=== PATIENT | female | born 1945 | race Caucasian/White ===

== ENCOUNTER → 2020-07-06 09:30 | Outpatient (REF) | payer MEDICARE, SELFPAY ==
--- NOTE | 2020-07-06 09:30 | CA_ITS ---
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 Cardiomyopathy, Hypertension Study Quality: Fair ECG Rhythm: Sinus Conclusions: - The left ventricular systolic function is normal. The visually estimated ejection fraction is between 60-65%. - No obvious valvular pathology seen on this study. Findings Left Ventricle Normal left ventricular cavity size. There is normal left ventricular wall thickness. The left ventricular systolic function is normal. The visually estimated ejection fraction is between 60-65%. There is no evidence of regional wall motion abnormalities. Diastolic function is normal for age. Right Ventricle Normal right ventricular cavity size and systolic function. Atria The left atrium is normal in size. The right atrium is normal in size. Aortic Valve There is a normal trileaflet aortic valve. There is no aortic valve stenosis. There is no aortic valve regurgitation. Mitral Valve The mitral valve appears normal. There is trace mitral valve regurgitation. There is no mitral valve stenosis. Pulmonic Valve The pulmonic valve was not well visualized. Tricuspid Valve Normal tricuspid valve structure. There is trace tricuspid valve regurgitation. The pulmonary artery systolic pressure is normal. Great Vessels The aortic annulus, sinuses of valsalva, and asc aorta are normal in size. Venous The inferior vena cava is normal in size and collapses greater than 50% with inspiration. Pericardium/Pleural There is no evidence of pericardial effusion. Prior Study Comparison No significant change compared to prior study dated: 07/03/2018. Recommendations, Care & Conclusions No obvious valvular pathology seen on this study. Measurements 2D Linear Measurements IVSd: 0.90 0.6-0.9/0.6-1.0 cm LVIDd: 4.21 3.9-5.3/4.2-5.9 cm LVIDs: 2.55 2.0-3.6 cm LVPWd: 0.74 0.7-1.1 cm LV Mass: 130.85 67-162/88-224 g LVOT Diam: 1.99 3.0+(-)1.3 cm Mitral Valve MV Pk E: 0.67 MV PK A: 0.33 MV Decel Time: 178.61 E/A: 2.00 E'Medial: 0.08 E/E' Med: 0.10 Decel Baca: 3.74 Aortic Valve AoV Pk Vitor: 0.92 AoV Pk Grad: 3.38 LVOT LVOT Pk Vitor: 0.82 LVOT Mn Vitor: 0.54 LVOT VTI: 0.19 LVOT Pk Grad: 2.68 LVOT Mn Grad: 1.33 LVOT Diam: 1.99 LVOT Area: 3.12 Diastolic Function MV Pk E: 0.67 MV Pk A: 0.33 E/A: 2.00 E'Medial: 0.08 E/E' Med: 0.10 Tricuspid Valve TR Pk Vitor: 2.47 TR Pk Grad: 24.49 RA Press: 3.00 Great Vessels Aorta Ao Asc: 3.00 2.1-3.4 cm Updated in Other Vendor System with Status of Final Rojelio Wynn MD electronically signed on 07/08/2020 2:17:01 PM with status of Final
== END ==
LOC: HO.CARD 09:30
PROVIDERS: PCP Internal Medicine; Visit Provider Internal Medicine Cardiovascular Disease
DX: I48.91 Unspecified atrial fibrillation (principal); R00.1 Bradycardia, unspecified; Z79.01 Long term (current) use of anticoagulants
CPT/HCPCS: 93306

== ENCOUNTER → 2020-07-06 15:17 | Outpatient (BNVA) | payer MEDICARE, SELFPAY | PROVIDERS: PCP Internal Medicine; Visit Provider Internal Medicine | DX: I48.20 Chronic atrial fibrillation, unspecified (principal); Z51.81 Encounter for therapeutic drug level monitoring; Z79.01 Long term (current) use of anticoagulants; I48.0 Paroxysmal atrial fibrillation; I10 Essential (primary) hypertension; Z86.79 Personal history of other diseases of the circulatory system | CPT/HCPCS: 85610; 93306; 99211 ==

== ENCOUNTER → 2020-07-15 08:43 | Outpatient (BNVA) | payer MEDICARE, SELFPAY | PROVIDERS: PCP Internal Medicine; Referring Provider Internal Medicine; Visit Provider Nurse Practitioner Family | DX: I48.0 Paroxysmal atrial fibrillation (principal); I42.9 Cardiomyopathy, unspecified; R00.1 Bradycardia, unspecified; E78.5 Hyperlipidemia, unspecified; I10 Essential (primary) hypertension; Z79.01 Long term (current) use of anticoagulants; Z79.899 Other long term (current) drug therapy | CPT/HCPCS: 99214 ==

== ENCOUNTER → 2020-08-04 14:23 | Outpatient (BNVA) | payer MEDICARE, SELFPAY | PROVIDERS: PCP Internal Medicine; Referring Provider Internal Medicine; Visit Provider Internal Medicine | DX: I48.20 Chronic atrial fibrillation, unspecified (principal); Z51.81 Encounter for therapeutic drug level monitoring; Z79.01 Long term (current) use of anticoagulants | CPT/HCPCS: 85610; 99211 ==

== ENCOUNTER → 2020-09-02 08:27 | Outpatient (BNVA) | payer MEDICARE, SELFPAY | PROVIDERS: PCP Internal Medicine; Visit Provider Internal Medicine | DX: I48.20 Chronic atrial fibrillation, unspecified (principal); Z51.81 Encounter for therapeutic drug level monitoring; Z79.01 Long term (current) use of anticoagulants | CPT/HCPCS: 85610; 99211 ==

== ENCOUNTER 2020-09-15 08:13 | Outpatient (REF) | payer MEDICARE, SELFPAY ==
[2020-09-15 09:33] LABS: Basophils Percent Auto 0.2 % (0-2); MANUAL DIFF FLAG SCAN; PLT CLUMP 1; SCAN SMEAR FLAG 1
[2020-09-15 09:35] LABS: Eosinophils Absolute Auto 0.1 X10*3/uL (0.0-0.4); Eosinophils Percent Auto 2.3 % (0-4); Imm Gran Abs Auto 0.03 X10*3/uL (0.00-0.03); Imm Gran Pct Auto 0.6 % (0.0-0.4); Lymphocytes Absolute Auto 1.5 X10*3/uL (1.2-4.9); Lymphocytes Percent Auto 27.7 % (20-40); Mean Corpuscular HGB Conc 33.3 g/dl (31.0-35.0); Mean Corpuscular Hemoglobin 30.9 pg (27.0-33.0); Mean Corpuscular Volume 92.8 fL (80-98); Monocytes Absolute Auto 0.5 X10*3/uL (0.1-1.2); Monocytes Percent Auto 8.9 % (2-11); Neutrophils Absolute Auto 3.2 X10*3/uL (2.0-8.3); Neutrophils Percent Auto 60.3 % (45-73); Red Blood Count 4.85 X10*6/uL (4.20-5.50); Red Cell Distribution Width 13.1 % (11.0-16.0); White Blood Count 5.3 X10*3/uL (4.8-10.8)
[2020-09-15 09:54] LABS: Alanine Aminotransferase 26 U/L (0-31); Albumin Level 4.1 g/dL (3.5-5.0); Alkaline Phosphatase 103 U/L (39-117); Anion Gap 13 (12-20); Aspartate Amino Transferase 24 U/L (5-31); Bilirubin Total 0.5 mg/dL (0.0-1.0); Blood Urea Nitrogen 19 mg/dL (9-16); Calcium 8.5 mg/dL (8.4-10.2); Carbon Dioxide 26 mmol/L (22-29); Chloride 106 mmol/L (96-108); Cholesterol 155 mg/dL; Estimated Glomerular Filt Rate 50; Glucose Random 89 mg/dL (60-115); HDL Cholesterol 54 mg/dL; LDL Cholesterol Calculated 70 mg/dl; Potassium 4.4 mmol/l (3.3-5.1); Sodium 141 mmol/L (135-145); Total Protein 6.8 g/dL (6.5-8.0); Triglycerides 155 mg/dL
[2020-09-15 10:04] LABS: Free T4 (Free Thyroxine) 1.14 ng/dL (0.71-1.85); Thyroid Stimulating Hormone 3.87 uIU/mL (0.32-4.0); Vitamin D 25-OH Total 64.5 ng/mL (>30)
[2020-09-15 10:15] LABS: SLIDE REVIEW VERIFIED
[2020-09-15 10:26] LABS: Folate > 20.0 ng/mL (> or = 4.0); Vitamin B12 569 pg/mL (200-900)
== END 2020-09-15 08:14 | disposition home or self-care (01) ==
LOC: HO.LAB 08:13
PROVIDERS: Visit Provider Internal Medicine
DX: I48.0 Paroxysmal atrial fibrillation (principal); E78.00 Pure hypercholesterolemia, unspecified; I10 Essential (primary) hypertension
CPT/HCPCS: 36415; 80053; 80061; 82306; 82607; 82746; 84439; 84443; 85025

== ENCOUNTER → 2020-09-30 08:12 | Outpatient (BNVA) | payer MEDICARE, SELFPAY | PROVIDERS: PCP Internal Medicine; Visit Provider Internal Medicine | DX: I48.20 Chronic atrial fibrillation, unspecified (principal); Z51.81 Encounter for therapeutic drug level monitoring; Z79.01 Long term (current) use of anticoagulants | CPT/HCPCS: 85610; 99211 ==

== ENCOUNTER → 2020-10-14 09:14 | Outpatient (BNVA) | payer MEDICARE, SELFPAY | PROVIDERS: PCP Internal Medicine; Visit Provider Internal Medicine | DX: I48.20 Chronic atrial fibrillation, unspecified (principal); Z79.01 Long term (current) use of anticoagulants; Z51.81 Encounter for therapeutic drug level monitoring | CPT/HCPCS: 85610; 99211 ==

== ENCOUNTER → 2020-10-29 08:35 | Outpatient (BNVA) | payer MEDICARE, SELFPAY | PROVIDERS: PCP Internal Medicine; Visit Provider Internal Medicine | DX: I48.20 Chronic atrial fibrillation, unspecified (principal); Z51.81 Encounter for therapeutic drug level monitoring; Z79.01 Long term (current) use of anticoagulants | CPT/HCPCS: 85610; 99211 ==

== ENCOUNTER 2020-11-04 | Outpatient (REF) | payer MEDICARE, SELFPAY | END 2020-11-04 00:01 | disposition home or self-care (01) | LOC: HO.VC | PROVIDERS: Visit Provider Internal Medicine | DX: Z23 Encounter for immunization (principal) | CPT/HCPCS: 0011A ==

== ENCOUNTER → 2020-11-19 08:40 | Outpatient (BNVA) | payer MEDICARE, SELFPAY | PROVIDERS: PCP Internal Medicine; Visit Provider Internal Medicine | DX: I48.20 Chronic atrial fibrillation, unspecified (principal); Z51.81 Encounter for therapeutic drug level monitoring; Z79.01 Long term (current) use of anticoagulants | CPT/HCPCS: 85610; 99211 ==

== ENCOUNTER 2020-12-02 | Outpatient (REF) | payer MEDICARE, SELFPAY | END 2020-12-02 00:01 | disposition home or self-care (01) | LOC: HO.VC | PROVIDERS: Visit Provider Internal Medicine | DX: Z23 Encounter for immunization (principal) | CPT/HCPCS: 0012A ==

== ENCOUNTER → 2020-12-17 08:38 | Outpatient (BNVA) | payer MEDICARE, SELFPAY | PROVIDERS: PCP Internal Medicine; Visit Provider Internal Medicine | DX: I48.20 Chronic atrial fibrillation, unspecified (principal); Z51.81 Encounter for therapeutic drug level monitoring; Z79.01 Long term (current) use of anticoagulants | CPT/HCPCS: 85610; 99211 ==

== ENCOUNTER 2021-01-12 13:36 | Outpatient (REF) | payer MEDICARE, SELFPAY ==
[2021-01-12 14:04] LABS: MANUAL DIFF FLAG NO
[2021-01-12 14:08] LABS: Basophils Percent Auto 0.5 % (0-2); Eosinophils Absolute Auto 0.4 X10*3/uL (0.0-0.4); Eosinophils Percent Auto 6.7 % (0-4); Hematocrit 42.7 % (37-47); Hemoglobin 14.3 g/dl (12.0-16.0); Imm Gran Abs Auto 0.03 X10*3/uL (0.00-0.03); Imm Gran Pct Auto 0.5 % (0.0-0.4); Lymphocytes Absolute Auto 1.6 X10*3/uL (1.2-4.9); Lymphocytes Percent Auto 27.3 % (20-40); Mean Corpuscular HGB Conc 33.5 g/dl (31.0-35.0); Mean Corpuscular Hemoglobin 31.3 pg (27.0-33.0); Mean Corpuscular Volume 93.4 fL (80-98); Mean Platelet Volume 9.6 fL (9.4-12.3); Monocytes Absolute Auto 0.6 X10*3/uL (0.1-1.2); Monocytes Percent Auto 10.1 % (2-11); Neutrophils Absolute Auto 3.2 X10*3/uL (2.0-8.3); Neutrophils Percent Auto 54.9 % (45-73); Platelet Count 198 X10*3/uL (160-400); Red Blood Count 4.57 X10*6/uL (4.20-5.50); Red Cell Distribution Width 13.3 % (11.0-16.0); White Blood Count 5.8 X10*3/uL (4.8-10.8)
== END 2021-01-12 13:37 | disposition home or self-care (01) ==
LOC: HO.LAB 13:36
PROVIDERS: PCP Internal Medicine; Visit Provider Internal Medicine
DX: D69.1 Qualitative platelet defects (principal); M19.90 Unspecified osteoarthritis, unspecified site
CPT/HCPCS: 36415; 85025

== ENCOUNTER → 2021-01-14 08:30 | Outpatient (BNVA) | payer MEDICARE, SELFPAY | PROVIDERS: PCP Internal Medicine; Visit Provider Internal Medicine | DX: I48.20 Chronic atrial fibrillation, unspecified (principal); Z79.01 Long term (current) use of anticoagulants; Z51.81 Encounter for therapeutic drug level monitoring | CPT/HCPCS: 85610; 99211 ==

== ENCOUNTER → 2021-02-02 13:52 | Outpatient (BNVA) | payer MEDICARE, SELFPAY | PROVIDERS: PCP Internal Medicine; Referring Provider Internal Medicine; Visit Provider Internal Medicine Cardiovascular Disease | DX: I48.0 Paroxysmal atrial fibrillation (principal); I42.9 Cardiomyopathy, unspecified; Z79.899 Other long term (current) drug therapy | CPT/HCPCS: 93005; 99212 ==

== ENCOUNTER → 2021-02-11 08:17 | Outpatient (BNVA) | payer MEDICARE, SELFPAY | PROVIDERS: PCP Internal Medicine; Visit Provider Internal Medicine | DX: I48.20 Chronic atrial fibrillation, unspecified (principal); Z51.81 Encounter for therapeutic drug level monitoring; Z79.01 Long term (current) use of anticoagulants | CPT/HCPCS: 85610; 99211 ==

== ENCOUNTER → 2021-03-04 08:21 | Outpatient (BNVA) | payer MEDICARE, SELFPAY | PROVIDERS: PCP Internal Medicine; Visit Provider Internal Medicine | DX: I48.20 Chronic atrial fibrillation, unspecified (principal); Z51.81 Encounter for therapeutic drug level monitoring; Z79.01 Long term (current) use of anticoagulants | CPT/HCPCS: 85610; 99211 ==

== ENCOUNTER → 2021-04-01 08:13 | Outpatient (BNVA) | payer MEDICARE, SELFPAY | PROVIDERS: PCP Internal Medicine; Visit Provider Internal Medicine | DX: I48.20 Chronic atrial fibrillation, unspecified (principal); Z51.81 Encounter for therapeutic drug level monitoring; Z79.01 Long term (current) use of anticoagulants | CPT/HCPCS: 85610; 99211 ==

== ENCOUNTER → 2021-05-06 08:22 | Outpatient (BNVA) | payer MEDICARE, SELFPAY | PROVIDERS: PCP Internal Medicine; Visit Provider Internal Medicine | DX: I48.20 Chronic atrial fibrillation, unspecified (principal); Z51.81 Encounter for therapeutic drug level monitoring; Z79.01 Long term (current) use of anticoagulants | CPT/HCPCS: 85610; 99211 ==

== ENCOUNTER 2021-05-20 13:23 | Outpatient (REF) | payer MEDICARE, SELFPAY ==
--- NOTE | ~2021-05-20 | MM_ITS ---
EXAMINATION: MM SCREENING DIGITAL BREAST TOMOSYNTHESIS, BILATERAL CLINICAL INFORMATION: Screening. Asymptomatic. The lifetime risk of breast cancer based on the Tyrer-Cuzick Model is 2%. COMPARISON: Mammography: 03/23/2020, 01/07/2019, 12/14/2017 TECHNIQUE: Digital breast tomosynthesis is performed in both the craniocaudal and mediolateral oblique views along with computer-aided detection (CAD). Synthesized 2D images are generated from the tomosynthesis. FINDINGS: The breasts are heterogeneously dense, which may obscure small masses (ACR BI-RADS breast composition Category c). There are no significant masses, abnormal calcifications, or other abnormalities. Parenchymal pattern is similar to prior studies. No developing density. No significant changes. MM/MM tomosynthesis screening BI IMPRESSION: No mammographic evidence of malignancy. ASSESSMENT: BI-RADS 1: Negative RECOMMENDATION: Routine annual mammography screening. This patient's information was entered into a reminder system with a target due date for their next mammogram.
== END 2021-05-20 13:24 | disposition home or self-care (01) ==
LOC: HO.MAMMO 13:23
PROVIDERS: PCP Internal Medicine; Visit Provider Internal Medicine
DX: Z12.31 Encounter for screening mammogram for malignant neoplasm of breast (principal)
CPT/HCPCS: 77063; 77067

== ENCOUNTER → 2021-06-03 08:27 | Outpatient (BNVA) | payer MEDICARE, SELFPAY | PROVIDERS: PCP Internal Medicine; Visit Provider Internal Medicine | DX: I48.20 Chronic atrial fibrillation, unspecified (principal); Z51.81 Encounter for therapeutic drug level monitoring; Z79.01 Long term (current) use of anticoagulants | CPT/HCPCS: 85610; 99211 ==

== ENCOUNTER → 2021-07-01 08:20 | Outpatient (BNVA) | payer MEDICARE, SELFPAY | PROVIDERS: PCP Internal Medicine; Visit Provider Internal Medicine | DX: I48.20 Chronic atrial fibrillation, unspecified (principal); Z51.81 Encounter for therapeutic drug level monitoring; Z79.01 Long term (current) use of anticoagulants | CPT/HCPCS: 85610; 99211 ==

== ENCOUNTER → 2021-07-29 08:31 | Outpatient (BNVA) | payer MEDICARE, SELFPAY | PROVIDERS: PCP Internal Medicine; Visit Provider Internal Medicine | DX: I48.20 Chronic atrial fibrillation, unspecified (principal); Z51.81 Encounter for therapeutic drug level monitoring; Z79.01 Long term (current) use of anticoagulants | CPT/HCPCS: 85610; 99211 ==

== ENCOUNTER 2021-08-10 07:15 | Outpatient (REF) | payer MEDICARE, SELFPAY ==
[2021-08-10 07:35] LABS: MANUAL DIFF FLAG NO
[2021-08-10 08:05] LABS: Basophils Percent Auto 0.2 % (0-2); Eosinophils Absolute Auto 0.1 X10*3/uL (0.0-0.4); Eosinophils Percent Auto 2.3 % (0-4); Hematocrit 43.6 % (37.0-47.0); Hemoglobin 14.6 g/dl (12.0-16.0); Imm Gran Abs Auto 0.01 X10*3/uL (0.00-0.03); Imm Gran Pct Auto 0.2 % (0.0-0.4); Lymphocytes Absolute Auto 1.5 X10*3/uL (1.2-4.9); Lymphocytes Percent Auto 28.8 % (20-40); Mean Corpuscular HGB Conc 33.5 g/dl (31.0-35.0); Mean Corpuscular Hemoglobin 31.3 pg (27.0-33.0); Mean Corpuscular Volume 93.4 fL (80.0-98.0); Mean Platelet Volume 10.4 fL (9.4-12.3); Monocytes Absolute Auto 0.5 X10*3/uL (0.1-1.2); Monocytes Percent Auto 9.2 % (2-11); Neutrophils Absolute Auto 3.1 x10*3/uL (2.0-8.3); Neutrophils Percent Auto 59.3 % (45-73); Platelet Count 194 X10*3/uL (160-400); Red Blood Count 4.67 X10*6/uL (4.20-5.50); Red Cell Distribution Width 13.4 % (11.0-16.0); White Blood Count 5.2 X10*3/uL (4.8-10.8)
[2021-08-10 08:43] LABS: Alanine Aminotransferase 23 U/L (0-31); Albumin Level 4.2 g/dL (3.5-5.0); Alkaline Phosphatase 92 U/L (39-117); Anion Gap 13 (12-20); Aspartate Amino Transferase 23 U/L (5-31); Bilirubin Total 0.4 mg/dL (0.0-1.0); Blood Urea Nitrogen 16 mg/dL (9-16); Calcium 9.1 mg/dL (8.4-10.2); Carbon Dioxide 26 mmol/L (22-29); Chloride 108 mmol/L (96-108); Cholesterol 147 mg/dL; Estimated Glomerular Filt Rate 49; Glucose Random 92 mg/dL (60-115); HDL Cholesterol 50 mg/dL; LDL Cholesterol Calculated 50 mg/dl; Potassium 4.8 mmol/L (3.3-5.1); Sodium 142 mmol/L (135-145); Triglycerides 238 mg/dL
[2021-08-10 09:07] LABS: Appearance Urine CLEAR; Color Urine YELLOW; Glucose Urine UA NEG (NEG); Leukocyte Esterase Urine NEG (NEG); Nitrite Urine NEG (NEG); PH 5.5 (5.0-8.0); Urine Blood NEG (NEG); Urine Ketones NEG (NEG); Urine Protein NEG (NEG-TRACE)
[2021-08-10 09:14] LABS: Thyroid Stimulating Hormone 3.58 uIU/mL (0.32-4.0)
[2021-08-10 09:24] LABS: RBC Urine 0-2 /HPF (0); Squamous Epithelial Cell Urine 1+ /LPF; WBC Urine 0 /HPF (0-4)
[2021-08-10 09:29] LABS: Folate 19.7 ng/mL (> or = 4.0); Vitamin B12 617 pg/mL (200-900)
[2021-08-10 09:46] LABS: Free T4 (Free Thyroxine) 1.08 ng/dL (0.71-1.85)
== END 2021-08-10 07:16 | disposition home or self-care (01) ==
LOC: HO.LAB 07:15
PROVIDERS: PCP Internal Medicine; Visit Provider Internal Medicine
DX: I48.0 Paroxysmal atrial fibrillation (principal); E78.00 Pure hypercholesterolemia, unspecified
CPT/HCPCS: 36415; 80053; 80061; 81001; 82607; 82746; 84439; 84443; 85025

== ENCOUNTER → 2021-08-11 10:07 | Outpatient (BNVA) | payer MEDICARE, SELFPAY | PROVIDERS: PCP Internal Medicine; Referring Provider Internal Medicine; Visit Provider Internal Medicine Cardiovascular Disease | DX: I48.0 Paroxysmal atrial fibrillation (principal); I42.9 Cardiomyopathy, unspecified | CPT/HCPCS: 93005; 99212 ==

== ENCOUNTER 2021-08-31 07:33 | Outpatient (REF) | payer MEDICARE, SELFPAY | END 2021-08-31 07:34 | disposition home or self-care (01) | LOC: HO.LAB 07:33 | PROVIDERS: PCP Internal Medicine; Visit Provider Internal Medicine | DX: Z20.822 Contact with and (suspected) exposure to COVID-19 (principal) | CPT/HCPCS: C9803; U0003; U0005 ==

== ENCOUNTER → 2021-09-02 08:35 | Outpatient (BNVA) | payer MEDICARE, SELFPAY | PROVIDERS: PCP Internal Medicine; Visit Provider Internal Medicine | DX: I48.20 Chronic atrial fibrillation, unspecified (principal); Z51.81 Encounter for therapeutic drug level monitoring; Z79.01 Long term (current) use of anticoagulants | CPT/HCPCS: 85610; 99211 ==

== ENCOUNTER → 2021-09-30 08:53 | Outpatient (BNVA) | payer MEDICARE, SELFPAY | PROVIDERS: PCP Internal Medicine; Visit Provider Internal Medicine | DX: I48.20 Chronic atrial fibrillation, unspecified (principal); Z51.81 Encounter for therapeutic drug level monitoring; Z79.01 Long term (current) use of anticoagulants | CPT/HCPCS: 85610; 99211 ==

== ENCOUNTER → 2021-10-28 08:22 | Outpatient (BNVA) | payer MEDICARE, SELFPAY | PROVIDERS: PCP Internal Medicine; Visit Provider Internal Medicine | DX: I48.20 Chronic atrial fibrillation, unspecified (principal); Z51.81 Encounter for therapeutic drug level monitoring; Z79.01 Long term (current) use of anticoagulants | CPT/HCPCS: 85610; 99211 ==

== ENCOUNTER 2021-11-02 08:31 | Outpatient (REF) | payer MEDICARE, SELFPAY ==
--- NOTE | ~2021-11-02 | XR_ITS ---
EXAMINATION: XR LEFT HIP XR RIGHT KNEE CLINICAL INFORMATION: Pain left hip and right knee. COMPARISON: None TECHNIQUE: 2 views left hip and 3 views right knee FINDINGS: LEFT HIP: There is no visible acute fracture, dislocation or subluxation. There are no bony erosive changes or spurring. No loose bodies. The soft tissues are normal. RIGHT KNEE: There is mild loss of medial and patellofemoral compartment joint space. No bony erosive changes. No visible acute fracture, dislocation or lytic process seen. The soft tissues are normal. XR/XR hip LT min 2V IMPRESSION: Unremarkable left hip exam. Mild degenerative changes medial and patellofemoral compartment right knee.
--- NOTE | ~2021-11-02 | XR_ITS ---
EXAMINATION: XR LEFT HIP XR RIGHT KNEE CLINICAL INFORMATION: Pain left hip and right knee. COMPARISON: None TECHNIQUE: 2 views left hip and 3 views right knee FINDINGS: LEFT HIP: There is no visible acute fracture, dislocation or subluxation. There are no bony erosive changes or spurring. No loose bodies. The soft tissues are normal. RIGHT KNEE: There is mild loss of medial and patellofemoral compartment joint space. No bony erosive changes. No visible acute fracture, dislocation or lytic process seen. The soft tissues are normal. XR/XR knee RT 2V IMPRESSION: Unremarkable left hip exam. Mild degenerative changes medial and patellofemoral compartment right knee.
== END 2021-11-02 08:32 | disposition home or self-care (01) ==
LOC: HO.XRAY 08:31
PROVIDERS: PCP Internal Medicine; Visit Provider Internal Medicine
DX: M25.561 Pain in right knee (principal); M25.552 Pain in left hip
CPT/HCPCS: 73502; 73560

== ENCOUNTER → 2021-11-25 08:24 | Outpatient (BNVA) | payer MEDICARE, SELFPAY | PROVIDERS: PCP Internal Medicine; Visit Provider Internal Medicine | DX: I48.20 Chronic atrial fibrillation, unspecified (principal); Z51.81 Encounter for therapeutic drug level monitoring; Z79.01 Long term (current) use of anticoagulants | CPT/HCPCS: 85610; 99211 ==

== ENCOUNTER → 2021-12-23 08:13 | Outpatient (BNVA) | payer MEDICARE, SELFPAY | PROVIDERS: PCP Internal Medicine; Visit Provider Internal Medicine | DX: I48.20 Chronic atrial fibrillation, unspecified (principal); Z51.81 Encounter for therapeutic drug level monitoring; Z79.01 Long term (current) use of anticoagulants | CPT/HCPCS: 85610; 99211 ==

== ENCOUNTER → 2022-01-20 08:21 | Outpatient (BNVA) | payer MEDICARE, SELFPAY | PROVIDERS: PCP Internal Medicine; Visit Provider Internal Medicine | DX: I48.20 Chronic atrial fibrillation, unspecified (principal); Z79.01 Long term (current) use of anticoagulants; Z51.81 Encounter for therapeutic drug level monitoring | CPT/HCPCS: 85610; 99211 ==

== ENCOUNTER → 2022-02-14 10:41 | Outpatient (BNVA) | payer MEDICARE, SELFPAY | PROVIDERS: PCP Internal Medicine; Referring Provider Internal Medicine; Visit Provider Internal Medicine Cardiovascular Disease | DX: I48.0 Paroxysmal atrial fibrillation (principal); I42.9 Cardiomyopathy, unspecified; R00.1 Bradycardia, unspecified | CPT/HCPCS: 93005; 99212 ==

== ENCOUNTER → 2022-02-17 08:16 | Outpatient (BNVA) | payer MEDICARE, SELFPAY | PROVIDERS: PCP Internal Medicine; Visit Provider Internal Medicine | DX: I48.20 Chronic atrial fibrillation, unspecified (principal); Z79.01 Long term (current) use of anticoagulants; Z51.81 Encounter for therapeutic drug level monitoring | CPT/HCPCS: 85610; 99211 ==

== ENCOUNTER → 2022-03-17 08:19 | Outpatient (BNVA) | payer MEDICARE, SELFPAY | PROVIDERS: PCP Internal Medicine; Visit Provider Internal Medicine | DX: I48.20 Chronic atrial fibrillation, unspecified (principal); Z79.01 Long term (current) use of anticoagulants; Z51.81 Encounter for therapeutic drug level monitoring | CPT/HCPCS: 85610; 99211 ==

== ENCOUNTER → 2022-04-14 08:31 | Outpatient (BNVA) | payer MEDICARE, SELFPAY | PROVIDERS: PCP Internal Medicine; Visit Provider Internal Medicine | DX: I48.20 Chronic atrial fibrillation, unspecified (principal); Z79.01 Long term (current) use of anticoagulants; Z51.81 Encounter for therapeutic drug level monitoring | CPT/HCPCS: 85610; 99211 ==

== ENCOUNTER → 2022-05-19 08:20 | Outpatient (BNVA) | payer MEDICARE, SELFPAY | PROVIDERS: PCP Internal Medicine; Visit Provider Internal Medicine | DX: I48.20 Chronic atrial fibrillation, unspecified (principal); Z79.01 Long term (current) use of anticoagulants; Z51.81 Encounter for therapeutic drug level monitoring | CPT/HCPCS: 85610; 99211 ==

== ENCOUNTER 2022-05-25 08:58 | Outpatient (REF) | payer MEDICARE, SELFPAY ==
--- NOTE | ~2022-05-25 | MM_ITS ---
EXAMINATION: BONE DENSITOMETRY CLINICAL INDICATION: Age-related osteoporosis without current pathological fracture. COMPARISON: Previous BD dated 12/02/2019 and baseline BD dated 08/18/2006. TECHNIQUE: Using a [employer] DXA System (software version: 13.1) manufactured by [employer], dual-energy x-ray absorptiometry was performed of the lumbar spine and left hip. The images are of good technical quality. Summary results are attached. FINDINGS: AP SPINE L1-L4 (excluding L2): The data of L1-L4 has been changed to exclude the L2 vertebral body, because scoliosis and degenerative change at this level may cause overestimation of lumbar spine density. Current: BMD 1.281 g/cm2, Z-score 2.7, T-score 0.9, normal, 7.6% increase from previous, 4.3% decrease from baseline (<5% change is not significant). Prior: BMD 1.190 g/cm2. Baseline: BMD 1.339 g/cm2. LEFT FEMUR, NECK: Current: BMD 0.715 g/cm2, Z-score -0.3, T-score -2.3, osteopenia. Prior: BMD 0.687 g/cm2. Baseline: BMD 0.849 g/cm2. LEFT FEMUR, TOTAL: Current: BMD 0.795 g/cm2, Z-score 0.2, T-score -1.7, osteopenia, 6.6% increase from previous, 11.2% decrease from baseline (<5% change is not significant). Prior: BMD 0.746 g/cm2. Baseline: BMD 0.895 g/cm2. IDENTIFIED RISK FACTORS: Early menopause, secondary osteoporosis, hysterectomy, bilateral oophorectomy, height loss, history of fracture (adult). HISTORY OF FRACTURE: Humerus. MEDICATIONS: Calcium supplements or multivitamin, vitamin D. MM/XR DEXA axial skeleton IMPRESSION: 1. DIAGNOSIS: Osteopenia based on the lowest T-score value of -2.3 in the femoral neck applying World Health Organization criteria. 2. 10-YEAR FRACTURE RISK PREDICTION, FRAX: Major osteoporotic fracture (clinical spine, forearm, hip or shoulder) 25.0%. Hip fracture 7.6%. 3. Treatment Recommendations: NOF guidelines recommend consideration for treatment in postmenopausal women and men age 50 and older presenting with the following: -A hip or vertebral (clinical or morphometric) fracture. -T-score less than or equal to -2.5 at the femoral neck or spine after appropriate evaluation to exclude secondary causes. -Low bone mass at the hip or spine and a 10-year fracture probability by FRAX of greater than or equal to 3% for hip fracture or greater than or equal to 20% for major osteoporotic fracture based on the [place] adapted WHO algorithm. 4. Other Recommendations: All treatment decisions require clinical judgment and consideration of individual patient factors, including patient preferences, comorbidities, previous drug use, risk factors not captured in the FRAX model (e.g. frailty, falls, vitamin D deficiency, increased bone turnover, interval significant decline in bone density) and possible under or overestimation of fracture risk by FRAX. Additional medical evaluation for secondary cause of low bone mineral density may be appropriate. FUTURE SCAN RECOMMENDATION: People with diagnosed cases of osteoporosis or at high risk for fracture should have regular bone mineral density tests. For patients eligible for Medicare, routine testing is allowed once every 2 years. The testing frequency can be increased to one year for patients who have rapidly progressing disease, those who are receiving or discontinuing medical therapy to restore bone mass, or have additional risk factors.
== END 2022-05-25 08:59 | disposition home or self-care (01) ==
LOC: HO.MAMMO 08:58
PROVIDERS: PCP Internal Medicine; Visit Provider Internal Medicine
DX: Z13.820 Encounter for screening for osteoporosis (principal); M81.0 Age-related osteoporosis without current pathological fracture; Z78.0 Asymptomatic menopausal state
CPT/HCPCS: 77080

== ENCOUNTER 2022-05-26 09:33 | Outpatient (REF) | payer MEDICARE, SELFPAY ==
--- NOTE | ~2022-05-26 | MM_ITS ---
EXAMINATION: MM SCREENING DIGITAL BREAST TOMOSYNTHESIS, BILATERAL CLINICAL INFORMATION: Screening. Asymptomatic. The lifetime risk of breast cancer based on the Tyrer-Cuzick Model is 1.4%. COMPARISON: Mammography: May 20, 2021 and studies dating back to October 11, 2011 TECHNIQUE: Digital breast tomosynthesis is performed in both the craniocaudal and mediolateral oblique views along with computer-aided detection (CAD). Synthesized 2D images are generated from the tomosynthesis. FINDINGS: The breasts are heterogeneously dense, which may obscure small masses (ACR BI-RADS breast composition Category c). There are no significant masses, abnormal calcifications, or other abnormalities. MM/MM tomosynthesis screening BI IMPRESSION: No significant changes from prior exam. ASSESSMENT: BI-RADS 1: Negative RECOMMENDATION: Routine annual mammography screening. This patient's information was entered into a reminder system with a target due date for their next mammogram.
== END 2022-05-26 09:34 | disposition home or self-care (01) ==
LOC: HO.MAMMO 09:33
PROVIDERS: Visit Provider Internal Medicine
DX: Z12.31 Encounter for screening mammogram for malignant neoplasm of breast (principal)
CPT/HCPCS: 77063; 77067

== ENCOUNTER → 2022-06-15 08:23 | Outpatient (BNVA) | payer MEDICARE, SELFPAY | PROVIDERS: PCP Internal Medicine; Visit Provider Internal Medicine | DX: I48.20 Chronic atrial fibrillation, unspecified (principal); Z79.01 Long term (current) use of anticoagulants; Z51.81 Encounter for therapeutic drug level monitoring | CPT/HCPCS: 85610; 99211 ==

== ENCOUNTER 2022-07-07 08:02 | Outpatient (REF) | payer MEDICARE, SELFPAY ==
[2022-07-07 08:30] LABS: MANUAL DIFF FLAG NO
[2022-07-07 09:59] LABS: B Type Natriuretic Peptide 71 pg/mL (<100)
[2022-07-07 10:24] LABS: Alanine Aminotransferase 32 U/L (0-31); Albumin Level 4.1 g/dL (3.5-5.0); Alkaline Phosphatase 104 U/L (39-117); Anion Gap 14 (12-20); Aspartate Amino Transferase 25 U/L (5-31); Bilirubin Total 0.4 mg/dL (0.0-1.0); Blood Urea Nitrogen 16 mg/dL (9-16); Calcium 8.9 mg/dL (8.4-10.2); Carbon Dioxide 27 mmol/L (22-29); Chloride 106 mmol/L (96-108); Cholesterol 149 mg/dL; Estimated Glomerular Filt Rate 46; Glucose Random 88 mg/dL (60-115); HDL Cholesterol 53 mg/dL; LDL Cholesterol Calculated 63 mg/dl; Sodium 142 mmol/L (135-145); Total Protein 6.8 g/dL (6.5-8.0); Triglycerides 168 mg/dL
[2022-07-07 10:49] LABS: Free T4 (Free Thyroxine) 1.12 ng/dL (0.71-1.85); Thyroid Stimulating Hormone 2.81 uIU/mL (0.32-4.0); Vitamin D 25-OH Total 58.3 ng/mL (>30)
[2022-07-07 11:09] LABS: Basophils Percent Auto 0.5 % (0-2); Eosinophils Absolute Auto 0.2 X10*3/uL (0.0-0.4); Eosinophils Percent Auto 3.4 % (0-4); Hematocrit 43.7 % (37.0-47.0); Hemoglobin 14.5 g/dl (12.0-16.0); Imm Gran Abs Auto 0.04 X10*3/uL (0.00-0.03); Imm Gran Pct Auto 0.7 % (0.0-0.4); Lymphocytes Absolute Auto 1.6 X10*3/uL (1.2-4.9); Lymphocytes Percent Auto 27.8 % (20-40); Mean Corpuscular HGB Conc 33.2 g/dl (31.0-35.0); Mean Corpuscular Hemoglobin 30.5 pg (27.0-33.0); Mean Platelet Volume 11.2 fL (9.4-12.3); Monocytes Absolute Auto 0.5 X10*3/uL (0.1-1.2); Monocytes Percent Auto 9.5 % (2-11); Neutrophils Absolute Auto 3.2 x10*3/uL (2.0-8.3); Neutrophils Percent Auto 58.1 % (45-73); Platelet Count 143 X10*3/uL (160-400); Red Blood Count 4.75 X10*6/uL (4.20-5.50); Red Cell Distribution Width 13.5 % (11.0-16.0); White Blood Count 5.6 X10*3/uL (4.8-10.8)
[2022-07-07 11:28] LABS: Folate 19.4 ng/mL (> or = 4.0); Vitamin B12 527 pg/mL (200-900)
== END 2022-07-07 08:03 | disposition home or self-care (01) ==
LOC: HO.LAB 08:02
PROVIDERS: PCP Internal Medicine; Visit Provider Internal Medicine
DX: E78.00 Pure hypercholesterolemia, unspecified (principal); I10 Essential (primary) hypertension; I42.9 Cardiomyopathy, unspecified
CPT/HCPCS: 36415; 80053; 80061; 82306; 82607; 82746; 83880; 84439; 84443; 85025

== ENCOUNTER → 2022-07-14 08:33 | Outpatient (BNVA) | payer MEDICARE, SELFPAY | PROVIDERS: PCP Internal Medicine; Visit Provider Internal Medicine | DX: I48.20 Chronic atrial fibrillation, unspecified (principal); Z79.01 Long term (current) use of anticoagulants; Z51.81 Encounter for therapeutic drug level monitoring | CPT/HCPCS: 85610; 99211 ==

== ENCOUNTER → 2022-08-04 08:10 | Outpatient (REF) | payer MEDICARE, SELFPAY ==
--- NOTE | 2022-08-04 08:12 | CA_ITS ---
Transthoracic Echocardiogram Patient (Last, First, Middle): Jenny Zhang M Gender: Female Date of : 1945 Age: 77 Procedure Date: 08/04/2022 Procedure Type: Transthoracic Echocardiogram Location: OP Height: 167.64 cm Weight: 68.04 kg BSA: 1.77 m2 Heart Rate: 61 bpm BP: 125 / 70 mmHg Missile Inspector: RAVIN Referring MD: Tomi Coffey MD Symptoms: I42.9 - Cardiomyopathy, unspecified Study Quality: Adequate ECG Rhythm: Sinus Conclusions: - The left ventricular systolic function is normal. The calculated ejection fraction is 64% by biplane method. - No obvious valvular pathology seen on this study. Findings Left Ventricle Normal left ventricular cavity size. There is normal left ventricular wall thickness. The left ventricular systolic function is normal. The calculated ejection fraction is 64% by biplane method. There is no evidence of regional wall motion abnormalities. Diastolic function is normal for age. Right Ventricle Normal right ventricular cavity size and systolic function. Atria Both atria are normal in size. Aortic Valve There is a normal trileaflet aortic valve. There is no aortic valve stenosis. There is no aortic valve regurgitation. Mitral Valve The mitral valve appears normal. There is trace mitral valve regurgitation. There is no mitral valve stenosis. Pulmonic Valve The pulmonic valve is likely normal. Tricuspid Valve The tricuspid valve was not well visualized. There is trace tricuspid valve regurgitation. There is no evidence of pulmonary hypertension. Great Vessels The asc aorta and aortic arch are normal in size. Venous The inferior vena cava is normal in size and collapses greater than 50% with inspiration. Pericardium/Pleural There is no evidence of pericardial effusion. Prior Study Comparison No significant change compared to prior study dated: 07/06/2020. Recommendations, Care & Conclusions No obvious valvular pathology seen on this study. Measurements 2D Linear Measurements IVSd: 0.99 0.6-0.9/0.6-1.0 cm LVIDd: 4.37 3.9-5.3/4.2-5.9 cm LVIDd Index: 2.47 2.4-3.2/2.2-3.1 cm/m2 LVIDs: 2.69 2.0-3.6 cm LVPWd: 0.64 0.7-1.1 cm LA Diam: 3.10 2.7-3.8/3.0-4.0 cm LAIDs Index: 1.75 1.5-2.3 cm/m2 LV Mass: 138.07 67-162/88-224 g LV Mass Index: 78.01 43-95/49-115 g/m2 LVOT Diam: 1.90 3.0+(-)1.3 cm 2D Systolic Function EF 4C: 60.60 >55% EF 2C: 70.10 >55% EF BiP: 63.80 >55% Mitral Valve MV Pk E: 0.71 MV PK A: 0.51 MV Decel Time: 201.00 E/A: 1.40 E'Lateral: 10.30 E'Medial: 8.76 E/E' Med: 8.10 E/E' Lat: 6.90 PHT: 59.00 MVA PHT: 3.73 Decel [place]: 3.52 Aortic Valve AoV Pk Vitor: 0.97 AoV Mn Vitor: 0.75 AoV VTI: 0.24 AoV Pk Grad: 4.00 Aov Mn Grad: 2.00 CRISTINA Cont.VTI: 2.66 LVOT LVOT Pk Vitor: 0.88 LVOT Mn Vitor: 0.63 LVOT VTI: 0.22 LVOT Pk Grad: 3.00 LVOT Mn Grad: 2.00 LVOT Diam: 1.90 LVOT Area: 2.84 Diastolic Function MV Pk E: 0.71 MV Pk A: 0.51 E/A: 1.40 E'Medial: 8.76 E/E' Med: 8.10 E' Laterial: 10.30 E/E' Lat: 6.90 Right Ventricle TAPSE (mm): 23.20 TVS' Vitor: 9.55 Tricuspid Valve RA Press: 3.00 Great Vessels Aorta Sinus of Valsalva: 3.30 2.0-3.5 cm Ao Asc: 3.00 2.1-3.4 cm Pulmonary Valve PV Pk Vitor: 0.77 Peak PV Grad: 2.00 Updated in Other Vendor System with Status of Final Rojelio Wynn MD electronically signed on 08/06/2022 10:05:45 AM with status of Final
== END ==
LOC: HO.CARD 08:10
PROVIDERS: PCP Internal Medicine; Visit Provider Internal Medicine Cardiovascular Disease
DX: I42.9 Cardiomyopathy, unspecified (principal)
CPT/HCPCS: 93306

== ENCOUNTER → 2022-08-10 08:19 | Outpatient (BNVA) | payer MEDICARE, SELFPAY | PROVIDERS: PCP Internal Medicine; Visit Provider Internal Medicine | DX: I48.20 Chronic atrial fibrillation, unspecified (principal); Z79.01 Long term (current) use of anticoagulants; Z51.81 Encounter for therapeutic drug level monitoring | CPT/HCPCS: 85610; 99211 ==

== ENCOUNTER → 2022-08-29 10:01 | Outpatient (BNVA) | payer MEDICARE, SELFPAY | PROVIDERS: PCP Internal Medicine; Referring Provider Internal Medicine; Visit Provider Internal Medicine Cardiovascular Disease | DX: I48.0 Paroxysmal atrial fibrillation (principal); I10 Essential (primary) hypertension | CPT/HCPCS: 81001; 87086; 87088; 87186; 93005; 99212 ==

== ENCOUNTER 2022-08-29 10:29 | Outpatient (REF) | payer MEDICARE, SELFPAY ==
[2022-08-29 11:34] LABS: Appearance Urine Cloudy; Color Urine Yellow; Glucose Urine UA Negative (Negative); Leukocyte Esterase Urine Moderate (2+) (Negative); Nitrite Urine Negative (Negative); PH 5.5 (5.0-9.0); UMIC TRIGGER UA YES; Urine Blood Large (3+) (Negative); Urine Ketones Negative (Negative); Urine Protein Trace mg/dL (Neg-Trace)
[2022-08-29 11:40] LABS: Bacteria Urine 4+ (None Seen); Hyaline Casts Urine 0-2 /LPF (0-2); RBC Urine >20 /HPF (0-2); Squamous Epithelial Cell Urine 0-2 /HPF (0-2); WBC Urine >50 /HPF (0-5)
== END 2022-08-29 10:30 | disposition home or self-care (01) ==
LOC: HO.LAB 10:29
PROVIDERS: Visit Provider Internal Medicine Cardiovascular Disease
DX: Z13.89 Encounter for screening for other disorder (principal)
CPT/HCPCS: 81001; 87086

== ENCOUNTER → 2022-09-08 08:05 | Outpatient (BNVA) | payer MEDICARE, SELFPAY | PROVIDERS: PCP Internal Medicine; Visit Provider Internal Medicine | DX: I48.20 Chronic atrial fibrillation, unspecified (principal); Z79.01 Long term (current) use of anticoagulants; Z51.81 Encounter for therapeutic drug level monitoring | CPT/HCPCS: 85610; 99211 ==

== ENCOUNTER → 2022-10-06 08:17 | Outpatient (BNVA) | payer MEDICARE, SELFPAY | PROVIDERS: PCP Internal Medicine; Visit Provider Internal Medicine | DX: I48.20 Chronic atrial fibrillation, unspecified (principal); Z79.01 Long term (current) use of anticoagulants; Z51.81 Encounter for therapeutic drug level monitoring | CPT/HCPCS: 85610; 99211 ==

== ENCOUNTER → 2022-11-03 08:33 | Outpatient (BNVA) | payer MEDICARE, SELFPAY | PROVIDERS: PCP Internal Medicine; Visit Provider Internal Medicine | DX: I48.20 Chronic atrial fibrillation, unspecified (principal); Z79.01 Long term (current) use of anticoagulants; Z51.81 Encounter for therapeutic drug level monitoring | CPT/HCPCS: 85610; 99211 ==

== ENCOUNTER → 2022-12-01 08:34 | Outpatient (BNVA) | payer MEDICARE, SELFPAY | PROVIDERS: PCP Internal Medicine; Visit Provider Internal Medicine | DX: I48.20 Chronic atrial fibrillation, unspecified (principal); Z79.01 Long term (current) use of anticoagulants; Z51.81 Encounter for therapeutic drug level monitoring | CPT/HCPCS: 85610; 99211 ==

== ENCOUNTER → 2022-12-29 08:30 | Outpatient (BNVA) | payer MEDICARE, SELFPAY | PROVIDERS: PCP Internal Medicine; Visit Provider Internal Medicine | DX: I48.20 Chronic atrial fibrillation, unspecified (principal); Z79.01 Long term (current) use of anticoagulants; Z51.81 Encounter for therapeutic drug level monitoring | CPT/HCPCS: 85610; 99211 ==

== ENCOUNTER → 2023-01-03 12:48 | Outpatient (REF) | payer MEDICARE, SELFPAY ==
--- NOTE | 2023-01-03 12:59 | ECG_ITS ---
Test Reason : pre op Blood Pressure : / mmHG Vent. Rate : 057 BPM Atrial Rate : 057 BPM P-R Int : 158 ms QRS Dur : 100 ms QT Int : 460 ms P-R-T Axes : 090 026 053 degrees QTc Int : 447 ms Sinus bradycardia Nonspecific T wave abnormality Abnormal ECG When compared with ECG of 09-AUG-2019 14:11, T wave inversion no longer evident in Anterior leads Referred By: Marylu Humphreys Electronically Signed By:Darren Mcgrath
[2023-01-03 13:07] LABS: MANUAL DIFF FLAG NO
[2023-01-03 13:22] LABS: Hematocrit 43.2 % (37.0-47.0); Hemoglobin 15.2 g/dl (12.0-16.0); Mean Corpuscular HGB Conc 35.2 g/dl (31.0-35.0); Mean Corpuscular Hemoglobin 31.7 pg (27.0-33.0); Mean Platelet Volume 10.6 fL (9.4-12.3); Platelet Count 154 X10*3/uL (160-400); Red Cell Distribution Width 13.1 % (11.0-16.0); White Blood Count 5.6 X10*3/uL (4.8-10.8)
[2023-01-03 13:23] LABS: Basophils Percent Auto 0.2 % (0-2); Eosinophils Absolute Auto 0.1 X10*3/uL (0.0-0.4); Eosinophils Percent Auto 1.2 % (0-4); Imm Gran Abs Auto 0.02 X10*3/uL (0.00-0.03); Imm Gran Pct Auto 0.4 % (0.0-0.4); Lymphocytes Absolute Auto 1.8 X10*3/uL (1.2-4.9); Lymphocytes Percent Auto 32.6 % (20-40); Monocytes Absolute Auto 0.5 X10*3/uL (0.1-1.2); Monocytes Percent Auto 8.2 % (2-11); Neutrophils Absolute Auto 3.2 x10*3/uL (2.0-8.3); Neutrophils Percent Auto 57.4 % (45-73)
[2023-01-03 14:17] LABS: Anion Gap 15 (12-20); Blood Urea Nitrogen 19 mg/dL (9-16); Calcium 9.4 mg/dL (8.4-10.2); Carbon Dioxide 26 mmol/L (22-29); Chloride 103 mmol/L (96-108); Estimated Glomerular Filt Rate 45; Glucose Random 91 mg/dL (60-115); Potassium 4.5 mmol/L (3.3-5.1); Sodium 139 mmol/L (135-145)
== END ==
LOC: HO.CARD 12:48
PROVIDERS: PCP Internal Medicine; Visit Provider Internal Medicine
DX: Z01.818 Encounter for other preprocedural examination (principal)
CPT/HCPCS: 36415; 80048; 85025; 93005

== ENCOUNTER 2023-01-09 09:00 | Day surgery (SDC) | payer MEDICARE, SELFPAY ==
[2023-01-03 16:17] VITALS: BMI 24.8
--- NOTE | 2023-01-06 10:19 | MHC.SHP ---
Pre-Procedural Eval Section A Date of Service: 01/06/23 The patient is an INPATIENT: No Changes since office visit: No Cold of Flu in the past 2 weeks, No New Medical Problems, No Changes in Medication and No Patient answered all questions The History & Physical has been completed within 30 days and I have reviewed it.: Yes Section B Chief Complaint: Age-related nuclear cataract, right eye Allergies: Allergies Allergy/AdvReac Type Severity Reaction Status Date / Time escitalopram [Lexapro] Allergy Unknown Nausea Verified 01/03/23 12:18 sertraline [Zoloft] Allergy Unknown NAUSEA Verified 01/03/23 12:18 ANTIDEPRESSANTS Allergy Unknown MAKE ME Uncoded 01/03/23 12:18 FEEL SICK Plan Diagnosis/Plan: Unchanged I have reviewed the history and physical and performed a pertinent physical examination on my patient. No changes have occurred unless specified. Time Spent With Patient Time: Total time managing care of this patient today ____ minutes.
[2023-01-09] MEDS: Tetracaine HCl/PF 0.5% Oph Sol 4 ML DROPS 1 DROP EYE-RIGHT (09:48)
[2023-01-09] MEDS: Ketorolac Tromethamine 0.5% Op 5 ML DROPS 1 DROP EYE-RIGHT ×3 (09:49→09:59)
[2023-01-09] MEDS: Phenylephrine HCL 2.5% Oph SoL 2 ML BOTTLE 1 DROP EYE-RIGHT ×3 (09:49→09:59)
[2023-01-09] MEDS: Cyclopentolate 1 % Ophth Sol 2 ML DRPBTL 1 DROP EYE-RIGHT ×3 (09:49→09:59)
[2023-01-09] MEDS: Tropicamide 1 % Ophth Sol 3 ML BTL 1 DROP EYE-RIGHT ×3 (09:49→09:59)
[2023-01-09 09:53] VITALS: BP 106/50; PULSE 56; RESP 18; TEMP 36.7; O2SAT 100
[2023-01-09] MEDS: Lactated Ringers 500 ML 50 ML IVCONT (09:54)
--- NOTE | 2023-01-09 09:59 | HO.ANESPROP2 ---
[facility] Active Problems Active Problems: All Active Problems (Updated 01/03/23 @ 12:28 by Marylu Humphreys MD) Cataract (Acute) Preop exam for internal medicine (Acute) Current use of anticoagulant therapy (Acute) Allergic rhinitis (Acute) Platelet disorder (Acute) Medicare annual wellness visit, initial (Acute) Hip pain, left (Acute) Knee pain, right (Acute) Age-related osteoporosis without current pathological fracture (Acute) Recurrent major depression (Acute) Pain of finger joint (Acute) Paroxysmal atrial fibrillation (Acute) Osteoarthritis (Acute) Sinus bradycardia (Acute) Cardiomyopathy (Acute) HLD (hyperlipidemia) (Acute) HTN (hypertension) (Acute) Past Medical History Medical History Anxiety and depression Atrial fibrillation Cardiomyopathy Duodenal ulcer HLD (hyperlipidemia) HTN (hypertension) Humeral fracture Insomnia On anticoagulant therapy On beta lala at home Osteoarthritis Osteoporosis Paroxysmal atrial fibrillation Sinus bradycardia Urge incontinence Family History Family History (Updated 01/03/23 @ 12:19 by Mary Broderick CMA) Father Medical history unknown Mother Arthritis Hypertension History of hysterectomy Son In good health Daughter Diabetes Family history of problems with anesthesia: No Surgical History Surgical History History of hysterectomy with bilateral oophorectomy Hx of cholecystectomy Hx of colonoscopy Hx of tonsillectomy History of Problems with Anesthesia: No Social History Social History (Updated 01/03/23 @ 12:35 by Marylu Humphreys MD) Household Members Other:: Friend Housing: House Are you a primary managed care director to a significant other at home: No Do you presently have visiting nurse or other home services: No Alcohol intake: current Alcohol intake frequency: a few times a month Alcohol type: wine Patient Tobacco Use Status: Never used Tobacco e-Cigarette/Vaping Use: Never Used Second Hand Smoke Exposure: No Use of substances other than those prescribed or required for medical reasons: No Have you been hit, kicked, punched, or otherwise hurt by someone within the past year? If so, by whom?: No Are you DNR?: No Advance Directives: No Advance Directives Information Provided: Yes Advance Directives on File: No Recently lost weight without trying: No Eating poorly because of decreased appetite: No Nutrition Risks: No Nutritional Risk service: No Current occupational status: employed Cognitive needs: No Hearing needs: No Vision needs: Yes Meds Allergies Allergy/AdvReac Type Severity Reaction Status Date / Time escitalopram [Lexapro] Allergy Unknown Nausea Verified 01/03/23 12:18 sertraline [Zoloft] Allergy Unknown NAUSEA Verified 01/03/23 12:18 ANTIDEPRESSANTS Allergy Unknown MAKE ME Uncoded 01/03/23 12:18 FEEL SICK Active Medications: Current Medications Lactated Ringer's (Lr) 500 mls @ 50 mls/hr IVCONT .Q10H SYMONE Last Admin: 01/09/23 09:54 Dose: 50 mls/hr Povidone Iodine (Povidone Iodine 5 % Ophth Soln 30 Ml Bottle) 1 appl EYE-RIGHT PREOP PRN PRN Reason: Pre-Op Surgical Implant Prophy Home Medications Medication Instructions Recorded Confirmed Last Taken Type acetaminophen 325 mg tablet 325 mg PO QID PRN Pain 07/15/20 01/03/23 Unknown History (Tylenol) calcium carbonate 600 mg-vitamin 1 tab PO DAILY 07/15/20 01/03/23 Unknown History D3 5 mcg (200 unit) tablet flaxseed oil 1,000 mg capsule 1,000 mg PO DAILY 08/24/20 01/03/23 Unknown History lactobacillus combination no.8 3 3,000 mmu cells PO DAILY 08/24/20 01/03/23 Unknown History billion cell capsule (Adult Probiotic) loratadine 10 mg tablet (Allergy 10 mg PO DAILY 08/24/20 01/03/23 Unknown History Relief (loratadine)) multivitamin 1 tab PO DAILY 08/24/20 01/03/23 Unknown History diphenhydramine HCl 25 mg capsule 25 mg PO BEDTIME 10/28/21 01/03/23 Unknown History (NightTime Sleep Aid (diphenhydramine)) Exam Exam Date and Time: January 09, 2023 0959 Height,Weight and Vital Signs: Height 5 ft 6 in Weight 69.853 kg Last Vital Signs Temp 98.0 F 01/09/23 09:53 Pulse 56 01/09/23 09:53 Resp 18 01/09/23 09:53 BP 106/50 L 01/09/23 09:53 Pulse Ox 100 01/09/23 09:53 O2 Del Method Room Air 01/09/23 09:53 Airway Mallampati Class: II TM Dist: >3cm Neck ROM: Limited Heart: rrr Lungs: cta Assessment and Plan Assessment Anesthesia Assessment: Anesthesia Plan Discussed and Chart Reviewed Final Anesthetic Review Family History of Problems with Anesthesia: No History of Problems with Anesthesia: No NPO: Yes ASA Class: III Final Preanesthetic Review: No Changes in Pt Med Stat, Meds/Allgs Chart Reviewed, Consent Obtained/Reviewed and Anes Risks/Benef Reviewed Patient Risk: Intermediate Procedure Risk: Low Anesthetic Plan Anesthetic Plan: MAC: Disposition: Standard PACU
--- NOTE | 2023-01-09 10:42 | HO.PNOPHT ---
Ophthalmology Procedure Procedure Date of Service: 01/09/23 Ophthalmology Viscoelastic: Healswati Mendezt Dual Pack Pro Ophthalmology Lenses: TECNIS [id number] (19.5) Procedure Notes: PREOPERATIVE DIAGNOSIS: Decreased visual acuity right eye secondary to cataract POSTOPERATIVE DIAGNOSIS: Same PROCEDURE: Right cataract extraction with intraocular lens insertion SURGEON: Omi Alexandra M.D. ANESTHESIA: Topical/MAC ESTIMATED BLOOD LOSS: None COMPLICATIONS: None After obtaining informed consent, the patient was brought to the operating room suite and placed in the supine position. After adequate sedation per anesthesia, topical drops of Tetracaine were given to the right eye. The eye was then prepped and draped in the usual sterile fashion. The operating room microscope was then positioned over the operative eye and a lid speculum placed. A paracentesis was created. Viscoelastic was then instilled into the anterior chamber. A three plane incision was then created temporally, utilizing a 2.85 mm keratome. Capsulotomy forceps were then utilized to create a circular tear capsulotomy. Hydrodissection and hydrodelineation were carried out until adequate mobilization of the nucleus occurred. Phacoemulsification was then utilized to remove the dense central nucleus followed by removal of the cortical material utilizing the automated aspiration irrigation unit. Viscoelastic was instilled into the posterior capsular bag followed by placement of a posterior chamber intraocular lens without difficulty. The residual Viscoelastic was then removed utilizing the automated IA machine. The wound was checked and found to be watertight. The patient tolerated the procedure well and the lid speculum was removed. Intracameral injection of Vigamox 0.1 mL followed by a subtenon injection of Kenalog-40 0.2 mL were administered. The patient will be seen in the a.m.
[2023-01-09 11:05] VITALS: BP 147/69; PULSE 58; RESP 12; TEMP 36.3; O2SAT 100
== END 2023-01-09 11:31 | disposition home or self-care (01) ==
PROVIDERS: PCP Internal Medicine; Visit Provider Ophthalmology
PROC: (CPT 66985; principal; 2023-01-09 11:10)
DX: H25.11 Age-related nuclear cataract, right eye (principal); I10 Essential (primary) hypertension; I48.91 Unspecified atrial fibrillation; Z79.01 Long term (current) use of anticoagulants; Z79.899 Other long term (current) drug therapy
CPT/HCPCS: 66984; J2250; J3010; J3301; V2632

== ENCOUNTER 2023-01-23 08:58 | Day surgery (SDC) | payer MEDICARE, SELFPAY ==
[2023-01-03 16:22] VITALS: BMI 24.8
--- NOTE | 2023-01-19 16:00 | MHC.SHP ---
Pre-Procedural Eval Section A Date of Service: 01/19/23 The patient is an INPATIENT: No Changes since office visit: No Cold of Flu in the past 2 weeks, No New Medical Problems, No Changes in Medication and No Patient answered all questions The History & Physical has been completed within 30 days and I have reviewed it.: Yes Section B Chief Complaint: Age-related nuclear cataract, left eye Allergies: Allergies Allergy/AdvReac Type Severity Reaction Status Date / Time escitalopram [Lexapro] Allergy Unknown Nausea Verified 01/09/23 10:02 sertraline [Zoloft] Allergy Unknown NAUSEA Verified 01/09/23 10:02 ANTIDEPRESSANTS Allergy Unknown MAKE ME Uncoded 01/09/23 10:02 FEEL SICK Plan Diagnosis/Plan: Unchanged I have reviewed the history and physical and performed a pertinent physical examination on my patient. No changes have occurred unless specified. Time Spent With Patient Time: Total time managing care of this patient today ____ minutes.
[2023-01-23 09:51] VITALS: BP 154/62; PULSE 56; RESP 16; TEMP 36.2; O2SAT 99
[2023-01-23] MEDS: Tetracaine HCl/PF 0.5% Oph Sol 4 ML DROPS 1 DROP EYE-LEFT (09:56)
[2023-01-23] MEDS: Cyclopentolate 1 % Ophth Sol 2 ML DRPBTL 1 DROP EYE-LEFT ×3 (09:57→10:13)
[2023-01-23] MEDS: Tropicamide 1 % Ophth Sol 3 ML BTL 1 DROP EYE-LEFT ×3 (09:59→10:15)
[2023-01-23] MEDS: Ketorolac Tromethamine 0.5% Op 5 ML DROPS 1 DROP EYE-LEFT ×3 (10:01→10:17)
[2023-01-23] MEDS: Phenylephrine HCL 2.5% Oph SoL 2 ML BOTTLE 1 DROP EYE-LEFT ×3 (10:03→10:19)
[2023-01-23] MEDS: Lactated Ringers 500 ML 50 ML IV (10:07)
--- NOTE | 2023-01-23 10:07 | HO.ANESPROP2 ---
[facility] Active Problems Active Problems: All Active Problems (Updated 01/03/23 @ 12:28 by Marylu Humphreys MD) Current use of anticoagulant therapy (Acute) Allergic rhinitis (Acute) Platelet disorder (Acute) Medicare annual wellness visit, initial (Acute) Hip pain, left (Acute) Knee pain, right (Acute) Age-related osteoporosis without current pathological fracture (Acute) Recurrent major depression (Acute) Pain of finger joint (Acute) Preop exam for internal medicine (Acute) Cataract (Acute) Paroxysmal atrial fibrillation (Acute) Osteoarthritis (Acute) Sinus bradycardia (Acute) Cardiomyopathy (Acute) HLD (hyperlipidemia) (Acute) HTN (hypertension) (Acute) Past Medical History Medical History Anxiety and depression Atrial fibrillation Cardiomyopathy Duodenal ulcer HLD (hyperlipidemia) HTN (hypertension) Humeral fracture Insomnia On anticoagulant therapy On beta lala at home Osteoarthritis Osteoporosis Paroxysmal atrial fibrillation Sinus bradycardia Urge incontinence Family History Family History Father Medical history unknown Mother Arthritis Hypertension History of hysterectomy Son In good health Daughter Diabetes Family history of problems with anesthesia: No Surgical History Surgical History History of cataract surgery History of hysterectomy with bilateral oophorectomy Hx of cholecystectomy Hx of colonoscopy Hx of tonsillectomy History of Problems with Anesthesia: No Social History Social History Household Members Other:: Friend Housing: House Are you a primary patient care coordinator to a significant other at home: No Do you presently have visiting nurse or other home services: No Alcohol intake: current Alcohol intake frequency: a few times a month Alcohol type: wine Patient Tobacco Use Status: Never used Tobacco e-Cigarette/Vaping Use: Never Used Second Hand Smoke Exposure: No Use of substances other than those prescribed or required for medical reasons: No Have you been hit, kicked, punched, or otherwise hurt by someone within the past year? If so, by whom?: No Are you DNR?: No Advance Directives: No Advance Directives Information Provided: Yes Advance Directives on File: No Recently lost weight without trying: No Eating poorly because of decreased appetite: No Nutrition Risks: No Nutritional Risk service: No Current occupational status: employed Cognitive needs: No Hearing needs: No Vision needs: Yes Meds Allergies Allergy/AdvReac Type Severity Reaction Status Date / Time escitalopram [Lexapro] Allergy Unknown Nausea Verified 01/23/23 09:49 sertraline [Zoloft] Allergy Unknown NAUSEA Verified 01/23/23 09:49 ANTIDEPRESSANTS Allergy Unknown MAKE ME Uncoded 01/23/23 09:49 FEEL SICK Active Medications: Current Medications Lactated Ringer's (Lr) 500 mls @ 50 mls/hr IV .Q10H SYMONE Stop: 01/23/23 19:44 Povidone Iodine (Povidone Iodine 5 % Ophth Soln 30 Ml Bottle) 1 appl EYE-LEFT PREOP PRN PRN Reason: Pre-Op Surgical Implant Prophy Home Medications Medication Instructions Recorded Confirmed Last Taken Type acetaminophen 325 mg tablet 325 mg PO QID PRN Pain 07/15/20 01/23/23 Unknown History (Tylenol) calcium carbonate 600 mg-vitamin 1 tab PO DAILY 07/15/20 01/23/23 Unknown History D3 5 mcg (200 unit) tablet flaxseed oil 1,000 mg capsule 1,000 mg PO DAILY 08/24/20 01/23/23 Unknown History lactobacillus combination no.8 3 3,000 mmu cells PO DAILY 08/24/20 01/23/23 Unknown History billion cell capsule (Adult Probiotic) loratadine 10 mg tablet (Allergy 10 mg PO DAILY 08/24/20 01/23/23 Unknown History Relief (loratadine)) multivitamin 1 tab PO DAILY 08/24/20 01/23/23 Unknown History diphenhydramine HCl 25 mg capsule 25 mg PO BEDTIME 10/28/21 01/23/23 Unknown History (NightTime Sleep Aid (diphenhydramine)) Exam Exam Date and Time: January 23, 2023 1007 Height,Weight and Vital Signs: Height 5 ft 6 in Weight 69.853 kg Last Vital Signs Temp 97.1 F 01/23/23 09:51 Pulse 56 01/23/23 09:51 Resp 16 01/23/23 09:51 BP 154/62 H 01/23/23 09:51 Pulse Ox 99 01/23/23 09:51 O2 Del Method Room Air 01/23/23 09:51 Airway Mallampati Class: II TM Dist: >3cm Neck ROM: Full Loose/Missing/Broken Teeth: No Heart: RRR Lungs: CTA Assessment and Plan Assessment Anesthesia Assessment: Anesthesia Plan Discussed and Chart Reviewed Final Anesthetic Review Family History of Problems with Anesthesia: No History of Problems with Anesthesia: No NPO: Yes ASA Class: III Final Preanesthetic Review: Meds/Allgs Chart Reviewed, Consent Obtained/Reviewed and Anes Risks/Benef Reviewed Patient Risk: Intermediate Procedure Risk: Low Anesthetic Plan Anesthetic Plan: MAC: Disposition: Standard PACU
--- NOTE | 2023-01-23 10:37 | HO.PNOPHT ---
Ophthalmology Procedure Procedure Date of Service: 01/23/23 Ophthalmology Viscoelastic: Healon Duet Dual Pack Pro Ophthalmology Lenses: TECCECILIA [id number] (20) Procedure Notes: PREOPERATIVE DIAGNOSIS: Decreased visual acuity left eye secondary to cataract POSTOPERATIVE DIAGNOSIS: Same PROCEDURE: Left cataract extraction with intraocular lens insertion SURGEON: Omi Alexandra M.D. ANESTHESIA: Topical/MAC ESTIMATED BLOOD LOSS: None COMPLICATIONS: None After obtaining informed consent, the patient was brought to the operation room suite and placed in the supine position. After adequate sedation per anesthesia, topical drops of Tetracaine were given to the left eye. The eye was then prepped and draped in the usual sterile fashion. The operating room microscope was then positioned over the operative eye and a lid speculum placed. A paracentesis was created. Viscoelastic was then instilled into the anterior chamber. A three plane incision was then created temporally, utilizing a 2.85 mm keratome. Capsulotomy forceps were then utilized to create a circular tear capsulotomy. Hydrodissection and hydrodelineation were carried out until adequate mobilization of the nucleus occurred. Phacoemulsification was then utilized to remove the dense central nucleus followed by removal of the cortical material utilizing the automated aspiration irrigation unit. Viscoat elastic was instilled into the posterior capsular bag followed by placement of a posterior chamber intraocular lens without difficulty. The residual Viscoat elastic was then removed utilizing the automated IA machine. The wound was check and found to be watertight. The patient tolerated the procedure well and the lid speculum was removed. Intracameral injection of Vigamox 0.1 mL followed by a subtenon injection of Kenalog-40 0.2 mL were administered. The patient will be seen in the a.m.
[2023-01-23 11:17] VITALS: BP 139/63; PULSE 58; RESP 16; TEMP 36.3; O2SAT 100
== END 2023-01-23 11:31 | disposition home or self-care (01) ==
PROVIDERS: PCP Internal Medicine; Visit Provider Ophthalmology
PROC: (CPT 66985; principal; 2023-01-23 11:40)
DX: H25.12 Age-related nuclear cataract, left eye (principal); H52.4 Presbyopia; H35.412 Lattice degeneration of retina, left eye; H40.013 Open angle with borderline findings, low risk, bilateral; H18.413 Arcus senilis, bilateral; I10 Essential (primary) hypertension; E78.00 Pure hypercholesterolemia, unspecified; I48.91 Unspecified atrial fibrillation; Z79.01 Long term (current) use of anticoagulants; Z79.899 Other long term (current) drug therapy; Z88.8 Allergy status to other drugs, medicaments and biological substances
CPT/HCPCS: 66984; J2250; J3301; V2632

== ENCOUNTER → 2023-01-26 08:33 | Outpatient (BNVA) | payer MEDICARE, SELFPAY | PROVIDERS: PCP Internal Medicine; Visit Provider Internal Medicine | DX: I48.20 Chronic atrial fibrillation, unspecified (principal); Z79.01 Long term (current) use of anticoagulants; Z51.81 Encounter for therapeutic drug level monitoring | CPT/HCPCS: 85610; 99211 ==

== ENCOUNTER → 2023-02-23 08:21 | Outpatient (BNVA) | payer MEDICARE, SELFPAY | PROVIDERS: PCP Internal Medicine; Visit Provider Internal Medicine | DX: I48.0 Paroxysmal atrial fibrillation (principal); I10 Essential (primary) hypertension; R00.1 Bradycardia, unspecified; I48.20 Chronic atrial fibrillation, unspecified; Z79.01 Long term (current) use of anticoagulants; Z51.81 Encounter for therapeutic drug level monitoring | CPT/HCPCS: 85610; 93005; 99211; 99212 ==

== ENCOUNTER → 2023-03-23 08:29 | Outpatient (BNVA) | payer MEDICARE, SELFPAY | PROVIDERS: PCP Internal Medicine; Visit Provider Internal Medicine | DX: I48.20 Chronic atrial fibrillation, unspecified (principal); Z51.81 Encounter for therapeutic drug level monitoring; Z79.01 Long term (current) use of anticoagulants | CPT/HCPCS: 85610; 99211 ==

== ENCOUNTER 2023-04-13 09:33 | Outpatient (AMB) | payer MEDICARE, SELFPAY ==
[2023-04-13 09:41] VITALS: BP 130/62; PULSE 67; O2SAT 97; BMI 24.9
--- NOTE | 2023-04-13 09:41 | MHC.PC.OV ---
Vital Signs 04/13/23 09:41 Height 5 ft 6 in Weight 154 lb BMI 24.9 BP 130/62 Blood Pressure Location Lt brachial Position Sitting Pulse 67 Pulse Source Pulse Oximeter Pulse Oximetry (%) 97 Oxygen Delivery Method Room Air Intake Visit Reasons: 3mth f/u Allergies escitalopram [Lexapro] Allergy (Unknown, Verified 04/13/23 09:41) Nausea sertraline [Zoloft] Allergy (Unknown, Verified 04/13/23 09:41) NAUSEA ANTIDEPRESSANTS Allergy (Unknown, Uncoded 04/13/23 09:41) MAKE ME FEEL SICK Tobacco use date assessed: 10/27/22 Fall risk assessment: No Falls in past year Last assessed Fall Risk: 04/13/23 Dental Screening Dental Screen Date: 04/13/23 Did you have a dental visit in the last 12 months?: Yes Did you have a dental problem in the last 6 months where you did not have access to dental care?: No Was dental information given to patient?: Patient has dentist HPI 3mth f/u HPI Details 77-year-old female last seen in December for preoperative evaluation for cataract surgery coming in for follow-up. Has a history of hypercholesterolemia recurrent major depression atrial fibrillation hypertension. Patient's colonoscopy is up-to-date mammogram is due next month patient's last complete blood work was done in July 2022. Patient has followed up with Cardiology stable continuing with present medication. FOR[facility]LY [facility], [facility] Medical History Anxiety and depression Atrial fibrillation Cardiomyopathy Duodenal ulcer HLD (hyperlipidemia) HTN (hypertension) Humeral fracture Insomnia On anticoagulant therapy On beta lala at home Osteoarthritis Osteoporosis Paroxysmal atrial fibrillation Sinus bradycardia Urge incontinence Surgical History History of cataract surgery History of hysterectomy with bilateral oophorectomy Hx of cholecystectomy Hx of colonoscopy Hx of tonsillectomy Family History Father Medical history unknown Mother Arthritis Hypertension History of hysterectomy Son In good health Daughter Diabetes Social History Household Members Other:: Friend Housing: House Are you a primary nonfarm animal caretaker to a significant other at home: No Do you presently have visiting nurse or other home services: No Alcohol intake: current Alcohol intake frequency: a few times a month Alcohol type: wine Patient Tobacco Use Status: Never used Tobacco e-Cigarette/Vaping Use: Never Used Second Hand Smoke Exposure: No service: No Current occupational status: employed Cognitive needs: No Hearing needs: No Vision needs: Yes Questionnaire PHQ-9 Over the last 2 weeks, how often have you been bothered by any of the following problems? 1. Little interest or pleasure in doing things: not at all 2. Feeling down, depressed, or hopeless: several days 3. Trouble falling or staying asleep, or sleeping too much: not at all 4. Feeling tired or having little energy: several days 5. Poor appetite or overeating: not at all 6. Feeling bad about yourself - or that you are a failure or have let yourself or your family down: not at all 7. Trouble concentrating on things, such as reading the newspaper or watching television: not at all 8. Moving or speaking so slowly that other people could have noticed. Or the opposite - being so fidgety or restless that you have been moving around a lot more than usual: not at all 9. Thoughts that you would be better off or of hurting yourself in some way: not at all Total score: 2 Depression Screening Interpretation: Positive Source: Developed by Drs. Jarrett Perdomo, Chayito Cedeno, Oskar Johnson and colleagues, with an educational genesis from [employer]. Thrive Questionnaire Date Thrive assessed: 10/27/22 AUDIT C Alcohol Use Questionnaire (AUDIT-C) 1. How often do you have a drink containing alcohol?: Monthly or less 2. How many drinks containing alcohol do you have on a typical day when you are drinking?: 1 or 2 3. How often do you have six or more drinks on one occasion?: Never Total Score: 1 DARBY-7 AMB Questionnaire DARBY-7 Date DARBY - 7 assessed: 10/27/22 Source: Developed by Drs. Jarrett Perdomo, Chayito Cedeno, Oskar Johnson and colleagues, with an educational genesis from [employer]. Physical exam (Primary Care) Vital Signs: Last Vital Signs Pulse 67 04/13/23 09:41 BP 130/62 04/13/23 09:41 Pulse Ox 97 04/13/23 09:41 Oxygen Delivery Method Room Air 04/13/23 09:41 BMI result Body Mass Index 24.9 Tobacco/Smoking Status: Tobacco use Status Tobacco use date assessed 10/27/22 04/13/23 09:42 Patient Tobacco Use Status Never used Tobacco 04/13/23 09:42 e-Cigarette/Vaping Use Never Used 04/13/23 09:42 PHQ-9: PHQ-9 Score PHQ-9: Total score 2 04/13/23 09:42 Depression Screening Interpretation: Positive Thrive Assessment: Date of Thrive Assessment Date Thrive assessed 10/27/22 04/13/23 09:42 Const General: alert; No acute distress Eyes Conjunctivae: conjunctivae normal Resp Auscultation: clear to auscultation bilaterally Cardio Rate: regular rate Rhythm: regular rhythm GI Inspection: Yes normal to inspection Extrem General: Yes normal to inspection and No edema Assessment and Plan Assessment & Plan (1) Paroxysmal atrial fibrillation: Comment: The left ventricular systolic function is normal. The calculated ejection fraction is 64% by biplane method. - No obvious valvular pathology seen on this study. August 2022 echocardiogram Code(s): I48.0 - Paroxysmal atrial fibrillation Plan: Continue with anticoagulation normal echo cardiac last year (2) HTN (hypertension): Code(s): I10 - Essential (primary) hypertension Qualifiers: Hypertension type: essential hypertension Qualified Code(s): I10 - Essential (primary) hypertension Plan: Continue with blood pressure medication. Decrease salt intake and exercise patient is taking metoprolol 12.5 mg once a day (3) HLD (hyperlipidemia): Code(s): E78.5 - Hyperlipidemia, unspecified Qualifiers: Hyperlipidemia type: pure hypercholesterolemia Qualified Code(s): E78.00 - Pure hypercholesterolemia, unspecified Plan: Avoid fried foods, chicken skin, eggs, butter margarine, pastries and meat. Be it pork or beef they have a lot of cholesterol on simvastatin 20 mg once a day last blood work was July 2022 (4) Recurrent major depression: Comment: decline counselling (07/2022) Code(s): F33.9 - Major depressive disorder, recurrent, unspecified Plan: Continue with medication as knee Orders: Orders Vitamin B12 and Folate 3 Months I48.0 - Paroxysmal atrial fibrillation Comprehensive Met. Panel 3 Months I48.0 - Paroxysmal atrial fibrillation Lipid Panel 3 Months E78.00 - Pure hypercholesterolemia, unspecified, I48.0 - Paroxysmal atrial fibrillation Magnesium 3 Months I48.0 - Paroxysmal atrial fibrillation Phosphorus 3 Months I48.0 - Paroxysmal atrial fibrillation Free T4 (Free Thyroxine) 3 Months I48.0 - Paroxysmal atrial fibrillation Thyroid Stimulating Hormone 3 Months I48.0 - Paroxysmal atrial fibrillation Vitamin D 25-OH Total 3 Months I48.0 - Paroxysmal atrial fibrillation Complete Blood Count Auto Diff 3 Months I48.0 - Paroxysmal atrial fibrillation ECG 12 lead EKG 3 Months I48.0 - Paroxysmal atrial fibrillation Coding Level of Care Code Est Pt Level 4 (81463) Diagnoses Paroxysmal atrial fibrillation I48.0 HTN (hypertension) I10 Hypertension type: essential hypertension HLD (hyperlipidemia) E78.00 Hyperlipidemia type: pure hypercholesterolemia Recurrent major depression F33.9
== END 2023-04-13 10:37 | disposition home or self-care (01) ==
PROVIDERS: Visit Provider Internal Medicine
DX: I48.0 Paroxysmal atrial fibrillation (principal); I10 Essential (primary) hypertension; E78.00 Pure hypercholesterolemia, unspecified; F33.9 Major depressive disorder, recurrent, unspecified
CPT/HCPCS: 99214

== ENCOUNTER 2023-04-20 08:37 | Outpatient (AMB) | payer MEDICARE, SELFPAY ==
--- NOTE | 2023-04-20 08:41 | MHC.OFFVISCO ---
Intake Intake Visit Reasons: Anticoagulation Allergies escitalopram [Lexapro] Allergy (Unknown, Verified 04/20/23 08:37) Nausea sertraline [Zoloft] Allergy (Unknown, Verified 04/20/23 08:37) NAUSEA ANTIDEPRESSANTS Allergy (Unknown, Uncoded 04/20/23 08:37) MAKE ME FEEL SICK Medication List - Last Reconciled 04/20/23 by Tali Lima RN acetaminophen (Tylenol) 325 mg PO QID PRN alendronate 70 mg PO QWEEK calcium carbonate-vitamin D3 600 mg-5 mcg (200 unit) 1 tab PO DAILY diphenhydramine HCl (NightTime Sleep Aid (diphenhydramine)) 25 mg PO BEDTIME flaxseed oil 1,000 mg PO DAILY flecainide 50 mg PO BID fluticasone furoate 27.5 mcg/actuation 2 sprays intranasal DAILY lactobacillus combination no.8 (Adult Probiotic) 3,000 mmu cells PO DAILY loratadine (Allergy Relief (loratadine)) 10 mg PO DAILY lorazepam 0.5 mg PO BID-TID PRN 30 days metoprolol succinate ER 12.5 mg (1/2 x 25 mg) PO DAILY multivitamin 1 tab PO DAILY simvastatin 20 mg PO BEDTIME warfarin 5 mg See Protocol PO DAILY Nursing Note INR: 2.4- in therapeutic range Medications and supplements reviewed- no changes No changes in health, diet, medications, or supplements, Denies any signs and symptoms of bleeding or bruising or clotting. 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
[2023-04-20 08:42] LABS: Prothrombin Time Whole Bld POC 28.8 sec (11.1-13.5); ~PT, ~INR - Anti Coag Clinic 2.4 (0.9-1.1)
== END 2023-04-20 08:45 | disposition home or self-care (01) ==
LOC: HO.ACS 08:37
PROVIDERS: PCP Internal Medicine; Visit Provider Internal Medicine
DX: Z79.01 Long term (current) use of anticoagulants (principal)

== ENCOUNTER → 2023-04-20 08:37 | Outpatient (BNVA) | payer MEDICARE, SELFPAY | PROVIDERS: PCP Internal Medicine; Visit Provider Internal Medicine | DX: I48.20 Chronic atrial fibrillation, unspecified (principal); Z79.01 Long term (current) use of anticoagulants; Z51.81 Encounter for therapeutic drug level monitoring | CPT/HCPCS: 85610; 99211 ==

== ENCOUNTER 2023-05-18 08:43 | Outpatient (AMB) | payer MEDICARE, SELFPAY ==
[2023-05-18 08:51] LABS: Prothrombin Time Whole Bld POC 40.5 sec (11.1-13.5); ~PT, ~INR - Anti Coag Clinic 3.4 (0.9-1.1)
--- NOTE | 2023-05-18 08:57 | MHC.OFFVISCO ---
Intake Intake Visit Reasons: Anticoagulation Allergies escitalopram [Lexapro] Allergy (Unknown, Verified 05/18/23 08:45) Nausea sertraline [Zoloft] Allergy (Unknown, Verified 05/18/23 08:45) NAUSEA ANTIDEPRESSANTS Allergy (Unknown, Uncoded 05/18/23 08:45) MAKE ME FEEL SICK Medication List - Last Reconciled 05/18/23 by Cristel oCreas RN acetaminophen (Tylenol) 325 mg PO QID PRN alendronate 70 mg PO QWEEK calcium carbonate-vitamin D3 600 mg-5 mcg (200 unit) 1 tab PO DAILY diphenhydramine HCl (NightTime Sleep Aid (diphenhydramine)) 25 mg PO BEDTIME flaxseed oil 1,000 mg PO DAILY flecainide 50 mg PO BID fluticasone furoate 27.5 mcg/actuation 2 sprays intranasal DAILY lactobacillus combination no.8 (Adult Probiotic) 3,000 mmu cells PO DAILY loratadine (Allergy Relief (loratadine)) 10 mg PO DAILY lorazepam 0.5 mg PO BID-TID PRN 30 days metoprolol succinate ER 12.5 mg (1/2 x 25 mg) PO DAILY multivitamin 1 tab PO DAILY simvastatin 20 mg PO BEDTIME warfarin 5 mg See Protocol PO DAILY Nursing Note INR 3.4? out of therapeutic range Medications and supplements reviewed Patient status: WELL,HAS NOT EATEN USUAL MEALS BECAUSE SHE IS HAVING NEWWINDOWS PUT IN Medications or supplements: NO CHANGES Diet: GOOD- HAS NOT HAD USUAL GREENS Denies any signs and symptoms of bleeding or clotting or unusual bruising Bleeding, bruising, clotting discussed Nutritional guidance given: COOKED SPINACH OR BROCCOLI TODAY Dose: KEEP SAME 5MG X 2 DAYS D/ 2.5MG X 5 DAYS F/U INR Date: 1 MONTH ?? Patient verbalizing understanding of instructions given. 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
== END 2023-05-18 08:59 | disposition home or self-care (01) ==
LOC: HO.ACS 08:43
PROVIDERS: PCP Internal Medicine; Visit Provider Internal Medicine
DX: Z79.01 Long term (current) use of anticoagulants (principal)

== ENCOUNTER → 2023-05-18 08:43 | Outpatient (BNVA) | payer MEDICARE, SELFPAY | PROVIDERS: PCP Internal Medicine; Visit Provider Internal Medicine | DX: I48.20 Chronic atrial fibrillation, unspecified (principal); Z79.01 Long term (current) use of anticoagulants; Z51.81 Encounter for therapeutic drug level monitoring | CPT/HCPCS: 85610; 99211 ==

== ENCOUNTER 2023-06-01 09:23 | Outpatient (REF) | payer MEDICARE, SELFPAY | END 2023-06-01 09:24 | disposition home or self-care (01) | LOC: HO.MAMMO 09:23 | PROVIDERS: PCP Internal Medicine; Visit Provider Internal Medicine | DX: Z12.31 Encounter for screening mammogram for malignant neoplasm of breast (principal) | CPT/HCPCS: 77063; 77067 ==

== ENCOUNTER → 2023-06-01 10:00 | Outpatient (BNV) | payer MEDICARE, SELFPAY | PROVIDERS: PCP Internal Medicine; Visit Provider Radiology Diagnostic Radiology | DX: Z12.31 Encounter for screening mammogram for malignant neoplasm of breast (principal) | CPT/HCPCS: 77063; 77067 ==

== ENCOUNTER 2023-06-20 13:03 | Outpatient (AMB) | payer MEDICARE, SELFPAY ==
--- NOTE | 2023-06-20 13:09 | MHC.OFFVISCO ---
Intake Intake Visit Reasons: Anticoagulation Allergies escitalopram [Lexapro] Allergy (Unknown, Verified 06/20/23 13:06) Nausea sertraline [Zoloft] Allergy (Unknown, Verified 06/20/23 13:06) NAUSEA ANTIDEPRESSANTS Allergy (Unknown, Uncoded 06/20/23 13:06) MAKE ME FEEL SICK Medication List - Last Reconciled 06/20/23 by Tali Lmia RN acetaminophen (Tylenol) 325 mg PO QID PRN alendronate 70 mg PO QWEEK calcium carbonate-vitamin D3 600 mg-5 mcg (200 unit) 1 tab PO DAILY diphenhydramine HCl (NightTime Sleep Aid (diphenhydramine)) 25 mg PO BEDTIME flaxseed oil 1,000 mg PO DAILY flecainide 50 mg PO BID fluticasone furoate 27.5 mcg/actuation 2 sprays intranasal DAILY lactobacillus combination no.8 (Adult Probiotic) 3,000 mmu cells PO DAILY loratadine (Allergy Relief (loratadine)) 10 mg PO DAILY lorazepam 0.5 mg PO BID-TID PRN 30 days metoprolol succinate ER 12.5 mg (1/2 x 25 mg) PO DAILY multivitamin 1 tab PO DAILY simvastatin 20 mg PO BEDTIME warfarin 5 mg See Protocol PO DAILY Nursing Note INR: 2.1- in therapeutic range Medications and supplements reviewed No changes in health, diet, medications, or supplements, Denies any signs and symptoms of bleeding or bruising or clotting. Bleeding, bruising, clotting discussed Nutritional guidance given Dose: 5mg x 2, 2.5mg x 5 F/U INR: 4 weeks Patient verbalizes understanding of instructions given Anti-Coag Initial Assessment Social Hx Patient Tobacco Use Status: Never used Tobacco alcohol intake: current Alcohol intake frequency: a few times a month Coding Level of Care Code Est Patient Level 1 Diagnoses Current use of anticoagulant therapy Z79.01 Results AMB INR Fingerstick AMB INR Fingerstick 2.1 Last Edit by Tali Lima RN on 06/20/23 13:10 Assessment & Plan Assessment & Plan (1) Current use of anticoagulant therapy: Code(s): Z79.01 - FDC (current) use of anticoagulants Category: Medical
[2023-06-21 08:06] LABS: Prothrombin Time Whole Bld POC 25.7 sec (11.1-13.5); ~PT, ~INR - Anti Coag Clinic 2.1 (0.9-1.1)
== END 2023-06-20 13:14 | disposition home or self-care (01) ==
LOC: HO.ACS 13:03
PROVIDERS: PCP Internal Medicine; Visit Provider Internal Medicine
DX: Z79.01 Long term (current) use of anticoagulants (principal)

== ENCOUNTER → 2023-06-20 13:03 | Outpatient (BNVA) | payer MEDICARE, SELFPAY | PROVIDERS: PCP Internal Medicine; Visit Provider Internal Medicine | DX: I48.20 Chronic atrial fibrillation, unspecified (principal); Z79.01 Long term (current) use of anticoagulants; Z51.81 Encounter for therapeutic drug level monitoring | CPT/HCPCS: 85610; 99211 ==

== ENCOUNTER 2023-06-26 18:43 | Emergency (ER) | payer MEDICARE, SELFPAY ==
[2023-06-26 19:03] VITALS: BP 149/52; PULSE 61; RESP 18; TEMP 36.6; O2SAT 97; BMI 24.2
--- NOTE | 2023-06-26 19:04 | ED_ITS ---
HPI - General Adult General Chief complaint: Back Pain/Injury Stated complaint: left lower back pain Time Seen by Provider: 06/26/23 20:57 Source: patient and old records reviewed Mode of arrival: ambulatory Limitations: no limitations History of Present Illness HPI narrative: 78 yo female with PMH of PAF on coumadin, HTN, HLD, shingles about a year ago on R flank, arthritis here with c/o initial sharp R low back pain no radiation, b/b incontinence saddle anesthesia GI or symptoms that has resolved. It was brief she has no other symptoms and she becamse nervous she was going to get shingles again so she came to get checked out. Her back skin is not as sensitive as it was. MD complaint: back pain Onset (ago): hour(s) (1) Location: back Severity: mild Quality: stabbing Pain Consistency: now resolved Relieving factors: rest Exacerbating factors: none Associated symptoms: denies other symptoms Treatments prior to arrival: none Related Data Home Medications Medication Instructions Recorded Confirmed acetaminophen 325 mg tablet 325 mg PO QID PRN Pain 07/15/20 05/18/23 (Tylenol) calcium carbonate 600 mg-vitamin 1 tab PO DAILY 07/15/20 05/18/23 D3 5 mcg (200 unit) tablet flaxseed oil 1,000 mg capsule 1,000 mg PO DAILY 08/24/20 05/18/23 lactobacillus combination no.8 3 3,000 mmu cells PO DAILY 08/24/20 05/18/23 billion cell capsule (Adult Probiotic) loratadine 10 mg tablet (Allergy 10 mg PO DAILY 08/24/20 05/18/23 Relief (loratadine)) multivitamin 1 tab PO DAILY 08/24/20 05/18/23 diphenhydramine HCl 25 mg capsule 25 mg PO BEDTIME 10/28/21 05/18/23 (NightTime Sleep Aid (diphenhydramine)) Previous Rx's Medication Instructions Recorded fluticasone furoate 27.5 2 spray intranasal DAILY #47.4 mL 08/24/20 mcg/actuation nasal spray,suspension alendronate 70 mg tablet 70 mg PO QWEEK #12 tabs 11/03/22 flecainide 50 mg tablet 50 mg PO BID #180 tabs 01/03/23 metoprolol succinate 25 mg 12.5 mg (1/2 x 25 mg) PO DAILY #45 01/03/23 tablet,extended release 24 hr tabs simvastatin 20 mg tablet 20 mg PO BEDTIME #90 tabs 01/03/23 warfarin 5 mg tablet 5 mg PO DAILY #90 tabs 01/03/23 lorazepam 0.5 mg tablet 0.5 mg PO BID-TID PRN anxiety 30 04/12/23 days #90 tabs valacyclovir 1 gram tablet 1,000 mg PO TID #21 tabs 06/26/23 Allergies Allergy/AdvReac Type Severity Reaction Status Date / Time escitalopram [Lexapro] Allergy Unknown Nausea Verified 06/26/23 19:07 sertraline [Zoloft] Allergy Unknown NAUSEA Verified 06/26/23 19:07 ANTIDEPRESSANTS Allergy Unknown MAKE ME Uncoded 06/20/23 13:06 FEEL SICK Review of Systems Review of Systems: Constitutional : No Weight loss, No Fever, No Chills, ENT/Mouth : No Hearing loss, No Ear Pain, No Nasal Congestion, No Sinus Pain, No Hoarseness, No sore throat, No Rhinorrhea, No Swallowing Difficulty Cardiovascular : No Chest Pain, No SOB Respiratory : No Cough, No Dyspnea Gastrointestinal : No Nausea, No Vomiting, No Diarrhea, No abdominal Pain, No Hematochezia, No Melena Genitourinary : No Dysuria, No Urinary Frequency, No Hematuria, No Urinary Incontinence, Musculoskeletal : positive back pain Skin : No Skin Lesions, No rash Neuro : No Weakness, No Numbness, No Paresthesias, no loss of bowel or bladder incontinence, no saddle anesthesia All other systems reviewed and are negative [facility] Past Medical History Attestation statement: The following information was validated with the patient. Source: old records reviewed Medical History (Updated 06/26/23 @ 21:14 by Harriett Ramos DO) Preop exam for internal medicine Pain of finger joint Knee pain, right Hip pain, left Medicare annual wellness visit, initial On beta lala at home On anticoagulant therapy Paroxysmal atrial fibrillation Insomnia Duodenal ulcer Urge incontinence Osteoporosis Anxiety and depression Osteoarthritis Humeral fracture Sinus bradycardia Cardiomyopathy Atrial fibrillation HLD (hyperlipidemia) HTN (hypertension) Surgical History History of cataract surgery Hx of colonoscopy History of hysterectomy with bilateral oophorectomy Hx of tonsillectomy Hx of cholecystectomy Family History Family History Father Medical history unknown Mother Arthritis Hypertension History of hysterectomy Son In good health Daughter Diabetes Social History Social History Household Members Other:: Friend Housing: House Are you a primary auto care center manager to a significant other at home: No Do you presently have visiting nurse or other home services: No Alcohol intake: current Alcohol intake frequency: a few times a month Alcohol type: wine Patient Tobacco Use Status: Never used Tobacco e-Cigarette/Vaping Use: Never Used Second Hand Smoke Exposure: No Advance Directives: No Advance Directives Information Provided: No service: No Current occupational status: employed Cognitive needs: No Hearing needs: No Vision needs: Yes Physical Exam ED Vital Signs: Vital Signs - 24 hr 06/26/23 19:03 06/26/23 20:31 Temperature 97.9 F 97.7 F Pulse Rate 61 52 Respiratory Rate 18 16 Blood Pressure 149/52 H 154/70 H Pulse Oximetry 97 98 Oxygen Delivery Method Room Air Room Air BMI result Body Mass Index 24.2 Appearance: Alert. Oriented X3. No acute distress. Eyes: Pupils equal, round and reactive to light. ENT: Pharynx normal. Neck: Normal inspection. Neck supple. CVS: Normal heart rate and rhythm. Pulses normal. Respiratory: No respiratory distress. Breath sounds normal. Abdomen: Soft and nontender. Back: lower lumbar lateral paraspinal mild ttp no skin sensitivity no rash or skin changes no hyperesthesia Skin: Skin warm and dry. Normal skin color. Normal skin turgor. Extremities: No lower extremity edema. No calf ttp Neuro: Oriented X 3. No motor deficit. No sensory deficit. Course Course Course Narrative: RME performed by Lisy Kyle PA-C. Patient is a 78 year old assigned female at presenting to the emergency department with possible shingles to the left side. The area cannot be appropriately examined in triage. Patient placed back in the waiting room pending room availability. Medical Decision Making Medical Decision Making MDM Narrative: 78 yo female with PMH of PAF on coumadin, HTN, HLD, shingles about a year ago on R flank, arthritis here with R lumbar back pain no b/b incontinence no saddle anesthesia no GI or symptoms benign abdomen no rash noted now. Given coumadin use I want to obtain labs, UA and CT scan for renal colic/hemataoma but she declines as she has no pain now I will send home with precautionary valtrex not to start unless skin changes. She was advised to return and seek care if symptoms come back. She is alert and oriented and able to make decisions. Differential Diagnosis Differential Diagnoses: The differential diagnosis associated with the presentation includes shingles, strain, UTI, renal colic, hematoma Admission/Observation Consideration of admission/observation: Escalation of care including admission/observation considered refuses further workup Lab Data MDM Lab Attestation statement: I reviewed the patient's lab results. External Record Review External record reviewed: Inpatient record Tests considered The following testing was considered but not selected: CT scan, labs, UA - patient declined she is alert and oriented, pain resolved understands why I want to test this but refuses Prescription Management I considered prescription management with: Antiviral Discharge Plan Discharge Clinical Impression: Acute lumbar back pain Qualifiers: Back pain laterality: left Sciatica presence: without sciatica Qualified Code(s): M54.50 - Low back pain, unspecified Patient Disposition: Home, Self-Care Instructions: Acute Low Back Pain (ED) Additional Instructions: it was recommended given your medical problems that you get a CT Scan and labs along with urine. you declined if you change your mind you can come back at any time. if it returns please seek medical care. Return for fevers, pain, weakness, numbness loss of control of bowel or bladder, abdominal pain or any other concerns. only take the valacyclovir if you notice rash redness or skin sensitivity on the skin please follow up with your doctor in the next week Prescriptions: New valacyclovir 1 gram tablet 1,000 mg PO TID Qty: 21 0RF No Action alendronate 70 mg tablet 70 mg PO QWEEK Qty: 12 3RF lorazepam 0.5 mg tablet 0.5 mg PO BID-TID PRN (Reason: anxiety) 30 Days Qty: 90 1RF Adult Probiotic 3 billion cell capsule 3,000 mmu cells PO DAILY Rx Instructions: administer with a meal flaxseed oil 1,000 mg capsule 1,000 mg PO DAILY Rx Instructions: administer with a meal multivitamin Tablet 1 tab PO DAILY loratadine [Allergy Relief (loratadine)] 10 mg tablet 10 mg PO DAILY fluticasone furoate 27.5 mcg/actuation spray,suspension 2 spray intranasal DAILY Qty: 47.4 0RF Rx Instructions: into each nostril flecainide 50 mg tablet 50 mg PO BID Qty: 180 2RF metoprolol succinate 25 mg tablet extended release 24 hr 12.5 mg PO DAILY Qty: 45 3RF simvastatin 20 mg tablet 20 mg PO BEDTIME Qty: 90 3RF warfarin 5 mg tablet 5 mg PO DAILY Qty: 90 3RF Protocol: Dose Management Condition: Monday (Week One) Dose/Route: 2.5 mg Instruction: 0.5 x 5 mg tablets Condition: Monday Dose/Route: 5 mg Instruction: 1 x 5 mg tablet Condition: Monday Dose/Route: 2.5 mg Instruction: 0.5 x 5 mg tablets Condition: Monday Dose/Route: 2.5 mg Instruction: 0.5 x 5 mg tablets Condition: Dose/Route: 5 mg Instruction: 1 x 5 mg tablet Condition: Monday Dose/Route: 2.5 mg Instruction: 0.5 x 5 mg tablets Condition: Monday Dose/Route: 2.5 mg Instruction: 0.5 x 5 mg tablets Condition: Monday (Week Two) Dose/Route: 2.5 mg Instruction: 0.5 x 5 mg tablets Condition: Monday Dose/Route: 5 mg Instruction: 1 x 5 mg tablet Condition: Monday Dose/Route: 2.5 mg Instruction: 0.5 x 5 mg tablets Condition: Monday Dose/Route: 2.5 mg Instruction: 0.5 x 5 mg tablets Condition: Dose/Route: 5 mg Instruction: 1 x 5 mg tablet Condition: Monday Dose/Route: 2.5 mg Instruction: 0.5 x 5 mg tablets Condition: Monday Dose/Route: 2.5 mg Instruction: 0.5 x 5 mg tablets Protocol Text: Adjustment Start Date: Monday06/20/23 INR Value: 2.1 INR Date: 06/20/23 Recheck Date: 07/18/23 Additional Instructions: cont reg dosing call with any changes in medications calcium carbonate-vitamin D3 600 mg(1,500mg) -200 unit tablet 1 tab PO DAILY acetaminophen [Tylenol] 325 mg tablet 325 mg PO QID PRN (Reason: Pain) diphenhydramine HCl [NightTime Sleep Aid (diphen)] 25 mg capsule 25 mg PO BEDTIME
[2023-06-26 20:31] VITALS: BP 154/70; PULSE 52; RESP 16; TEMP 36.5; O2SAT 98
== END 2023-06-26 21:36 | disposition home or self-care (01) ==
PROVIDERS: Emergency Provider Emergency Medicine; PCP Internal Medicine
DX: M54.50 Low back pain, unspecified (principal); I10 Essential (primary) hypertension; E78.5 Hyperlipidemia, unspecified; I48.0 Paroxysmal atrial fibrillation; Z79.01 Long term (current) use of anticoagulants; Z79.899 Other long term (current) drug therapy
CPT/HCPCS: 99283

== ENCOUNTER 2023-07-20 07:51 | Outpatient (REF) | payer MEDICARE, SELFPAY ==
[2023-07-20 08:01] LABS: MANUAL DIFF FLAG NO
[2023-07-20 08:15] LABS: Basophils Percent Auto 0.4 % (0-2); Eosinophils Absolute Auto 0.1 X10*3/uL (0.0-0.4); Eosinophils Percent Auto 1.7 % (0-4); Hematocrit 42.9 % (37.0-47.0); Hemoglobin 14.3 g/dl (12.0-16.0); Imm Gran Abs Auto 0.03 X10*3/uL (0.00-0.03); Imm Gran Pct Auto 0.6 % (0.0-0.4); Lymphocytes Absolute Auto 1.4 X10*3/uL (1.2-4.9); Lymphocytes Percent Auto 27.2 % (20-40); Mean Corpuscular HGB Conc 33.3 g/dl (31.0-35.0); Mean Corpuscular Hemoglobin 31.2 pg (27.0-33.0); Mean Corpuscular Volume 93.7 fL (80.0-98.0); Mean Platelet Volume 10.2 fL (9.4-12.3); Monocytes Absolute Auto 0.7 X10*3/uL (0.1-1.2); Neutrophils Absolute Auto 2.9 x10*3/uL (2.0-8.3); Neutrophils Percent Auto 57.1 % (45-73); Platelet Count 178 X10*3/uL (160-400); Red Blood Count 4.58 X10*6/uL (4.20-5.50); Red Cell Distribution Width 13.6 % (11.0-16.0); White Blood Count 5.2 X10*3/uL (4.8-10.8)
[2023-07-20 08:46] LABS: Alanine Aminotransferase 29 U/L (0-31); Alkaline Phosphatase 109 U/L (39-117); Anion Gap 12 (12-20); Aspartate Amino Transferase 33 U/L (5-31); Bilirubin Total 0.5 mg/dL (0.0-1.0); Blood Urea Nitrogen 17 mg/dL (9-16); Calcium 9.5 mg/dL (8.4-10.2); Carbon Dioxide 26 mmol/L (22-29); Chloride 106 mmol/L (96-108); Cholesterol 148 mg/dL (<200); Estimated Glomerular Filt Rate 56; Glucose Random 90 mg/dL (60-115); HDL Cholesterol 52 mg/dL (>40); LDL Cholesterol Calculated 71 mg/dL (<100); Magnesium 2.2 mg/dL (1.6-2.6); Phosphorus 2.4 mg/dL (2.7-4.5); Potassium 4.2 mmol/L (3.3-5.1); Sodium 140 mmol/L (135-145); Total Protein 7.1 g/dL (6.5-8.0); Triglycerides 125 mg/dL (<150)
[2023-07-20 09:08] LABS: Free T4 (Free Thyroxine) 1.01 ng/dL (0.71-1.85); Thyroid Stimulating Hormone 2.26 uIU/mL (0.32-4.0)
[2023-07-20 09:13] LABS: Folate 15.1 ng/mL (> or = 4.0); Vitamin B12 562 pg/mL (200-900)
== END 2023-07-20 07:52 | disposition home or self-care (01) ==
LOC: HO.LAB 07:51
PROVIDERS: PCP Internal Medicine; Visit Provider Internal Medicine
DX: I48.0 Paroxysmal atrial fibrillation (principal); E78.00 Pure hypercholesterolemia, unspecified; M81.0 Age-related osteoporosis without current pathological fracture
CPT/HCPCS: 36415; 80053; 80061; 82306; 82607; 82746; 83735; 84100; 84439; 84443; 85025; 85610; 99211

== ENCOUNTER 2023-07-20 08:03 | Outpatient (AMB) | payer MEDICARE, SELFPAY ==
--- NOTE | 2023-07-20 08:19 | MHC.OFFVISCO ---
Intake Intake Visit Reasons: Anticoagulation Allergies escitalopram [Lexapro] Allergy (Unknown, Verified 07/20/23 08:15) Nausea sertraline [Zoloft] Allergy (Unknown, Verified 07/20/23 08:15) NAUSEA ANTIDEPRESSANTS Allergy (Unknown, Uncoded 07/20/23 08:15) MAKE ME FEEL SICK Medication List - Last Reconciled 07/20/23 by Tali Lima RN acetaminophen (Tylenol) 325 mg PO QID PRN alendronate 70 mg PO QWEEK calcium carbonate-vitamin D3 600 mg-5 mcg (200 unit) 1 tab PO DAILY diphenhydramine HCl (NightTime Sleep Aid (diphenhydramine)) 25 mg PO BEDTIME flaxseed oil 1,000 mg PO DAILY flecainide 50 mg PO BID fluticasone furoate 27.5 mcg/actuation 2 sprays intranasal DAILY lactobacillus combination no.8 (Adult Probiotic) 3,000 mmu cells PO DAILY loratadine (Allergy Relief (loratadine)) 10 mg PO DAILY lorazepam 0.5 mg PO BID-TID PRN 30 days metoprolol succinate ER 12.5 mg (1/2 x 25 mg) PO DAILY multivitamin 1 tab PO DAILY simvastatin 20 mg PO BEDTIME valacyclovir 1,000 mg PO TID warfarin 5 mg See Protocol PO DAILY Nursing Note INR: 2.8- in therapeutic range Medications and supplements reviewed- no changes, has had covid and flu shots No changes in health, diet, medications, or supplements, Denies any signs and symptoms of bleeding or bruising or clotting. Bleeding, bruising, clotting discussed Nutritional guidance given Dose: 5mg x 2, 2.5mg x 5 F/U INR: 4 weeks Patient verbalizes understanding of instructions given [place] [facility] [place]23 for acute back pain. did not take analgesics post ed Anti-Coag Initial Assessment Social Hx Patient Tobacco Use Status: Never used Tobacco alcohol intake: current Alcohol intake frequency: a few times a month Coding Level of Care Code Est Patient Level 1 Diagnoses Current use of anticoagulant therapy Z79.01 Results AMB INR Fingerstick AMB INR Fingerstick 2.8 Last Edit by Tali Lima RN on 07/20/23 08:20 Assessment & Plan Assessment & Plan (1) Current use of anticoagulant therapy: Code(s): Z79.01 - USP (current) use of anticoagulants Category: Medical
[2023-07-20 08:20] LABS: Prothrombin Time Whole Bld POC 33.5 sec (11.1-13.5); ~PT, ~INR - Anti Coag Clinic 2.8 (0.9-1.1)
== END 2023-07-20 08:24 | disposition home or self-care (01) ==
LOC: HO.ACS 08:03
PROVIDERS: PCP Internal Medicine; Visit Provider Internal Medicine
DX: Z79.01 Long term (current) use of anticoagulants (principal)

== ENCOUNTER → 2023-07-24 12:08 | Outpatient (REF) | payer MEDICARE, SELFPAY ==
--- NOTE | 2023-07-24 12:16 | ECG_ITS ---
Test Reason : paf Blood Pressure : / mmHG Vent. Rate : 059 BPM Atrial Rate : 059 BPM P-R Int : 150 ms QRS Dur : 090 ms QT Int : 450 ms P-R-T Axes : 091 025 057 degrees QTc Int : 445 ms Sinus bradycardia Nonspecific T wave abnormality Abnormal ECG When compared with ECG of 03-JAN-2023 13:05, No significant change was found Referred By: Marylu Humphreys Electronically Signed By:ZEKE JANG MD
== END ==
LOC: HO.CARD 12:08
PROVIDERS: PCP Internal Medicine; Visit Provider Internal Medicine
DX: I48.0 Paroxysmal atrial fibrillation (principal)
CPT/HCPCS: 93005

== ENCOUNTER 2023-07-27 14:23 | Outpatient (AMB) | payer MEDICARE, SELFPAY ==
[2023-07-27 14:43] VITALS: BP 118/58; PULSE 60; O2SAT 98; BMI 25.0
--- NOTE | 2023-07-27 14:43 | MHC.PC.OV ---
Vital Signs 07/27/23 14:43 Height 5 ft 6 in Weight 155 lb BMI 25.0 BP 118/58 L Blood Pressure Location Lt brachial Position Sitting Pulse 60 Pulse Source Pulse Oximeter Pulse Oximetry (%) 98 Oxygen Delivery Method Room Air Intake Visit Reasons: atrial fib Allergies escitalopram [Lexapro] Allergy (Unknown, Verified 07/27/23 14:43) Nausea sertraline [Zoloft] Allergy (Unknown, Verified 07/27/23 14:43) NAUSEA ANTIDEPRESSANTS Allergy (Unknown, Uncoded 07/27/23 14:43) MAKE ME FEEL SICK Tobacco use date assessed: 10/27/22 Fall risk assessment: No Falls in past year Last assessed Fall Risk: 07/27/23 Dental Screening Dental Screen Date: 07/27/23 Did you have a dental visit in the last 12 months?: Yes Did you have a dental problem in the last 6 months where you did not have access to dental care?: No Was dental information given to patient?: Patient has dentist HPI atrial fib HPI Details 78-year-old female with atrial fibrillation, hypertension hypercholesterolemia and recurrent major depression last seen in April 2023. Patient's colonoscopy is up-to-date, mammograms up-to-date bone density up-to-date. Noted recent ER visit right lower back pain declined any workup but was given but valacyclovir. 2 weeks had stool incontinence- stopped probiotic and has been intermittent has not gone since . (1 week) diet is fine [facility] Medical History (Updated 07/27/23 @ 15:20 by Marylu Humphreys MD) Preop exam for internal medicine Pain of finger joint Knee pain, right Hip pain, left Medicare annual wellness visit, initial On beta lala at home On anticoagulant therapy Paroxysmal atrial fibrillation Insomnia Duodenal ulcer Urge incontinence Osteoporosis Anxiety and depression Osteoarthritis Humeral fracture Sinus bradycardia Cardiomyopathy Atrial fibrillation HLD (hyperlipidemia) HTN (hypertension) Surgical History History of cataract surgery Hx of colonoscopy History of hysterectomy with bilateral oophorectomy Hx of tonsillectomy Hx of cholecystectomy Family History Father Medical history unknown Mother Arthritis Hypertension History of hysterectomy Son In good health Daughter Diabetes Social History Household Members Other:: Friend Housing: House Are you a primary career development specialist to a significant other at home: No Do you presently have visiting nurse or other home services: No Alcohol intake: current Alcohol intake frequency: a few times a month Alcohol type: wine Patient Tobacco Use Status: Never used Tobacco e-Cigarette/Vaping Use: Never Used Second Hand Smoke Exposure: No service: No Current occupational status: employed Cognitive needs: No Hearing needs: No Vision needs: Yes Questionnaire PHQ-9 Over the last 2 weeks, how often have you been bothered by any of the following problems? 1. Little interest or pleasure in doing things: not at all 2. Feeling down, depressed, or hopeless: several days 3. Trouble falling or staying asleep, or sleeping too much: not at all 4. Feeling tired or having little energy: several days 5. Poor appetite or overeating: not at all 6. Feeling bad about yourself - or that you are a failure or have let yourself or your family down: not at all 7. Trouble concentrating on things, such as reading the newspaper or watching television: not at all 8. Moving or speaking so slowly that other people could have noticed. Or the opposite - being so fidgety or restless that you have been moving around a lot more than usual: not at all 9. Thoughts that you would be better off or of hurting yourself in some way: not at all Total score: 2 Depression Screening Interpretation: Positive Depression Screening Done: Yes Source: Developed by Drs. Jarrett Perdomo, Chayito Cedeno, Oskar Johnson and colleagues, with an educational genesis from [employer]. Thrive Questionnaire Date Thrive assessed: 10/27/22 AUDIT C Alcohol Use Questionnaire (AUDIT-C) 1. How often do you have a drink containing alcohol?: Monthly or less 2. How many drinks containing alcohol do you have on a typical day when you are drinking?: 1 or 2 3. How often do you have six or more drinks on one occasion?: Never Total Score: 1 DARBY-7 AMB Questionnaire DARBY-7 Date DARBY - 7 assessed: 10/27/22 Source: Developed by Drs. Jarrett Perdomo, Chayito Cedeno, Oskar Johnson and colleagues, with an educational genesis from [employer]. Physical exam (Primary Care) Vital Signs: Last Vital Signs Pulse 60 07/27/23 14:43 BP 118/58 L 07/27/23 14:43 Pulse Ox 98 07/27/23 14:43 Oxygen Delivery Method Room Air 07/27/23 14:43 BMI result Body Mass Index 25.0 Tobacco/Smoking Status: Tobacco use Status Tobacco use date assessed 10/27/22 07/27/23 14:45 Patient Tobacco Use Status Never used Tobacco 07/27/23 14:45 e-Cigarette/Vaping Use Never Used 07/27/23 14:45 PHQ-9: PHQ-9 Score PHQ-9: Total score 2 07/27/23 14:45 Depression Screening Interpretation: Positive Thrive Assessment: Date of Thrive Assessment Date Thrive assessed 10/27/22 07/27/23 14:45 Const General: alert; No acute distress Eyes Conjunctivae: conjunctivae normal Resp Auscultation: clear to auscultation bilaterally Cardio Rate: regular rate Rhythm: regular rhythm GI Inspection: Yes normal to inspection Extrem General: Yes normal to inspection and No edema Assessment and Plan Assessment & Plan (1) HTN (hypertension): Code(s): I10 - Essential (primary) hypertension Qualifiers: Hypertension type: essential hypertension Qualified Code(s): I10 - Essential (primary) hypertension Plan: Continue with blood pressure medication. Decrease salt intake and exercise continue with metoprolol 12.5 mg once a day (2) HLD (hyperlipidemia): Code(s): E78.5 - Hyperlipidemia, unspecified Qualifiers: Hyperlipidemia type: pure hypercholesterolemia Qualified Code(s): E78.00 - Pure hypercholesterolemia, unspecified Plan: Avoid fried foods, chicken skin, eggs, butter margarine, pastries and meat. Be it pork or beef they have a lot of cholesterol LDL goal of less than 100 and triglyceride of less than 150 patient on simvastatin 20 mg once a day (3) Paroxysmal atrial fibrillation: Comment: The left ventricular systolic function is normal. The calculated ejection fraction is 64% by biplane method. - No obvious valvular pathology seen on this study. August 2022 echocardiogram Code(s): I48.0 - Paroxysmal atrial fibrillation Plan: Continue with anticoagulation with Coumadin and flecainide (4) Recurrent major depression: Comment: decline counselling (07/2022) Code(s): F33.9 - Major depressive disorder, recurrent, unspecified Plan: Continue with lorazepam as needed (5) Age-related osteoporosis without current pathological fracture: Comment: May 2022 Code(s): M81.0 - Age-related osteoporosis without current pathological fracture Plan: Continue with alendronate up-to-date with bone density (6) Rectal incontinence: Code(s): R15.9 - Full incontinence of feces Plan: citrucel sent and will refer to Dr. Hughes (7) Plantar fasciitis of left foot: Code(s): M72.2 - Plantar fascial fibromatosis Plan: dicsussed about trreatment, and if persist referral Orders: Referrals Gastroenterology Referral R15.9 - Full incontinence of feces Medications: New methylcellulose (laxative) (Citrucel) 500 mg PO DAILY 30 tabs 3RF R15.9 - Full incontinence of feces Coding Level of Care Code Est Pt Level 4 (98429) Diagnoses Essential hypertension I10 Hypertension type: essential hypertension Pure hypercholesterolemia E78.00 Hyperlipidemia type: pure hypercholesterolemia Paroxysmal atrial fibrillation I48.0 Recurrent major depression F33.9 Age-related osteoporosis without current pathological fracture M81.0 Rectal incontinence R15.9 Plantar fasciitis of left foot M72.2
== END 2023-07-27 15:25 | disposition home or self-care (01) ==
PROVIDERS: PCP Internal Medicine; Visit Provider Internal Medicine
DX: I10 Essential (primary) hypertension (principal); I48.0 Paroxysmal atrial fibrillation; F33.9 Major depressive disorder, recurrent, unspecified; M81.0 Age-related osteoporosis without current pathological fracture; E78.00 Pure hypercholesterolemia, unspecified; R15.9 Full incontinence of feces; M72.2 Plantar fascial fibromatosis
CPT/HCPCS: 99214

== ENCOUNTER 2023-08-17 08:20 | Outpatient (AMB) | payer MEDICARE, SELFPAY ==
--- NOTE | 2023-08-17 08:44 | MHC.OFFVISCO ---
Intake Intake Visit Reasons: Anticoagulation Allergies escitalopram [Lexapro] Allergy (Unknown, Verified 08/17/23 08:38) Nausea sertraline [Zoloft] Allergy (Unknown, Verified 08/17/23 08:38) NAUSEA ANTIDEPRESSANTS Allergy (Unknown, Uncoded 08/17/23 08:38) MAKE ME FEEL SICK Medication List - Last Reconciled 08/17/23 by Tali Lima RN acetaminophen (Tylenol) 325 mg PO QID PRN alendronate 70 mg PO QWEEK calcium carbonate-vitamin D3 600 mg-5 mcg (200 unit) 1 tab PO DAILY diphenhydramine HCl (NightTime Sleep Aid (diphenhydramine)) 25 mg PO BEDTIME flaxseed oil 1,000 mg PO DAILY flecainide 50 mg PO BID fluticasone furoate 27.5 mcg/actuation 2 sprays intranasal DAILY lactobacillus combination no.8 (Adult Probiotic) 3,000 mmu cells PO DAILY loratadine (Allergy Relief (loratadine)) 10 mg PO DAILY lorazepam 0.5 mg PO BID-TID PRN 30 days methylcellulose (laxative) (Citrucel) 500 mg PO DAILY metoprolol succinate ER 12.5 mg (1/2 x 25 mg) PO DAILY multivitamin 1 tab PO DAILY simvastatin 20 mg PO BEDTIME valacyclovir 1,000 mg PO TID warfarin 5 mg See Protocol PO DAILY Nursing Note INR: 2.5- in therapeutic range of 2-3 Medications and supplements reviewed- pt started citracel daily No changes in health, diet, medications, or supplements, Denies any signs and symptoms of bleeding or bruising or clotting. Bleeding, bruising, clotting discussed Nutritional guidance given Dose: 5ng x 2m 2.5mg x 5 F/U INR: 4 weeks Patient verbalizes understanding of instructions given pt with prev episode of diarrhea, none now. upcoming GI consult pt states s/p fall x 1- denies hit head, abrasion to leg, aware risks of falling Anti-Coag Initial Assessment Social Hx Patient Tobacco Use Status: Never used Tobacco alcohol intake: current Alcohol intake frequency: a few times a month Coding Level of Care Code Est Patient Level 1 Diagnoses Current use of anticoagulant therapy Z79.01 Results AMB INR Fingerstick AMB INR Fingerstick 2.5 Last Edit by Tali Lima RN on 08/17/23 08:46 Assessment & Plan Assessment & Plan (1) Current use of anticoagulant therapy: Code(s): Z79.01 - [facility] (current) use of anticoagulants Category: Medical
[2023-08-17 13:34] LABS: Prothrombin Time Whole Bld POC 29.5 sec (11.1-13.5); ~PT, ~INR - Anti Coag Clinic 2.5 (0.9-1.1)
== END 2023-08-17 08:50 | disposition home or self-care (01) ==
LOC: HO.ACS 08:20
PROVIDERS: PCP Internal Medicine; Visit Provider Internal Medicine
DX: Z79.01 Long term (current) use of anticoagulants (principal)

== ENCOUNTER → 2023-08-17 08:20 | Outpatient (BNVA) | payer MEDICARE, SELFPAY | PROVIDERS: PCP Internal Medicine; Visit Provider Internal Medicine | DX: I48.20 Chronic atrial fibrillation, unspecified (principal); Z79.01 Long term (current) use of anticoagulants; Z51.81 Encounter for therapeutic drug level monitoring | CPT/HCPCS: 85610; 99211 ==

== ENCOUNTER → 2023-08-28 09:42 | Outpatient (BNVA) | payer MEDICARE, SELFPAY | PROVIDERS: Visit Provider Internal Medicine Cardiovascular Disease ==

== ENCOUNTER 2023-09-14 12:50 | Outpatient (AMB) | payer MEDICARE, SELFPAY ==
[2023-09-14 12:51] VITALS: BP 158/80; PULSE 70; O2SAT 97; BMI 24.9
--- NOTE | 2023-09-14 12:51 | A.OFFPC_ITS ---
Vital Signs 09/14/23 12:51 Height 5 ft 6 in Weight 154 lb BMI 24.9 BP 158/80 H Blood Pressure Location Lt brachial Position Sitting Pulse 70 Pulse Source Pulse Oximeter Pulse Oximetry (%) 97 Oxygen Delivery Method Room Air Intake Visit Reasons: Cold Symptoms Executive Assistant Required: No Accompanied by: Self / Same As Patient Allergies escitalopram [Lexapro] Allergy (Unknown, Verified 09/14/23 12:55) Nausea sertraline [Zoloft] Allergy (Unknown, Verified 09/14/23 12:55) NAUSEA ANTIDEPRESSANTS Allergy (Unknown, Uncoded 08/17/23 08:38) MAKE ME FEEL SICK Medication List - Last Reconciled 09/14/23 by Marylu Humphreys MD acetaminophen (Tylenol) 325 mg PO QID PRN alendronate 70 mg PO QWEEK calcium carbonate-vitamin D3 600 mg-5 mcg (200 unit) 1 tab PO DAILY diphenhydramine HCl (NightTime Sleep Aid (diphenhydramine)) 25 mg PO BEDTIME flaxseed oil 1,000 mg PO DAILY flecainide 50 mg PO BID fluticasone furoate 27.5 mcg/actuation 2 sprays intranasal DAILY lactobacillus combination no.8 (Adult Probiotic) 3,000 mmu cells PO DAILY loratadine (Allergy Relief (loratadine)) 10 mg PO DAILY lorazepam 0.5 mg PO BID-TID PRN 30 days methylcellulose (laxative) (Citrucel) 500 mg PO DAILY metoprolol succinate ER 12.5 mg (1/2 x 25 mg) PO DAILY multivitamin 1 tab PO DAILY simvastatin 20 mg PO BEDTIME valacyclovir 1,000 mg PO TID warfarin 5 mg See Protocol PO DAILY Tobacco use date assessed: 10/27/22 Fall risk assessment: No Falls in past year Last assessed Fall Risk: 09/14/23 Dental Screening Dental Screen Date: 09/14/23 Did you have a dental visit in the last 12 months?: Yes Did you have a dental problem in the last 6 months where you did not have access to dental care?: No Was dental information given to patient?: Patient has dentist HPI Cold Symptoms HPI Details 78-year-old female with hypertension hyp ercholesterolemia atrial fibrillation on anticoagulation recurrent major depression coming in for follow- up. Last seen in July 2023. Patient's colonoscopy is up-to-date August 2019 mammograms up-to-date bone density is up-to-date. Review of the notes has been follow-up with cardiology. Patient did get the vaccine for RSV July 2023. 3 days ago congested with hoareness, chills, no diarrhea, no urinary symptoms, Sekou /friend covid positive FORMERLY [facility], [facility]–1983 Medical History (Updated 09/14/23 @ 13:29 by Marylu Humphreys MD) Preop exam for internal medicine Pain of finger joint Knee pain, right Hip pain, left Medicare annual wellness visit, initial On beta lala at home On anticoagulant therapy Paroxysmal atrial fibrillation Insomnia Duodenal ulcer Urge incontinence Osteoporosis Anxiety and depression Osteoarthritis Humeral fracture Sinus bradycardia Cardiomyopathy Atrial fibrillation HLD (hyperlipidemia) HTN (hypertension) Surgical History History of cataract surgery Hx of colonoscopy History of hysterectomy with bilateral oophorectomy Hx of tonsillectomy Hx of cholecystectomy Family History Father Medical history unknown Mother Arthritis Hypertension History of hysterectomy Son In good health Daughter Diabetes Social History Household Members Other:: Friend Housing: House Are you a primary career services director to a significant other at home: No Do you presently have visiting nurse or other home services: No Alcohol intake: current Alcohol intake frequency: a few times a month Alcohol type: wine Patient Tobacco Use Status: Never used Tobacco e-Cigarette/Vaping Use: Never Used Second Hand Smoke Exposure: No service: No Current occupational status: employed Cognitive needs: No Hearing needs: No Vision needs: Yes Questionnaire Thrive Questionnaire Date Thrive assessed: 10/27/22 DARBY-7 AMB Questionnaire DARBY-7 Date DARBY - 7 assessed: 10/27/22 Source: Developed by Drs. Jarrett Perdomo, Chayito Cedeno, Oskar Johnson and colleagues, with an educational genesis from [employer]. Physical exam (Primary Care) Vital Signs: Last Vital Signs Pulse 70 09/14/23 12:51 BP 158/80 H 09/14/23 12:51 Pulse Ox 97 09/14/23 12:51 Oxygen Delivery Method Room Air 09/14/23 12:51 BMI result Body Mass Index 24.9 Tobacco/Smoking Status: Tobacco use Status Tobacco use date assessed 10/27/22 09/14/23 12:58 Patient Tobacco Use Status Never used Tobacco 09/14/23 12:58 e-Cigarette/Vaping Use Never Used 09/14/23 12:58 Thrive Assessment: Date of Thrive Assessment Date Thrive assessed 10/27/22 09/14/23 12:58 Const Other: Posterior pharyngeal wall noted mild swelling with redness TM intact lungs are clear General: alert; No acute distress Eyes Conjunctivae: conjunctivae normal Resp Auscultation: clear to auscultation bilaterally Cardio Rate: regular rate Rhythm: regular rhythm GI Inspection: Yes normal to inspection Extrem General: Yes normal to inspection and No edema Assessment and Plan Assessment & Plan (1) Nasal congestion: Code(s): R09.81 - Nasal congestion Plan: Discussed with the patient that most often is viral. Concern though with the exposure to COVID infection that she may end up having COVID infection. Take Tylenol. And retest in a couple of days. Antibiotics sent in. Medications: New amoxicillin 875 mg PO BID 20 tabs 0RF R09.81 - Nasal congestion Coding Level of Care Code Est Pt Level 3 (10786) Diagnoses Nasal congestion R09.81
== END 2023-09-14 13:36 | disposition home or self-care (01) ==
PROVIDERS: PCP Internal Medicine; Visit Provider Internal Medicine
DX: R09.81 Nasal congestion (principal)
CPT/HCPCS: 99213

== ENCOUNTER 2023-09-21 08:25 | Outpatient (AMB) | payer MEDICARE, SELFPAY ==
[2023-09-21 08:32] LABS: Prothrombin Time Whole Bld POC 29.3 sec (11.1-13.5); ~PT, ~INR - Anti Coag Clinic 2.4 (0.9-1.1)
--- NOTE | 2023-09-21 08:34 | MHC.OFFVISCO ---
Intake Intake Visit Reasons: Anticoagulation Allergies escitalopram [Lexapro] Allergy (Unknown, Verified 09/21/23 08:25) Nausea sertraline [Zoloft] Allergy (Unknown, Verified 09/21/23 08:25) NAUSEA ANTIDEPRESSANTS Allergy (Unknown, Uncoded 09/21/23 08:25) MAKE ME FEEL SICK Medication List - Last Reconciled 09/21/23 by Shelli Ewing, RN acetaminophen (Tylenol) 325 mg PO QID PRN alendronate 70 mg PO QWEEK amoxicillin 875 mg PO BID calcium carbonate-vitamin D3 600 mg-5 mcg (200 unit) 1 tab PO DAILY diphenhydramine HCl (NightTime Sleep Aid (diphenhydramine)) 25 mg PO BEDTIME flaxseed oil 1,000 mg PO DAILY flecainide 50 mg PO BID fluticasone furoate 27.5 mcg/actuation 2 sprays intranasal DAILY lactobacillus combination no.8 (Adult Probiotic) 3,000 mmu cells PO DAILY loratadine (Allergy Relief (loratadine)) 10 mg PO DAILY lorazepam 0.5 mg PO BID-TID PRN 30 days methylcellulose (laxative) (Citrucel) 500 mg PO DAILY metoprolol succinate ER 12.5 mg (1/2 x 25 mg) PO DAILY multivitamin 1 tab PO DAILY simvastatin 20 mg PO BEDTIME valacyclovir 1,000 mg PO TID warfarin 5 mg See Protocol PO DAILY Nursing Note Amb to [facility] feeling better than earlier in the week Medications and supplements reviewed, started on amoxicillin 09/14, called [facility] 09/18 see compose note-head cold, diarrhea No other changes in health, diet, medications, or supplements Denies any unusual signs and symptoms of bruising, bleeding Denies any new Chest pain, SOB, or clotting INR: 2.4 in therapeutic range Nutritional guidance given: continue with extra greens while completing antibiotic (09/23) then balance greens and reds in diet Dose: continue usual dosing;5mg x 2 days and 2.5mg x 5 days ( after decrease in dose on Monday this week) F/U INR:1 week secondary to delayed raise with antibiotic Patient verbalizes understanding of instructions given with accurate read back/ teach back of dosing Anti-Coag Initial Assessment Social Hx Patient Tobacco Use Status: Never used Tobacco alcohol intake: current Alcohol intake frequency: a few times a month Questionnaires HAS-BLED Does the patient had uncontrolled Hypertension?: No Does the patient have renal disease?: No Does the patient have liver disease?: No Does the patient have a history of stroke?: No Has the patient had major bleeding or predisposition to bleeding?: No Does the patient have labile INRs?: No Is the patient over 65 years of age?: Yes Is the patient on medications that gives them a predisposition to bleeding?: Yes Does the patient use alcohol?: Yes HAS-BLED Score: 3 CHADSVASC Age: 75 or over Gender: Female Does the patient have a history of CHF?: No Does the patient have a history of Hypertension?: Yes Does the patient have a history of Stroke/TIA/Thromboembolism?: No Does the patient have a history of Vascular Disease (prior IN, PAD or aortic plaque)?: No Does the patient have a history of Diabetes?: No CHADS VACS Score: 4 Maribell Prediction Score Rsk VTE Active Cancer: No Previous VTE, excluding superficial vein thrombosis: No Reduced mobility: No Already known Thrombophilic Condition: Yes With-in last month Trauma and/or Surgery: No Elderly 70 year or older: Yes Heart and/or Respiratory Failure: No Acute Myocardial infarction and/or Ischemic Stroke: No Acute Infection and/or Rheumatologic Disorder: No Obesity (BMI 30 or greater): No Ongoing Hormonal Treatment: No Score: 4 Maribell Score less than 4; Low Risk of VTE Maribell Score 4 or greater; High Risk of VTE Coding Level of Care Code Est Patient Level 1 Diagnoses Current use of anticoagulant therapy Z79.01 Time Spent (min) 15 Assessment & Plan Assessment & Plan (1) Current use of anticoagulant therapy: Code(s): 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
== END 2023-09-21 11:14 | disposition home or self-care (01) ==
LOC: HO.ACS 08:25
PROVIDERS: PCP Internal Medicine; Visit Provider Internal Medicine
DX: Z79.01 Long term (current) use of anticoagulants (principal)

== ENCOUNTER → 2023-09-21 08:25 | Outpatient (BNVA) | payer MEDICARE, SELFPAY | PROVIDERS: PCP Internal Medicine; Visit Provider Internal Medicine | DX: I48.20 Chronic atrial fibrillation, unspecified (principal); Z51.81 Encounter for therapeutic drug level monitoring; Z79.01 Long term (current) use of anticoagulants | CPT/HCPCS: 85610; 99211 ==

== ENCOUNTER 2023-09-28 08:28 | Outpatient (AMB) | payer MEDICARE, SELFPAY ==
[2023-09-28 08:56] LABS: Prothrombin Time Whole Bld POC 36.1 sec (11.1-13.5)
--- NOTE | 2023-09-28 09:01 | MHC.OFFVISCO ---
Intake Intake Visit Reasons: Anticoagulation Allergies escitalopram [Lexapro] Allergy (Unknown, Verified 09/28/23 08:50) Nausea sertraline [Zoloft] Allergy (Unknown, Verified 09/28/23 08:50) NAUSEA ANTIDEPRESSANTS Allergy (Unknown, Uncoded 09/21/23 08:25) MAKE ME FEEL SICK Medication List - Last Reconciled 09/28/23 by Danae Dejesus, RN acetaminophen (Tylenol) 325 mg PO QID PRN alendronate 70 mg PO QWEEK amoxicillin 875 mg PO BID calcium carbonate-vitamin D3 600 mg-5 mcg (200 unit) 1 tab PO DAILY diphenhydramine HCl (NightTime Sleep Aid (diphenhydramine)) 25 mg PO BEDTIME flaxseed oil 1,000 mg PO DAILY flecainide 50 mg PO BID fluticasone furoate 27.5 mcg/actuation 2 sprays intranasal DAILY lactobacillus combination no.8 (Adult Probiotic) 3,000 mmu cells PO DAILY loratadine (Allergy Relief (loratadine)) 10 mg PO DAILY lorazepam 0.5 mg PO BID-TID PRN 30 days methylcellulose (laxative) (Citrucel) 500 mg PO DAILY metoprolol succinate ER 12.5 mg (1/2 x 25 mg) PO DAILY multivitamin 1 tab PO DAILY simvastatin 20 mg PO BEDTIME valacyclovir 1,000 mg PO TID warfarin 5 mg See Protocol PO DAILY Nursing Note PT.IS DONE WITH ANTIBIOTICS NO CP,SOB,DIET/MED CHANGES,FALLS OR SX OF BLEEDING. CONTINUE PRESENT DOSE AND FOLLOW-UP IN 4 WEEKS. GOOD UNDERSTANDING OF DOSING INSTR. Anti-Coag Initial Assessment Social Hx Patient Tobacco Use Status: Never used Tobacco alcohol intake: current Alcohol intake frequency: a few times a month Coding Level of Care Code Est Patient Level 1 Diagnoses Current use of anticoagulant therapy Z79.01 Assessment & Plan Assessment & Plan (1) Current use of anticoagulant therapy: Code(s): Z79.01 - senior living (current) use of anticoagulants Category: Medical
== END 2023-09-28 09:03 | disposition home or self-care (01) ==
LOC: HO.ACS 08:28
PROVIDERS: PCP Internal Medicine; Visit Provider Internal Medicine
DX: Z79.01 Long term (current) use of anticoagulants (principal)

== ENCOUNTER 2023-09-28 08:28 | Outpatient (REF) | payer MEDICARE, SELFPAY | END 2023-09-28 08:29 | disposition home or self-care (01) | LOC: HO.LNP 08:28 | PROVIDERS: PCP Internal Medicine; Visit Provider Internal Medicine | DX: I48.20 Chronic atrial fibrillation, unspecified (principal); Z51.81 Encounter for therapeutic drug level monitoring; Z79.01 Long term (current) use of anticoagulants | CPT/HCPCS: 85610; 99211 ==

== ENCOUNTER 2023-09-29 | Outpatient (REF) | payer MEDICARE, SELFPAY ==
[2023-09-29 17:26] LABS: Influenza A PCR NEGATIVE (Negative); Influenza B PCR NEGATIVE (Negative); Resp Syncy Virus RNA Qual PCR NEGATIVE (Negative); SARS COV2 PCR INHOUSE NEGATIVE (Negative)
== END 2023-09-29 00:01 | disposition home or self-care (01) ==
LOC: HO.LNP
PROVIDERS: Visit Provider Physician Assistant
DX: J06.9 Acute upper respiratory infection, unspecified (principal); Z11.52 Encounter for screening for COVID-19; Z20.828 Contact with and (suspected) exposure to other viral communicable diseases
CPT/HCPCS: 0241U

== ENCOUNTER 2023-09-29 09:46 | Outpatient (AMB) | payer MEDICARE, SELFPAY ==
[2023-09-29 12:20] VITALS: BP 138/70; PULSE 66; TEMP 36.1; O2SAT 98; BMI 24.7
--- NOTE | 2023-09-29 12:20 | AM.OFFWIN_ITS ---
Intake Vital Signs 09/29/23 12:20 Height 5 ft 6 in Weight 153 lb BMI 24.7 BP 138/70 Blood Pressure Location Lt brachial Position Sitting Pulse 66 Pulse Source Pulse Oximeter Temp 97.0 F Temp Source Temporal Artery Scan Pulse Oximetry (%) 98 Oxygen Delivery Method Room Air Intake Visit Reasons: EP head congestion [id number] Intake Note: pt is here today for head congestion started 4 days ago Patient Tobacco Use Status: Never used Tobacco Allergies escitalopram [Lexapro] Allergy (Unknown, Verified 09/29/23 12:21) Nausea sertraline [Zoloft] Allergy (Unknown, Verified 09/29/23 12:21) NAUSEA ANTIDEPRESSANTS Allergy (Unknown, Uncoded 09/21/23 08:25) MAKE ME FEEL SICK Do you need a note to return to daycare/school/sports/work: No HPI HPI Comments History of Present Illness Details She presents to office with cold symptoms 2 weeks ago was seen by MD for infection and took 10 days of amoxicillin; she had nasal drip and phlegm in throat/ear fullnes She felt better for 3-4 days Started Monday night with ST, cough She has + fatigue Subjective chills without fever She has tried tylenol with some relief + head pressure/ear fullness PFS Medical History (Updated 09/29/23 @ 12:52 by Giuliana Castro PA-C) Preop exam for internal medicine Pain of finger joint Knee pain, right Hip pain, left Medicare annual wellness visit, initial On beta lala at home On anticoagulant therapy Paroxysmal atrial fibrillation Insomnia Duodenal ulcer Urge incontinence Osteoporosis Anxiety and depression Osteoarthritis Humeral fracture Sinus bradycardia Cardiomyopathy Atrial fibrillation HLD (hyperlipidemia) HTN (hypertension) Surgical History History of cataract surgery Hx of colonoscopy History of hysterectomy with bilateral oophorectomy Hx of tonsillectomy Hx of cholecystectomy Family History Father Medical history unknown Mother Arthritis Hypertension History of hysterectomy Son In good health Daughter Diabetes Social History Household Members Other:: Friend Housing: House Are you a primary acute care clinical nurse specialist to a significant other at home: No Do you presently have visiting nurse or other home services: No Alcohol intake: current Alcohol intake frequency: a few times a month Alcohol type: wine Patient Tobacco Use Status: Never used Tobacco e-Cigarette/Vaping Use: Never Used Second Hand Smoke Exposure: No service: No Current occupational status: employed Cognitive needs: No Hearing needs: No Vision needs: Yes Review of Systems Const Denies body aches, Denies chills, Reports fatigue, Denies fever(s) and Reports headache(s) Eyes Denies blurry vision ENT Denies dizziness, Reports otalgia (fullness), Reports headache(s), Reports nasal congestion, Reports nasal discharge, Denies sinus pain and Reports sinus pressure Card Denies chest pain and Denies dyspnea Resp Reports chest congestion, Reports cough and Denies dyspnea GI Denies abdominal pain Musc Denies myalgias Neuro Denies dizziness and Reports headache(s) Endo Reports fatigue Physical Exam Vital Signs: Last Vital Signs Temp 97.0 F 09/29/23 12:20 Pulse 66 09/29/23 12:20 BP 138/70 09/29/23 12:20 Pulse Ox 98 09/29/23 12:20 Oxygen Delivery Method Room Air 09/29/23 12:20 BMI result Body Mass Index 24.7 General: Non-toxic, NAD. Speaking full sentences. Skin: Warm dry throughout Eye: EOMI, PERRL HENT: Airway patent. Uvula midline. No pharyngeal erythema or edema. 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 Bilateral canals clear. TM non-erythematous, non-bulging. No TM perforation or hemotympanum noted. Respiratory: dry cough on exam. CTA bilaterally. No wheezes, rales or rhonchi Cardiac: RRR. No murmur MSK: Full ROM extremities. Neurology: A/O. No aphasia or facial droop. Gait without abnormality Psych: Good mood and affect Assessment & Plan Assessment & Plan (1) Upper respiratory infection: Code(s): J06.9 - Acute upper respiratory infection, unspecified Qualifiers: URI type: unspecified viral URI Qualified Code(s): J06.9 - Acute upper respiratory infection, unspecified Plan: Patient seen and evaluated. Lungs CTA No larg fluid behind TMs Already had 10 days amoxicillin RSV/COVID/Flu ordered Tessalon pearls and nasal steroid PCP follow up Patient gave verbal understanding and had no additional questions or concerns at time of discharge All questions answered Orders: Orders SARS-CoV2/FLU/RSV Today J06.9 - Acute upper respiratory infection, unspecified Medications: New ipratropium bromide administer into each nostril x 7 days 2 sprays intranasal BID-TID PRN 30 mL 0RF allergy symptoms J06.9 - Acute upper respiratory infection, unspecified benzonatate 100 mg PO BID-TID PRN 14 caps 0RF cough J06.9 - Acute upper respiratory infection, unspecified Coding Level of Care Code Est Pt Level 3 (08866) Diagnoses Viral upper respiratory tract infection J06.9 URI type: unspecified viral URI
== END 2023-09-29 13:17 | disposition home or self-care (01) ==
PROVIDERS: PCP Internal Medicine; Visit Provider Physician Assistant
DX: J06.9 Acute upper respiratory infection, unspecified (principal)
CPT/HCPCS: 99213

== ENCOUNTER 2023-10-26 09:47 | Outpatient (AMB) | payer MEDICARE, SELFPAY ==
--- NOTE | 2023-10-26 09:44 | MHC.OFFVISCO ---
Intake Intake Visit Reasons: Anticoagulation Allergies escitalopram [Lexapro] Allergy (Unknown, Verified 10/26/23 09:55) Nausea sertraline [Zoloft] Allergy (Unknown, Verified 10/26/23 09:55) NAUSEA ANTIDEPRESSANTS Allergy (Unknown, Uncoded 10/26/23 09:55) MAKE ME FEEL SICK Medication List - Last Reconciled 10/26/23 by Shelli Mack, RN acetaminophen (Tylenol) 325 mg PO QID PRN alendronate 70 mg PO QWEEK amoxicillin 875 mg PO BID benzonatate 100 mg PO BID-TID PRN calcium carbonate-vitamin D3 600 mg-5 mcg (200 unit) 1 tab PO DAILY diphenhydramine HCl (NightTime Sleep Aid (diphenhydramine)) 25 mg PO BEDTIME doxycycline hyclate 100 mg PO BID flaxseed oil 1,000 mg PO DAILY flecainide 50 mg PO BID fluticasone furoate 27.5 mcg/actuation 2 sprays intranasal DAILY ipratropium bromide 2 sprays intranasal BID-TID PRN lactobacillus combination no.8 (Adult Probiotic) 3,000 mmu cells PO DAILY loratadine (Allergy Relief (loratadine)) 10 mg PO DAILY lorazepam 0.5 mg PO BID-TID PRN 30 days methylcellulose (laxative) (Citrucel) 500 mg PO DAILY metoprolol succinate ER 12.5 mg (1/2 x 25 mg) PO DAILY multivitamin 1 tab PO DAILY simvastatin 20 mg PO BEDTIME valacyclovir 1,000 mg PO TID warfarin 5 mg See Protocol PO DAILY Nursing Note pt denies any changes in health. no unusual bleeding or bruising. no chest pain or sob. INR in range. no dose changes. continue to balance greens. f/u in 1 month verbalizes understanding Anti-Coag Initial Assessment Social Hx Patient Tobacco Use Status: Never used Tobacco alcohol intake: current Alcohol intake frequency: a few times a month Coding Level of Care Code Est Patient Level 1 Diagnoses Current use of anticoagulant therapy Z79.01 Assessment & Plan Assessment & Plan (1) Current use of anticoagulant therapy: Code(s): Z79.01 - manager intermediate (current) use of anticoagulants Category: Medical
[2023-10-26 10:03] LABS: Prothrombin Time Whole Bld POC 25.9 sec (11.1-13.5); ~PT, ~INR - Anti Coag Clinic 2.2 (0.9-1.1)
== END 2023-10-26 10:09 | disposition home or self-care (01) ==
LOC: HO.ACS 09:47
PROVIDERS: PCP Internal Medicine; Visit Provider Internal Medicine
DX: Z79.01 Long term (current) use of anticoagulants (principal)

== ENCOUNTER → 2023-10-26 09:47 | Outpatient (BNVA) | payer MEDICARE, SELFPAY | PROVIDERS: PCP Internal Medicine; Visit Provider Internal Medicine | DX: I48.20 Chronic atrial fibrillation, unspecified (principal); Z79.01 Long term (current) use of anticoagulants; Z51.81 Encounter for therapeutic drug level monitoring | CPT/HCPCS: 85610; 99211 ==

== ENCOUNTER 2023-10-26 10:33 | Outpatient (AMB) | payer MEDICARE, SELFPAY ==
[2023-10-26 10:39] VITALS: BP 124/68; PULSE 59; O2SAT 99; BMI 24.9
--- NOTE | 2023-10-26 10:39 | A.OFFVIS_ITS ---
Intake Vital Signs 10/26/23 10:39 Height 5 ft 6 in Weight 154 lb BMI 24.9 BP 124/68 Blood Pressure Location Lt brachial Position Sitting Pulse 59 Pulse Source Pulse Oximeter Pulse Oximetry (%) 99 Oxygen Delivery Method Room Air Intake Visit Reasons: AWV [id number] Intake Note: Patient is here for an Annual Wellness Visit. 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 Required: No Allergies escitalopram [Lexapro] Allergy (Unknown, Verified 10/26/23 10:39) Nausea sertraline [Zoloft] Allergy (Unknown, Verified 10/26/23 10:39) NAUSEA ANTIDEPRESSANTS Allergy (Unknown, Uncoded 10/26/23 10:39) MAKE ME FEEL SICK Medication List - Last Reconciled 10/26/23 by Marylu Humphreys MD acetaminophen (Tylenol) 325 mg PO QID PRN alendronate 70 mg PO QWEEK calcium carbonate-vitamin D3 600 mg-5 mcg (200 unit) 1 tab PO DAILY diphenhydramine HCl (NightTime Sleep Aid (diphenhydramine)) 25 mg PO BEDTIME flaxseed oil 1,000 mg PO DAILY flecainide 50 mg PO BID fluticasone furoate 27.5 mcg/actuation 2 sprays intranasal DAILY ipratropium bromide 2 sprays intranasal BID-TID PRN lactobacillus combination no.8 (Adult Probiotic) 3,000 mmu cells PO DAILY loratadine (Allergy Relief (loratadine)) 10 mg PO DAILY lorazepam 0.5 mg PO BID-TID PRN 30 days methylcellulose (laxative) (Citrucel) 500 mg PO DAILY metoprolol succinate ER 12.5 mg (1/2 x 25 mg) PO DAILY multivitamin 1 tab PO DAILY simvastatin 20 mg PO BEDTIME valacyclovir 1,000 mg PO TID warfarin 5 mg See Protocol PO DAILY HPI AWV G0438 HPI Details 78-year-old female with hypertension hyp ercholesterolemia atrial fibrillation with a history of cardiomyopathy depression coming in for annual well visit last seen in September for a nasal congestion. Patient's colonoscopy is up-to-date August 2019 mammogram is up-to-date May 2023 and bone density done in May 2022. states has numbness on 2 AND 3RD TOE bilateral but not enough advised to not cross legs [facility] Medical History (Updated 10/26/23 @ 11:07 by Marylu Humphreys MD) Preop exam for internal medicine Pain of finger joint Knee pain, right Hip pain, left Medicare annual wellness visit, initial On beta lala at home On anticoagulant therapy Paroxysmal atrial fibrillation Insomnia Duodenal ulcer Urge incontinence Osteoporosis Anxiety and depression Osteoarthritis Humeral fracture Sinus bradycardia Cardiomyopathy Atrial fibrillation HLD (hyperlipidemia) HTN (hypertension) Surgical History History of cataract surgery Hx of colonoscopy History of hysterectomy with bilateral oophorectomy Hx of tonsillectomy Hx of cholecystectomy Family History Father Medical history unknown Mother Arthritis Hypertension History of hysterectomy Son In good health Daughter Diabetes Social History (Updated 10/26/23 @ 11:18 by Marylu Humphreys MD) Household Members Other:: Friend Housing: House Are you a primary patient care associate to a significant other at home: No Do you presently have visiting nurse or other home services: No Alcohol intake: current Alcohol intake frequency: a few times a month Alcohol type: wine Comment: once Q 3 month glass Patient Tobacco Use Status: Never used Tobacco e-Cigarette/Vaping Use: Never Used Second Hand Smoke Exposure: No service: No Current occupational status: employed Cognitive needs: No Hearing needs: No Vision needs: Yes Questionnaire Medicare Wellness Checkup [age] What gender do you identify with?: female During the past 4 weeks, how much have you been bothered by emotional problems such as feeling anxious, depressed, irritable, sad or downhearted, and blue?: slightly During the past 4 weeks, has your physical & emotional health limited your social activities with family, friends, neighbors, or groups?: not at all During the past 4 weeks, how much bodily pain have you generally had?: mild pain During the past 4 weeks, was someone available to help you if you needed & wanted help?: no, not at all During the past 4 weeks, what was the hardest physical activity you could do for at least 2 minutes?: moderate Can you get to places out of walking distance without help? (For eg., can you travel alone on buses, taxis or drive your car?): Yes Can you go shopping for groceries or clothes without someone's help?: Yes Can you prepare your own meals?: Yes Can you do your housework without help?: Yes Because of any health problems, do you need the help of another person with your personal care needs such as eating, bathing, dressing or getting around the house?: No Can you handle your own money without help?: Yes During the past 4 weeks, how would you rate your health in general?: very good During the past 4 weeks how have things been going for you?: good & bad parts about equal Are you having difficulties driving your car?: no Do you always fasten your seat belt when you are in a car?: yes, usually During past 4 weeks, have you been bothered by the following: never: Falling or dizzy when standing up, Sexual problems?, Trouble eating well?, Teeth or denture problems? and Problems using the telephone? and sometimes: Tiredness or fatigue? Have you fallen 2 or more times in the past year?: No Are you afraid of falling?: No Are you a smoker?: no During the past 4 weeks, how many drinks of wine, beer, or other alcoholic beverages did you have?: no alcohol at all Do you exercise for about 20 minutes 3 or more times a week?: no, I usually do not exercise this much Have you been given information to help with the following?: no: Hazards in your house that might hurt you? and no: Keeping track of your medications? How often do you have trouble taking medicines the way you have been told to take them?: I always take medicine as prescribed How confident are you that you can control & manage most of your health problems?: somewhat confident What is your race?: White PHQ-9 Over the last 2 weeks, how often have you been bothered by any of the following problems? 1. Little interest or pleasure in doing things: not at all 2. Feeling down, depressed, or hopeless: several days 3. Trouble falling or staying asleep, or sleeping too much: not at all 4. Feeling tired or having little energy: several days 5. Poor appetite or overeating: not at all 6. Feeling bad about yourself - or that you are a failure or have let yourself or your family down: not at all 7. Trouble concentrating on things, such as reading the newspaper or watching television: not at all 8. Moving or speaking so slowly that other people could have noticed. Or the opposite - being so fidgety or restless that you have been moving around a lot more than usual: not at all 9. Thoughts that you would be better off or of hurting yourself in some way: not at all Total score: 2 Depression Screening Interpretation: Positive Depression Screening Done: Yes [id number] - PHQ-9 Billing: Yes Source: Developed by Drs. Jarrett Perdomo, Chayito Cedeno, Oskar Johnson and colleagues, with an educational genesis from [employer]. Review of Systems Const Denies poor appetite and Denies weakness Eyes Denies no additional complaints ENT Reports Normal hearing present, Denies dizziness, Denies nasal congestion, Denies tinnitus and Denies sore throat Card Denies chest pain, Denies syncope, Denies rapid heart rate and Denies dyspnea Resp Denies cough and Denies dyspnea GI Denies change in stool character, Reports constipation, Denies diarrhea, Denies nausea and Denies vomiting Denies urinary frequency, Denies difficulty voiding and Denies dysuria Neuro Reports Normal hearing present, Denies confusion, Denies dizziness, Denies syncope and Denies weakness Psych Denies confusion Physical Exam Vital Signs: Last Vital Signs Pulse 59 10/26/23 10:39 BP 124/68 10/26/23 10:39 Pulse Ox 99 10/26/23 10:39 Oxygen Delivery Method Room Air 10/26/23 10:39 BMI result Body Mass Index 24.9 Const General: No confusion Orientation/consciousness: No confusion HEENT Head: Yes normocephalic Ears: external ears normal and TM's normal bilaterally Face and sinus: Yes normal facial exam Mouth: moist mucous membranes Throat: Yes tonsils normal Eyes Conjunctivae: conjunctivae normal Pupils: Equal, round and reactive pupils present and Pupil accommodation reflex normal Direct Ophthalmoscopy: normal light reflex Neck Neck: No lymphadenopathy Thyroid: Thyroid normal Chest Chest palpation & inspection: normal inspection of the chest Resp Effort & Inspection: normal respiratory effort and no audible wheezes Auscultation: clear to auscultation bilaterally, no crackles, no wheezes and lung sounds not diminished Cardio Rate: regular rate Rhythm: regular rhythm Peripheral pulses: radial pulses present and dorsalis pedis present GI Other: guaiac negative Palpation (GI): no masses Auscultation: normal bowel sounds and normoactive bowel sounds Skin General skin exam: no rashes or lesions noted Rashes: no rashes Neuro General: No confusion Cranial nerves: Yes Equal, round and reactive pupils present and Yes Normal hearing present Cognition (Neuro): normal cognition Gait exam (Neuro): Normal gait present Motor exam (neuro): 5/5 motor strength present throughout Deep tendon reflexes (DTR's): Right brachioradialis reflex intensity grade: 2+, Left brachioradialis reflex intensity grade: 2+, Right patellar reflex intensity grade: 2+ and Left patellar reflex intensity grade: 2+ Extrem General: No edema Assessment & Plan Assessment & Plan (1) Medicare annual wellness visit, subsequent: Code(s): Z00.00 - Encounter for general adult medical examination without abnormal findings Plan: Keep well hydrated, keep active and eat healthy (2) HTN (hypertension): Code(s): I10 - Essential (primary) hypertension Qualifiers: Hypertension type: essential hypertension Qualified Code(s): I10 - Essential (primary) hypertension Plan: Continue with blood pressure medication. Decrease salt intake and exercise patient on metoprolol 12.5 mg once a day (3) HLD (hyperlipidemia): Code(s): E78.5 - Hyperlipidemia, unspecified Qualifiers: Hyperlipidemia type: pure hypercholesterolemia Qualified Code(s): E78.00 - Pure hypercholesterolemia, unspecified Plan: Avoid fried foods, chicken skin, eggs, butter margarine, pastries and meat. Be it pork or beef they have a lot of cholesterol LDL goal of less than 100 and triglyceride of less than 150 on simvastatin 20 mg at bedtime (4) Paroxysmal atrial fibrillation: Comment: The left ventricular systolic function is normal. The calculated ejection fraction is 64% by biplane method. - No obvious valvular pathology seen on this study. August 2022 echocardiogram Code(s): I48.0 - Paroxysmal atrial fibrillation Plan: Continue with anticoagulation and has flecainide patient follows up with Cardiology (5) Recurrent major depression: Comment: decline counselling (07/2022) Code(s): F33.9 - Major depressive disorder, recurrent, unspecified Plan: Continue with present medication Medications: Refilled flecainide 50 mg PO BID 180 tabs 2RF Z01.818 - Encounter for other preprocedural examination alendronate 70 mg PO QWEEK 12 tabs 3RF simvastatin 20 mg PO BEDTIME 90 tabs 3RF Z01.818 - Encounter for other preprocedural examination warfarin 5 mg See Protocol PO DAILY 90 tabs 3RF Z01.818 - Encounter for other preprocedural examination lorazepam 0.5 mg PO BID-TID 30 days PRN 90 tabs 1RF anxiety F41.9 - Anxiety disorder, unspecified metoprolol succinate ER 12.5 mg (1/2 x 25 mg) PO DAILY 45 tabs 3RF Z01.818 - Encounter for other preprocedural examination Quality Reporting (2019) Depression/Bipolar (159/160/161/177) PHQ-9: Total score: 2 Coding Level of Care Code Medicare Subsequent (G0439) Diagnoses Medicare annual wellness visit, subsequent Z00.00 Essential hypertension I10 Hypertension type: essential hypertension Pure hypercholesterolemia E78.00 Hyperlipidemia type: pure hypercholesterolemia Paroxysmal atrial fibrillation I48.0 Recurrent major depression F33.9
== END 2023-10-26 11:34 | disposition home or self-care (01) ==
PROVIDERS: PCP Internal Medicine; Visit Provider Internal Medicine
DX: Z00.00 Encounter for general adult medical examination without abnormal findings (principal); I48.0 Paroxysmal atrial fibrillation; F33.9 Major depressive disorder, recurrent, unspecified; I10 Essential (primary) hypertension; E78.00 Pure hypercholesterolemia, unspecified
CPT/HCPCS: G0439

== ENCOUNTER 2023-11-23 08:18 | Outpatient (AMB) | payer MEDICARE, SELFPAY ==
[2023-11-23 08:25] LABS: Prothrombin Time Whole Bld POC 22.5 sec (11.1-13.5); ~PT, ~INR - Anti Coag Clinic 1.9 (0.9-1.1)
--- NOTE | 2023-11-23 08:25 | MHC.OFFVISCO ---
Intake Intake Visit Reasons: Anticoagulation Allergies escitalopram [Lexapro] Allergy (Unknown, Verified 11/23/23 08:20) Nausea sertraline [Zoloft] Allergy (Unknown, Verified 11/23/23 08:20) NAUSEA ANTIDEPRESSANTS Allergy (Unknown, Uncoded 11/23/23 08:20) MAKE ME FEEL SICK Medication List - Last Reconciled 11/23/23 by Tali Lima RN acetaminophen (Tylenol) 325 mg PO QID PRN alendronate 70 mg PO QWEEK calcium carbonate-vitamin D3 600 mg-5 mcg (200 unit) 1 tab PO DAILY diphenhydramine HCl (NightTime Sleep Aid (diphenhydramine)) 25 mg PO BEDTIME flaxseed oil 1,000 mg PO DAILY flecainide 50 mg PO BID fluticasone furoate 27.5 mcg/actuation 2 sprays intranasal DAILY ipratropium bromide 2 sprays intranasal BID-TID PRN lactobacillus combination no.8 (Adult Probiotic) 3,000 mmu cells PO DAILY loratadine (Allergy Relief (loratadine)) 10 mg PO DAILY lorazepam 0.5 mg PO BID-TID PRN 30 days methylcellulose (laxative) (Citrucel) 500 mg PO DAILY metoprolol succinate ER 12.5 mg (1/2 x 25 mg) PO DAILY multivitamin 1 tab PO DAILY nitrofurantoin macrocrystal 100 mg PO BID 5 days simvastatin 20 mg PO BEDTIME valacyclovir 1,000 mg PO TID warfarin 5 mg See Protocol PO DAILY Nursing Note INR 1.9-?? out of therapeutic range of 2-3 Medications and supplements reviewed Patient status: no c.o, pt unsure why inr is low Medications or supplements: completed nitrofurantoin beginning of the month for uti- no interaction Diet: same Denies any signs and symptoms of bleeding or clotting or unusual bruising Bleeding, bruising, clotting discussed Nutritional guidance given: no greens for 2 days Dose: 5mg today and tomm then cont reg 5mg x 2, 2.5mg x 4 F/U INR Date : 12/14/23?? Patient verbalizing understanding of instructions given. 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
== END 2023-11-23 08:31 | disposition home or self-care (01) ==
LOC: HO.ACS 08:18
PROVIDERS: PCP Internal Medicine; Visit Provider Internal Medicine
DX: Z79.01 Long term (current) use of anticoagulants (principal)

== ENCOUNTER → 2023-11-23 08:18 | Outpatient (BNVA) | payer MEDICARE, SELFPAY | PROVIDERS: PCP Internal Medicine; Visit Provider Internal Medicine | DX: I48.20 Chronic atrial fibrillation, unspecified (principal); Z79.01 Long term (current) use of anticoagulants; Z51.81 Encounter for therapeutic drug level monitoring | CPT/HCPCS: 85610; 99211 ==

== ENCOUNTER 2023-12-14 08:22 | Outpatient (AMB) | payer MEDICARE, SELFPAY ==
[2023-12-14 08:33] LABS: Prothrombin Time Whole Bld POC 31.7 sec (11.1-13.5); ~PT, ~INR - Anti Coag Clinic 2.6 (0.9-1.1)
--- NOTE | 2024-03-13 09:03 | MHC.OFFVISCO ---
Intake Intake Visit Reasons: Anticoagulation Allergies escitalopram [Lexapro] Allergy (Unknown, Verified 03/07/24 08:31) Nausea sertraline [Zoloft] Allergy (Unknown, Verified 03/07/24 08:31) NAUSEA ANTIDEPRESSANTS Allergy (Unknown, Uncoded 03/07/24 08:31) MAKE ME FEEL SICK Medication List - Last Reconciled 12/14/23 by Shelli Mack RN acetaminophen (Tylenol) 325 mg PO QID PRN alendronate 70 mg PO QWEEK calcium carbonate-vitamin D3 600 mg-5 mcg (200 unit) 1 tab PO DAILY diphenhydramine HCl (NightTime Sleep Aid (diphenhydramine)) 25 mg PO BEDTIME flaxseed oil 1,000 mg PO DAILY flecainide 50 mg PO BID fluticasone furoate 27.5 mcg/actuation 2 sprays intranasal DAILY ipratropium bromide 2 sprays intranasal BID-TID PRN lactobacillus combination no.8 (Adult Probiotic) 3,000 mmu cells PO DAILY loratadine (Allergy Relief (loratadine)) 10 mg PO DAILY lorazepam 0.5 mg PO BID-TID PRN 30 days methylcellulose (laxative) (Citrucel) 500 mg PO DAILY metoprolol succinate ER 12.5 mg (1/2 x 25 mg) PO DAILY multivitamin 1 tab PO DAILY nitrofurantoin macrocrystal 100 mg PO BID 10 days simvastatin 20 mg PO BEDTIME valacyclovir 1,000 mg PO TID warfarin 5 mg See Protocol PO DAILY Anti-Coag Initial Assessment Social Hx Patient Tobacco Use Status: Never used Tobacco alcohol intake: current Alcohol intake frequency: a few times a month Coding Diagnoses Current use of anticoagulant therapy Z79.01 Results AMB INR Fingerstick AMB INR Fingerstick 2.6 Last Edit by Shelli Mack RN on 12/14/23 08:33 interface delay Assessment & Plan Assessment & Plan (1) Current use of anticoagulant therapy: Code(s): 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
--- NOTE | 2024-08-02 12:21 | MHC.OFFVISCO ---
Intake Intake Visit Reasons: Anticoagulation Allergies escitalopram [Lexapro] Allergy (Unknown, Verified 07/11/24 08:46) Nausea sertraline [Zoloft] Allergy (Unknown, Verified 07/11/24 08:46) NAUSEA ANTIDEPRESSANTS Allergy (Unknown, Uncoded 07/11/24 08:46) MAKE ME FEEL SICK Medication List - Last Reconciled 12/14/23 by Shelli Mack, RN acetaminophen (Tylenol) 325 mg PO QID PRN alendronate 70 mg PO QWEEK calcium carbonate-vitamin D3 600 mg-5 mcg (200 unit) 1 tab PO DAILY diphenhydramine HCl (NightTime Sleep Aid (diphenhydramine)) 25 mg PO BEDTIME flaxseed oil 1,000 mg PO DAILY flecainide 50 mg PO BID fluticasone furoate 27.5 mcg/actuation 2 sprays intranasal DAILY ipratropium bromide 2 sprays intranasal BID-TID PRN lactobacillus combination no.8 (Adult Probiotic) 3,000 mmu cells PO DAILY loratadine (Allergy Relief (loratadine)) 10 mg PO DAILY lorazepam 0.5 mg PO BID-TID PRN 30 days methylcellulose (laxative) (Citrucel) 500 mg PO DAILY metoprolol succinate ER 12.5 mg (1/2 x 25 mg) PO DAILY multivitamin 1 tab PO DAILY nitrofurantoin macrocrystal 100 mg PO BID 10 days simvastatin 20 mg PO BEDTIME valacyclovir 1,000 mg PO TID warfarin 5 mg See Protocol PO DAILY Nursing Note pt seen in clinic on 12/14/23 INR performed and instructions given by ACS RN Anti-Coag Initial Assessment Social Hx Patient Tobacco Use Status: Never used Tobacco alcohol intake: current Alcohol intake frequency: a few times a month Coding Level of Care Code Est Patient Level 1 Diagnoses Current use of anticoagulant therapy Z79.01 Results AMB INR Fingerstick AMB INR Fingerstick 2.6 Last Edit by Shelli Mack RN on 12/14/23 08:33 interface delay Assessment & Plan Assessment & Plan (1) Current use of anticoagulant therapy: Code(s): 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
== END 2023-12-14 08:38 | disposition home or self-care (01) ==
LOC: HO.ACS 08:22
PROVIDERS: PCP Internal Medicine; Visit Provider Internal Medicine
DX: Z79.01 Long term (current) use of anticoagulants (principal)

== ENCOUNTER → 2023-12-14 08:22 | Outpatient (BNVA) | payer MEDICARE, SELFPAY | PROVIDERS: PCP Internal Medicine; Visit Provider Internal Medicine | DX: I48.20 Chronic atrial fibrillation, unspecified (principal); Z79.01 Long term (current) use of anticoagulants; Z51.81 Encounter for therapeutic drug level monitoring | CPT/HCPCS: 85610; 99211 ==

== ENCOUNTER 2024-01-11 08:19 | Outpatient (AMB) | payer MEDICARE, SELFPAY ==
[2024-01-11 08:51] LABS: Prothrombin Time Whole Bld POC 26.7 sec (11.1-13.5); ~PT, ~INR - Anti Coag Clinic 2.2 (0.9-1.1)
--- NOTE | 2024-01-11 08:54 | MHC.OFFVISCO ---
Intake Intake Visit Reasons: Anticoagulation Allergies escitalopram [Lexapro] Allergy (Unknown, Verified 01/11/24 08:45) Nausea sertraline [Zoloft] Allergy (Unknown, Verified 01/11/24 08:45) NAUSEA ANTIDEPRESSANTS Allergy (Unknown, Uncoded 01/11/24 08:45) MAKE ME FEEL SICK Medication List - Last Reconciled 01/11/24 by Cristel Coreas RN acetaminophen (Tylenol) 325 mg PO QID PRN alendronate 70 mg PO QWEEK calcium carbonate-vitamin D3 600 mg-5 mcg (200 unit) 1 tab PO DAILY diphenhydramine HCl (NightTime Sleep Aid (diphenhydramine)) 25 mg PO BEDTIME flaxseed oil 1,000 mg PO DAILY flecainide 50 mg PO BID fluticasone furoate 27.5 mcg/actuation 2 sprays intranasal DAILY ipratropium bromide 2 sprays intranasal BID-TID PRN lactobacillus combination no.8 (Adult Probiotic) 3,000 mmu cells PO DAILY loratadine (Allergy Relief (loratadine)) 10 mg PO DAILY lorazepam 0.5 mg PO BID-TID PRN 30 days methylcellulose (laxative) (Citrucel) 500 mg PO DAILY metoprolol succinate ER 12.5 mg (1/2 x 25 mg) PO DAILY multivitamin 1 tab PO DAILY nitrofurantoin macrocrystal 100 mg PO BID 10 days simvastatin 20 mg PO BEDTIME valacyclovir 1,000 mg PO TID warfarin 5 mg See Protocol PO DAILY Nursing Note INR: 2.2 in therapeutic range Medications and supplements reviewed states she occ has a right nares nosebleed- uses flonase-for allergies advised her to blow gently, also use saline nasal spray or a moisturizer for the nose like Ayrr- and call md if continues - may need caterization No changes in diet, medications, or supplements, Denies any signs and symptoms of bleeding or bruising or clotting. Bleeding, bruising, clotting discussed Nutritional guidance given- eat a mix Dose: keep same for now 5mg x 2 days/2.5mg x 5 days F/U INR: 1 month Patient verbalizes understanding of instructions given Anti-Coag Initial Assessment Social Hx Patient Tobacco Use Status: Never used Tobacco alcohol intake: current Alcohol intake frequency: a few times a month Coding Level of Care Code Est Patient Level 1 Diagnoses Current use of anticoagulant therapy Z79.01 Assessment & Plan Assessment & Plan (1) Current use of anticoagulant therapy: Code(s): Z79.01 - watermaster (current) use of anticoagulants Category: Medical
== END 2024-01-11 08:59 | disposition home or self-care (01) ==
LOC: HO.ACS 08:19
PROVIDERS: PCP Internal Medicine; Visit Provider Internal Medicine
DX: Z79.01 Long term (current) use of anticoagulants (principal)

== ENCOUNTER → 2024-01-11 08:19 | Outpatient (BNVA) | payer MEDICARE, SELFPAY | PROVIDERS: PCP Internal Medicine; Visit Provider Internal Medicine | DX: I48.20 Chronic atrial fibrillation, unspecified (principal); Z79.01 Long term (current) use of anticoagulants; Z51.81 Encounter for therapeutic drug level monitoring | CPT/HCPCS: 85610; 99211 ==

== ENCOUNTER 2024-02-08 08:18 | Outpatient (AMB) | payer MEDICARE, SELFPAY ==
--- NOTE | 2024-02-08 08:44 | MHC.OFFVISCO ---
Intake Intake Visit Reasons: Anticoagulation Allergies escitalopram [Lexapro] Allergy (Unknown, Verified 02/08/24 08:34) Nausea sertraline [Zoloft] Allergy (Unknown, Verified 02/08/24 08:34) NAUSEA ANTIDEPRESSANTS Allergy (Unknown, Uncoded 02/08/24 08:34) MAKE ME FEEL SICK Medication List - Last Reconciled 02/08/24 by Shelli Mack RN acetaminophen (Tylenol) 325 mg PO QID PRN alendronate 70 mg PO QWEEK calcium carbonate-vitamin D3 600 mg-5 mcg (200 unit) 1 tab PO DAILY diphenhydramine HCl (NightTime Sleep Aid (diphenhydramine)) 25 mg PO BEDTIME flaxseed oil 1,000 mg PO DAILY flecainide 50 mg PO BID fluticasone furoate 27.5 mcg/actuation 2 sprays intranasal DAILY ipratropium bromide 2 sprays intranasal BID-TID PRN lactobacillus combination no.8 (Adult Probiotic) 3,000 mmu cells PO DAILY loratadine (Allergy Relief (loratadine)) 10 mg PO DAILY lorazepam 0.5 mg PO BID-TID PRN 30 days methylcellulose (laxative) (Citrucel) 500 mg PO DAILY metoprolol succinate ER 12.5 mg (1/2 x 25 mg) PO DAILY multivitamin 1 tab PO DAILY nitrofurantoin macrocrystal 100 mg PO BID 10 days simvastatin 20 mg PO BEDTIME valacyclovir 1,000 mg PO TID warfarin 5 mg See Protocol PO DAILY Nursing Note INR: 2.7 in therapeutic range of 2-3 Medications and supplements reviewed: no changes No changes in health, diet, medications, or supplements, Denies any signs and symptoms of bleeding or bruising or clotting. Bleeding, bruising, clotting discussed Nutritional guidance given Dose: 5mg X 2 days and 2.5mg X 5 days F/U INR: 1 month Patient verbalizes understanding of instructions given Anti-Coag Initial Assessment Social Hx Patient Tobacco Use Status: Never used Tobacco alcohol intake: current Alcohol intake frequency: a few times a month Coding Level of Care Code Est Patient Level 1 Diagnoses Current use of anticoagulant therapy Z79.01 Results AMB INR Fingerstick AMB INR Fingerstick 2.7 Last Edit by Shelli Mack RN on 02/08/24 08:41 interface delay Assessment & Plan Assessment & Plan (1) Current use of anticoagulant therapy: Code(s): Z79.01 - half-way (current) use of anticoagulants Category: Medical
[2024-02-08 09:11] LABS: Prothrombin Time Whole Bld POC 31.9 sec (11.1-13.5); ~PT, ~INR - Anti Coag Clinic 2.7 (0.9-1.1)
== END 2024-02-08 08:45 | disposition home or self-care (01) ==
LOC: HO.ACS 08:18
PROVIDERS: PCP Internal Medicine; Visit Provider Internal Medicine
DX: Z79.01 Long term (current) use of anticoagulants (principal)

== ENCOUNTER → 2024-02-08 08:18 | Outpatient (BNVA) | payer MEDICARE, SELFPAY | PROVIDERS: PCP Internal Medicine; Visit Provider Internal Medicine | DX: I48.20 Chronic atrial fibrillation, unspecified (principal); Z51.81 Encounter for therapeutic drug level monitoring; Z79.01 Long term (current) use of anticoagulants; I48.0 Paroxysmal atrial fibrillation; I42.9 Cardiomyopathy, unspecified; I10 Essential (primary) hypertension | CPT/HCPCS: 85610; 93005; 99211; 99212 ==

== ENCOUNTER 2024-02-08 08:46 | Outpatient (AMB) | payer MEDICARE, SELFPAY ==
--- NOTE | 2024-02-08 08:51 | A.OFFVIS_ITS ---
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 Allergies escitalopram [Lexapro] Allergy (Unknown, Verified 02/08/24 08:34) Nausea sertraline [Zoloft] Allergy (Unknown, Verified 02/08/24 08:34) NAUSEA ANTIDEPRESSANTS Allergy (Unknown, Uncoded 02/08/24 08:34) MAKE ME FEEL SICK Medication List - Last Reconciled 02/08/24 by Tomi Coffey MD acetaminophen (Tylenol) 325 mg PO QID PRN alendronate 70 mg PO QWEEK calcium carbonate-vitamin D3 600 mg-5 mcg (200 unit) 1 tab PO DAILY diphenhydramine HCl (NightTime Sleep Aid (diphenhydramine)) 25 mg PO BEDTIME flaxseed oil 1,000 mg PO DAILY flecainide 50 mg PO BID fluticasone furoate 27.5 mcg/actuation 2 sprays intranasal DAILY ipratropium bromide 2 sprays intranasal BID-TID PRN lactobacillus combination no.8 (Adult Probiotic) 3,000 mmu cells PO DAILY loratadine (Allergy Relief (loratadine)) 10 mg PO DAILY lorazepam 0.5 mg PO BID-TID PRN 30 days methylcellulose (laxative) (Citrucel) 500 mg PO DAILY metoprolol succinate ER 12.5 mg (1/2 x 25 mg) PO DAILY multivitamin 1 tab PO DAILY nitrofurantoin macrocrystal 100 mg PO BID 10 days simvastatin 20 mg PO BEDTIME valacyclovir 1,000 mg PO TID warfarin 5 mg See Protocol PO DAILY HPI Comments Details: Jenny comes for follow-up. She has no new concerning symptoms. Denies any exertional symptoms of chest pain or shortness of breath. No heart failure symptoms. No orthopnea, PND. Occasionally feels flutter but no full episode of atrial fibrillation. No prolonged palpitation irregular heartbeat. No lightheadedness, syncope. No bleeding issues or neurologic events. Takes all her medications without any issues. [facility] Medical History Preop exam for internal medicine Pain of finger joint Knee pain, right Hip pain, left Medicare annual wellness visit, initial On beta lala at home On anticoagulant therapy Paroxysmal atrial fibrillation Insomnia Duodenal ulcer Urge incontinence Osteoporosis Anxiety and depression Osteoarthritis Humeral fracture Sinus bradycardia Cardiomyopathy Atrial fibrillation HLD (hyperlipidemia) HTN (hypertension) Surgical History History of cataract surgery Hx of colonoscopy History of hysterectomy with bilateral oophorectomy Hx of tonsillectomy Hx of cholecystectomy Family History Father Medical history unknown Mother Arthritis Hypertension History of hysterectomy Son In good health Daughter Diabetes Social History Household Members Other:: Friend Housing: House Are you a primary foster care worker to a significant other at home: No Do you presently have visiting nurse or other home services: No Alcohol intake: current Alcohol intake frequency: a few times a month Alcohol type: wine Comment: once Q 3 month glass Patient Tobacco Use Status: Never used Tobacco e-Cigarette/Vaping Use: Never Used Second Hand Smoke Exposure: No service: No Current occupational status: employed Cognitive needs: No Hearing needs: No Vision needs: Yes Review of Systems Const Denies chills, Denies fatigue, Denies fever(s), Denies frequent falls, Denies weakness, Denies weight gain and Denies weight loss ENT Denies dizziness Card Denies chest pain, Denies leg edema, Denies lightheadedness, Denies palpitations, Denies dyspnea, Denies dyspnea on exertion, Denies orthopnea and Denies other (loss of consciousness) Resp Denies cough, Denies dyspnea and Denies dyspnea on exertion GI Denies hematochezia and Denies change in stool character Musc Denies abnormal gait, Denies muscle weakness, Denies numbness, Denies radiating pain into limb and Denies tingling Neuro Denies abnormal gait, Denies dizziness, Denies frequent falls, Denies numbness, Denies tingling and Denies weakness Endo Denies fatigue and Denies palpitations Physical Exam Vital Signs: Last Vital Signs Pulse 56 02/08/24 08:52 BP 120/70 02/08/24 08:52 BMI result Body Mass Index 24.9 Const General: cooperative, comfortable, no acute distress, alert and awake Nutritional Appearance: average body habitus Orientation/consciousness: patient oriented x3 Limitations: no limitations Neck Neck: Yes trachea midline, Yes supple and Yes no JVD Resp Effort & Inspection: normal respiratory effort Auscultation: clear to auscultation bilaterally Cardio Jugular venous distension: no JVD Palpation: normal PMI Rate: regular rate Rhythm: regular rhythm Heart sounds: S1 normal heart sound present and S2 normal heart sound present Skin General skin exam: no rashes or lesions noted and ecchymosis Neuro General: patient oriented x3 and no focal motor deficits Extrem General: Yes no clubbing, cyanosis or edema Psych Appearance: grossly normal Office Procedures EKG Details: EKG shows sinus bradycardia with normal EKG with normal intervals [id number], Complete Results AMB INR Fingerstick AMB INR Fingerstick 2.7 Last Edit by Shelli Mack RN on 02/08/24 08:41 interface delay Assessment & Plan Assessment & Plan (1) Paroxysmal atrial fibrillation: Comment: The left ventricular systolic function is normal. The calculated ejection fraction is 64% by biplane method. - No obvious valvular pathology seen on this study. August 2022 echocardiogram Code(s): I48.0 - Paroxysmal atrial fibrillation Category: Medical Plan: Paroxysmal atrial fibrillation has remained suppressed and has done well with rhythm control approach. LV systolic function normalized since maintaining rhythm. Continue rhythm control approach. Continue current flecainide therapy. Needs concomitant metoprolol therapy although at a lower dose. Continue full oral anticoagulation, currently on warfarin being followed by [facility]. Maintain target INR between 2 and 3. Will need EKG in 6 months for flecainide use. Follow-up in 1 year (2) Cardiomyopathy: Code(s): I42.9 - Cardiomyopathy, unspecified Category: Medical Plan: Prior cardiomyopathy in the setting of atrial fibrillation. Since maintaining rhythm the heart pump function is improved. Follow-up echocardiogram in 1 ye ar's time. Continue current aggressive blood pressure control. Avoidance of cardiotoxic agent was discussed. (3) HTN (hypertension): Code(s): I10 - Essential (primary) hypertension Category: Medical Qualifiers: Hypertension type: essential hypertension Qualified Code(s): I10 - Essential (primary) hypertension Plan: Hypertension which is currently well optimized advised to monitor blood pressure at home maintain a log. Goal blood pressure less than 130/84. Follow up in the clinic in 6 months for EKG in 1 year with me. Thank you for allowing me to partake in her care Coding Level of Care Code Est Pt Level 4 (66775) Diagnoses Paroxysmal atrial fibrillation I48.0 Cardiomyopathy I42.9 Essential hypertension I10 Hypertension type: essential hypertension CPT Codes EKG - CPT: [id number], Complete ([id number])
[2024-02-08 08:52] VITALS: BP 120/70; PULSE 56; BMI 24.9
== END 2024-02-08 10:06 | disposition home or self-care (01) ==
PROVIDERS: Visit Provider Internal Medicine Cardiovascular Disease
DX: I48.0 Paroxysmal atrial fibrillation (principal); I42.9 Cardiomyopathy, unspecified; I10 Essential (primary) hypertension
CPT/HCPCS: 93010; 99214

== ENCOUNTER 2024-02-14 08:32 | Outpatient (AMB) | payer MEDICARE, SELFPAY ==
[2024-02-14 08:44] VITALS: BP 114/72; PULSE 59; O2SAT 98; BMI 25.0
--- NOTE | 2024-02-14 08:44 | MHC.PC.OV ---
Vital Signs 02/14/24 08:44 Height 5 ft 6 in Weight 155 lb BMI 25.0 BP 114/72 Blood Pressure Location Lt brachial Position Sitting Pulse 59 Pulse Source Pulse Oximeter Pulse Oximetry (%) 98 Oxygen Delivery Method Room Air Intake Visit Reasons: DARBY Allergies escitalopram [Lexapro] Allergy (Unknown, Verified 02/14/24 08:44) Nausea sertraline [Zoloft] Allergy (Unknown, Verified 02/14/24 08:44) NAUSEA ANTIDEPRESSANTS Allergy (Unknown, Uncoded 02/14/24 08:44) MAKE ME FEEL SICK Tobacco use date assessed: 02/14/24 Fall risk assessment: No Falls in past year Last assessed Fall Risk: 02/14/24 Dental Screening Dental Screen Date: 02/14/24 Did you have a dental visit in the last 12 months?: Yes Did you have a dental problem in the last 6 months where you did not have access to dental care?: No Was dental information given to patient?: Patient has dentist HPI DARBY HPI Details 78-year-old female with hypertension hypercholesterolemia atrial fibrillation and recurrent major depression last seen in October 2023. Patient's colonoscopy is up-to-date August 2019 mammogram May 2023 bone density in May 2022. Patient did follow-up with cardiology in January 2024 stable left ventricular function normalized since maintaining rhythm [facility] Medical History Preop exam for internal medicine Pain of finger joint Knee pain, right Hip pain, left Medicare annual wellness visit, initial On beta lala at home On anticoagulant therapy Paroxysmal atrial fibrillation Insomnia Duodenal ulcer Urge incontinence Osteoporosis Anxiety and depression Osteoarthritis Humeral fracture Sinus bradycardia Cardiomyopathy Atrial fibrillation HLD (hyperlipidemia) HTN (hypertension) Surgical History History of cataract surgery Hx of colonoscopy History of hysterectomy with bilateral oophorectomy Hx of tonsillectomy Hx of cholecystectomy Family History Father Medical history unknown Mother Arthritis Hypertension History of hysterectomy Son In good health Daughter Diabetes Social History Household Members Other:: Friend Housing: House Are you a primary healthcare prof to a significant other at home: No Do you presently have visiting nurse or other home services: No Alcohol intake: current Alcohol intake frequency: a few times a month Alcohol type: wine Comment: once Q 3 month glass Patient Tobacco Use Status: Never used Tobacco e-Cigarette/Vaping Use: Never Used Second Hand Smoke Exposure: No service: No Current occupational status: employed Cognitive needs: No Hearing needs: No Vision needs: Yes Questionnaire PHQ-9 Over the last 2 weeks, how often have you been bothered by any of the following problems? 1. Little interest or pleasure in doing things: not at all 2. Feeling down, depressed, or hopeless: several days 3. Trouble falling or staying asleep, or sleeping too much: not at all 4. Feeling tired or having little energy: several days 5. Poor appetite or overeating: not at all 6. Feeling bad about yourself - or that you are a failure or have let yourself or your family down: not at all 7. Trouble concentrating on things, such as reading the newspaper or watching television: not at all 8. Moving or speaking so slowly that other people could have noticed. Or the opposite - being so fidgety or restless that you have been moving around a lot more than usual: not at all 9. Thoughts that you would be better off or of hurting yourself in some way: not at all Total score: 2 Depression Screening Interpretation: Positive Depression Screening Done: Yes 09304 - PHQ-9 Billing: Yes Source: Developed by Drs. Jarrett Perdomo, Chayito Cedeno, Oskar Johnson and colleagues, with an educational genesis from [employer]. Thrive Questionnaire Date Thrive assessed: 02/14/24 I am a: Patient What is your living situation today?: I have a steady place to live Within the past 12 months, did the food you bought not last and you didn't have the money to get more?: Never true Within the past 12 months, did you worry whether your food would run out before you got money to buy more?: Never true Do you have trouble paying for medicines?: No Do you have trouble getting transportation to medical appointments?: No Do you have trouble paying your heating and electricity bill?: No Do you have trouble taking care of your child, family member or friend?: No Do you have trouble with day-to-day activities such as bathing, preparing meals, shopping, managing finances, etc.?: No Are you currently unemployed and looking for a job?: No Are you interested in more education?: No Currently or been in a relationship where the following occur: no concerns reported THRIVE Score: 0 AUDIT C Alcohol Use Questionnaire (AUDIT-C) 1. How often do you have a drink containing alcohol?: Monthly or less 2. How many drinks containing alcohol do you have on a typical day when you are drinking?: 1 or 2 3. How often do you have six or more drinks on one occasion?: Never Total Score: 1 DARBY-7 AMB Questionnaire DARBY-7 Date DARBY - 7 assessed: 02/14/24 Feeling nervous, anxious, or on edge: 0 = Not at all Not being able to stop or control worryin = Not at all Worrying too much about different things: 0 = Not at all Trouble relaxin = Not at all Being so restless that it is hard to sit still: 0 = Not at all Becoming easily annoyed or irritable: 0 = Not at all Feeling afraid as if something awful might happen: 0 = Not at all Total DARBY-7 score (0-4 normal; 5-9 mild; 10-14 moderate; 15-21 severe): 0 Source: Developed by Drs. Jarrett Perdomo, Chayito Cedeno, Oskar Johnson and colleagues, with an educational genesis from [employer]. Physical exam (Primary Care) Vital Signs: Last Vital Signs Pulse 59 02/14/24 08:44 BP 114/72 02/14/24 08:44 Pulse Ox 98 02/14/24 08:44 Oxygen Delivery Method Room Air 02/14/24 08:44 BMI result Body Mass Index 25.0 Tobacco/Smoking Status: Tobacco use Status Tobacco use date assessed 02/14/24 02/14/24 08:50 Patient Tobacco Use Status Never used Tobacco 02/14/24 08:50 e-Cigarette/Vaping Use Never Used 02/14/24 08:50 PHQ-9: PHQ-9 Score PHQ-9: Total score 2 02/14/24 08:50 Depression Screening Interpretation: Positive Thrive Assessment: Date of Thrive Assessment Date Thrive assessed 02/14/24 02/14/24 08:50 Currently or been in a relationship where the following occur: no concerns reported Const General: alert; No acute distress Eyes Conjunctivae: conjunctivae normal Resp Auscultation: clear to auscultation bilaterally Cardio Rate: regular rate Rhythm: regular rhythm GI Inspection: Yes normal to inspection Extrem General: Yes normal to inspection and No edema Assessment and Plan Assessment & Plan (1) Paroxysmal atrial fibrillation: Comment: The left ventricular systolic function is normal. The calculated ejection fraction is 64% by biplane method. - No obvious valvular pathology seen on this study. August 2022 echocardiogram Code(s): I48.0 - Paroxysmal atrial fibrillation Plan: Continue with flecainide and anticoagulation. Patient follows up with Cardiology and has advised follow-up echocardiogram (2) HTN (hypertension): Code(s): I10 - Essential (primary) hypertension Qualifiers: Hypertension type: essential hypertension Qualified Code(s): I10 - Essential (primary) hypertension Plan: Continue with blood pressure medication. Decrease salt intake and exercise continue with metoprolol 12.5 mg once a day (3) HLD (hyperlipidemia): Code(s): E78.5 - Hyperlipidemia, unspecified Qualifiers: Hyperlipidemia type: pure hypercholesterolemia Qualified Code(s): E78.00 - Pure hypercholesterolemia, unspecified Plan: Avoid fried foods, chicken skin, eggs, butter margarine, pastries and meat. Be it pork or beef they have a lot of cholesterol LDL goal of less than 130 and triglyceride of less than 150 on simvastatin 20 mg. July 2023 last blood work (4) Recurrent major depression: Comment: decline counselling (07/2022) Code(s): F33.9 - Major depressive disorder, recurrent, unspecified Plan: Continue with present medication on lorazepam. (5) Age-related osteoporosis without current pathological fracture: Comment: May 2022 Code(s): M81.0 - Age-related osteoporosis without current pathological fracture Plan: Due for bone density later this year. Orders: Orders XR DEXA axial skeleton Today M81.0 - Age-related osteoporosis without current pathological fracture Complete Blood Count Auto Diff 6 Months E78.00 - Pure hypercholesterolemia, unspecified Free T4 (Free Thyroxine) 6 Months E78.00 - Pure hypercholesterolemia, unspecified Lipid Panel 6 Months E78.00 - Pure hypercholesterolemia, unspecified Thyroid Stimulating Hormone 6 Months E78.00 - Pure hypercholesterolemia, unspecified Comprehensive Met. Panel 6 Months E78.00 - Pure hypercholesterolemia, unspecified Vitamin B12 and Folate 6 Months E78.00 - Pure hypercholesterolemia, unspecified Vitamin D 25-OH Total 6 Months E78.00 - Pure hypercholesterolemia, unspecified Magnesium 6 Months E78.00 - Pure hypercholesterolemia, unspecified Coding Level of Care Code Est Pt Level 4 (09268) Diagnoses Paroxysmal atrial fibrillation I48.0 Essential hypertension I10 Hypertension type: essential hypertension Pure hypercholesterolemia E78.00 Hyperlipidemia type: pure hypercholesterolemia Recurrent major depression F33.9 Age-related osteoporosis without current pathological fracture M81.0
== END 2024-02-14 09:13 | disposition home or self-care (01) ==
PROVIDERS: PCP Internal Medicine; Visit Provider Internal Medicine
DX: I48.0 Paroxysmal atrial fibrillation (principal); F33.9 Major depressive disorder, recurrent, unspecified; I10 Essential (primary) hypertension; E78.00 Pure hypercholesterolemia, unspecified; M81.0 Age-related osteoporosis without current pathological fracture
CPT/HCPCS: 99214

== ENCOUNTER → 2024-03-07 08:08 | Outpatient (BNVA) | payer MEDICARE, SELFPAY | PROVIDERS: PCP Internal Medicine; Visit Provider Internal Medicine | DX: I48.20 Chronic atrial fibrillation, unspecified (principal); Z79.01 Long term (current) use of anticoagulants; Z51.81 Encounter for therapeutic drug level monitoring | CPT/HCPCS: 85610; 99211 ==

== ENCOUNTER 2024-04-03 08:12 | Outpatient (AMB) | payer MEDICARE, SELFPAY ==
--- NOTE | 2024-04-03 08:29 | MHC.OFFVISCO ---
Intake Intake Visit Reasons: Anticoagulation Allergies escitalopram [Lexapro] Allergy (Unknown, Verified 04/03/24 08:25) Nausea sertraline [Zoloft] Allergy (Unknown, Verified 04/03/24 08:25) NAUSEA ANTIDEPRESSANTS Allergy (Unknown, Uncoded 04/03/24 08:25) MAKE ME FEEL SICK Medication List - Last Reconciled 04/03/24 by Tali Lima RN acetaminophen (Tylenol) 325 mg PO QID PRN alendronate 70 mg PO QWEEK calcium carbonate-vitamin D3 600 mg-5 mcg (200 unit) 1 tab PO DAILY diphenhydramine HCl (NightTime Sleep Aid (diphenhydramine)) 25 mg PO BEDTIME flaxseed oil 1,000 mg PO DAILY flecainide 50 mg PO BID fluticasone furoate 27.5 mcg/actuation 2 sprays intranasal DAILY ipratropium bromide 2 sprays intranasal BID-TID PRN lactobacillus combination no.8 (Adult Probiotic) 3,000 mmu cells PO DAILY loratadine (Allergy Relief (loratadine)) 10 mg PO DAILY lorazepam 0.5 mg PO BID-TID PRN 30 days methylcellulose (laxative) (Citrucel) 500 mg PO DAILY metoprolol succinate ER 12.5 mg (1/2 x 25 mg) PO DAILY multivitamin 1 tab PO DAILY simvastatin 20 mg PO BEDTIME valacyclovir 1,000 mg PO TID warfarin 5 mg See Protocol PO DAILY Nursing Note INR 1.5? out of therapeutic range of 2-3 Medications and supplements reviewed Patient status: pt ate cherries so held her dose on monday Medications or supplements: no changes Diet: same Denies any signs and symptoms of bleeding or clotting or unusual bruising Bleeding, bruising, clotting discussed Nutritional guidance given: no greens for 2 days, eat reds to raise Dose: 5mg today then cont 5mg x 2, 2.5mg x 5 F/U INR Date : pt req f/u 04/11/24 Patient verbalizing understanding of instructions given. composed note to pcp t/c placed to pcpAdrienne adams po to report low inr/dosing and f/u appt. 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
[2024-04-03 08:31] LABS: Prothrombin Time Whole Bld POC 18.2 sec (11.1-13.5); ~PT, ~INR - Anti Coag Clinic 1.5 (0.9-1.1)
== END 2024-04-03 09:02 | disposition home or self-care (01) ==
LOC: HO.ACS 08:12
PROVIDERS: PCP Internal Medicine; Visit Provider Internal Medicine
DX: Z79.01 Long term (current) use of anticoagulants (principal)

== ENCOUNTER → 2024-04-03 08:12 | Outpatient (BNVA) | payer MEDICARE, SELFPAY | PROVIDERS: PCP Internal Medicine; Visit Provider Internal Medicine | DX: I48.20 Chronic atrial fibrillation, unspecified (principal); Z51.81 Encounter for therapeutic drug level monitoring; Z79.01 Long term (current) use of anticoagulants | CPT/HCPCS: 85610; 99211 ==

== ENCOUNTER 2024-04-11 08:12 | Outpatient (AMB) | payer MEDICARE, SELFPAY ==
--- NOTE | 2024-04-11 08:43 | MHC.OFFVISCO ---
Intake Intake Visit Reasons: Anticoagulation Allergies escitalopram [Lexapro] Allergy (Unknown, Verified 04/11/24 08:33) Nausea sertraline [Zoloft] Allergy (Unknown, Verified 04/11/24 08:33) NAUSEA ANTIDEPRESSANTS Allergy (Unknown, Uncoded 04/11/24 08:33) MAKE ME FEEL SICK Medication List - Last Reconciled 04/11/24 by Shelli Mack RN acetaminophen (Tylenol) 325 mg PO QID PRN alendronate 70 mg PO QWEEK calcium carbonate-vitamin D3 600 mg-5 mcg (200 unit) 1 tab PO DAILY diphenhydramine HCl (NightTime Sleep Aid (diphenhydramine)) 25 mg PO BEDTIME flaxseed oil 1,000 mg PO DAILY flecainide 50 mg PO BID fluticasone furoate 27.5 mcg/actuation 2 sprays intranasal DAILY ipratropium bromide 2 sprays intranasal BID-TID PRN lactobacillus combination no.8 (Adult Probiotic) 3,000 mmu cells PO DAILY loratadine (Allergy Relief (loratadine)) 10 mg PO DAILY lorazepam 0.5 mg PO BID-TID PRN 30 days methylcellulose (laxative) (Citrucel) 500 mg PO DAILY metoprolol succinate ER 12.5 mg (1/2 x 25 mg) PO DAILY multivitamin 1 tab PO DAILY simvastatin 20 mg PO BEDTIME valacyclovir 1,000 mg PO TID warfarin 5 mg See Protocol PO DAILY Nursing Note INR: 2.8 in therapeutic range of 2-3 Medications and supplements reviewed No changes in health, diet, medications, or supplements, Denies any signs and symptoms of bleeding or bruising or clotting. Bleeding, bruising, clotting discussed Nutritional guidance given to cont to balance greens and reds Dose: 2.5mg X 5 days and 5mg X 2 days F/U INR: 4 weeks Patient verbalizes understanding of instructions given Anti-Coag Initial Assessment Social Hx Patient Tobacco Use Status: Never used Tobacco alcohol intake: current Alcohol intake frequency: a few times a month Coding Level of Care Code Est Patient Level 1 Diagnoses Current use of anticoagulant therapy Z79.01 Results AMB INR Fingerstick AMB INR Fingerstick 2.8 Last Edit by Shelli Mack RN on 04/11/24 08:40 interface delay Assessment & Plan Assessment & Plan (1) Current use of anticoagulant therapy: Code(s): 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
[2024-04-11 08:46] LABS: Prothrombin Time Whole Bld POC 33.8 sec (11.1-13.5); ~PT, ~INR - Anti Coag Clinic 2.8 (0.9-1.1)
== END 2024-04-11 08:47 | disposition home or self-care (01) ==
LOC: HO.ACS 08:12
PROVIDERS: PCP Internal Medicine; Visit Provider Internal Medicine
DX: Z79.01 Long term (current) use of anticoagulants (principal)

== ENCOUNTER → 2024-04-11 08:12 | Outpatient (BNVA) | payer MEDICARE, SELFPAY | PROVIDERS: PCP Internal Medicine; Visit Provider Internal Medicine | DX: I48.20 Chronic atrial fibrillation, unspecified (principal); Z79.01 Long term (current) use of anticoagulants; Z51.81 Encounter for therapeutic drug level monitoring | CPT/HCPCS: 85610; 99211 ==

== ENCOUNTER 2024-05-09 09:17 | Outpatient (AMB) | payer MEDICARE, SELFPAY ==
[2024-05-09 09:26] LABS: Prothrombin Time Whole Bld POC 44.6 sec (11.1-13.5); ~PT, ~INR - Anti Coag Clinic 3.7 (0.9-1.1)
--- NOTE | 2024-05-09 09:28 | MHC.OFFVISCO ---
Intake Intake Visit Reasons: Anticoagulation Allergies escitalopram [Lexapro] Allergy (Unknown, Verified 05/09/24 09:18) Nausea sertraline [Zoloft] Allergy (Unknown, Verified 05/09/24 09:18) NAUSEA ANTIDEPRESSANTS Allergy (Unknown, Uncoded 05/09/24 09:18) MAKE ME FEEL SICK Medication List - Last Reconciled 05/09/24 by Cristel Coreas RN acetaminophen (Tylenol) 325 mg PO QID PRN alendronate 70 mg PO QWEEK calcium carbonate-vitamin D3 600 mg-5 mcg (200 unit) 1 tab PO DAILY diphenhydramine HCl (NightTime Sleep Aid (diphenhydramine)) 25 mg PO BEDTIME flaxseed oil 1,000 mg PO DAILY flecainide 50 mg PO BID fluticasone furoate 27.5 mcg/actuation 2 sprays intranasal DAILY ipratropium bromide 2 sprays intranasal BID-TID PRN loratadine (Allergy Relief (loratadine)) 10 mg PO DAILY lorazepam 0.5 mg PO BID-TID PRN 30 days methylcellulose (laxative) (Citrucel) 500 mg PO DAILY metoprolol succinate ER 12.5 mg (1/2 x 25 mg) PO DAILY multivitamin 1 tab PO DAILY simvastatin 20 mg PO BEDTIME valacyclovir 1,000 mg PO TID warfarin 5 mg See Protocol PO DAILY Nursing Note INR 3.7 out of therapeutic range Medications and supplements reviewed Patient status: Has been busy and has not had usual diet Medications or supplements: no changes Diet: good Denies any signs and symptoms of bleeding or clotting or unusual bruising Bleeding, bruising, clotting discussed Nutritional guidance given: review food list weekly, eat greens today and tomorrow - she only has a cucumber for today - she will eat a stronger green tomorrow Dose: 2.5mg today, then 5mg tomorrow then resume usual dose 5mg thur/ 2.5mg x 6 days F/U INR Date : 2 weeks?? Patient verbalizing understanding of instructions given. Anti-Coag Initial Assessment Social Hx Patient Tobacco Use Status: Never used Tobacco alcohol intake: current Alcohol intake frequency: a few times a month Coding Level of Care Code Est Patient Level 1 Diagnoses Current use of anticoagulant therapy Z79.01 Results AMB INR Fingerstick AMB INR Fingerstick 3.7 Last Edit by Cristel Coreas RN on 05/09/24 09:29 MANUAL ENTRY Assessment & Plan Assessment & Plan (1) Current use of anticoagulant therapy: Code(s): Z79.01 - residential (current) use of anticoagulants Category: Medical
== END 2024-05-09 09:42 | disposition home or self-care (01) ==
LOC: HO.ACS 09:17
PROVIDERS: PCP Internal Medicine; Visit Provider Internal Medicine
DX: Z79.01 Long term (current) use of anticoagulants (principal)

== ENCOUNTER → 2024-05-09 09:17 | Outpatient (BNVA) | payer MEDICARE, SELFPAY | PROVIDERS: PCP Internal Medicine; Visit Provider Internal Medicine | DX: I48.20 Chronic atrial fibrillation, unspecified (principal); Z79.01 Long term (current) use of anticoagulants; Z51.81 Encounter for therapeutic drug level monitoring | CPT/HCPCS: 85610; 99211 ==

== ENCOUNTER 2024-05-23 08:11 | Outpatient (AMB) | payer MEDICARE, SELFPAY ==
[2024-05-23 08:30] LABS: Prothrombin Time Whole Bld POC 27.1 sec (11.1-13.5); ~PT, ~INR - Anti Coag Clinic 2.3 (0.9-1.1)
--- NOTE | 2024-05-23 08:37 | MHC.OFFVISCO ---
Intake Intake Visit Reasons: Anticoagulation Allergies escitalopram [Lexapro] Allergy (Unknown, Verified 05/23/24 08:24) Nausea sertraline [Zoloft] Allergy (Unknown, Verified 05/23/24 08:24) NAUSEA ANTIDEPRESSANTS Allergy (Unknown, Uncoded 05/23/24 08:24) MAKE ME FEEL SICK Medication List - Last Reconciled 05/23/24 by Shelli Mack RN acetaminophen (Tylenol) 325 mg PO QID PRN alendronate 70 mg PO QWEEK calcium carbonate-vitamin D3 600 mg-5 mcg (200 unit) 1 tab PO DAILY diphenhydramine HCl (NightTime Sleep Aid (diphenhydramine)) 25 mg PO BEDTIME flaxseed oil 1,000 mg PO DAILY flecainide 50 mg PO BID fluticasone furoate 27.5 mcg/actuation 2 sprays intranasal DAILY ipratropium bromide 2 sprays intranasal BID-TID PRN loratadine (Allergy Relief (loratadine)) 10 mg PO DAILY lorazepam 0.5 mg PO BID-TID PRN 30 days methylcellulose (laxative) (Citrucel) 500 mg PO DAILY metoprolol succinate ER 12.5 mg (1/2 x 25 mg) PO DAILY multivitamin 1 tab PO DAILY simvastatin 20 mg PO BEDTIME valacyclovir 1,000 mg PO TID warfarin 5 mg See Protocol PO DAILY Nursing Note INR: 2.3 in therapeutic range of 2-3 Medications and supplements reviewed No changes in health, diet, medications, or supplements, Denies any signs and symptoms of bleeding or bruising or clotting. Bleeding, bruising, clotting discussed Nutritional guidance given Dose: 2.5mg X 5 days and 5mg X 2 days F/U INR: 3 weeks Patient verbalizes understanding of instructions given Anti-Coag Initial Assessment Social Hx Patient Tobacco Use Status: Never used Tobacco alcohol intake: current Alcohol intake frequency: a few times a month Coding Level of Care Code Est Patient Level 1 Diagnoses Current use of anticoagulant therapy Z79.01 Results AMB INR Fingerstick AMB INR Fingerstick 2.3 Last Edit by Shelli Mack RN on 05/23/24 08:34 Interface delay Assessment & Plan Assessment & Plan (1) Current use of anticoagulant therapy: Code(s): Z79.01 - half-way (current) use of anticoagulants Category: Medical
== END 2024-05-23 09:05 | disposition home or self-care (01) ==
LOC: HO.ACS 08:11
PROVIDERS: PCP Internal Medicine; Visit Provider Internal Medicine
DX: Z79.01 Long term (current) use of anticoagulants (principal)

== ENCOUNTER → 2024-05-23 08:11 | Outpatient (BNVA) | payer MEDICARE, SELFPAY | PROVIDERS: PCP Internal Medicine; Visit Provider Internal Medicine | DX: I48.20 Chronic atrial fibrillation, unspecified (principal); Z79.01 Long term (current) use of anticoagulants; Z51.81 Encounter for therapeutic drug level monitoring | CPT/HCPCS: 85610; 99211 ==

== ENCOUNTER 2024-06-06 09:09 | Outpatient (REF) | payer MEDICARE, SELFPAY ==
--- NOTE | ~2024-06-06 | MM_ITS ---
EXAMINATION: MM SCREENING DIGITAL BREAST TOMOSYNTHESIS, BILATERAL CLINICAL INFORMATION: Screening. Asymptomatic. COMPARISON: Mammography: Comparison is made with available priors TECHNIQUE: Digital breast mammography with tomosynthesis is performed in both the craniocaudal and mediolateral oblique views along with computer-aided detection (CAD). FINDINGS: The breasts are heterogeneously dense, which may obscure small masses (ACR BI-RADS breast composition Category c). There are no significant masses, abnormal calcifications, or other abnormalities. MM/MM tomosynthesis screening BI IMPRESSION: No mammographic evidence of malignancy. ASSESSMENT: BI-RADS BI-RADS 1 - Negative RECOMMENDATION: Routine annual mammography screening. 1 year F/U This examination should not preclude the clinical evaluation of a suspicious palpable abnormality. This patient's information was entered into a reminder system with a target due date for their next mammogram. Electronically signed by: Dolly Bo DO 06/23/2024 02:16 PM EDT
--- NOTE | ~2024-06-06 | MM_ITS ---
EXAMINATION: BONE DENSITOMETRY CLINICAL INDICATION: Age-related osteoporosis without current pathological fracture. COMPARISON: Previous BD dated 05/25/2022 and baseline BD dated 08/18/2006. TECHNIQUE: Using a [employer] DXA System (software version: 13.1) manufactured by [employer], dual-energy x-ray absorptiometry was performed of the lumbar spine and left hip. The images are of good technical quality. Summary results are attached. FINDINGS: LEFT FEMUR, NECK: Current: BMD 0.810 g/cm2, Z-score 0.5, T-score -1.6, osteopenia. Prior: BMD 0.715 g/cm2. Baseline: BMD 0.849 g/cm2. LEFT FEMUR, TOTAL: Current: BMD 0.795 g/cm2, Z-score 0.3, T-score -1.7, osteopenia, 0.0% no change from previous, 11.2% decrease from baseline (<5% change is not significant). Prior: BMD 0.795 g/cm2. Baseline: BMD 0.895 g/cm2. AP SPINE L1-L4 (excluding L2): The data of L1-L4 has been changed to exclude the L2 vertebral body, because degenerative sclerosis at this level may cause overestimation of lumbar spine density. Current: BMD 1.329 g/cm2, Z-score 3.1, T-score 1.3, normal, 3.7% increase from previous, 0.7% decrease from baseline (<5% change is not significant). Prior: BMD 1.281 g/cm2. Baseline: BMD 1.339 g/cm2. IDENTIFIED RISK FACTORS: Height loss, history of fracture (adult). Early menopause, secondary osteoporosis, hysterectomy, bilateral oophorectomy. HISTORY OF FRACTURE: Humerus. MEDICATIONS: Calcium supplements or multivitamin, vitamin D, bisphosphonates. MM/XR DEXA axial skeleton IMPRESSION: 1. DIAGNOSIS: Osteopenia based on the lowest T-score value of -1.7 in the total femur applying World Health Organization criteria. 2. 10-YEAR FRACTURE RISK PREDICTION, FRAX: Not performed in this patient on estrogen or bone building treatments. 3. Treatment Recommendations: NOF guidelines recommend consideration for treatment in postmenopausal women and men age 50 and older presenting with the following: -A hip or vertebral (clinical or morphometric) fracture. -T-score less than or equal to -2.5 at the femoral neck or spine after appropriate evaluation to exclude secondary causes. -Low bone mass at the hip or spine and a 10-year fracture probability by FRAX of greater than or equal to 3% for hip fracture or greater than or equal to 20% for major osteoporotic fracture based on the [place] adapted WHO algorithm. 4. Other Recommendations: All treatment decisions require clinical judgment and consideration of individual patient factors, including patient preferences, comorbidities, previous drug use, risk factors not captured in the FRAX model (e.g. frailty, falls, vitamin D deficiency, increased bone turnover, interval significant decline in bone density) and possible under or overestimation of fracture risk by FRAX. Additional medical evaluation for secondary cause of low bone mineral density may be appropriate. FUTURE SCAN RECOMMENDATION: People with diagnosed cases of osteoporosis or at high risk for fracture should have regular bone mineral density tests. For patients eligible for Medicare, routine testing is allowed once every 2 years. The testing frequency can be increased to one year for patients who have rapidly progressing disease, those who are receiving or discontinuing medical therapy to restore bone mass, or have additional risk factors. Electronically signed by: Simon Morse MD 06/12/2024 11:53 AM EDT
== END 2024-06-06 09:10 | disposition home or self-care (01) ==
LOC: HO.MAMMO 09:09
PROVIDERS: PCP Internal Medicine; Visit Provider Internal Medicine
DX: Z12.31 Encounter for screening mammogram for malignant neoplasm of breast (principal); M81.0 Age-related osteoporosis without current pathological fracture
CPT/HCPCS: 77063; 77067; 77080

== ENCOUNTER → 2024-06-06 09:15 | Outpatient (BNV) | payer MEDICARE, SELFPAY | PROVIDERS: PCP Internal Medicine; Visit Provider Internal Medicine | DX: Z12.31 Encounter for screening mammogram for malignant neoplasm of breast (principal) | CPT/HCPCS: 77063; 77067 ==

== ENCOUNTER 2024-06-12 08:05 | Outpatient (AMB) | payer MEDICARE, SELFPAY ==
[2024-06-12 08:18] LABS: Prothrombin Time Whole Bld POC 29.8 sec (11.1-13.5); ~PT, ~INR - Anti Coag Clinic 2.5 (0.9-1.1)
--- NOTE | 2024-06-12 08:23 | MHC.OFFVISCO ---
Intake Intake Visit Reasons: Anticoagulation Allergies escitalopram [Lexapro] Allergy (Unknown, Verified 06/12/24 08:12) Nausea sertraline [Zoloft] Allergy (Unknown, Verified 06/12/24 08:12) NAUSEA ANTIDEPRESSANTS Allergy (Unknown, Uncoded 05/23/24 08:24) MAKE ME FEEL SICK Medication List - Last Reconciled 06/12/24 by Danae Dejesus RN acetaminophen (Tylenol) 325 mg PO QID PRN alendronate 70 mg PO QWEEK calcium carbonate-vitamin D3 600 mg-5 mcg (200 unit) 1 tab PO DAILY diphenhydramine HCl (NightTime Sleep Aid (diphenhydramine)) 25 mg PO BEDTIME flaxseed oil 1,000 mg PO DAILY flecainide 50 mg PO BID fluticasone furoate 27.5 mcg/actuation 2 sprays intranasal DAILY ipratropium bromide 2 sprays intranasal BID-TID PRN loratadine (Allergy Relief (loratadine)) 10 mg PO DAILY lorazepam 0.5 mg PO BID-TID PRN 30 days methylcellulose (laxative) (Citrucel) 500 mg PO DAILY metoprolol succinate ER 12.5 mg (1/2 x 25 mg) PO DAILY multivitamin 1 tab PO DAILY simvastatin 20 mg PO BEDTIME valacyclovir 1,000 mg PO TID warfarin 5 mg See Protocol PO DAILY Nursing Note NO CP,SOB,DIET/MED CHANGES,FALLS OR SX OF BLEEDING. CONTINUE PRESENT DOSING AND FOLLOW-UP IN 4 WEEKS GOOD UNDERSTANDING OF DOSING INSTR. Anti-Coag Initial Assessment Social Hx Patient Tobacco Use Status: Never used Tobacco alcohol intake: current Alcohol intake frequency: a few times a month Coding Level of Care Code Est Patient Level 1 Diagnoses Current use of anticoagulant therapy Z79.01 Assessment & Plan Assessment & Plan (1) Current use of anticoagulant therapy: Code(s): Z79.01 - senior care (current) use of anticoagulants Category: Medical
== END 2024-06-12 08:25 | disposition home or self-care (01) ==
LOC: HO.ACS 08:05
PROVIDERS: PCP Internal Medicine; Visit Provider Internal Medicine
DX: Z79.01 Long term (current) use of anticoagulants (principal)

== ENCOUNTER → 2024-06-12 08:05 | Outpatient (BNVA) | payer MEDICARE, SELFPAY | PROVIDERS: PCP Internal Medicine; Visit Provider Internal Medicine | DX: I48.20 Chronic atrial fibrillation, unspecified (principal); Z79.01 Long term (current) use of anticoagulants; Z51.81 Encounter for therapeutic drug level monitoring | CPT/HCPCS: 85610; 99211 ==

== ENCOUNTER 2024-07-04 08:06 | Outpatient (AMB) | payer MEDICARE, SELFPAY ==
--- NOTE | 2024-07-04 08:14 | MHC.PC.OV ---
Vital Signs 07/04/24 08:15 Height 5 ft 6 in Weight 155 lb BMI 25.0 BP 122/64 Blood Pressure Location Lt brachial Position Sitting Pulse 64 Pulse Source Pulse Oximeter Pulse Oximetry (%) 98 Oxygen Delivery Method Room Air Intake Visit Reasons: 3mth f/u Depression Intake Note: Patient here for a 3 month follow up depression Hooker Up Required: No Accompanied by: Self / Same As Patient Allergies escitalopram [Lexapro] Allergy (Unknown, Verified 07/04/24 08:16) Nausea sertraline [Zoloft] Allergy (Unknown, Verified 07/04/24 08:16) NAUSEA ANTIDEPRESSANTS Allergy (Unknown, Uncoded 05/23/24 08:24) MAKE ME FEEL SICK Medication List - Last Reconciled 07/04/24 by Marylu Humphreys MD acetaminophen (Tylenol) 325 mg PO QID PRN alendronate 70 mg PO QWEEK calcium carbonate-vitamin D3 600 mg-5 mcg (200 unit) 1 tab PO DAILY diphenhydramine HCl (NightTime Sleep Aid (diphenhydramine)) 25 mg PO BEDTIME flaxseed oil 1,000 mg PO DAILY flecainide 50 mg PO BID fluticasone furoate 27.5 mcg/actuation 2 sprays intranasal DAILY ipratropium bromide 2 sprays intranasal BID-TID PRN loratadine (Allergy Relief (loratadine)) 10 mg PO DAILY lorazepam 0.5 mg PO BID-TID PRN 30 days methylcellulose (laxative) (Citrucel) 500 mg PO DAILY metoprolol succinate ER 12.5 mg (1/2 x 25 mg) PO DAILY multivitamin 1 tab PO DAILY simvastatin 20 mg PO BEDTIME valacyclovir 1,000 mg PO TID warfarin 5 mg See Protocol PO DAILY Tobacco use date assessed: 02/14/24 Fall risk assessment: No Falls in past year Last assessed Fall Risk: 07/04/24 Dental Screening Dental Screen Date: 07/04/24 Did you have a dental visit in the last 12 months?: Yes Did you have a dental problem in the last 6 months where you did not have access to dental care?: No Was dental information given to patient?: Patient has dentist HPI 3mth f/u Depression HPI Details 79-year-old female with atrial fibrillation hypertension hypercholesterolemia depression osteoporosis last seen in 02/19/2024. Patient is up-to-date with colonoscopy in 2018 mammogram is up-to-date bone density is up-to-date. Review of the notes bone density done June 2024 showing osteopenia with left femur no change spine no change. [facility] Medical History (Updated 07/04/24 @ 19:12 by Marylu Humphreys MD) Age-related osteoporosis without current pathological fracture Preop exam for internal medicine Pain of finger joint Knee pain, right Hip pain, left Medicare annual wellness visit, initial On beta lala at home On anticoagulant therapy Paroxysmal atrial fibrillation Insomnia Duodenal ulcer Urge incontinence Osteoporosis Anxiety and depression Osteoarthritis Humeral fracture Sinus bradycardia Cardiomyopathy Atrial fibrillation HLD (hyperlipidemia) HTN (hypertension) Surgical History History of cataract surgery Hx of colonoscopy History of hysterectomy with bilateral oophorectomy Hx of tonsillectomy Hx of cholecystectomy Family History Father Medical history unknown Mother Arthritis Hypertension History of hysterectomy Son In good health Daughter Diabetes Social History Household Members Other:: Friend Housing: House Are you a primary healthcare administrative assistant to a significant other at home: No Do you presently have visiting nurse or other home services: No Alcohol intake: current Alcohol intake frequency: a few times a month Alcohol type: wine Comment: once Q 3 month glass Patient Tobacco Use Status: Never used Tobacco e-Cigarette/Vaping Use: Never Used Second Hand Smoke Exposure: No service: No Current occupational status: employed Cognitive needs: No Hearing needs: No Vision needs: Yes Questionnaire Thrive Questionnaire Date Thrive assessed: 02/14/24 Are you currently unemployed and looking for a job?: No AUDIT C Alcohol Use Questionnaire (AUDIT-C) 2. How many drinks containing alcohol do you have on a typical day when you are drinking?: 1 or 2 3. How often do you have six or more drinks on one occasion?: Never Total Score: 0 DARBY-7 AMB Questionnaire DARBY-7 Date DARBY - 7 assessed: 02/14/24 Source: Developed by Drs. Jarrett Perdomo, Chayito Cedeno, Oskar Johnson and colleagues, with an educational genesis from [email or web address]. Physical exam (Primary Care) Vital Signs: Last Vital Signs Pulse 64 07/04/24 08:15 BP 122/64 07/04/24 08:15 Pulse Ox 98 07/04/24 08:15 Oxygen Delivery Method Room Air 07/04/24 08:15 BMI result Body Mass Index 25.0 Tobacco/Smoking Status: Tobacco use Status Tobacco use date assessed 02/14/24 07/04/24 08:20 Patient Tobacco Use Status Never used Tobacco 07/04/24 08:20 e-Cigarette/Vaping Use Never Used 07/04/24 08:20 Thrive Assessment: Date of Thrive Assessment Date Thrive assessed 02/14/24 07/04/24 08:20 Const General: alert; No acute distress Eyes Conjunctivae: conjunctivae normal Resp Auscultation: clear to auscultation bilaterally Cardio Rate: regular rate Rhythm: regular rhythm GI Inspection: Yes normal to inspection Extrem General: Yes normal to inspection and No edema Coding Level of Care Code Est Pt Level 4 (21176) Diagnoses Osteopenia M85.80 Essential hypertension I10 Hypertension type: essential hypertension Pure hypercholesterolemia E78.00 Hyperlipidemia type: pure hypercholesterolemia Paroxysmal atrial fibrillation I48.0 Recurrent major depressive disorder, in partial remission F33.41 Active/Remission status: in partial remission Assessment & Plan Assessment & Plan (1) Osteopenia: Comment: June 2024 Code(s): M85.80 - Other specified disorders of bone density and structure, unspecified site Category: Medical Plan: Bone density unchanged from previous. Discussed about calcium and vitamin-D on alendronate (2) HTN (hypertension): Code(s): I10 - Essential (primary) hypertension Category: Medical Qualifiers: Hypertension type: essential hypertension Qualified Code(s): I10 - Essential (primary) hypertension Plan: Continue with blood pressure medication. Decrease salt intake and exercise continue with metoprolol 12.5 mg once a day (3) HLD (hyperlipidemia): Code(s): E78.5 - Hyperlipidemia, unspecified Category: Medical Qualifiers: Hyperlipidemia type: pure hypercholesterolemia Qualified Code(s): E78.00 - Pure hypercholesterolemia, unspecified Plan: Avoid fried foods, chicken skin, eggs, butter margarine, pastries and meat. Be it pork or beef they have a lot of cholesterol on simvastatin 20 mg once a day (4) Paroxysmal atrial fibrillation: Comment: The left ventricular systolic function is normal. The calculated ejection fraction is 64% by biplane method. - No obvious valvular pathology seen on this study. August 2022 echocardiogram Code(s): I48.0 - Paroxysmal atrial fibrillation Category: Medical Plan: Continue with anticoagulation Coumadin and on flecainide (5) Recurrent major depression: Comment: decline counselling (07/2022) Code(s): F33.9 - Major depressive disorder, recurrent, unspecified Category: Medical Qualifiers: Active/Remission status: in partial remission Qualified Code(s): F33.41 - Major depressive disorder, recurrent, in partial remission Plan: Continue with present medication Medications: Refilled methylcellulose (laxative) (Citrucel) 500 mg PO DAILY 90 tabs 3RF R15.9 - Full incontinence of feces
[2024-07-04 08:15] VITALS: BP 122/64; PULSE 64; O2SAT 98; BMI 25.0
== END 2024-07-04 08:55 | disposition home or self-care (01) ==
PROVIDERS: PCP Internal Medicine; Visit Provider Internal Medicine
DX: I48.0 Paroxysmal atrial fibrillation (principal); F33.41 Major depressive disorder, recurrent, in partial remission; M85.80 Other specified disorders of bone density and structure, unspecified site; I10 Essential (primary) hypertension; E78.00 Pure hypercholesterolemia, unspecified

== ENCOUNTER → 2024-07-04 08:06 | Outpatient (BNVA) | payer MEDICARE, SELFPAY | PROVIDERS: PCP Internal Medicine; Visit Provider Internal Medicine | DX: I10 Essential (primary) hypertension (principal); M85.80 Other specified disorders of bone density and structure, unspecified site; E78.00 Pure hypercholesterolemia, unspecified; I48.0 Paroxysmal atrial fibrillation; F33.41 Major depressive disorder, recurrent, in partial remission | CPT/HCPCS: 99212 ==

== ENCOUNTER 2024-07-05 07:22 | Outpatient (REF) | payer MEDICARE, SELFPAY ==
[2024-07-05 07:34] LABS: MANUAL DIFF FLAG NO
[2024-07-05 07:40] LABS: Basophils Percent Auto 0.5 % (0-2); Eosinophils Absolute Auto 0.1 X10*3/uL (0.0-0.4); Eosinophils Percent Auto 1.7 % (0-4); Hematocrit 43.3 % (37.0-47.0); Hemoglobin 14.4 g/dl (12.0-16.0); Imm Gran Abs Auto 0.02 X10*3/uL (0.00-0.03); Imm Gran Pct Auto 0.3 % (0.0-0.4); Lymphocytes Absolute Auto 1.8 X10*3/uL (1.2-4.9); Lymphocytes Percent Auto 28.2 % (20-40); Mean Corpuscular HGB Conc 33.3 g/dl (31.0-35.0); Mean Corpuscular Hemoglobin 31.2 pg (27.0-33.0); Mean Corpuscular Volume 93.7 fL (80.0-98.0); Mean Platelet Volume 9.8 fL (9.4-12.3); Monocytes Absolute Auto 0.6 X10*3/uL (0.1-1.2); Monocytes Percent Auto 9.6 % (2-11); Neutrophils Absolute Auto 3.9 x10*3/uL (2.0-8.3); Neutrophils Percent Auto 59.7 % (45-73); Platelet Count 206 X10*3/uL (160-400); Red Blood Count 4.62 X10*6/uL (4.20-5.50); Red Cell Distribution Width 13.3 % (11.0-16.0); White Blood Count 6.5 X10*3/uL (4.8-10.8)
[2024-07-05 08:38] LABS: Alanine Aminotransferase 20 U/L (0-31); Albumin Level 3.9 g/dL (3.5-5.0); Alkaline Phosphatase 99 U/L (39-117); Anion Gap 12 (12-20); Aspartate Amino Transferase 23 U/L (5-31); Bilirubin Total 0.4 mg/dL (0.0-1.0); Blood Urea Nitrogen 24 mg/dL (9-16); Calcium 10.4 mg/dL (8.4-10.2); Carbon Dioxide 26 mmol/L (22-29); Chloride 106 mmol/L (96-108); Cholesterol 146 mg/dL (<200); Estimated Glomerular Filt Rate 49; Glucose Random 95 mg/dL (60-115); HDL Cholesterol 54 mg/dL (>40); LDL Cholesterol Calculated 60 mg/dL (<100); Magnesium 1.9 mg/dL (1.6-2.6); Potassium 4.5 mmol/L (3.3-5.1); Sodium 139 mmol/L (135-145); Total Protein 6.9 g/dL (6.5-8.0); Triglycerides 164 mg/dL (<150)
[2024-07-05 08:47] LABS: Vitamin D 25-OH Total 61.8 ng/mL (>30)
[2024-07-05 08:49] LABS: Vitamin B12 499 pg/mL (200-900)
== END 2024-07-05 07:23 | disposition home or self-care (01) ==
LOC: HO.LAB 07:22
PROVIDERS: PCP Internal Medicine; Visit Provider Internal Medicine
DX: E78.00 Pure hypercholesterolemia, unspecified (principal)
CPT/HCPCS: 36415; 80053; 80061; 82306; 82607; 82746; 83735; 84439; 84443; 85025

== ENCOUNTER 2024-07-11 08:30 | Outpatient (AMB) | payer MEDICARE, SELFPAY ==
[2024-07-11 08:53] LABS: Prothrombin Time Whole Bld POC 31.7 sec (11.1-13.5); ~PT, ~INR - Anti Coag Clinic 2.6 (0.9-1.1)
--- NOTE | 2024-07-11 08:58 | MHC.OFFVISCO ---
Intake Intake Visit Reasons: Anticoagulation Allergies escitalopram [Lexapro] Allergy (Unknown, Verified 07/11/24 08:46) Nausea sertraline [Zoloft] Allergy (Unknown, Verified 07/11/24 08:46) NAUSEA ANTIDEPRESSANTS Allergy (Unknown, Uncoded 07/11/24 08:46) MAKE ME FEEL SICK Medication List - Last Reconciled 07/11/24 by Cristel Coreas RN acetaminophen (Tylenol) 325 mg PO QID PRN alendronate 70 mg PO QWEEK calcium carbonate-vitamin D3 600 mg-5 mcg (200 unit) 1 tab PO DAILY diphenhydramine HCl (NightTime Sleep Aid (diphenhydramine)) 25 mg PO BEDTIME flaxseed oil 1,000 mg PO DAILY flecainide 50 mg PO BID fluticasone furoate 27.5 mcg/actuation 2 sprays intranasal DAILY ipratropium bromide 2 sprays intranasal BID-TID PRN loratadine (Allergy Relief (loratadine)) 10 mg PO DAILY lorazepam 0.5 mg PO BID-TID PRN 30 days methylcellulose (laxative) (Citrucel) 500 mg PO DAILY metoprolol succinate ER 12.5 mg (1/2 x 25 mg) PO DAILY multivitamin 1 tab PO DAILY simvastatin 20 mg PO BEDTIME valacyclovir 1,000 mg PO TID warfarin 5 mg See Protocol PO DAILY Nursing Note INR: 2.6 in therapeutic range Medications and supplements reviewed No changes in health, diet, medications, or supplements, Denies any signs and symptoms of bleeding or bruising or clotting. 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
== END 2024-07-11 08:59 | disposition home or self-care (01) ==
LOC: HO.ACS 08:30
PROVIDERS: PCP Internal Medicine; Visit Provider Internal Medicine
DX: Z79.01 Long term (current) use of anticoagulants (principal)

== ENCOUNTER → 2024-07-11 08:30 | Outpatient (BNVA) | payer MEDICARE, SELFPAY | PROVIDERS: PCP Internal Medicine; Visit Provider Internal Medicine | DX: I48.20 Chronic atrial fibrillation, unspecified (principal); Z79.01 Long term (current) use of anticoagulants; Z51.81 Encounter for therapeutic drug level monitoring | CPT/HCPCS: 85610; 99211 ==

== ENCOUNTER 2024-08-05 14:48 | Outpatient (AMB) | payer MEDICARE, SELFPAY ==
--- NOTE | 2024-08-05 14:58 | AM.OFFVISNUR ---
Intake Visit Reasons: EKG Allergies escitalopram [Lexapro] Allergy (Unknown, Verified 07/11/24 08:46) Nausea sertraline [Zoloft] Allergy (Unknown, Verified 07/11/24 08:46) NAUSEA ANTIDEPRESSANTS Allergy (Unknown, Uncoded 07/11/24 08:46) MAKE ME FEEL SICK Nursing Note pt is here for nurse visit with ekg pt is on flecianide 50 mg PO BID pt has no symptoms ekg left on providers desk for review Office Procedures EKG [id number], Complete
== END 2024-08-05 15:08 | disposition home or self-care (01) ==
LOC: HO.HCS 14:49
PROVIDERS: PCP Internal Medicine; Visit Provider Internal Medicine Cardiovascular Disease
DX: R00.1 Bradycardia, unspecified (principal)
CPT/HCPCS: 93010

== ENCOUNTER → 2024-08-05 14:48 | Outpatient (BNVA) | payer MEDICARE, SELFPAY | PROVIDERS: PCP Internal Medicine; Visit Provider Internal Medicine Cardiovascular Disease | DX: Z79.899 Other long term (current) drug therapy (principal) | CPT/HCPCS: 93005 ==

== ENCOUNTER 2024-08-08 08:06 | Outpatient (AMB) | payer MEDICARE, SELFPAY ==
[2024-08-08 08:25] LABS: Prothrombin Time Whole Bld POC 28.4 sec (11.1-13.5); ~PT, ~INR - Anti Coag Clinic 2.4 (0.9-1.1)
--- NOTE | 2024-08-08 08:28 | MHC.OFFVISCO ---
Intake Intake Visit Reasons: Anticoagulation Allergies escitalopram [Lexapro] Allergy (Unknown, Verified 08/08/24 08:21) Nausea sertraline [Zoloft] Allergy (Unknown, Verified 08/08/24 08:21) NAUSEA ANTIDEPRESSANTS Allergy (Unknown, Uncoded 08/08/24 08:21) MAKE ME FEEL SICK Medication List - Last Reconciled 08/08/24 by Shelli Mack, RN acetaminophen (Tylenol) 325 mg PO QID PRN alendronate 70 mg PO QWEEK calcium carbonate-vitamin D3 600 mg-5 mcg (200 unit) 1 tab PO DAILY diphenhydramine HCl (NightTime Sleep Aid (diphenhydramine)) 25 mg PO BEDTIME flaxseed oil 1,000 mg PO DAILY flecainide 50 mg PO BID fluticasone furoate 27.5 mcg/actuation 2 sprays intranasal DAILY ipratropium bromide 2 sprays intranasal BID-TID PRN loratadine (Allergy Relief (loratadine)) 10 mg PO DAILY lorazepam 0.5 mg PO BID-TID PRN 30 days methylcellulose (laxative) (Citrucel) 500 mg PO DAILY metoprolol succinate ER 12.5 mg (1/2 x 25 mg) PO DAILY multivitamin 1 tab PO DAILY simvastatin 20 mg PO BEDTIME valacyclovir 1,000 mg PO TID warfarin 5 mg See Protocol PO DAILY Nursing Note INR: 2.4 in therapeutic range 2-3 Medications and supplements reviewed No changes in health, diet, medications, or supplements, Denies any signs and symptoms of bleeding or bruising or clotting. 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
== END 2024-08-08 08:31 | disposition home or self-care (01) ==
LOC: HO.ACS 08:06
PROVIDERS: PCP Internal Medicine; Visit Provider Internal Medicine
DX: Z79.01 Long term (current) use of anticoagulants (principal)

== ENCOUNTER → 2024-08-08 08:06 | Outpatient (BNVA) | payer MEDICARE, SELFPAY | PROVIDERS: PCP Internal Medicine; Visit Provider Internal Medicine | DX: I48.20 Chronic atrial fibrillation, unspecified (principal); Z79.01 Long term (current) use of anticoagulants; Z51.81 Encounter for therapeutic drug level monitoring | CPT/HCPCS: 85610; 99211 ==

== ENCOUNTER 2024-09-05 08:13 | Outpatient (AMB) | payer MEDICARE, SELFPAY ==
[2024-09-05 08:32] LABS: Prothrombin Time Whole Bld POC 38.8 sec (11.1-13.5); ~PT, ~INR - Anti Coag Clinic 3.2 (0.9-1.1)
--- NOTE | 2024-09-05 08:36 | MHC.OFFVISCO ---
Intake Intake Visit Reasons: Anticoagulation Allergies escitalopram [Lexapro] Allergy (Unknown, Verified 09/05/24 08:28) Nausea sertraline [Zoloft] Allergy (Unknown, Verified 09/05/24 08:28) NAUSEA ANTIDEPRESSANTS Allergy (Unknown, Uncoded 09/05/24 08:28) MAKE ME FEEL SICK Medication List - Last Reconciled 09/05/24 by Shelli Mack, RN acetaminophen (Tylenol) 325 mg PO QID PRN alendronate 70 mg PO QWEEK calcium carbonate-vitamin D3 600 mg-5 mcg (200 unit) 1 tab PO DAILY diphenhydramine HCl (NightTime Sleep Aid (diphenhydramine)) 25 mg PO BEDTIME flaxseed oil 1,000 mg PO DAILY flecainide 50 mg PO BID fluticasone furoate 27.5 mcg/actuation 2 sprays intranasal DAILY ipratropium bromide 2 sprays intranasal BID-TID PRN loratadine (Allergy Relief (loratadine)) 10 mg PO DAILY lorazepam 0.5 mg PO BID-TID PRN 30 days methylcellulose (laxative) (Citrucel) 500 mg PO DAILY metoprolol succinate ER 12.5 mg (1/2 x 25 mg) PO DAILY multivitamin 1 tab PO DAILY simvastatin 20 mg PO BEDTIME valacyclovir 1,000 mg PO TID warfarin 5 mg See Protocol PO DAILY Nursing Note INR 3.2?out of therapeutic range of 2-3 Medications and supplements reviewed Patient status: well, a little stressed due to clearing the snow Medications or supplements: Diet: usual diet but a little out of normal on Denies any signs and symptoms of bleeding or clotting or unusual bruising Bleeding, bruising, clotting discussed Nutritional guidance given: to have a serving of greens today. Pt to have broccoli. Dose: swap today's dose of 5mg with tomorrow's dose of 2.5mg. So will take 2.5mg today and 5mg tomorrow. She then will resume usual dose of 2.5mg X 5 days and 5mg X 2 days (Mon & Thurs) F/U INR Date : 4 weeks?? Patient verbalizing understanding of instructions given. Anti-Coag Initial Assessment Social Hx Patient Tobacco Use Status: Never used Tobacco alcohol intake: current Alcohol intake frequency: a few times a month Coding Level of Care Code Est Patient Level 1 Diagnoses Current use of anticoagulant therapy Z79.01 Results AMB INR Fingerstick AMB INR Fingerstick 3.2 Last Edit by Shelli Mack RN on 09/05/24 08:32 interface delay Assessment & Plan Assessment & Plan (1) Current use of anticoagulant therapy: Code(s): Z79.01 - shelter (current) use of anticoagulants Category: Medical
--- OUTSIDE RECORDS SUMMARY | 2024-09-10 23:52 | XMS_ITS | Patient Health Record ---
Author Organization [facility] Address [address] [place] [address] Care Team Providers Care Labor Service Representative Name Role Phone Po Marylu LR Primary Care Provider Jarrett Pereira [phone] ALLERGIES Allergen (clinical drug ingredient) Drug/Non Drug Allergy documented on EMR Reaction Allergy Type Onset Date Status seasonal (uncoded) Unknown Allergy A ctive REASON FOR REFERRAL No Information MEDICATIONS Medication SIG (Take, Route, Frequency, Duration) Notes Start Date End Date Status Multi Vitamin/Minerals - as directed Ora lly once a day Active Probiotic 250 MG 1 capsule Orally onc e a day Active Flaxseed Oil 1000 MG as directed Orally once a day Active Alendronate Sodium 70 MG 1 tablet Orally once a week Active Citrucel 500 MG TAKE ONE TABLET BY M OUTH EVERY DAY Oral for 30 Active Metoprolol Succinate ER 25 MG 1/2 T PO QD Orally Once a day Active Jantoven 5 MG Oral for 90 Acti ve LORazepam 0.5 MG 1 tablet as needed O rally Once a day Active Flecainide Acetate 50 MG 1 T PO BID Oral ly TWICE A DAY Active Simvastatin 20 MG 1 T PO QPM Orally On ce a day Active Warfarin Sodium 5 MG TK 1 T PO Orally On ce a day/ DIRECTED Active Calcium + D 600-200 MG-UNIT 1 tablet Ora lly Twice a day for 30 day(s) Active IMMUNIZATIONS Vaccine Route Administration Date Status Comme nts Influenza Unknown 06/27/2019 Administered Influenza Unknown 07/25/2023 Administered SOCIAL HISTORY Tobacco Use: Social History Observation Description Date Details (start date - stop date) Never Smoker NA - NA Sex Assigned At : Social History Observation Description Sex Assigned At Unknown Tobacco Use/Smoking Question Answer Notes Patient is [...] Never (0 point) Points 2 Interpretation Negative PROBLEMS Problem Type ICD Code Onset Dates Problem Status W/U Status Risk SNOMED Code Notes Problem Long-term (current) use of anticoagulants, INR goal 2.0-3.0 (Z79.01) Active confirmed 456144288 Problem Encounter for screening for malignant neoplasm of colon (Z12.11) Active confirmed 087621222 Problem Incontinence of feces, unspecified fecal incontinence type (R15.9) Active confirmed Incontinence of feces (35111492) VITAL SIGNS Temperature 97.7 degrees Fahrenheit 12/08/2023 Blood pressure diastolic 00 mm Hg 12/08/2023 Height 65 in 12/08/2023 Blood pressure systolic 000 mm Hg 12/08/2023 Weight 154 lb 8 oz lbs 12/08/2023 BMI 25.71 kg/m2 12/08/2023 Encounters Encounter Location Date Provider [facility] [address] [place] [address] 12/08/2023 Jarrett Patel Incontinence of fece s, unspecified fecal incontinence type R15.9 ASSESSMENTS Encounter Date Diagnosis Assessment Notes Treatment Notes Treatment Clinical Notes 12/08/2023 Incontinence of feces, unspecified fecal incontinence type (ICD-10 - R15.9) Continue Citrucel daily. Call me if problems. PLAN OF TREATMENT Future Test Test Name Order Date COLONOSCOPY 07/03/2019 Insurance Providers Payer Name Payer Address Payer Phone Subscriber Number Group Number Insured Name Patient Relationship to Insured Coverage Start Date Coverage End Date MEDICARE OF [place] [address] [place] [address] [phone] [id number] MARGOT HILL Self - patient is the insured MEDEX ATTN CLAIMS [address] [place] [address] [id number] MARGOT HILL Self - patient is the insured MEDICAL (GENERAL) HISTORY Medical History History ICD Code Denies [place],DM,CVA,Lung disease,renal dise ase Atrial fibrillation x 15 years--Dr. Girma maharaj Hyperlipidemia Osteoporosis Neg. [place] [address] Melgoza Screening colonoscopy in Aug with removal of a small tubular adenoma Surgical History Surgery Date(Month/Year) KRISTINE 1982 CCY 1989 Tonsillectomy
--- OUTSIDE RECORDS SUMMARY | 2024-09-10 23:52 | XMS_ITS ---
Author Organization [facility] Address [address] [place] [address] Care Team Providers Care Commercial Litigation Associate Name Role Phone Po Marylu LR Primary Care Provider Jarrett Pereira Unavailable [phone] ALLERGIES Allergen (clinical drug ingredient) Drug/Non Drug Allergy documented on EMR Reaction Allergy Type Onset Date Status seasonal (uncoded) Unknown Allergy A ctive REASON FOR VISIT Patient presents today for fecal incontinence MEDICATIONS Medication SIG (Take, Route, Frequency, Duration) [...] needed O rally Once a day Active SOCIAL HISTORY Tobacco Use: Social History Observation [...] W/U Status Risk SNOMED Code Notes Problem Incontinence of feces, unspecified fecal incontinence type (R15.9) Active confirmed Incontinence of feces (02824767) VITAL SIGNS BMI 25.71 kg/m2 12/08/2023 Blood pressure systolic 000 mm Hg 12/08/19 24 Blood pressure diastolic 00 mm Hg 024 Height 65 in 12/08/2023 Temperature 97.7 degrees Fahrenheit 12/08/19 24 Weight 154 lb 8 oz lbs 12/08/2023 Encounters Encounter Location Date Provider Diagnosis [facility] [address] [place] [address] 12/08/2023 Jarrett Patel Incontinence of fece s, unspecified fecal incontinence type R15.9 ASSESSMENTS Encounter Date Diagnosis Assessment Notes Treatment Notes Treatment Clinical Notes 12/08/2023 Incontinence of feces, unspecified fecal incontinence type (ICD-10 - R15.9) Continue Citrucel daily. Call me if problems. PLAN OF TREATMENT Treatment Notes Assessment Notes Incontinence of feces, unspe cified fecal incontinence type Continue Citrucel daily. Call me if problems. Next Appt Details Follow Up: prn, Reason: Progress Notes * Examination Category Sub-Category Detail Notes General Examination GENERAL APPEARANCE: pleasant , well [...]
== END 2024-09-05 08:43 | disposition home or self-care (01) ==
LOC: HO.ACS 08:13
PROVIDERS: PCP Internal Medicine; Visit Provider Internal Medicine
DX: Z79.01 Long term (current) use of anticoagulants (principal)

== ENCOUNTER → 2024-09-05 08:13 | Outpatient (BNVA) | payer MEDICARE, SELFPAY | PROVIDERS: PCP Internal Medicine; Visit Provider Internal Medicine | DX: I48.20 Chronic atrial fibrillation, unspecified (principal); Z79.01 Long term (current) use of anticoagulants; Z51.81 Encounter for therapeutic drug level monitoring | CPT/HCPCS: 85610; 99211 ==

== ENCOUNTER 2024-10-03 08:04 | Outpatient (AMB) | payer MEDICARE, SELFPAY ==
[2024-10-03 08:13] LABS: Prothrombin Time Whole Bld POC 35.3 sec (11.1-13.5); ~PT, ~INR - Anti Coag Clinic 2.9 (0.9-1.1)
--- NOTE | 2024-10-03 08:17 | MHC.OFFVISCO ---
Intake Intake Visit Reasons: Anticoagulation Allergies escitalopram [Lexapro] Allergy (Unknown, Verified 10/03/24 08:07) Nausea sertraline [Zoloft] Allergy (Unknown, Verified 10/03/24 08:07) NAUSEA ANTIDEPRESSANTS Allergy (Unknown, Uncoded 10/03/24 08:07) MAKE ME FEEL SICK Medication List - Last Reconciled 10/03/24 by Shelli Mack, RN acetaminophen (Tylenol) 325 mg PO QID PRN alendronate 70 mg PO QWEEK calcium carbonate-vitamin D3 600 mg-5 mcg (200 unit) 1 tab PO DAILY diphenhydramine HCl (NightTime Sleep Aid (diphenhydramine)) 25 mg PO BEDTIME flaxseed oil 1,000 mg PO DAILY flecainide 50 mg PO BID fluticasone furoate 27.5 mcg/actuation 2 sprays intranasal DAILY ipratropium bromide 2 sprays intranasal BID-TID PRN loratadine (Allergy Relief (loratadine)) 10 mg PO DAILY lorazepam 0.5 mg PO BID-TID PRN 30 days methylcellulose (laxative) (Citrucel) 500 mg PO DAILY metoprolol succinate ER 12.5 mg (1/2 x 25 mg) PO DAILY multivitamin 1 tab PO DAILY simvastatin 20 mg PO BEDTIME valacyclovir 1,000 mg PO TID warfarin 5 mg See Protocol PO DAILY Nursing Note INR: 2.9 in therapeutic range of 2-3 Medications and supplements reviewed No changes in health, diet, medications, or supplements, Denies any signs and symptoms of bleeding or bruising or clotting. Bleeding, bruising, clotting discussed Nutritional guidance given to have a serving of greens today Dose: 2.5mg X 5 days and 5mg X 2 days F/U INR: 4 weeks Patient verbalizes understanding of instructions given Anti-Coag Initial Assessment Social Hx Patient Tobacco Use Status: Never used Tobacco alcohol intake: current Alcohol intake frequency: a few times a month Coding Level of Care Code Est Patient Level 1 Diagnoses Current use of anticoagulant therapy Z79.01 Assessment & Plan Assessment & Plan (1) Current use of anticoagulant therapy: Code(s): Z79.01 - FDC (current) use of anticoagulants Category: Medical
== END 2024-10-03 08:19 | disposition home or self-care (01) ==
LOC: HO.ACS 08:04
PROVIDERS: PCP Internal Medicine; Visit Provider Internal Medicine
DX: Z79.01 Long term (current) use of anticoagulants (principal)

== ENCOUNTER → 2024-10-03 08:04 | Outpatient (BNVA) | payer MEDICARE, SELFPAY | PROVIDERS: PCP Internal Medicine; Visit Provider Internal Medicine | DX: I48.20 Chronic atrial fibrillation, unspecified (principal); Z79.01 Long term (current) use of anticoagulants; Z51.81 Encounter for therapeutic drug level monitoring | CPT/HCPCS: 85610; 99211 ==

== ENCOUNTER 2024-10-15 14:15 | Outpatient (AMB) | payer MEDICARE, SELFPAY ==
--- NOTE | 2024-10-15 14:26 | MHC.PC.OV ---
Vital Signs 10/15/24 14:29 Height 5 ft 6 in Weight 159 lb 9.835 oz BMI 25.8 BP 134/56 L Blood Pressure Location Lt brachial Position Sitting Pulse 61 Pulse Source Pulse Oximeter Temp 96.7 F L Temp Source Temporal Artery Scan Pulse Oximetry (%) 100 Oxygen Delivery Method Room Air Intake Visit Reasons: a fib Allergies escitalopram [Lexapro] Allergy (Unknown, Verified 10/03/24 08:07) Nausea sertraline [Zoloft] Allergy (Unknown, Verified 10/03/24 08:07) NAUSEA ANTIDEPRESSANTS Allergy (Unknown, Uncoded 10/03/24 08:07) MAKE ME FEEL SICK Tobacco use date assessed: 02/14/24 Dental Screening Dental Screen Date: 07/04/24 HPI a fib HPI Details The patient is an 79-year-old female presenting with a discussion of laboratory results and neuropathy symptoms. Recent blood work has revealed elevated calcium levels without clear etiology, and the patient admits to taking calcium and vitamin D supplementation. There is a risk of stone formation associated with hypercalcemia, and current management involves discontinuing calcium supplementation while maintaining vitamin D intake. Additionally, there is a mild hypertriglyceridemia with levels elevated to 164 mg/dL, discussed as potentially related to dietary habits around the month of July. The patient reports symptoms suggestive of peripheral neuropathy, with numbness affecting two toes on each foot for approximately one year, primarily discomforting when walking without shoes. The discomfort is described as annoying rather than severely painful and does not affect stability in ambulation. The mother of the patient had neuropathy, suggesting a possible hereditary component. The patient remains active, exercising multiple times a week at a center and has timely vaccinations for influenza, COVID-19, and pneumonia. [facility] Medical History (Updated 07/04/24 @ 19:12 by Marylu Humphreys MD) Age-related osteoporosis without current pathological fracture Preop exam for internal medicine Pain of finger joint Knee pain, right Hip pain, left Medicare annual wellness visit, initial On beta lala at home On anticoagulant therapy Paroxysmal atrial fibrillation Insomnia Duodenal ulcer Urge incontinence Osteoporosis Anxiety and depression Osteoarthritis Humeral fracture Sinus bradycardia Cardiomyopathy Atrial fibrillation HLD (hyperlipidemia) HTN (hypertension) Surgical History History of cataract surgery Hx of colonoscopy History of hysterectomy with bilateral oophorectomy Hx of tonsillectomy Hx of cholecystectomy Family History Father Medical history unknown Mother Arthritis Hypertension History of hysterectomy Son In good health Daughter Diabetes Social History Household Members Other:: Friend Housing: House Are you a primary health care manager to a significant other at home: No Do you presently have visiting nurse or other home services: No Alcohol intake: current Alcohol intake frequency: a few times a month Alcohol type: wine Comment: once Q 3 month glass Patient Tobacco Use Status: Never used Tobacco e-Cigarette/Vaping Use: Never Used Second Hand Smoke Exposure: No service: No Current occupational status: employed Cognitive needs: No Hearing needs: No Vision needs: Yes Questionnaire PHQ-9 Over the last 2 weeks, how often have you been bothered by any of the following problems? 1. Little interest or pleasure in doing things: not at all 2. Feeling down, depressed, or hopeless: not at all 3. Trouble falling or staying asleep, or sleeping too much: not at all 4. Feeling tired or having little energy: not at all 5. Poor appetite or overeating: not at all 6. Feeling bad about yourself - or that you are a failure or have let yourself or your family down: not at all 7. Trouble concentrating on things, such as reading the newspaper or watching television: not at all 8. Moving or speaking so slowly that other people could have noticed. Or the opposite - being so fidgety or restless that you have been moving around a lot more than usual: not at all 9. Thoughts that you would be better off or of hurting yourself in some way: not at all Total score: 0 Depression Screening Interpretation: Negative Depression Screening Done: Yes 43884 - PHQ-9 Billing: Yes Source: Developed by Drs. Jarrett Perdomo, Chayito Cedeno, Oskar Johnson and colleagues, with an educational genesis from [employer]. Thrive Questionnaire Date Thrive assessed: 02/14/24 I am a: Patient What is your living situation today?: I have a steady place to live Within the past 12 months, did the food you bought not last and you didn't have the money to get more?: Never true Within the past 12 months, did you worry whether your food would run out before you got money to buy more?: Never true Do you have trouble paying for medicines?: No Do you have trouble getting transportation to medical appointments?: No Do you have trouble paying your heating and electricity bill?: No Do you have trouble taking care of your child, family member or friend?: No Do you have trouble with day-to-day activities such as bathing, preparing meals, shopping, managing finances, etc.?: No Are you currently unemployed and looking for a job?: No Are you interested in more education?: No Please select the resources that you would like help with: None Currently or been in a relationship where the following occur: No concerns reported THRIVE Score: 0 AUDIT C Alcohol Use Questionnaire (AUDIT-C) 1. How often do you have a drink containing alcohol?: Monthly or less 2. How many drinks containing alcohol do you have on a typical day when you are drinking?: 1 or 2 3. How often do you have six or more drinks on one occasion?: Never Total Score: 1 DARBY-7 AMB Questionnaire DARBY-7 Date DARBY - 7 assessed: 10/15/24 Feeling nervous, anxious, or on edge: 0 = Not at all Not being able to stop or control worryin = Not at all Worrying too much about different things: 0 = Not at all Trouble relaxin = Not at all Being so restless that it is hard to sit still: 0 = Not at all Becoming easily annoyed or irritable: 0 = Not at all Feeling afraid as if something awful might happen: 0 = Not at all Total DARBY-7 score (0-4 normal; 5-9 mild; 10-14 moderate; 15-21 severe): 0 Source: Developed by Drs. Jarrett Perdomo, Chayito Cedeno, Oskar Johnson and colleagues, with an educational genesis from [employer]. DARBY-7 Assessment Billing DARBY-7 Assessment Tool: DARBY-7 Assessment 15089 Physical exam (Primary Care) Vital Signs: Last Vital Signs Temp 96.7 F L 10/15/24 14:29 Pulse 61 10/15/24 14:29 BP 134/56 L 10/15/24 14:29 Pulse Ox 100 10/15/24 14:29 Oxygen Delivery Method Room Air 10/15/24 14:29 BMI result Body Mass Index 25.8 Tobacco/Smoking Status: Tobacco use Status Tobacco use date assessed 02/14/24 10/15/24 14:26 Patient Tobacco Use Status Never used Tobacco 10/15/24 14:26 e-Cigarette/Vaping Use Never Used 10/15/24 14:26 PHQ-9: PHQ-9 Score PHQ-9: Total score 0 10/15/24 14:45 Depression Screening Interpretation: Negative Thrive Assessment: Date of Thrive Assessment Date Thrive assessed 02/14/24 10/15/24 14:26 Currently or been in a relationship where the following occur: No concerns reported Const General: alert; No acute distress Eyes Conjunctivae: conjunctivae normal Resp Auscultation: clear to auscultation bilaterally Cardio Rate: regular rate Rhythm: regular rhythm GI Inspection: Yes normal to inspection Extrem General: Yes normal to inspection and No edema Coding Level of Care Code Est Pt Level 4 (74045) Diagnoses Paroxysmal atrial fibrillation I48.0 Essential hypertension I10 Hypertension type: essential hypertension Pure hypercholesterolemia E78.00 Hyperlipidemia type: pure hypercholesterolemia Recurrent major depressive disorder, in partial remission F33.41 Active/Remission status: in partial remission Additional Codes DARBY-7 Assessment Billing - DARBY-7 Assessment Tool: DARBY-7 Assessment 41337 ([id number]) PHQ-9 - 15225 - PHQ-9 Billing: Yes ([id number]) Assessment & Plan Assessment & Plan (1) Paroxysmal atrial fibrillation: Comment: The left ventricular systolic function is normal. The calculated ejection fraction is 64% by biplane method. - No obvious valvular pathology seen on this study. August 2022 echocardiogram Code(s): I48.0 - Paroxysmal atrial fibrillation Category: Medical Plan: On flecainide stable. (2) HTN (hypertension): Code(s): I10 - Essential (primary) hypertension Category: Medical Qualifiers: Hypertension type: essential hypertension Qualified Code(s): I10 - Essential (primary) hypertension Plan: Continue with blood pressure medication. Decrease salt intake and exercise on metoprolol 12.5 mg once a day (3) HLD (hyperlipidemia): Code(s): E78.5 - Hyperlipidemia, unspecified Category: Medical Qualifiers: Hyperlipidemia type: pure hypercholesterolemia Qualified Code(s): E78.00 - Pure hypercholesterolemia, unspecified Plan: Continue with present medication. July last blood work discussed the mildly elevated triglyceride. (4) Recurrent major depression: Comment: decline counselling (07/2022) Code(s): F33.9 - Major depressive disorder, recurrent, unspecified Category: Medical Qualifiers: Active/Remission status: in partial remission Qualified Code(s): F33.41 - Major depressive disorder, recurrent, in partial remission Plan: Stable Plan - Continue vitamin D3 supplementation at 2000 units daily; discontinue calcium supplementation due to risk of hypercalcemia. - Recommend dietary modifications to manage elevated triglycerides; follow-up lipid panel in six months. - Monitor neuropathy symptoms; consider nerve conduction studies if symptoms worsen or stability in ambulation is affected. - Encourage continued physical activity and maintain current vaccination status.
[2024-10-15 14:29] VITALS: BP 134/56; PULSE 61; TEMP 35.9; O2SAT 100; BMI 25.8
--- OUTSIDE RECORDS SUMMARY | 2024-10-15 16:44 | XMS_ITS | Patient Health Record ---
Author Organization [facility] Address [address] [place] [address] Care Team Providers Care Asbestos Wire Finisher Name Role Phone Po Marylu LR Primary Care Provider Jarrett Pereira [phone] ALLERGIES Allergen (clinical drug ingredient) Drug/Non Drug [...] anticoagulants, INR goal 2.0-3.0 (Z79.01) Active confirmed 627363476 Problem Encounter for screening for malignant neoplasm of colon (Z12.11) Active confirmed 315207059 Problem Incontinence of feces, unspecified fecal incontinence type (R15.9) Active confirmed Incontinence of feces (04265496) VITAL SIGNS Temperature 97.7 degrees Fahrenheit 12/08/2023 Blood pressure diastolic 00 mm Hg 12/08/2023 Height 65 in 12/08/2023 Blood pressure systolic 000 mm Hg 12/08/2023 Weight 154 lb 8 oz lbs 12/08/2023 BMI 25.71 kg/m2 12/08/2023 Encounters Encounter Location Date Provider Diagnosis [facility] [address] [place] [address] 12/08/2023 Jarrett Patel Incontinence of fece s, [...] OF [place] [address] [place] [address] [id number] MARGOT HILL Self - patient is the insured [employer] ATTN CLAIMS [address] [place] [address] [id number] MARGOT [place]ILL Self - patient is the insured MEDICAL (GENERAL) HISTORY Medical History History ICD Code Denies [place],DM,CVA,Lung disease,renal dise ase Atrial fibrillation x 15 years--Dr. Girma maharaj Hyperlipidemia Osteoporosis Neg. [place] [address] Melgoza Screening colonoscopy in Aug with removal of a small tubular adenoma Surgical History Surgery Date(Month/Year) KRISTINE 1982 CCY 1989 Tonsillectomy
== END 2024-10-15 14:56 | disposition home or self-care (01) ==
PROVIDERS: PCP Internal Medicine; Visit Provider Internal Medicine
DX: I48.0 Paroxysmal atrial fibrillation (principal); I10 Essential (primary) hypertension; E78.00 Pure hypercholesterolemia, unspecified; F33.41 Major depressive disorder, recurrent, in partial remission

== ENCOUNTER → 2024-10-15 14:15 | Outpatient (BNVA) | payer MEDICARE, SELFPAY | PROVIDERS: PCP Internal Medicine; Visit Provider Internal Medicine | DX: I48.0 Paroxysmal atrial fibrillation (principal); I10 Essential (primary) hypertension; E78.00 Pure hypercholesterolemia, unspecified; E83.52 Hypercalcemia; F33.41 Major depressive disorder, recurrent, in partial remission | CPT/HCPCS: 96127; 99212 ==

== ENCOUNTER 2024-10-31 08:22 | Outpatient (REF) | payer MEDICARE, SELFPAY ==
[2024-10-31 09:41] LABS: Appearance Urine Turbid; Color Urine Yellow; Glucose Urine UA Negative (Negative); Leukocyte Esterase Urine Large (3+) (Negative); Nitrite Urine Negative (Negative); PH 5.5 (5.0-9.0); UMIC TRIGGER UACC YES; Urine Blood Large (3+) (Negative); Urine Ketones Negative (Negative); Urine Protein Trace mg/dL (Neg-Trace)
[2024-10-31 09:57] LABS: Bacteria Urine 2+ (None Seen); Hyaline Casts Urine 0-2 /LPF (0-2); UACC Culture Trigger YES; WBC Urine 21-50 /HPF (0-5)
[2024-10-31 09:58] LABS: Transitional Epi Cells Urine Present
--- OUTSIDE RECORDS SUMMARY | 2024-10-31 11:54 | XMS_ITS | Clinical Summary ---
Author Organization [employer] Address [address] [facility] 7t [place] [address] Care Team Providers Care Shuttlecock Assembler Name Role Phone Unavailable Primary Care Provider Unavailabl e Immunizations Name Administration Dates Next Due Influenza High-dose Quadriva lent Preservative Free 06/27/2022,06/16/2020 Influenza Quadrivalent Adjuvanted 06/23/2023 Influenza, High Dose Seasona l, Preservative Free 06/27/2018,07/05/2017,06/29/2016 Influenza, seasonal, injecta ble, preservative free 06/19/2024 Influenza, trivalent, adjuvanted 06/28/2019,11/0 10/2017 Pfizer Covid-19 Vaccine 12+ 06/19/2024, Pneumococcal Conjugate PCV 13 04/30/2020, 016 Pneumococcal Polysaccharide PPSV23 03/21/2019 RSV Adjuvant 07/29/2023 Tdap 04/30/2020 Social History Tobacco Use Types Packs/Day Years Used Date Smoking Tobacco: Never Assessed Comments Unknown Sex and Gender Information Value Date Recorded Sex Assigned at Female 12/14/2023 10:45 AM EDT Legal Sex Female 10:13 AM EDT Gender Identity Female 12/14/2023 1:34 PM EDT Sexual Orientation Straight 12/14/2023 1: 34 PM EDT Plan of Treatment Health Maintenance Due Date Last Done Comments Depression Screening 1944 SDOH Screening 1944 Alcohol/Substance Use Screening 1956 Tobacco Screening 1956 Zoster Vaccines (1 of 2) 1994 DTaP/Tdap/Td Vaccines (2 - Td or Tdap) 04/30/2030 04/30/2020 Pneumococcal Vaccine: 50+ Years Completed 04/30/2020, 03/21/2019, 10/21/2015 RSV Patients and Patients Aged 60 years or older Completed 07/29/2023 COVID-19 Vaccine Completed 06/19/2024, , 07/17/2023, Additional history exists Influenza Vaccine Completed 06/19/2024, , 06/27/2022, Additional history exists HIB Vaccines Aged Out No longer eligi ble based on patient's age to complete this topic HPV Vaccines Aged Out No longer eligi ble based on patient's age to complete this topic Hepatitis A Vaccines Aged Out No long er eligible based on patient's age to complete this topic Hepatitis B Vaccines Aged Out No long er eligible based on patient's age to complete this topic IPV Vaccines Aged Out No longer eligi ble based on patient's age to complete this topic Meningococcal Vaccine Aged Out No sammie allan eligible based on patient's age to complete this topic RSV under 20 months Aged Out No longe r eligible based on patient's age to complete this topic Rotavirus Vaccines Aged Out No longer eligible based on patient's age to complete [place] [id number] [facility] MEDEX CARE
--- OUTSIDE RECORDS SUMMARY | 2024-10-31 11:54 | XMS_ITS ---
Author Organization [facility] Address [address] [place] [address] Care Team Providers Care Technology Architect Name Role Phone Po Marylu LR Primary Care Provider Jarrett Pereira Unavailable [phone] ALLERGIES Allergen (clinical drug ingredient) Drug/Non Drug [...] type (R15.9) Active confirmed Incontinence of feces (31856347) VITAL SIGNS BMI 25.71 kg/m2 12/08/2023 Blood pressure systolic 000 mm Hg 12/08/19 24 Blood pressure diastolic 00 mm Hg 024 Height 65 in 12/08/2023 Temperature 97.7 degrees Fahrenheit 12/08/19 24 Weight 154 lb 8 oz lbs 12/08/2023 Encounters Encounter Location Date Provider Diagnosis [facility] [address] [place] [address] 12/08/2023 Jarrett Patel Incontinence of fece s, [...]
--- OUTSIDE RECORDS SUMMARY | 2024-10-31 11:54 | XMS_ITS | Patient Health Record ---
Author Organization [facility] Address [address] [place] [address] Care Team Providers Care Plant Operator Helper Name Role Phone Po Marylu LR Primary Care Provider Jarrett Pereira [phone] ALLERGIES Allergen (clinical drug ingredient) Drug/Non Drug [...] anticoagulants, INR goal 2.0-3.0 (Z79.01) Active confirmed [id number] Problem Encounter for screening for malignant neoplasm of colon (Z12.11) Active confirmed [id number] Problem Incontinence of feces, unspecified fecal incontinence type (R15.9) Active confirmed Incontinence of feces (88187870) VITAL SIGNS Temperature 97.7 degrees Fahrenheit 12/08/2023 Blood pressure diastolic 00 mm Hg 12/08/2023 Height 65 in 12/08/2023 Blood pressure systolic 000 mm Hg 12/08/2023 Weight 154 lb 8 oz lbs 12/08/2023 BMI 25.71 kg/m2 12/08/2023 Encounters Encounter Location Date Provider Diagnosis [facility] [address] [place] [address] 12/08/2023 Jarrett Patel Incontinence of fece s, [...] OF [place] [address] [place] [address] [id number] MARGOT H[place] Self - patient is the insured MED[employer] ATTN CLAIMS [address] [place] [address] [phone] [id number] MARGOT H[place] Self - patient is the insured MEDICAL (GENERAL) HISTORY Medical History History ICD Code Denies MD,DM,CVA,Lung disease,renal dise ase Atrial fibrillation x 15 years--Dr. Girma maharaj Hyperlipidemia Osteoporosis Neg. colon[place] [address] Melgoza Screening colonoscopy in Aug with removal of a small tubular adenoma Surgical History Surgery Date(Month/Year) KRISTINE 1982 CCY 1989 Tonsillectomy
== END 2024-10-31 08:23 | disposition home or self-care (01) ==
LOC: HO.LAB 08:22
PROVIDERS: Absent Provider Internal Medicine; PCP Internal Medicine; Visit Provider Internal Medicine
DX: I48.20 Chronic atrial fibrillation, unspecified (principal); Z51.81 Encounter for therapeutic drug level monitoring; Z79.01 Long term (current) use of anticoagulants; R39.9 Unspecified symptoms and signs involving the genitourinary system
CPT/HCPCS: 81001; 85610; 87086; 87088; 87186; 99211

== ENCOUNTER 2024-10-31 08:22 | Outpatient (AMB) | payer MEDICARE, SELFPAY ==
[2024-10-31 08:36] LABS: Prothrombin Time Whole Bld POC 27.8 sec (11.1-13.5); ~PT, ~INR - Anti Coag Clinic 2.3 (0.9-1.1)
--- NOTE | 2024-10-31 08:42 | MHC.OFFVISCO ---
Intake Intake Visit Reasons: Anticoagulation Allergies escitalopram [Lexapro] Allergy (Unknown, Verified 10/31/24 08:28) Nausea sertraline [Zoloft] Allergy (Unknown, Verified 10/31/24 08:28) NAUSEA ANTIDEPRESSANTS Allergy (Unknown, Uncoded 10/31/24 08:28) MAKE ME FEEL SICK Medication List - Last Reconciled 10/31/24 by Cristel Coreas RN acetaminophen (Tylenol) 325 mg PO QID PRN alendronate 70 mg PO QWEEK diphenhydramine HCl (NightTime Sleep Aid (diphenhydramine)) 25 mg PO BEDTIME flaxseed oil 1,000 mg PO DAILY flecainide 50 mg PO BID fluticasone furoate 27.5 mcg/actuation 2 sprays intranasal DAILY ipratropium bromide 2 sprays intranasal BID-TID PRN loratadine (Allergy Relief (loratadine)) 10 mg PO DAILY lorazepam 0.5 mg PO BID-TID PRN 30 days methylcellulose (laxative) (Citrucel) 500 mg PO DAILY metoprolol succinate ER 12.5 mg (1/2 x 25 mg) PO DAILY multivitamin 1 tab PO DAILY simvastatin 20 mg PO BEDTIME valacyclovir 1,000 mg PO TID warfarin 5 mg See Protocol PO DAILY Nursing Note INR: 2.3 in therapeutic range Medications and supplements reviewed Pt in extreme discomfort with UTI symptoms- t/c to pcp spoke with nurse Augustin - she put in order for urinalysis Pt will call with name of antbx Denies any signs and symptoms of bleeding or bruising or clotting. Bleeding, bruising, clotting discussed Nutritional guidance given - eat a mix of fruits and vegetables Dose: keep same for now 5mg x 2 days/ 2.5mg x 5 days F/U INR: 4 weeks - or per antbx Patient verbalizes understanding of instructions given Anti-Coag Initial Assessment Social Hx Patient Tobacco Use Status: Never used Tobacco alcohol intake: current Alcohol intake frequency: a few times a month Coding Level of Care Code Est Patient Level 1 Diagnoses Current use of anticoagulant therapy Z79.01 Assessment & Plan Assessment & Plan (1) Current use of anticoagulant therapy: Code(s): Z79.01 - buttermaker helper (current) use of anticoagulants Category: Medical Medications: New cholecalciferol (vitamin D3) PO
== END 2024-10-31 08:45 | disposition home or self-care (01) ==
LOC: HO.ACS 08:22
PROVIDERS: PCP Internal Medicine; Visit Provider Internal Medicine
DX: Z79.01 Long term (current) use of anticoagulants (principal)

== ENCOUNTER 2024-11-27 12:51 | Outpatient (REF) | payer MEDICARE, SELFPAY ==
[2024-11-27 13:59] LABS: Appearance Urine Turbid; Color Urine Dark Yellow; Glucose Urine UA Negative (Negative); Leukocyte Esterase Urine Large (3+) (Negative); Nitrite Urine Negative (Negative); PH 5.5 (5.0-9.0); UMIC TRIGGER UACC YES; Urine Blood Large (3+) (Negative); Urine Ketones Trace mg/dL (Negative); Urine Protein 30 (1+) mg/dL (Neg-Trace)
[2024-11-27 14:14] LABS: Bacteria Urine 3+ (None Seen); RBC Urine >20 /HPF (0-2); UACC Culture Trigger YES; WBC Urine >50 /HPF (0-5)
--- OUTSIDE RECORDS SUMMARY | 2024-11-27 15:44 | XMS_ITS | Patient Health Record ---
Author Organization [facility] Address [address] [place] [address] Care Team Providers Care Diesel Locomotive Crane Operator Name Role Phone Po Marylu LR Primary Care Provider Jarrett Pereira [phone] ALLERGIES Allergen (clinical drug ingredient) Drug/Non Drug [...] W/U Status Risk SNOMED Code Notes Problem Encounter for screening for malignant neoplasm of colon (Z12.11) Active confirmed [id number] Problem Incontinence of feces, unspecified fecal incontinence type (R15.9) Active confirmed Incontinence of feces (64962922) Problem Long-term (current) use of anticoagulants, INR goal 2.0-3.0 (Z79.01) Active confirmed 154926509 VITAL SIGNS Temperature 97.7 degrees Fahrenheit 12/08/2023 Blood pressure diastolic 00 mm Hg 12/08/2023 Height 65 in 12/08/2023 Blood pressure systolic 000 mm Hg 12/08/2023 Weight 154 lb 8 oz lbs 12/08/2023 BMI 25.71 kg/m2 12/08/2023 Encounters Encounter Location Date Provider Diagnosis [facility] [address] [place] [address] 12/08/2023 Jarrett Patel Incontinence of fece s, [...] OF [place] [address] [place] [address] [id number] MARGOT H[place] Self - patient is the insured MED[employer] ATTN CLAIMS [address] [place] [address] [phone] [id number] MARGOT [place] Self - patient is the insured MEDICAL (GENERAL) HISTORY Medical History History ICD Code Denies GA,DM,CVA,Lung disease,renal dise ase Atrial fibrillation x 15 years--Dr. Girma maharaj Hyperlipidemia Osteoporosis Neg. colonoscopy [place] [address] Melgoza Screening colonoscopy in Aug with removal of a small tubular adenoma Surgical History Surgery Date(Month/Year) KRISTINE 1982 CCY 1989 Tonsillectomy
--- OUTSIDE RECORDS SUMMARY | 2024-11-27 15:44 | XMS_ITS ---
Author Organization [facility] Address [address] [place] [address] Care Team Providers Care Finisher Screwdown Name Role Phone Po Marylu LR Primary Care Provider Jarrett Pereira Unavailable [phone] ALLERGIES Allergen (clinical drug ingredient) Drug/Non Drug [...] type (R15.9) Active confirmed Incontinence of feces (30030898) VITAL SIGNS Temperature 97.7 degrees Fahrenheit 12/08/19 24 Blood pressure systolic 000 mm Hg 12/08/19 24 Blood pressure diastolic 00 mm Hg 024 Height 65 in 12/08/2023 Weight 154 lb 8 oz lbs 12/08/2023 BMI 25.71 kg/m2 12/08/2023 Encounters Encounter Location Date Provider Diagnosis [facility] [address] [facility] [address] [facility] [address] [place] [address] 12/08/2023 Jarrett Patel Incontinence of fece s, [...]
--- OUTSIDE RECORDS SUMMARY | 2024-11-27 15:44 | XMS_ITS | Clinical Summary ---
Author Organization [employer] Address [address] [address] 7[address] [place] [address] Care Team Providers Care Chick Room Supervisor Name Role Phone Unavailable Primary Care Provider [...] to complete [place] [id number] [facility] MEDEX CARE
== END 2024-11-27 12:52 | disposition home or self-care (01) ==
LOC: HO.LAB 12:51
PROVIDERS: PCP Internal Medicine; Visit Provider Internal Medicine
DX: R30.0 Dysuria (principal)
CPT/HCPCS: 81001; 81003; 87086; 87088; 87186

== ENCOUNTER 2024-11-28 08:11 | Outpatient (AMB) | payer MEDICARE, SELFPAY ==
--- OUTSIDE RECORDS SUMMARY | 2024-11-28 08:23 | XMS_ITS ---
Author Organization [facility] Address [address] [place] [address] Care Team Providers Care Airset Caster Name Role Phone Po Marylu LR Primary Care Provider Jarrett Pereira Unavailable [phone] ALLERGIES Allergen (clinical drug ingredient) Drug/Non Drug [...] type (R15.9) Active confirmed Incontinence of feces (77855862) VITAL SIGNS Temperature 97.7 degrees Fahrenheit 12/08/19 24 Blood pressure systolic 000 mm Hg 12/08/19 24 Blood pressure diastolic 00 mm Hg 024 Height 65 in 12/08/2023 Weight 154 lb 8 oz lbs 12/08/2023 BMI 25.71 kg/m2 12/08/2023 Encounters Encounter Location Date Provider Diagnosis [facility] [address] [facility] [address] [place] [address] 12/08/2023 Jarrett Patel Incontinence of fece s, [...]
--- OUTSIDE RECORDS SUMMARY | 2024-11-28 08:23 | XMS_ITS | Clinical Summary ---
Author Organization [employer] Address [address] 7[address] [place] [address] Care Team Providers Care Merchandising Stock Associate Name Role Phone Unavailable Primary Care Provider [...] to complete [place] [id number] [facility] MEDEX CARE
--- OUTSIDE RECORDS SUMMARY | 2024-11-28 08:23 | XMS_ITS | Patient Health Record ---
Author Organization [facility] Address [address] [place] [address] Care Team Providers Care Health Technician Name Role Phone Po Marylu LR Primary Care Provider Jarrett Pereira [phone] ALLERGIES Allergen (clinical drug ingredient) Drug/Non Drug [...] malignant neoplasm of colon (Z12.11) Active confirmed [id number] Problem Incontinence of feces, unspecified fecal incontinence type (R15.9) Active confirmed Incontinence of feces (63575058) Problem Long-term (current) use of anticoagulants, INR goal 2.0-3.0 (Z79.01) Active confirmed 018355234 VITAL SIGNS Temperature 97.7 degrees Fahrenheit 12/08/2023 Blood pressure diastolic 00 mm Hg 12/08/2023 Height 65 in 12/08/2023 Blood pressure systolic 000 mm Hg 12/08/2023 Weight 154 lb 8 oz lbs 12/08/2023 BMI 25.71 kg/m2 12/08/2023 Encounters Encounter Location Date Provider Diagnosis [facility] [address] [address] [facility] [address] [place] [address] 12/08/2023 Jarrett Patel Incontinence of fece s, [...] OF [place] [address] [place] [address] [phone] [id number] MARGOT HILL Self - patient is the insured MED[employer] ATTN CLAIMS [address] [place] [address] [id number] MARGOT H[place] Self - patient is the insured MEDICAL (GENERAL) HISTORY Medical History History ICD Code Denies HI,DM,CVA,Lung disease,renal dise ase Atrial fibrillation x 15 years--Dr. Girma maharaj Hyperlipidemia Osteoporosis Neg. colonoscopy [place] [address] Melgoza Screening colonoscopy in Aug with removal of a small tubular adenoma Surgical History Surgery Date(Month/Year) KRISTINE 1982 CCY 1989 Tonsillectomy
[2024-11-28 08:41] LABS: Prothrombin Time Whole Bld POC 28.3 sec (11.1-13.5); ~PT, ~INR - Anti Coag Clinic 2.4 (0.9-1.1)
--- NOTE | 2024-11-28 08:48 | MHC.OFFVISCO ---
Intake Intake Visit Reasons: Anticoagulation Allergies escitalopram [Lexapro] Allergy (Unknown, Verified 11/28/24 08:31) Nausea sertraline [Zoloft] Allergy (Unknown, Verified 11/28/24 08:31) NAUSEA ANTIDEPRESSANTS Allergy (Unknown, Uncoded 11/28/24 08:31) MAKE ME FEEL SICK Nursing Note INR: 2.4 in therapeutic range of 2-3 Pt is c/o UTI symptoms. Had a urine test yesterday that is positive. Dr Humphreys messaged with results. Pt denies fever. Medications and supplements reviewed No changes in health, diet, medications, or supplements, Denies any signs and symptoms of bleeding or bruising or clotting. 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
== END 2024-11-28 08:52 | disposition home or self-care (01) ==
LOC: HO.ACS 08:11
PROVIDERS: PCP Internal Medicine; Visit Provider Internal Medicine
DX: Z79.01 Long term (current) use of anticoagulants (principal)

== ENCOUNTER → 2024-11-28 08:11 | Outpatient (BNVA) | payer MEDICARE, SELFPAY | PROVIDERS: PCP Internal Medicine; Visit Provider Internal Medicine | DX: I48.20 Chronic atrial fibrillation, unspecified (principal); Z79.01 Long term (current) use of anticoagulants; Z51.81 Encounter for therapeutic drug level monitoring | CPT/HCPCS: 85610; 99211 ==

== ENCOUNTER 2024-12-03 13:05 | Outpatient (AMB) | payer MEDICARE, SELFPAY ==
[2024-12-03 13:15] LABS: Prothrombin Time Whole Bld POC 39.2 sec (11.1-13.5); ~PT, ~INR - Anti Coag Clinic 3.3 (0.9-1.1)
--- NOTE | 2024-12-03 13:23 | MHC.OFFVISCO ---
Intake Intake Visit Reasons: Anticoagulation Allergies escitalopram [Lexapro] Allergy (Unknown, Verified 12/03/24 13:09) Nausea sertraline [Zoloft] Allergy (Unknown, Verified 12/03/24 13:09) NAUSEA ANTIDEPRESSANTS Allergy (Unknown, Uncoded 12/03/24 13:09) MAKE ME FEEL SICK Medication List - Last Reconciled 12/03/24 by Cristel Coreas RN acetaminophen (Tylenol) 325 mg PO QID PRN alendronate 70 mg PO QWEEK cholecalciferol (vitamin D3) PO diphenhydramine HCl (NightTime Sleep Aid (diphenhydramine)) 25 mg PO BEDTIME flaxseed oil 1,000 mg PO DAILY flecainide 50 mg PO BID fluticasone furoate 27.5 mcg/actuation 2 sprays intranasal DAILY ipratropium bromide 2 sprays intranasal BID-TID PRN loratadine (Allergy Relief (loratadine)) 10 mg PO DAILY lorazepam 0.5 mg PO BID-TID PRN 30 days methylcellulose (laxative) (Citrucel) 500 mg PO DAILY metoprolol succinate ER 12.5 mg (1/2 x 25 mg) PO DAILY multivitamin 1 tab PO DAILY simvastatin 20 mg PO BEDTIME sulfamethoxazole-trimethoprim 800-160 mg (Bactrim DS) 1 tab PO BID valacyclovir 1,000 mg PO TID warfarin 5 mg See Protocol PO DAILY Nursing Note INR 3.3 out of therapeutic range Medications and supplements reviewed Patient status: S/P UTI CURRENTLY ON SULFA MED - WITH ONEMORE DAY LEFT- AN GREATLY AFFECT INR - CONT WITH REDUCED DOSE TODAY Medications or supplements: NO CHANGE Diet: GOOD - DID NOT HAVE GREENS OVER THE WEEKEND BUT DID HAVE WINE Denies any signs and symptoms of bleeding or clotting or unusual bruising Bleeding, bruising, clotting discussed Nutritional guidance given: MAKE SURE TO EAT GREENS THIS WEEK DUE TO EFFECTS OF THE ANTBX Dose: 2.5MG X 6 DAYS/ 5MG X 1 DAY F/U INR Date : 12/26/24?? Patient verbalizing understanding of instructions given WITH READ BACK. Anti-Coag Initial Assessment Social Hx Patient Tobacco Use Status: Never used Tobacco alcohol intake: current Alcohol intake frequency: a few times a month Questionnaires HAS-BLED Does the patient had uncontrolled Hypertension?: No Does the patient have renal disease?: No Does the patient have liver disease?: No Does the patient have a history of stroke?: No Has the patient had major bleeding or predisposition to bleeding?: No Does the patient have labile INRs?: No Is the patient over 65 years of age?: Yes Is the patient on medications that gives them a predisposition to bleeding?: Yes Does the patient use alcohol?: Yes HAS-BLED Score: 3 CHADSVASC Age: 75 or over Gender: Female Does the patient have a history of CHF?: No Does the patient have a history of Hypertension?: Yes Does the patient have a history of Stroke/TIA/Thromboembolism?: No Does the patient have a history of Vascular Disease (prior FL, PAD or aortic plaque)?: No Does the patient have a history of Diabetes?: No CHADS VACS Score: 4 Maribell Prediction Score Rsk VTE Active Cancer: No Previous VTE, excluding superficial vein thrombosis: No Reduced mobility: No Already known Thrombophilic Condition: Yes With-in last month Trauma and/or Surgery: No Elderly 70 year or older: Yes Heart and/or Respiratory Failure: No Acute Myocardial infarction and/or Ischemic Stroke: No Acute Infection and/or Rheumatologic Disorder: No Obesity (BMI 30 or greater): No Ongoing Hormonal Treatment: No Score: 4 Maribell Score less than 4; Low Risk of VTE Maribell Score 4 or greater; High Risk of VTE Coding Level of Care Code Est Patient Level 1 Diagnoses Current use of anticoagulant therapy Z79.01 Results AMB INR Fingerstick AMB INR Fingerstick 3.3 Last Edit by Cristel Coreas RN on 12/03/24 13:18 MANUAL ENTRY Assessment & Plan Assessment & Plan (1) Current use of anticoagulant therapy: Code(s): Z79.01 - intermediate (current) use of anticoagulants Category: Medical
--- OUTSIDE RECORDS SUMMARY | 2024-12-03 16:20 | XMS_ITS ---
Author Organization [facility] Address [address] [place] [address] Care Team Providers Care Chart Clerk Name Role Phone Po Marylu LR Primary Care Provider Jarrett Pereira Unavailable [phone] ALLERGIES Allergen (clinical drug ingredient) Drug/Non Drug [...] type (R15.9) Active confirmed Incontinence of feces (48684119) VITAL SIGNS Temperature 97.7 degrees Fahrenheit 12/08/19 24 Blood pressure systolic 000 mm Hg 12/08/19 24 Blood pressure diastolic 00 mm Hg 024 Height 65 in 12/08/2023 Weight 154 lb 8 oz lbs 12/08/2023 BMI 25.71 kg/m2 12/08/2023 Encounters Encounter Location Date Provider Diagnosis [facility] [address] [facility] [address] [place] [address] 12/08/2023 Jarrett Patel Incontinence of fece s, [...]
--- OUTSIDE RECORDS SUMMARY | 2024-12-03 16:20 | XMS_ITS | Clinical Summary ---
Author Organization [employer] Address [address] [facility] 7t [place] [address] Care Team Providers Care Plater Barrel Name Role Phone Unavailable Primary Care Provider [...] to complete [place] [id number] [facility] MEDEX CARE
--- OUTSIDE RECORDS SUMMARY | 2024-12-03 16:20 | XMS_ITS | Patient Health Record ---
Author Organization [facility] Address [address] [place] [address] Care Team Providers Care Leisure Travel Agent Name Role Phone Po Marylu LR Primary Care Provider Jarrett Periera [phone] ALLERGIES Allergen (clinical drug ingredient) Drug/Non Drug [...] malignant neoplasm of colon (Z12.11) Active confirmed [id number] Problem Incontinence of feces, unspecified fecal incontinence type (R15.9) Active confirmed Incontinence of feces (48346877) Problem Long-term (current) use of anticoagulants, INR goal 2.0-3.0 (Z79.01) Active confirmed 846900532 VITAL SIGNS Temperature 97.7 degrees Fahrenheit 12/08/2023 Blood pressure diastolic 00 mm Hg 12/08/2023 Height 65 in 12/08/2023 Blood pressure systolic 000 mm Hg 12/08/2023 Weight 154 lb 8 oz lbs 12/08/2023 BMI 25.71 kg/m2 12/08/2023 Encounters Encounter Location Date Provider Diagnosis [facility] [address] [place] [address] 12/08/2023 Jarrett Patel Incontinence of fece s, [...] OF [place] [address] [place] [address] [id number] MARGOT HILL Self - patient is the insured MED[employer] ATTN CLAIMS [address] [place] [address] [phone] [id number] MARGOT HILL Self - patient is the insured MEDICAL (GENERAL) HISTORY Medical History History ICD Code Denies CA,DM,CVA,Lung disease,renal dise ase Atrial fibrillation x 15 years--Dr. Girma maharaj Hyperlipidemia Osteoporosis Neg. colonoscopy [place] [address] Melgoza Screening colonoscopy in Aug with removal of a small tubular adenoma Surgical History Surgery Date(Month/Year) KRISTINE 1982 CCY 1989 Tonsillectomy
== END 2024-12-03 13:31 | disposition home or self-care (01) ==
LOC: HO.ACS 13:05
PROVIDERS: PCP Internal Medicine; Visit Provider Internal Medicine
DX: Z79.01 Long term (current) use of anticoagulants (principal)

== ENCOUNTER → 2024-12-03 13:05 | Outpatient (BNVA) | payer MEDICARE, SELFPAY | PROVIDERS: PCP Internal Medicine; Visit Provider Internal Medicine | DX: I48.20 Chronic atrial fibrillation, unspecified (principal); Z79.01 Long term (current) use of anticoagulants; Z51.81 Encounter for therapeutic drug level monitoring | CPT/HCPCS: 85610; 99211 ==

== ENCOUNTER 2024-12-26 08:40 | Outpatient (AMB) | payer MEDICARE, SELFPAY ==
--- NOTE | 2024-12-26 09:01 | MHC.OFFVISCO ---
Intake Intake Visit Reasons: Anticoagulation Allergies escitalopram [Lexapro] Allergy (Unknown, Verified 12/26/24 08:49) Nausea sertraline [Zoloft] Allergy (Unknown, Verified 12/26/24 08:49) NAUSEA ANTIDEPRESSANTS Allergy (Unknown, Uncoded 12/26/24 08:49) MAKE ME FEEL SICK Medication List - Last Reconciled 12/26/24 by Shelli Mack, RN acetaminophen (Tylenol) 325 mg PO QID PRN alendronate 70 mg PO QWEEK cholecalciferol (vitamin D3) PO diphenhydramine HCl (NightTime Sleep Aid (diphenhydramine)) 25 mg PO BEDTIME flaxseed oil 1,000 mg PO DAILY flecainide 50 mg PO BID fluticasone furoate 27.5 mcg/actuation 2 sprays intranasal DAILY ipratropium bromide 2 sprays intranasal BID-TID PRN loratadine (Allergy Relief (loratadine)) 10 mg PO DAILY lorazepam 0.5 mg PO BID-TID PRN 30 days methylcellulose (laxative) (Citrucel) 500 mg PO DAILY metoprolol succinate ER 12.5 mg (1/2 x 25 mg) PO DAILY multivitamin 1 tab PO DAILY simvastatin 20 mg PO BEDTIME sulfamethoxazole-trimethoprim 800-160 mg (Bactrim DS) 1 tab PO BID valacyclovir 1,000 mg PO TID warfarin 5 mg See Protocol PO DAILY Nursing Note INR: 1.7?out of therapeutic range of 2-3 Medications and supplements reviewed Patient status: c/o constipation. No BM 4 days. Going to store after this appointment to get Miralax or Magnesium citrate. Medications or supplements: no changes Diet: usual diet for pt Denies any signs and symptoms of bleeding or clotting or unusual bruising Bleeding, bruising, clotting discussed Nutritional guidance given: to avoid greens today Dose: usual dose of 5mg today then increase tomorrow's dose to 5mg (2.5mg) then resume 2.5mg X 5 days and 5mg X 2 days (Mon & Thurs) F/U INR Date: 4 weeks?? Patient verbalizing understanding of instructions given. 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
[2024-12-26 09:04] LABS: Prothrombin Time Whole Bld POC 20.4 sec (11.1-13.5); ~PT, ~INR - Anti Coag Clinic 1.7 (0.9-1.1)
--- OUTSIDE RECORDS SUMMARY | 2024-12-26 09:19 | XMS_ITS ---
Author Organization [facility] Address [address] [place] [address] Care Team Providers Care Electrical And Instrument Engineer Name Role Phone Po Marylu LR Primary Care Provider Jarrett Pereira Unavailable [phone] Allergies Allergen (clinical drug ingredient) Drug/Non Drug [...] W/U Status Risk Notes Problem Incontinence of feces (79723560) Incontinence of feces, unspecified fecal incontinence type (R15.9) Active confirmed Vital Signs Temperature 97.7 degrees Fahrenheit 12/08/19 24 Blood pressure systolic 000 mm Hg 12/08/19 24 Blood pressure diastolic 00 mm Hg 024 Height 65 in 12/08/2023 Weight 154 lb 8 oz lbs 12/08/2023 BMI 25.71 kg/m2 12/08/2023 Encounters Encounter Location Date Provider Diagnosis [facility] [address] [place] [address] 12/08/2023 Jarrett Patel Incontinence of fece s, [...] Follow Up: prn, Reason: Progress Notes * JENNY HILL MDOB:1944 (78 yo F)Acc No.[id number]:12/08/2023 Progress Notes Patient:?JORDIN HILLEN Michell Provider:?Jarrett Patel MD :1945???Age:78 Y???Sex:Female D ate:12/08/2023 Address:[address] [place], [place] [id number] Pcp:Marylu Humphreys MD Subjective: * Chief Complaints: * ???Patient presents today fo r fecal incontinence * HPI: ???incontinence:? I saw Jenny in consultation today in regard to her previous episodes of fecal incontinence. ?I last saw Jenny in August of 2019, at which time she underwent a screening colonoscopy with removal of a small tubular adenoma. At that time she was doing well and I did not think she would need any further screening colonoscopies going forward given her age of 73 at that time and the just minimal findings on that colonoscopy. ?In general she has been doing well but [...] cancer, inflammatory bowel disease, nor celiac disease. ?Laboratories over 23 revealed a normal CBC, normal chemistries and renal function, normal TSH, and normal LFTs. * ROS:?General/Constitutional:?Change in appetite?denies.?Chills?denies.?Fatigue?denies.?Ophthalmologic:?Comments?all negative.?ENT:?Comments?all negative.?Respiratory:?hemoptysis?denies.?Cough?denies.?Cardiovascular:?Chest pain?denies.?Orthopnea?denies.?Gastrointestinal:?Comments?See HPI for details.?Genitourinary:?Hematuria?denies.?Dysuria?denies.?Musculoskeletal:?Painful joints?denies.?Weakness?denies.?Skin:?Itching?denies.?Rash?denies.?Neurologic:?Headache?denies.?Seizures?denies.?Psychiatric:?Comments?all negative.? * Medical History:? * Surgical History:?KRISTINE 1983CC Y 1990Tonsillectomy * Hospitalization/Major Diagno stic Procedure:?No Hospitalization History. * Family History:?Father: dece ased.?Mother: , diagnosed with HTN (hypertension).? No colorectal cancer, No family history of liver cancer. * Social History:?Tobacco Use:?Tobacco Use/Smoking?Patient is a?nonsmoker.?Drugs/Alcohol:?Alcohol Screen?Did you have a drink containing alcohol in the past year??Yes,?How often did you have a drink containing alcohol in the past year??2 to 4 times a month (2 points),?How many drinks did you have on a typical day when you were drinking in the past year??1 or 2 drinks (0 point),?How often did you have 6 or more drinks on one occasion in the past year??Never (0 point),?Points?2,?Interpretation?Negative.?Miscellaneous:?Marital status: . Occupation: retired. ???Nonsmoker; occ alcohol. * Medications:?TakingMetoprolo l Succinate ER 25 MG Tablet Extended Release [...] reviewed and reconciled with the patient * Allergies:?seasonalyes[Aller gies Verified] Objective: * Vitals:?Wt: 154 lb 8 oz, Ht: 65 in, BMI:25.71 Index, BP: 000/00 mm Hg, Temp: 97.7. * Examination: ???General Examination: ?GENERAL APPEARANCE:?pleasant, well nourished, well developed, in no acute distress.?EYES:?sclera non-icteric.?ORAL CAVITY:?mucosa moist.?NECK/THYROID:?no cervical lymphadenopathy, neck supple.?SKIN:?nonjaundiced, no spider angiomata.?HEART:?S1, S2 normal.?LUNGS:?clear to auscultation bilaterally.?ABDOMEN:?normal bowel sounds, no guarding or rigidity, no guarding or rigidity, no masses palpable, soft, nontender, nondistended.?EXTREMITIES:?no edema.?NEUROLOGIC:?alert and oriented.? Assessment: * Assessment: 1.?Incontinence of feces, un specified fecal incontinence type - R15.9 (Primary)? Overall, Jenny appears qu ite well. At [...] the future. Plan: * Treatment: * Procedure Codes:?1036F TOBAC CO NON-[id number] BP SCR NOT PRFRM REC REASON NOS * Preventive Medicine:? ??Counseling:?Care goal follow-up plan:?Above Normal BMI Follow-up?Giving encouragement to exercise,?BMI management provided?Yes.? ??Urinary Incontinence:?Urinary Incontinence?Assessment:?Absent,?Plan of care documented:?No, reason not specified.? * Follow Up:?prn * * Sign off status: Completed true * Provider:?Jarrett Patel MD Date:? 024 Generated for Jodi lund/Edith/eTransmitting on:?12/26/2024 09:18 AM EDT History and Physical Notes * [...]
--- OUTSIDE RECORDS SUMMARY | 2024-12-26 09:19 | XMS_ITS | Patient Health Record ---
Author Organization [facility] Address [address] [place] [address] Care Team Providers Care Counter Supervisor Name Role Phone Po Marylu LR Primary Care Provider Jarrett Pereira [phone] Allergies Allergen (clinical drug ingredient) Drug/Non Drug Allergy documented on EMR Reaction Allergy Type Onset Date Status seasonal (uncoded) Unknown Allergy A ctive Reason For Referral No Information Medications Medication SIG (Take, Route, Frequency, Duration) [...] Twice a day for 30 day(s) Active Immunizations Vaccine Route Administration Date Status Comme nts Influenza Unknown 06/27/2019 Administered Influenza Unknown 07/25/2023 Administered Social History Tobacco Use: Social History Observation [...] Interpretation Negative Section Notes: Nonsmoker; occ alcohol Nonsmoker; occ alcohol Problems Problem Type SNOMED Code ICD Code Onset Dates Problem Status W/U Status Risk Notes Problem [id number] Encounter for screening for malignant neoplasm of colon (Z12.11) Active confirmed Problem Incontinence of feces (55773448) Incontinence of feces, unspecified fecal incontinence type (R15.9) Active confirmed Problem 930001033 Long-term (current) use of anticoagulants, INR goal 2.0-3.0 (Z79.01) Active confirmed Plan Of Treatment Future Test Test Name Order Date COLONOSCOPY 07/03/2019 Insurance Providers Payer Name Payer Address Payer Phone Subscriber Number Group Number Insured Name Patient Relationship to Insured Coverage Start Date Coverage End Date MEDICARE OF [place] [address] [facility] [place] [address] [phone] [id number] MARGOT HILL Self - patient is the insured MEDEX ATTN CLAIMS [address] [place] [address] [id number] MARGOT HILL Self - patient is the insured Medical (General) History Medical History History ICD Code Denies [place],DM,CVA,Lung disease,renal dise ase Atrial fibrillation x 15 years--Dr. Girma maharaj Hyperlipidemia Osteoporosis Neg. [place] [address] Melgoza Screening colonoscopy in Aug with removal of a small tubular adenoma Surgical History Surgery Date(Month/Year) KRISTINE 1982 CCY 1989 Tonsillectomy
== END 2024-12-26 08:59 | disposition home or self-care (01) ==
LOC: HO.ACS 08:40
PROVIDERS: PCP Internal Medicine; Visit Provider Internal Medicine Medical Oncology
DX: Z79.01 Long term (current) use of anticoagulants (principal)

== ENCOUNTER → 2024-12-26 08:40 | Outpatient (BNVA) | payer MEDICARE, SELFPAY | PROVIDERS: PCP Internal Medicine; Visit Provider Internal Medicine Medical Oncology | DX: I48.20 Chronic atrial fibrillation, unspecified (principal); Z51.81 Encounter for therapeutic drug level monitoring; Z79.01 Long term (current) use of anticoagulants | CPT/HCPCS: 85610; 99211 ==

== ENCOUNTER 2025-01-23 08:16 | Outpatient (AMB) | payer MEDICARE, SELFPAY ==
--- OUTSIDE RECORDS SUMMARY | 2025-01-23 08:31 | XMS_ITS ---
Author Organization [facility] Address [address] [place] [address] Care Team Providers Care Hospital Receptionist Name Role Phone Po Marylu LR Primary Care Provider Jarrett Pereira Unavailable [phone] Allergies Allergen (clinical drug ingredient) Drug/Non Drug [...] Status Risk Notes Problem Incontinence of feces (17031628) Incontinence of feces, unspecified fecal incontinence type (R15.9) Active confirmed Vital Signs Temperature 97.7 degrees Fahrenheit 12/08/19 24 Blood pressure systolic 000 mm Hg 12/08/19 24 Blood pressure diastolic 00 mm Hg 024 Height 65 in 12/08/2023 Weight 154 lb 8 oz lbs 12/08/2023 BMI 25.71 kg/m2 12/08/2023 Encounters Encounter Location Date Provider Diagnosis [facility] [address] [place] [address] 12/08/2023 Jarrett Patel Incontinence of fece s, [...] * JENNY HILL MDOB:1944 (78 yo F)Acc No.[id number]:12/08/2023 Progress Notes Patient:?JORDIN HILLEN Michell Provider:?Jarrett Patel MD :1945???Age:78 Y???Sex:Female D ate:12/08/2023 Address:[address] [place], [place] [id number] Pcp:Marylu Humphreys MD Subjective: * Chief Complaints: * ???Patient presents today fo r fecal incontinence * HPI: ???incontinence:? I saw Jneny in consultation today in regard to her [...] * Treatment: * Procedure Codes:?1036F TOBAC CO NON-[id number] BP SCR NOT PRFRM REC REASON NOS * Preventive Medicine:? ??Counseling:?Care goal follow-up plan:?Above Normal BMI Follow-up?Giving encouragement to exercise,?BMI management provided?Yes.? ??Urinary Incontinence:?Urinary Incontinence?Assessment:?Absent,?Plan of care documented:?No, reason not specified.? * Follow Up:?prn * * Sign off status: Completed true * Provider:?Jarrett Patel MD Date:? 024 Generated for Jodi lund/Edith/Marcelinasmitting on:?01/23/2025 08:30 AM EDT History and Physical Notes * [...]
--- OUTSIDE RECORDS SUMMARY | 2025-01-23 08:31 | XMS_ITS | Patient Health Record ---
Author Organization [facility] Address [address] [place] [address] Care Team Providers Care Surgical Instruments Inspector Name Role Phone Po Marylu LR Primary Care Provider Jarrett Pereira [phone] Allergies Allergen (clinical drug ingredient) Drug/Non Drug [...] Problem Status W/U Status Risk Notes Problem 132750608 Encounter for screening for malignant neoplasm of colon (Z12.11) Active confirmed Problem Incontinence of feces (77382605) Incontinence of feces, unspecified fecal incontinence type (R15.9) Active confirmed Problem 389806031 Long-term (current) use of anticoagulants, INR goal 2.0-3.0 (Z79.01) Active confirmed Plan Of Treatment Future Test Test Name Order Date COLONOSCOPY 07/03/2019 Insurance Providers Payer Name Payer Address Payer Phone Subscriber Number Group Number Insured Name Patient Relationship to Insured Coverage Start Date Coverage End Date MEDICARE OF [place] [address] [place] [address] [id number] MARGOT HILL Self - patient is the insured MEDEX ATTN CLAIMS [address] [place] [address] [id number] MARGOT HILL Self - patient is the insured Medical (General) History Medical History History ICD Code Denies [place],DM,CVA,Lung disease,renal dise ase Atrial fibrillation x 15 years--Dr. Girma maharaj Hyperlipidemia Osteoporosis Neg. [place] [address] Melgoza Screening colonoscopy in Aug with removal of a small tubular adenoma Surgical History Surgery Date(Month/Year) KRISTINE 1982 CCY 1989 Tonsillectomy
--- OUTSIDE RECORDS SUMMARY | 2025-01-23 08:31 | XMS_ITS | Clinical Summary ---
Author Organization [facility] Address [address] [facility] [address] [address] [facility] [address] [place] [address] Care Team Providers Care Slipman Name Role Phone Unavailable Primary Care Provider Unavailabl e Encounters Date Type Department Care Team Description 12/24/2024 9:05 AM EDT Immunization [facility] [address] [place] [address] Encounter for immunization (Primary Dx) from Last 3 Months Immunizations Name Administration Dates Next Due Influenza High-dose Quadriva lent Preservative Free 06/27/2022,06/16/2020 Influenza Quadrivalent Adjuvanted 06/23/2023 Influenza, High Dose Seasona l, Preservative Free 06/27/2018,07/05/2017,06/29/2016 Influenza, seasonal, injecta ble, preservative free 06/19/2024 Influenza, trivalent, adjuvanted 06/28/2019,11/0 10/2017 Pfizer Covid-19 Vaccine 12+ 12/24/2024,,12/14/2023 Pneumococcal Conjugate PCV 13 04/30/2020, 016 Pneumococcal [...] Aged 60 years or older Completed 07/29/2023 Influenza Vaccine Completed 06/19/2024, , 06/27/2022, Additional history exists COVID-19 Vaccine Completed 12/24/2024, , 12/14/2023, Additional history exists HIB Vaccines Aged Out [...] age to complete this topic Insurance [place] [address] [place] [phone] [facility]
[2025-01-23 08:44] LABS: Prothrombin Time Whole Bld POC 30.7 sec (11.1-13.5); ~PT, ~INR - Anti Coag Clinic 2.6 (0.9-1.1)
--- NOTE | 2025-01-23 08:49 | MHC.OFFVISCO ---
Intake Intake Visit Reasons: Anticoagulation Allergies escitalopram [Lexapro] Allergy (Unknown, Verified 01/23/25 08:35) Nausea sertraline [Zoloft] Allergy (Unknown, Verified 01/23/25 08:35) NAUSEA ANTIDEPRESSANTS Allergy (Unknown, Uncoded 01/23/25 08:35) MAKE ME FEEL SICK Medication List - Last Reconciled 01/23/25 by Cristel Coreas RN acetaminophen (Tylenol) 325 mg PO QID PRN alendronate 70 mg PO QWEEK cholecalciferol (vitamin D3) PO diphenhydramine HCl (NightTime Sleep Aid (diphenhydramine)) 25 mg PO BEDTIME flaxseed oil 1,000 mg PO DAILY flecainide 50 mg PO BID fluticasone furoate 27.5 mcg/actuation 2 sprays intranasal DAILY ipratropium bromide 2 sprays intranasal BID-TID PRN loratadine (Allergy Relief (loratadine)) 10 mg PO DAILY lorazepam 0.5 mg PO BID-TID PRN 30 days methylcellulose (laxative) (Citrucel) 500 mg PO DAILY metoprolol succinate ER 12.5 mg (1/2 x 25 mg) PO DAILY multivitamin 1 tab PO DAILY simvastatin 20 mg PO BEDTIME warfarin 5 mg See Protocol PO DAILY Nursing Note INR: 2.6 in therapeutic range Medications and supplements reviewed No changes in health, diet, medications, or supplements, Denies any signs and symptoms of bleeding or bruising or clotting. Bleeding, bruising, clotting discussed Nutritional guidance given - review food list during season changes Dose: keep same 5mg x 2 days/ 2.5mg x 5 days F/U INR: 1 month Patient verbalizes understanding of instructions given Anti-Coag Initial Assessment Social Hx Patient Tobacco Use Status: Never used Tobacco alcohol intake: current Alcohol intake frequency: a few times a month Coding Level of Care Code Est Patient Level 1 Diagnoses Current use of anticoagulant therapy Z79.01 Assessment & Plan Assessment & Plan (1) Current use of anticoagulant therapy: Code(s): Z79.01 - intermediate accountant (current) use of anticoagulants Category: Medical
== END 2025-01-23 08:54 | disposition home or self-care (01) ==
LOC: HO.ACS 08:16
PROVIDERS: PCP Internal Medicine; Visit Provider Internal Medicine Medical Oncology
DX: Z79.01 Long term (current) use of anticoagulants (principal)

== ENCOUNTER → 2025-01-23 08:16 | Outpatient (BNVA) | payer MEDICARE, SELFPAY | PROVIDERS: PCP Internal Medicine; Visit Provider Internal Medicine Medical Oncology | DX: I48.20 Chronic atrial fibrillation, unspecified (principal); Z79.01 Long term (current) use of anticoagulants; Z51.81 Encounter for therapeutic drug level monitoring | CPT/HCPCS: 85610; 99211 ==

== ENCOUNTER 2025-02-20 08:19 | Outpatient (AMB) | payer MEDICARE, SELFPAY ==
[2025-02-20 08:30] LABS: Prothrombin Time Whole Bld POC 31.1 sec (11.1-13.5); ~PT, ~INR - Anti Coag Clinic 2.6 (0.9-1.1)
--- OUTSIDE RECORDS SUMMARY | 2025-02-20 08:30 | XMS_ITS | Clinical Summary ---
Author Organization [facility] Address [address] [facility] [address] [place] [address] Care Team Providers Care Architectural Project Manager Name Role Phone Unavailable Primary Care Provider Unavailabl e Encounters Date Type Department Care Team Description 12/24/2024 9:05 AM EDT Immunization [facility] [address] [place] [address] Encounter for immunization (Primary Dx) from Last 3 Months Immunizations Immunization Administration Dates Next Due Influenza High-dose Quadriva [...] patient's age to complete this topic Meningococcal B Vaccine Aged Out No l onger eligible based on patient's age to complete this topic Meningococcal Vaccine Aged Out No sammie allan eligible based on patient's age to complete this topic RSV under 20 months Aged Out No longe r eligible based on patient's age to complete this topic Rotavirus Vaccines Aged Out No longer eligible based on patient's age to complete this topic Insurance [place] [address] [place] [id number] [facility] MEDEX CARE
--- OUTSIDE RECORDS SUMMARY | 2025-02-20 08:30 | XMS_ITS ---
Author Organization [facility] Address [address] [place] [address] Care Team Providers Care Hotel Director Name Role Phone Po Marylu LR Primary Care Provider Jarrett Pereira Unavailable [phone] Allergies Allergen (clinical drug ingredient) Drug/Non Drug [...] 12/08/2023 Encounters Encounter Location Date Provider Diagnosis [facility] [address] [place] [address] 12/08/2023 Jarrett Patel Incontinence of fece s, [...] * JENNY HILL MDOB:1944 (78 yo F)Acc No.[id number]:12/08/2023 Progress Notes Patient:?JENNY HILL Provider:?Jarrett Patel MD :1945???Age:78 Y???Sex:Female D ate:12/08/2023 Address:[address] [place], [place] [id number] Pcp:Marylu Humphreys MD Subjective: * Chief Complaints: [...] * Treatment: * Procedure Codes:?1036F TOBAC CO NON-[id number] BP SCR NOT PRFRM REC REASON NOS * Preventive Medicine:? ??Counseling:?Care goal follow-up plan:?Above Normal BMI Follow-up?Giving encouragement to exercise,?BMI management provided?Yes.? ??Urinary Incontinence:?Urinary Incontinence?Assessment:?Absent,?Plan of care documented:?No, reason not specified.? * Follow Up:?prn * * Sign off status: Completed true * Provider:?Jarrett Patel MD Date:? 024 Generated for Jodi lund/Edith/Marcelinasmitting on:?02/20/2025 08:30 AM EDT History and Physical Notes [...]
--- OUTSIDE RECORDS SUMMARY | 2025-02-20 08:30 | XMS_ITS | Patient Health Record ---
Author Organization [facility] Address [address] [place] [address] Care Team Providers Care Surgical Assistant Name Role Phone Po Marylu LR Primary Care Provider Jarrett Pereira [phone] Allergies Allergen (clinical drug ingredient) Drug/Non Drug [...] Problem Status W/U Status Risk Notes Problem [id number] Encounter for screening for malignant neoplasm of colon (Z12.11) Active confirmed Problem Incontinence of feces, unspecified fecal incontinence type (R15.9) Active confirmed Problem 337202528 Long-term (current) use of anticoagulants, INR goal 2.0-3.0 (Z79.01) Active confirmed Plan Of Treatment Future Test Test Name Order Date COLONOSCOPY 07/03/2019 Insurance Providers Payer Name Payer Address Payer Phone Subscriber Number Group Number Insured Name Patient Relationship to Insured Coverage Start Date Coverage End Date MEDICARE OF [place] [address] [place] [address] [id number] MARGOT HILL Self - patient is the insured MEDEX ATTN CLAIMS [address] [place] [address] [id number] MARGOT HILL Self - patient is the insured Medical (General) History Medical History History ICD Code Denies [place],DM,CVA,Lung disease,renal dise ase Atrial fibrillation x 15 years--Dr. Girma maharaj Hyperlipidemia Osteoporosis Neg. colonoscopy [place] [address] Melgoza Screening colonoscopy in Aug with removal of a small tubular adenoma Surgical History Surgery Date(Month/Year) KRISTINE 1982 CCY 1989 Tonsillectomy
--- NOTE | 2025-02-20 08:33 | MHC.OFFVISCO ---
Intake Intake Visit Reasons: Anticoagulation Allergies escitalopram [Lexapro] Allergy (Unknown, Verified 02/20/25 08:25) Nausea sertraline [Zoloft] Allergy (Unknown, Verified 02/20/25 08:25) NAUSEA ANTIDEPRESSANTS Allergy (Unknown, Uncoded 02/20/25 08:25) MAKE ME FEEL SICK Medication List - Last Reconciled 02/20/25 by Shelli Mack, RN acetaminophen (Tylenol) 325 mg PO QID PRN alendronate 70 mg PO QWEEK cholecalciferol (vitamin D3) PO diphenhydramine HCl (NightTime Sleep Aid (diphenhydramine)) 25 mg PO BEDTIME flaxseed oil 1,000 mg PO DAILY flecainide 50 mg PO BID fluticasone furoate 27.5 mcg/actuation 2 sprays intranasal DAILY ipratropium bromide 2 sprays intranasal BID-TID PRN loratadine (Allergy Relief (loratadine)) 10 mg PO DAILY lorazepam 0.5 mg PO BID-TID PRN 30 days methylcellulose (laxative) (Citrucel) 500 mg PO DAILY metoprolol succinate ER 12.5 mg (1/2 x 25 mg) PO DAILY multivitamin 1 tab PO DAILY simvastatin 20 mg PO BEDTIME warfarin 5 mg See Protocol PO DAILY Nursing Note INR: 2.6 in therapeutic range of 2-3 Medications and supplements reviewed No changes in health, diet, medications, or supplements, Denies any signs and symptoms of bleeding or bruising or clotting. 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
== END 2025-02-20 08:34 | disposition home or self-care (01) ==
LOC: HO.ACS 08:19
PROVIDERS: PCP Internal Medicine; Visit Provider Internal Medicine Medical Oncology
DX: Z79.01 Long term (current) use of anticoagulants (principal)

== ENCOUNTER → 2025-02-20 08:19 | Outpatient (BNVA) | payer MEDICARE, SELFPAY | PROVIDERS: PCP Internal Medicine; Visit Provider Internal Medicine Medical Oncology | DX: I48.20 Chronic atrial fibrillation, unspecified (principal); Z79.01 Long term (current) use of anticoagulants; Z51.81 Encounter for therapeutic drug level monitoring | CPT/HCPCS: 85610; 99211 ==

== ENCOUNTER → 2025-03-04 14:52 | Outpatient (REF) | payer MEDICARE, SELFPAY ==
--- NOTE | 2025-03-04 14:55 | CA_ITS ---
Transthoracic Echocardiogram Patient (Last, First, Middle): Jenny Zhang M Gender: Female Date of : 1945 Age: 79 Procedure Date: 03/04/2025 Procedure Type: Transthoracic Echocardiogram Location: OP Height: 167.64 cm Weight: 68.04 kg BSA: 1.77 m2 Heart Rate: bpm BP: 112 / 52 mmHg Revenue Enforcement Collection Agent: TO/RC Referring MD: Tomi Coffey MD Symptoms: I48.0 - Paroxysmal atrial fibrillation Study Quality: Adequate w contrast ECG Rhythm: Sinus Conclusions: - The left ventricular systolic function is borderline reduced. The calculated ejection fraction is 66% by biplane method. - No obvious valvular pathology seen on this study. Findings Procedure Information Contrast agent, definity, is being given per protocol without apparent complications. Left Ventricle Normal left ventricular cavity size. The left ventricular systolic function is borderline reduced. The calculated ejection fraction is 66% by biplane method. There is no evidence of regional wall motion abnormalities. Diastolic function is normal for age. There is mild septal asymmetric hypertrophy. Right Ventricle Normal right ventricular cavity size. There is low normal right ventricular systolic function. Atria Both atria are normal in size. Aortic Valve There is a normal trileaflet aortic valve. There is no aortic valve stenosis. There is no aortic valve regurgitation. Mitral Valve The mitral valve appears normal. There is no mitral valve regurgitation. There is no mitral valve stenosis. Pulmonic Valve The pulmonic valve is likely normal. Tricuspid Valve There is no tricuspid valve regurgitation. Tricuspid regurgitation envelope is inadequate for calculation of right ventricular systolic pressure. Great Vessels The asc aorta is normal in size. Venous The inferior vena cava is normal in size and collapses greater than 50% with inspiration. Pericardium/Pleural There is no evidence of pericardial effusion. Prior Study Comparison No significant change compared to prior study dated: 08/04/2022. Recommendations, Care & Conclusions No obvious valvular pathology seen on this study. Measurements 2D Linear Measurements IVSd: 1.06 0.6-0.9/0.6-1.0 cm LVIDd: 4.02 3.9-5.3/4.2-5.9 cm LVIDd Index: 2.27 2.4-3.2/2.2-3.1 cm/m2 LVIDs: 2.82 2.0-3.6 cm LVPWd: 0.71 0.7-1.1 cm LA Diam: 3.60 2.7-3.8/3.0-4.0 cm LAIDs Index: 2.03 1.5-2.3 cm/m2 LV Mass: 134.62 67-162/88-224 g LV Mass Index: 76.06 43-95/49-115 g/m2 LVOT Diam: 2.20 3.0+(-)1.3 cm 2D Systolic Function EF 4C: 64.20 >55% EF 2C: 68.50 >55% EF BiP: 66.00 >55% Mitral Valve MV Pk E: 0.56 MV PK A: 0.29 MV Decel Time: 238.00 E/A: 1.90 E'Lateral: 8.59 E'Medial: 5.87 E/E' Med: 9.50 E/E' Lat: 6.50 PHT: 70.00 MVA PHT: 3.14 Decel Schley: 2.34 Aortic Valve AoV Pk Vitor: 1.10 AoV Mn Vitor: 0.80 AoV VTI: 0.27 AoV Pk Grad: 5.00 Aov Mn Grad: 3.00 CRISTINA Cont.VTI: 3.44 LVOT LVOT Pk Vitor: 0.97 LVOT Mn Vitor: 0.68 LVOT VTI: 0.25 LVOT Pk Grad: 4.00 LVOT Mn Grad: 2.00 LVOT Diam: 2.20 LVOT Area: 3.80 Diastolic Function MV Pk E: 0.56 MV Pk A: 0.29 E/A: 1.90 E'Medial: 5.87 E/E' Med: 9.50 E' Laterial: 8.59 E/E' Lat: 6.50 Right Ventricle TAPSE (mm): 15.00 TVS' Vitor: 10.30 Tricuspid Valve RA Press: 3.00 Great Vessels Aorta Sinus of Valsalva: 3.30 2.0-3.5 cm Ao Asc: 3.00 2.1-3.4 cm Updated in Other Vendor System with Status of Final Rojelio Wynn MD electronically signed on 03/05/2025 11:43:56 AM with status of Final
--- OUTSIDE RECORDS SUMMARY | 2025-03-04 16:36 | XMS_ITS ---
Author Organization [facility] Address [address] [place] [address] Care Team Providers Care Extruder Tender Name Role Phone Po Marylu LR Primary Care Provider Jarrett Pereira Unavailable [phone] Allergies Allergen (clinical drug ingredient) Drug/Non Drug [...] 12/08/2023 Encounters Encounter Location Date Provider Diagnosis [facility] [address] [place] [address] 12/08/2023 Jarrett Patel Incontinence of fece s, [...] * JENNY HILL MDOB:1944 (78 yo F)Acc No.[id number]:12/08/2023 Progress Notes Patient:?JENNY HILL Provider:?Jarrett Patel MD :1945???Age:78 Y???Sex:Female D ate:12/08/2023 Address:[address] [place], [place] [id number] Pcp:Marylu Humphreys MD Subjective: * Chief Complaints: [...] * Treatment: * Procedure Codes:?1036F TOBAC CO [id number] BP SCR NOT PRFRM REC REASON NOS * Preventive Medicine:? ??Counseling:?Care goal follow-up plan:?Above Normal BMI Follow-up?Giving encouragement to exercise,?BMI management provided?Yes.? ??Urinary Incontinence:?Urinary Incontinence?Assessment:?Absent,?Plan of care documented:?No, reason not specified.? * Follow Up:?prn * * Sign off status: Completed true * Provider:?Jarrett Patel MD Date:? 024 Generated for Jodi lund/Edith/Marcelinasmitting on:?03/04/2025 04:36 PM EDT History and Physical Notes * HPI [...]
== END ==
LOC: HO.CARD 14:52
PROVIDERS: PCP Internal Medicine; Visit Provider Internal Medicine Cardiovascular Disease
DX: I48.0 Paroxysmal atrial fibrillation (principal); I42.9 Cardiomyopathy, unspecified
CPT/HCPCS: 93306; Q9957

== ENCOUNTER → 2025-03-04 14:55 | Outpatient (BNV) | payer MEDICARE, SELFPAY | PROVIDERS: PCP Internal Medicine; Visit Provider Internal Medicine | DX: I36.1 Nonrheumatic tricuspid (valve) insufficiency (principal) | CPT/HCPCS: 93306 ==

== ENCOUNTER 2025-03-20 08:17 | Outpatient (AMB) | payer MEDICARE, SELFPAY ==
--- OUTSIDE RECORDS SUMMARY | 2023-12-08 10:40 | XMS_ITS ---
Author Organization 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 Name Role Phone Po Marylu LR Primary Care Provider Jarrett Pereira Unavailable [phone] Allergies Allergen (clinical drug ingredient) Drug/Non Drug Allergy documented on EMR Reaction Allergy Type Onset Date Status seasonal (uncoded) Unknown Allergy A ctive REASON FOR VISIT Patient presents today for fecal incontinence Medications Medication SIG (Take, Route, Frequency, Duration) Notes Start Date End Date Status Probiotic 250 MG 1 capsule Orally onc e a day Active Flaxseed Oil 1000 MG as directed Orally once a day Active Alendronate Sodium 70 MG 1 tablet Orally once a week Active Citrucel 500 MG TAKE ONE TABLET BY M OUTH EVERY DAY Oral for 30 Active Jantoven 5 MG Oral for 90 Acti ve Multi Vitamin/Minerals - as directed Ora lly once a day Active Flecainide Acetate 50 MG 1 T PO BID Oral ly TWICE A DAY Active Simvastatin 20 MG 1 T PO QPM Orally On ce a day Active Warfarin Sodium 5 MG TK 1 T PO Orally On ce a day/ DIRECTED Active Calcium + D 600-200 MG-UNIT 1 tablet Ora lly Twice a day for 30 day(s) Active Metoprolol Succinate ER 25 MG 1/2 T PO QD Orally Once a day Active LORazepam 0.5 MG 1 tablet as needed O rally Once a day Active Social History Tobacco Use: Social History Observation Description Date Details (start date - stop date) Never Smoker NA - NA Tobacco Use/Smoking Question Answer Notes Patient is a nonsmoker Alcohol Screen Question Answer Notes Did you have a drink contain ing alcohol in the past year? Yes How often did you have a dri nk containing alcohol in the past year? 2 to 4 times a month (2 points) How many drinks did you have on a typical day when you were drinking in the past year? 1 or 2 drinks (0 point) How often did you have 6 or more drinks on one occasion in the past year? Never (0 point) Points 2 Interpretation Negative Section Notes: Nonsmoker; occ alcohol Problems Problem Type SNOMED Code ICD Code Onset Dates Problem Status W/U Status Risk Notes Problem Incontinence of feces, unspecified fecal incontinence type (R15.9) Active confirmed Vital Signs Temperature 97.7 degrees Fahrenheit 12/08/19 24 Blood pressure systolic 000 mm Hg 12/08/19 24 Blood pressure diastolic 00 mm Hg 024 Height 65 in 12/08/2023 Weight 154 lb 8 oz lbs 12/08/2023 BMI 25.71 kg/m2 12/08/2023 Encounters Encounter Location Date Provider Diagnosis [facility] [address] [place] [address] 12/08/2023 Jarrett Patel Incontinence of fece s, unspecified fecal incontinence type R15.9 Assessments Encounter Date Diagnosis (ICD Code) Assessment Notes Treatment Notes Treatment Clinical Notes Section Notes 12/08/2023 Incontinence of feces, unspecified fecal incontinence type (ICD-10 - R15.9) Continue Citrucel daily. Call me if problems. Overall, Jenny appears quite well. At this point she is not having any ongoing GI complaints whatsoever. Her few episodes of rectal urgency and fecal incontinence last year were not associated with any other worrisome symptoms such as bleeding, abdominal pain, nor any ongoing symptoms. Those episodes may have been related to some transient food intolerance, very self-limited gastroenteritis, and/or a component of irritable bowel syndrome. I don't think the symptoms were reflective of any other GI pathology such as inflammatory bowel disease. She is presently doing very well on her daily Citrucel and is not having any GI complaints. Given that so many months have passed since those several episodes, I advised her that I don't think she needs any further diagnostic nor therapeutic intervention on my part. I don't think a followup colonoscopy is needed at this point given the minimal findings in the past, her clinical history, and her excellent clinical appearance. I did advise her to certainly continue Citrucel on a long-term basis. If things remain stable I have advised Jenny to contact me on a p.r.n. basis. She was very comfortable with this plan. Thank you again for allowing me to have participated in Jenny's care. I shall continue to keep you advised of her progress as needed. Please do not hesitate to contact me if I can be of any further assistance in the future. Plan Of Treatment Treatment Notes Assessment Notes Incontinence of feces, unspe cified fecal incontinence type Continue Citrucel daily. Call me if problems. Next Appt Details Follow Up: prn, Reason: Progress Notes * SERGIOJENNY MDOB:1944 (78 yo F)Acc No.[id number]:12/08/2023 Progress Notes Patient: JENNY PATINO Provider: Jovani Patel MD :1945 A ge:78 Y S ex:Female Date:12/08/2023 Address:[address] [place], [place] [id number] Pcp:Marylu Humphreys MD Subjective: * Chief Complaints: * P atient presents today for fecal incontinence * HPI: i ncontinence: I saw Jenny in consultation today in regard to her previous episodes of fecal incontinence. I last saw Jenny in August of 2019, at which time she underwent a screening colonoscopy with removal of a small tubular adenoma. At that time she was doing well and I did not think she would need any further screening colonoscopies going forward given her age of 73 at that time and the just minimal findings on that colonoscopy. I n general she has been doing well but describes 3 episodes of urgency and associated fecal incontinence in June of 2023. During those episodes there was no associated rectal pain, hematochezia, melena, abdominal pain, nausea, nor vomiting. Subsequent to those episodes she has started one dose of Citrucel daily and has had no further episodes of fecal incontinence nor any GI problems in general. She presently feels very well. Her bowel movements have remained irregular. She enjoys a good appetite, without any significant heartburn or dysphagia. She denies any jaundice nor weight loss. There is no known family history of colorectal cancer, inflammatory bowel disease, nor celiac disease. L aboratories over 23 revealed a normal CBC, normal chemistries and renal function, normal TSH, and normal LFTs. * ROS: G eneral/Constitutional: Change in appetite d enies. C hills d enies. F atigue d enies. O phthalmologic: Comments a ll negative. E NT: Comments a ll negative. R espiratory: hemoptysis d enies. C ough d enies. ? C ardiovascular: Chest pain d enies. O rthopnea d enies. ? G astrointestinal: Comments S [facility] for details. G enitourinary: Hematuria d enies. D ysuria d enies. ? M usculoskeletal: Painful joints d enies. W eakness d enies. ? S kin: Itching d enies. R po d enies. N eurologic: Headache d enies. S eizures d enies. ? P sychiatric: Comments a ll negative. * Medical History: * Surgical History: T 1982CCY 1990Tonsillectomy * Hospitalization/Major Diagno stic Procedure: N o Hospitalization History. * Family History: F ather: . M other: , diagnosed with HTN (hypertension). No colorectal cancer, No family history of liver cancer. * Social History: T obacco Use: T obacco Use/Smoking P atient is a n onsmoker. D rugs/Alcohol: A lcohol Screen D id you have a drink containing alcohol in the past year? Y es, H ow often did you have a drink containing alcohol in the past year? 2 to 4 times a month (2 points), H ow many drinks did you have on a typical day when you were drinking in the past year??1 or 2 drinks (0 point), H ow often did you have 6 or more drinks on one occasion in the past year? N ever (0 point), P oints 2 , I nterpretation N egative. M iscellaneous: M arital status: . Occupation: retired. N onsmoker; occ alcohol. * Medications: T akingMetoprolol Succinate ER 25 MG Tablet Extended Release 24 Hour 1/2 T PO QD Orally Once a dayLORazepam 0.5 MG Tablet 1 tablet as needed Orally Once a dayFlecainide Acetate 50 MG Tablet 1 T PO BID Orally TWICE A DAYSimvastatin 20 MG Tablet 1 T PO QPM Orally Once a dayWarfarin Sodium 5 MG Tablet TK 1 T PO Orally Once a day/ DIRECTEDCalcium + D 600-200 MG-UNIT Tablet 1 tablet Orally Twice a dayMulti Vitamin/Minerals - Tablet as directed Orally once a dayProbiotic 250 MG Capsule 1 capsule Orally once a dayFlaxseed Oil 1000 MG Capsule as directed Orally once a dayAlendronate Sodium 70 MG Tablet 1 tablet Orally once a weekCitrucel 500 MG Tablet TAKE ONE TABLET BY MOUTH EVERY DAY Oral Jantoven 5 MG Tablet Oral Medication List reviewed and reconciled with the patientTaking Metoprolol Succinate ER 25 MG Tablet Extended Release 24 Hour 1/2 T PO QD Orally Once a dayTaking LORazepam 0.5 MG Tablet 1 tablet as needed Orally Once a dayTaking Flecainide Acetate 50 MG Tablet 1 T PO BID Orally TWICE A DAYTaking Simvastatin 20 MG Tablet 1 T PO QPM Orally Once a dayTaking Warfarin Sodium 5 MG Tablet TK 1 T PO Orally Once a day/ DIRECTEDTaking Calcium + D 600-200 MG-UNIT Tablet 1 tablet Orally Twice a dayTaking Multi Vitamin/Minerals - Tablet as directed Orally once a dayTaking Probiotic 250 MG Capsule 1 capsule Orally once a dayTaking Flaxseed Oil 1000 MG Capsule as directed Orally once a dayTaking Alendronate Sodium 70 MG Tablet 1 tablet Orally once a weekTaking Citrucel 500 MG Tablet TAKE ONE TABLET BY MOUTH EVERY DAY Oral Taking Jantoven 5 MG Tablet Oral Medication List reviewed and reconciled with the patient * Allergies: s geetha[Allergies Verified] Objective: * Vitals: W t: 154 lb 8 oz, Ht: 65 in, BMI:25.71 Index, BP: 000/00 mm Hg, Temp: 97.7. * Examination: G eneral Examination: GENERAL APPEARANCE: p leasant, well nourished, well developed, in no acute distress. EYES: s clera non-icteric. ORAL CAVITY: m ucosa moist. NECK/THYROID: n o cervical lymphadenopathy, neck supple.? SKIN: n onjaundiced, no spider angiomata. HEART: S 1, S2 normal. LUNGS: c lear to auscultation bilaterally. ABDOMEN: n ormal bowel sounds, no guarding or rigidity, no guarding or rigidity, no masses palpable, soft, nontender, nondistended. EXTREMITIES: n o edema. NEUROLOGIC: a lert and oriented. Assessment: * Assessment: 1. I ncontinence of feces, unspecified fecal incontinence type - R15.9 (Primary) Overall, Jenny appears qu ite well. At this point she is not having any ongoing GI complaints whatsoever. Her few episodes of rectal urgency and fecal incontinence last year were not associated with any other worrisome symptoms such as bleeding, abdominal pain, nor any ongoing symptoms. Those episodes may have been related to some transient food intolerance, very self-limited gastroenteritis, and/or a component of irritable bowel syndrome. I don't think the symptoms were reflective of any other GI pathology such as inflammatory bowel disease. She is presently doing very well on her daily Citrucel and is not having any GI complaints. Given that so many months have passed since those several episodes, I advised her that I don't think she needs any further diagnostic nor therapeutic intervention on my part. I don't think a followup colonoscopy is needed at this point given the minimal findings in the past, her clinical history, and her excellent clinical appearance. I did advise her to certainly continue Citrucel on a long-term basis. If things remain stable I have advised Jenny to contact me on a p.r.n. basis. She was very comfortable with this plan. Thank you again for allowing me to have participated in Jenny's care. I shall continue to keep you advised of her progress as needed. Please do not hesitate to contact me if I can be of any further assistance in the future. Plan: * Treatment: * Procedure Codes: 1 036F TOBACCO [id number] BP SCR NOT PRFRM REC REASON NOS * Preventive Medicine: Counseling: C are goal follow-up plan: A jessica Normal BMI Follow-up G iving encouragement to exercise, B DC management provided Y es. Urinary Incontinence: U rinary Incontinence A ssessment: A bsent, P velvet of care documented: N o, reason not specified. * Follow Up: p rn * * Sign off status: Completed true * Provider: Jovani Patel MD Date: 0 12/08/2023 Generated for Jodi lund/Edith/eTlestersmitting on: 0 03/20/2025 08:25 AM EDT History and Physical Notes * HPI (History of Present Illness) Category Sub-Category Detail Notes Category Not es incontinence I saw Jenny in consultation today in regard to her previous episodes of fecal incontinence. I last saw Jenny in August of 2019, at which time she underwent a screening colonoscopy with removal of a small tubular adenoma. At that time she was doing well and I did not think she would need any further screening colonoscopies going forward given her age of 73 at that time and the just minimal findings on that colonoscopy. In general she has been doing well but describes 3 episodes of urgency and associated fecal incontinence in June of 2023. During those episodes there was no associated rectal pain, hematochezia, melena, abdominal pain, nausea, nor vomiting. Subsequent to those episodes she has started one dose of Citrucel daily and has had no further episodes of fecal incontinence nor any GI problems in general. She presently feels very well. Her bowel movements have remained irregular. She enjoys a good appetite, without any significant heartburn or dysphagia. She denies any jaundice nor weight loss. There is no known family history of colorectal cancer, inflammatory bowel disease, nor celiac disease. Laboratories over 23 revealed a normal CBC, normal chemistries and renal function, normal TSH, and normal LFTs. Examination Category Sub-Category Detail Notes Category Not es General Examination GENERAL APPEARANCE: pleasant , well nourished, well developed, in no acute distress HEAD: EYES: sclera non-icteric EARS: NOSE: THROAT: NECK/THYROID: no cervical lymphade nopathy, neck supple HEART: S1, S2 normal CHEST: LUNGS: clear to auscultatio n bilaterally ABDOMEN: normal bowel sounds, no guarding or rigidity, no guarding or rigidity, no masses palpable, soft, nontender, nondistended NEUROLOGIC: alert and oriented SKIN: nonjaundiced, no spi av angiomata EXTREMITIES: no edema PERIPHERAL PULSES: BACK: BREASTS: MUSCULOSKELETAL: MALE GENITOURINARY: LYMPH NODES: RECTAL EXAM: FEMALE GENITOURINARY: ORAL CAVITY: mucosa moist
[2025-03-20 08:43] LABS: Prothrombin Time Whole Bld POC 28.8 sec (11.1-13.5); ~PT, ~INR - Anti Coag Clinic 2.4 (0.9-1.1)
--- NOTE | 2025-03-20 08:46 | MHC.OFFVISCO ---
Intake Intake Visit Reasons: Anticoagulation Allergies escitalopram (Lexapro) Allergy (Unknown, Verified 03/20/25 08:38) Nausea sertraline (Zoloft) Allergy (Unknown, Verified 03/20/25 08:38) NAUSEA ANTIDEPRESSANTS Allergy (Unknown, Uncoded 03/20/25 08:38) MAKE ME FEEL SICK Medication List - Last Reconciled 03/20/25 by Shelli Mack, RN acetaminophen (Tylenol) 325 mg PO QID PRN alendronate 70 mg PO QWEEK cholecalciferol (vitamin D3) PO diphenhydramine HCl (NightTime Sleep Aid (diphenhydramine)) 25 mg PO BEDTIME flaxseed oil 1,000 mg PO DAILY flecainide 50 mg PO BID fluticasone furoate 27.5 mcg/actuation 2 sprays intranasal DAILY ipratropium bromide 2 sprays intranasal BID-TID PRN loratadine (Allergy Relief (loratadine)) 10 mg PO DAILY lorazepam 0.5 mg PO BID-TID PRN 30 days methylcellulose (laxative) (Citrucel) 500 mg PO DAILY metoprolol succinate ER 12.5 mg (1/2 x 25 mg) PO DAILY multivitamin 1 tab PO DAILY simvastatin 20 mg PO BEDTIME warfarin 5 mg See Protocol PO DAILY Nursing Note INR: 2.4 in therapeutic range of 2-3 Medications and supplements reviewed No changes in health, diet, medications, or supplements, Denies any signs and symptoms of bleeding or bruising or clotting. Bleeding, bruising, clotting discussed Nutritional guidance given Dose: 2.5mg X 5 days and 5mg X 2 days (Mon & Thurs) F/U INR: 4 weeks Patient verbalizes understanding of instructions given Anti-Coag Initial Assessment Social Hx Patient Tobacco Use Status: Never used Tobacco alcohol intake: current Alcohol intake frequency: a few times a month Coding Level of Care Code Est Patient Level 1 Diagnoses Current use of anticoagulant therapy Z79.01 Assessment & Plan Assessment & Plan (1) Current use of anticoagulant therapy: Code(s): Z79.01 - rn long term care (current) use of anticoagulants Category: Medical
== END 2025-03-20 08:49 | disposition home or self-care (01) ==
LOC: HO.ACS 08:17
PROVIDERS: PCP Internal Medicine; Visit Provider Internal Medicine Medical Oncology
DX: Z79.01 Long term (current) use of anticoagulants (principal)

== ENCOUNTER → 2025-03-20 08:17 | Outpatient (BNVA) | payer MEDICARE, SELFPAY | PROVIDERS: PCP Internal Medicine; Visit Provider Internal Medicine Medical Oncology | DX: I48.20 Chronic atrial fibrillation, unspecified (principal); Z79.01 Long term (current) use of anticoagulants; Z51.81 Encounter for therapeutic drug level monitoring | CPT/HCPCS: 85610; 99211 ==

== ENCOUNTER 2025-04-15 14:29 | Outpatient (AMB) | payer MEDICARE, SELFPAY ==
[2025-04-15 14:47] VITALS: BP 110/64; PULSE 59; BMI 24.5
--- NOTE | 2025-04-15 14:47 | A.OFFVIS_ITS ---
Vital Signs 04/15/25 14:47 Height 5 ft 6 in Weight 152 lb 1.903 oz BMI 24.5 BP 110/64 Blood Pressure Location Lt brachial Position Sitting Pulse 59 Intake Visit Reasons: 1 yr f/up Intake Note: 1 year follow-up with ekg feeling ok Allergies escitalopram (Lexapro) Allergy (Unknown, Verified 03/20/25 08:38) Nausea sertraline (Zoloft) Allergy (Unknown, Verified 03/20/25 08:38) NAUSEA ANTIDEPRESSANTS Allergy (Unknown, Uncoded 03/20/25 08:38) MAKE ME FEEL SICK Medication List - Last Reconciled 04/15/25 by Tomi Coffey MD acetaminophen (Tylenol) 325 mg PO QID PRN alendronate 70 mg PO QWEEK cholecalciferol (vitamin D3) PO diphenhydramine HCl (NightTime Sleep Aid (diphenhydramine)) 25 mg PO BEDTIME flaxseed oil 1,000 mg PO DAILY flecainide 50 mg PO BID fluticasone furoate 27.5 mcg/actuation 2 sprays intranasal DAILY ipratropium bromide 2 sprays intranasal BID-TID PRN loratadine (Allergy Relief (loratadine)) 10 mg PO DAILY lorazepam 0.5 mg PO BID-TID PRN 30 days methylcellulose (laxative) (Citrucel) 500 mg PO DAILY metoprolol succinate ER 12.5 mg (1/2 x 25 mg) PO DAILY multivitamin 1 tab PO DAILY simvastatin 20 mg PO BEDTIME warfarin 5 mg See Protocol PO DAILY HPI Comments Details: Jenny comes for follow-up. She has not had any major episodes of atrial fibrillation. Overall she does well. She says currently because of current whether she is not walking on much but otherwise generally remains very active. She has no symptoms exertional chest pain or shortness of breath. She takes all her medications. Denies any orthopnea, PND, leg edema. No bleeding issues or neurologic events. [facility] Medical History Age-related osteoporosis without current pathological fracture Preop exam for internal medicine Pain of finger joint Knee pain, right Hip pain, left Medicare annual wellness visit, initial On beta lala at home On anticoagulant therapy Paroxysmal atrial fibrillation Insomnia Duodenal ulcer Urge incontinence Osteoporosis Anxiety and depression Osteoarthritis Humeral fracture Sinus bradycardia Cardiomyopathy Atrial fibrillation HLD (hyperlipidemia) HTN (hypertension) Surgical History History of cataract surgery Hx of colonoscopy History of hysterectomy with bilateral oophorectomy Hx of tonsillectomy Hx of cholecystectomy Family History Father Medical history unknown Mother Arthritis Hypertension History of hysterectomy Son In good health Daughter Diabetes Social History Household Members Other:: Friend Housing: House Are you a primary residential child care counselor to a significant other at home: No Do you presently have visiting nurse or other home services: No Alcohol intake: current Alcohol intake frequency: a few times a month Alcohol type: wine Comment: once Q 3 month glass Patient Tobacco Use Status: Never used Tobacco e-Cigarette/Vaping Use: Never Used Second Hand Smoke Exposure: No service: No Current occupational status: employed Cognitive needs: No Hearing needs: No Vision needs: Yes Review of Systems Const Denies chills, Denies fatigue, Denies fever(s), Denies frequent falls, Denies weakness, Denies weight gain and Denies weight loss ENT Denies dizziness Card Denies chest pain, Denies leg edema, Denies lightheadedness, Denies palpitations, Denies dyspnea, Denies dyspnea on exertion, Denies orthopnea and Denies other (loss of consciousness) Resp Denies cough, Denies dyspnea and Denies dyspnea on exertion GI Denies hematochezia and Denies change in stool character Musc Denies abnormal gait, Denies muscle weakness, Denies numbness, Denies radiating pain into limb and Denies tingling Neuro Denies abnormal gait, Denies dizziness, Denies frequent falls, Denies numbness, Denies tingling and Denies weakness Endo Denies fatigue and Denies palpitations Physical Exam Vital Signs: Last Vital Signs Pulse 59 04/15/25 14:47 BP 110/64 04/15/25 14:47 BMI result Body Mass Index 24.5 Const General: cooperative, comfortable, no acute distress, alert and awake Nutritional Appearance: average body habitus Orientation/consciousness: patient oriented x3 Limitations: no limitations Neck Neck: Yes trachea midline, Yes supple and Yes no JVD Resp Effort & Inspection: normal respiratory effort Auscultation: clear to auscultation bilaterally Cardio Jugular venous distension: no JVD Palpation: normal PMI Rate: regular rate Rhythm: regular rhythm Heart sounds: S1 normal heart sound present and S2 normal heart sound present Skin General skin exam: no rashes or lesions noted and ecchymosis Neuro General: patient oriented x3 and no focal motor deficits Extrem General: Yes no clubbing, cyanosis or edema Psych Appearance: grossly normal Assessment & Plan Assessment & Plan (1) Paroxysmal atrial fibrillation: Comment: The left ventricular systolic function is normal. The calculated ejection fraction is 64% by biplane method. - No obvious valvular pathology seen on this study. August 2022 echocardiogram Code(s): I48.0 - Paroxysmal atrial fibrillation Category: Medical Plan: Paroxysmal atrial fibrillation with prior history of cardiomyopathy and atrial fibrillation. This has resolved then she has had no heart failure with maintaining rhythm. Continue aggressive with the pursue rhythm control approach. Advised to call me with worsening symptoms. Continue current flecainide therapy along with low-dose metoprolol therapy which she is tolerating well. EKGs every 6 months. Continue full oral anticoagulation, currently on warfarin. Target INR between 2 and 3. (2) HTN (hypertension): Code(s): I10 - Essential (primary) hypertension Category: Medical Qualifiers: Hypertension type: essential hypertension Qualified Code(s): I10 - Essential (primary) hypertension Plan: Hypotension in his currently well optimized and currently only on low-dose metoprolol therapy. Continue aggressively measuring her blood pressure at home. Target goal blood pressure less than 130/84. Low-salt diet was discussed. Will follow up in the clinic in 6 months for EKG in 1 year with me. Thank you for allowing me to partake in her care Coding Level of Care Code Est Pt Level 4 (93520) Complex EM visit Add On G2211 Diagnoses Paroxysmal atrial fibrillation I48.0 Essential hypertension I10 Hypertension type: essential hypertension
--- OUTSIDE RECORDS SUMMARY | 2025-04-15 15:50 | XMS_ITS | Patient Health Record ---
Author Organization [facility] Address [address] [place] [address] Care Team Providers Care Tree Care Foreman Name Role Phone Po Marylu LR Primary Care Provider Jarrett Pereira [phone] Allergies Allergen (clinical drug ingredient) Drug/Non Drug [...] Problem Status W/U Status Risk Notes Problem [id number] Encounter for screening for malignant neoplasm of colon (Z12.11) Active confirmed Problem Incontinence of feces, unspecified fecal incontinence type (R15.9) Active confirmed Problem [id number] Long-term (current) use of anticoagulants, INR goal 2.0-3.0 (Z79.01) Active confirmed Plan Of Treatment Future Test Test Name Order Date COLONOSCOPY 07/03/2019 Next Appt Details Provider Name:Jarrett Galarza Amanda , 06/27/2025 02:40:00 PM, [address] [place] [address], [facility] [address], [place], [address], Insurance Providers Payer Name Payer Address Payer Phone Subscriber Number Group Number Insured Name Patient Relationship to Insured Coverage Start Date Coverage End Date MEDICARE OF [place] [address] [place] [id number] MARGOT HILL Self - patient is the insured MEDEX ATTN CLAIMS [address] [place] [phone] [id number] MARGOT HILL Self - patient is the insured Medical (General) History Medical History History ICD Code Denies NH,DM,CVA,Lung disease,renal dise ase Atrial fibrillation x 15 years--Dr. Girma maharaj Hyperlipidemia Osteoporosis Neg. colonoscopy [place] [address] Melgoza Screening colonoscopy in Aug with removal of a small tubular adenoma Surgical History Surgery Date(Month/Year) KRISTINE 1982 CCY 1989 Tonsillectomy
--- OUTSIDE RECORDS SUMMARY | 2025-04-15 15:50 | XMS_ITS | Clinical Summary ---
Author Organization [facility] Address [address] [place] [address] Care Team Providers Care Claims Associate Name Role Phone Unavailable Primary Care Provider Unavailabl e Immunizations Immunization Administration Dates Next Due Influenza High-dose Quadriva lent Preservative Free 06/27/2022,06/16/2020 Influenza Quadrivalent Adjuvanted 06/23/2023 Influenza, High Dose Seasona l, Preservative Free 06/27/2018,07/05/2017,06/29/2016 Influenza, seasonal, injecta ble, preservative free 06/19/2024 Influenza, trivalent, adjuvanted 06/28/2019,11/0 10/2017 Pfizer Covid-19 Vaccine 12+ 12/24/2024, 4,12/14/2023 Pneumococcal Conjugate PCV 13 04/30/2020, 016 Pneumococcal [...] 1956 Zoster Vaccines (1 of 2) 1994 Influenza Vaccine (#1) 2025 4, 06/23/2023, 06/27/2022, Additional history exists DTaP/Tdap/Td Vaccines (2 - Td or Tdap) 04/30/2030 04/30/2020 Pneumococcal Vaccine: 50+ Years Completed 04/30/2020, 03/21/2019, 10/21/2015 RSV Patients and Patients Aged 60 years or older Completed 07/29/2023 COVID-19 Vaccine Completed 12/24/2024, , 12/14/2023, Additional [...] age to complete this topic Insurance MEDICARE [facility] MEDEX CARE
== END 2025-04-15 15:15 | disposition home or self-care (01) ==
LOC: HO.HCS 14:30
PROVIDERS: PCP Internal Medicine; Visit Provider Internal Medicine Cardiovascular Disease
DX: I48.0 Paroxysmal atrial fibrillation (principal); I10 Essential (primary) hypertension
CPT/HCPCS: 99214; G2211

== ENCOUNTER → 2025-04-15 14:29 | Outpatient (BNVA) | payer MEDICARE, SELFPAY | PROVIDERS: PCP Internal Medicine; Visit Provider Internal Medicine Cardiovascular Disease | DX: I48.0 Paroxysmal atrial fibrillation (principal); I10 Essential (primary) hypertension; Z79.01 Long term (current) use of anticoagulants | CPT/HCPCS: 99212 ==

== ENCOUNTER 2025-04-17 08:21 | Outpatient (AMB) | payer MEDICARE, SELFPAY ==
--- OUTSIDE RECORDS SUMMARY | 2025-04-17 08:25 | XMS_ITS | Patient Health Record ---
Author Organization [facility] Address [address] [place] [address] Care Team Providers Care Cruise Director Name Role Phone Po Marylu LR Primary Care Provider Jarrett Pereira [phone] Allergies Allergen (clinical drug ingredient) Drug/Non Drug [...] Problem Status W/U Status Risk Notes Problem [id number] Encounter for screening for malignant neoplasm of colon (Z12.11) Active confirmed Problem Incontinence of feces, unspecified fecal incontinence type (R15.9) Active confirmed Problem 622631846 Long-term (current) use of anticoagulants, INR goal 2.0-3.0 (Z79.01) Active confirmed Plan Of Treatment Future Test Test Name Order Date COLONOSCOPY 07/03/2019 Next Appt Details Provider Name:Jarrett Galarza Amanda , 06/27/2025 02:40:00 PM, [address] [place] [address], [facility] [address], [place], [address], Insurance Providers Payer Name Payer Address Payer Phone Subscriber Number Group Number Insured Name Patient Relationship to Insured Coverage Start Date Coverage End Date MEDICARE OF [place] [address] [place] [address] [id number] MARGOT HILL Self - patient is the insured MEDEX ATTN CLAIMS [address] [place] [address] [phone] [id number] MARGOT HILL Self - patient is the insured Medical (General) History Medical History History ICD Code Denies RI,DM,CVA,Lung disease,renal dise ase Atrial fibrillation x 15 years--Dr. Girma maharaj Hyperlipidemia Osteoporosis Neg. colonoscopy [place] [address] Melgoza Screening colonoscopy in Aug with removal of a small tubular adenoma Surgical History Surgery Date(Month/Year) KRISTINE 1982 CCY 1989 Tonsillectomy
--- OUTSIDE RECORDS SUMMARY | 2025-04-17 08:25 | XMS_ITS | Clinical Summary ---
Author Organization [employer] Address [address] [facility] [address] [place] [address] Care Team Providers Care Stripper Soft Plastic Name Role Phone Unavailable Primary Care Provider [...] age to complete this topic Insurance MEDICARE [facility] MEDEX CARE
[2025-04-17 08:40] LABS: Prothrombin Time Whole Bld POC 31.7 sec (11.1-13.5); ~PT, ~INR - Anti Coag Clinic 2.6 (0.9-1.1)
--- NOTE | 2025-04-17 08:43 | MHC.OFFVISCO ---
Intake Intake Visit Reasons: Anticoagulation Allergies escitalopram (Lexapro) Allergy (Unknown, Verified 04/17/25 08:34) Nausea sertraline (Zoloft) Allergy (Unknown, Verified 04/17/25 08:34) NAUSEA ANTIDEPRESSANTS Allergy (Unknown, Uncoded 04/17/25 08:34) MAKE ME FEEL SICK Medication List - Last Reconciled 04/17/25 by Shelli Mack RN acetaminophen (Tylenol) 325 mg PO QID PRN alendronate 70 mg PO QWEEK cholecalciferol (vitamin D3) PO diphenhydramine HCl (NightTime Sleep Aid (diphenhydramine)) 25 mg PO BEDTIME flaxseed oil 1,000 mg PO DAILY flecainide 50 mg PO BID fluticasone furoate 27.5 mcg/actuation 2 sprays intranasal DAILY ipratropium bromide 2 sprays intranasal BID-TID PRN loratadine (Allergy Relief (loratadine)) 10 mg PO DAILY lorazepam 0.5 mg PO BID-TID PRN 30 days methylcellulose (laxative) (Citrucel) 500 mg PO DAILY metoprolol succinate ER 12.5 mg (1/2 x 25 mg) PO DAILY multivitamin 1 tab PO DAILY simvastatin 20 mg PO BEDTIME warfarin 5 mg See Protocol PO DAILY Nursing Note INR: 2.6 in therapeutic range 2-3 Medications and supplements reviewed No changes in health, diet, medications, or supplements, Denies any signs and symptoms of bleeding or bruising or clotting. Bleeding, bruising, clotting discussed Nutritional guidance given Dose: 2.5mg X 5 days and 5mg X 2 days F/U INR: 4 weeks Patient verbalizes understanding of instructions given Anti-Coag Initial Assessment Social Hx Patient Tobacco Use Status: Never used Tobacco alcohol intake: current Alcohol intake frequency: a few times a month Coding Level of Care Code Est Patient Level 1 Diagnoses Current use of anticoagulant therapy Z79.01 Results AMB INR Fingerstick AMB INR Fingerstick 2.6 Last Edit by Shelli Mack RN on 04/17/25 08:40 interface delay Assessment & Plan Assessment & Plan (1) Current use of anticoagulant therapy: Code(s): Z79.01 - group home (current) use of anticoagulants Category: Medical
== END 2025-04-17 08:45 | disposition home or self-care (01) ==
LOC: HO.ACS 08:21
PROVIDERS: PCP Internal Medicine; Visit Provider Internal Medicine Medical Oncology
DX: Z79.01 Long term (current) use of anticoagulants (principal)

== ENCOUNTER → 2025-04-17 08:21 | Outpatient (BNVA) | payer MEDICARE, SELFPAY | PROVIDERS: PCP Internal Medicine; Visit Provider Internal Medicine Medical Oncology | DX: I48.20 Chronic atrial fibrillation, unspecified (principal); Z79.01 Long term (current) use of anticoagulants; Z51.81 Encounter for therapeutic drug level monitoring | CPT/HCPCS: 85610; 99211 ==

== ENCOUNTER → 2025-04-20 06:57 | Outpatient (BNV) | payer MEDICARE, SELFPAY | PROVIDERS: PCP Internal Medicine; Visit Provider Specialist | DX: M54.6 Pain in thoracic spine (principal); R07.9 Chest pain, unspecified; M25.512 Pain in left shoulder | CPT/HCPCS: 73030 ==

== ENCOUNTER 2025-04-20 07:37 | Emergency (ER) | payer MEDICARE, SELFPAY ==
[2025-04-20] VITALS (7 sets, daily range): BP systolic 138–167; BP diastolic 59–86; PULSE 52–67; RESP 12–22; TEMP 36–37.1; O2SAT 97–100; BMI 28.2
--- NOTE | ~2025-04-20 | XR_ITS ---
CLINICAL HISTORY: shoulder pain 4 view left shoulder Comparison: None provided Findings: No fractures or dislocations. No significant arthritic change. No erosions. No radiopaque foreign body. IMPRESSION: 1. No acute findings This document has been electronically signed by: El Cuadra MD on 04/20/2025 08:16:47
--- NOTE | ~2025-04-20 | CT_ITS ---
CLINICAL HISTORY: L upper back pain, r o PE dissetion CT angiography chest with contrast. 3D Postprocessing. Comparison: None provided Findings: The heart size is normal. RV/LV ratio is normal. Unremarkable thoracic aorta and great vessels. No aneurysm. No acute pulmonary embolus. The visualized thyroid and mediastinum are unremarkable. No consolidation or effusion. There is reflux of contrast into the hepatic vein. Mild degenerative change of the spine. IMPRESSION: No pulmonary embolus. No aortic dissection. Evidence of right heart failure. This document has been electronically signed by: Barbara Cox MD on 04/20/2025 13:37:05
--- NOTE | ~2025-04-20 | XR_ITS ---
CLINICAL HISTORY: chest pain 2 view chest x-ray Comparison: None provided Findings: No consolidation or effusion. Heart size is normal. No acute fracture. There is hyperaeration. IMPRESSION: There is hyperaeration suggestive of COPD. This document has been electronically signed by: Vivek Maza MD on 04/20/2025 10:25:27
--- OUTSIDE RECORDS SUMMARY | 2025-04-20 07:53 | XMS_ITS | Clinical Summary ---
Author Organization [employer] Address [address] [facility] [address] [address] Care Team Providers Care Partnership Development Manager Name Role Phone Unavailable Primary Care [...] to complete this topic Insurance MEDICARE [facility] MEDEX CARE
--- NOTE | 2025-04-20 08:25 | PC.NURSE ---
Pt reports stating monday she has been having left shoulder pain that shoots down into her left arm. Denies trauma/falls. Pt reporting pain is intermit, no ROM seems to make pain worse, no swelling noted.
--- NOTE | 2025-04-20 09:17 | ECG_ITS ---
Test Reason : shoulder pain Blood Pressure : */* mmHG Vent. Rate : 53 BPM Atrial Rate : 53 BPM P-R Int : 170 ms QRS Dur : 64 ms QT Int : 446 ms P-R-T Axes : 54 39 73 degrees QTcB Int : 418 ms Sinus bradycardia Low voltage QRS Nonspecific ST and T wave abnormality Abnormal ECG When compared with ECG of 24-Jul-2023 12:13, Nonspecific T wave abnormality now evident in Anterior leads Referred By: Sherlyn Suarez Electronically Signed By: Darren Mcgrath
--- NOTE | 2025-04-20 09:53 | ED.EXTPRO ---
HPI - Extremity Problem General Chief complaint: Extremity Injury, Upper Stated complaint: Pain Back of L Shoulder Down Arm Time Seen by Provider: 04/20/25 08:33 Source: patient Mode of arrival: ambulatory Limitations: no limitations History of Present Illness ED Provider: Sherlyn Suarez NP HPI Narrative: Patient is an 79-year-old female presents emergency department for evaluation she reports 2 days ago on Monday04/18/2025 at approximately 16:00 she began experiencing pain to her mid upper back between her spine and the shoulder blade, radiating up into her shoulder. The pain has been constant in nature but worsening. She denies any injury. Pain radiates down to the left elbow. Denies any numbness or tingling sensation. No associated chest pain, shortness of breath, abdominal pain, nausea or vomiting. No pain into the neck or into the jaw. Reports a history of atrial fibrillation for which she is on warfarin, gets monthly INR checks was last performed 1 week ago and was within therapeutic range. While in the emergency department she states that she has had a couple episodes of lightheadedness dinner abrupt in onset but self-resolving after a minute or so. She does not believe that she has been in atrial fibrillation as she can typically tell when this occurs. She denies any recent URI symptoms or difficulty breathing, dyspnea on exertion, lower extremity edema. Related Data Home Medications ?Medication ?Instructions ?Recorded ?Confirmed acetaminophen 325 mg tablet 325 mg PO QID PRN Pain 07/15/20 04/17/25 (Tylenol) flaxseed oil 1,000 mg capsule 1,000 mg PO DAILY 08/24/20 04/17/25 loratadine 10 mg tablet (Allergy 10 mg PO DAILY 08/24/20 04/17/25 Relief (loratadine)) multivitamin 1 tab PO DAILY 08/24/20 04/17/25 diphenhydramine HCl 25 mg capsule 25 mg PO BEDTIME 10/28/21 04/17/25 (NightTime Sleep Aid (diphenhydramine)) cholecalciferol (vitamin D3) PO 10/31/24 04/17/25 Previous Rx's ?Medication ?Instructions ?Recorded fluticasone furoate 27.5 2 spray intranasal DAILY #47.4 mL 08/24/20 mcg/actuation nasal spray,suspension ipratropium bromide 21 mcg (0.03 2 spray intranasal BID-TID PRN 09/29/23 %) nasal spray allergy symptoms #30 mL methylcellulose (laxative) 500 mg 500 mg PO DAILY #90 tabs 07/04/24 tablet (Citrucel) flecainide 50 mg tablet 50 mg PO BID #180 tabs 08/27/24 alendronate 70 mg tablet 70 mg PO QWEEK #12 tabs 09/11/24 metoprolol succinate 25 mg 12.5 mg (1/2 x 25 mg) PO DAILY #45 11/12/24 tablet,extended release 24 hr tabs simvastatin 20 mg tablet 20 mg PO BEDTIME #90 tabs 11/29/24 lorazepam 0.5 mg tablet 0.5 mg PO BID-TID PRN anxiety 30 01/13/25 days #90 tabs warfarin 5 mg tablet 5 mg PO DAILY #90 tabs 01/13/25 cyclobenzaprine 5 mg tablet 5 mg PO BEDTIME PRN muscle spasm 04/20/25 #10 tabs Allergies Allergy/AdvReac Type Severity Reaction Status Date / Time escitalopram (Lexapro) Allergy Unknown Nausea Verified 04/20/25 07:46 sertraline (Zoloft) Allergy Unknown NAUSEA Verified 04/20/25 07:46 ANTIDEPRESSANTS Allergy Unknown MAKE ME Uncoded 04/17/25 08:34 FEEL SICK Review of Systems Review of Systems: Yes all other systems are reviewed and are negative [facility] Past Medical History Attestation statement: The following information was validated with the patient. Source: old records reviewed Medical History Age-related osteoporosis without current pathological fracture Preop exam for internal medicine Pain of finger joint Knee pain, right Hip pain, left Medicare annual wellness visit, initial On beta lala at home On anticoagulant therapy Paroxysmal atrial fibrillation Insomnia Duodenal ulcer Urge incontinence Osteoporosis Anxiety and depression Osteoarthritis Humeral fracture Sinus bradycardia Cardiomyopathy Atrial fibrillation HLD (hyperlipidemia) HTN (hypertension) Surgical History History of cataract surgery Hx of colonoscopy History of hysterectomy with bilateral oophorectomy Hx of tonsillectomy Hx of cholecystectomy Family History Family History Father Medical history unknown Mother Arthritis Hypertension History of hysterectomy Son In good health Daughter Diabetes Social History Social History Household Members Other:: Friend Housing: House Are you a primary rn home care to a significant other at home: No Do you presently have visiting nurse or other home services: No Alcohol intake: current Alcohol intake frequency: a few times a month Alcohol type: wine Comment: once Q 3 month glass Patient Tobacco Use Status: Never used Tobacco e-Cigarette/Vaping Use: Never Used Second Hand Smoke Exposure: No Use of substances other than those prescribed or required for medical reasons: No Advance Directives: Yes Advance Directives Information Provided: No Advance Directives on File: No Do you have a plan to hurt others: No Plan service: No Current occupational status: employed Cognitive needs: No Hearing needs: No Vision needs: Yes Physical Exam Vital Signs: Vital Signs: Last Vital Signs Temp 96.8 F 04/20/25 14:11 Pulse 55 04/20/25 14:11 Resp 14 04/20/25 14:11 BP 164/72 H 04/20/25 14:11 Pulse Ox 98 04/20/25 14:11 O2 Del Method Room Air 04/20/25 14:11 BMI result Body Mass Index 28.2 Appearance: Alert.?Oriented to person, place and time. No acute distress.?Normal affect. Eyes: Pupils equal, round and reactive to light.? ENT: Pharynx normal.?? Neck: Normal inspection.? Neck supple.??No JVD. CVS: Heart sounds normal. Normal heart rate and rhythm.? Pulses normal.?? Respiratory: No respiratory distress.? Lung sounds clear to auscultation bilaterally?? Abdomen: Soft and non-tender. Normoactive bowel sounds. No pulsatile mass.?? Skin: Skin warm and dry.? Normal skin color.? ?? Extremities: No lower extremity edema.? No calf ttp? Neuro: Moves all extremities spontaneously. Sensation intact bilaterally. CN II-XII intact. No focal neuro deficits. Ambulates with normal steady gait. Medications Administered Discontinued Medications Generic Name Dose Route Start Last Admin Trade Name Freq PRN Reason Stop Dose Admin Sodium Chloride 1,000 mls @ 999 mls/hr 04/20/25 12:15 04/20/25 14:00 Ns IV 04/20/25 13:15 Infused .Q1H1M SYMONE Infusion Iohexol 100 ml 04/20/25 12:31 04/20/25 12:31 Iohexol 350 Mg/Ml 100 Ml Infus..Btl IV 04/20/25 12:32 65 ml ONCE ONE Administration Lidocaine 1 patch 04/20/25 10:40 04/20/25 11:00 Lidocaine 4 % Patch Adh..Patch TRANSDERMA 04/20/25 10:41 1 patch ONCE ONE Administration Protocol Morphine Sulfate 2 mg 04/20/25 09:17 04/20/25 09:44 Morphine Sulfate 2 Mg/Ml Cartridge IVPUSH 04/20/25 09:18 2 mg ONCE ONE Administration Protocol Ondansetron HCl 4 mg 04/20/25 09:17 04/20/25 09:43 Ondansetron Hcl 4 Mg/2 Ml Vial IVPUSH 04/20/25 09:18 4 mg ONCE ONE Administration Medical Decision Making Medical Decision Making MDM Narrative: Patient is a 79-year-old female with past medical history of cardiomyopathy, paroxysmal atrial fibrillation on warfarin, hypertension, hyperlipidemia, osteoporosis, osteoarthritis, duodenal ulcer, anxiety, depression presents emergency department for evaluation of atraumatic left upper back/shoulder pain as per HPI. Sudden onset 3 days ago 04/18/2025 while at rest constant in nature but progressively worsening. On examination pain is not exacerbated with AROM of the shoulder or left upper extremity. Reproducible pain upon palpation of the midline scapula border and along the trapezius. While in the emergency department she has been experienced a few episodes of lightheadedness lasting less than a minute before self-resolving which is new for her. Denying any associated chest pain shortness of breath difficulty breathing or additional radiation of pain. Overall she is well-appearing, nontoxic, afebrile no tachycardia tachypnea or hypoxia. She is speaking clear full sentences. She had an initial left shoulder XR obtained from triage which is without evidence of acute fracture dislocation, based on physical examination I would have a low suspicion for this. She is anticoagulated on warfarin and has previously had therapeutic INR, lower suspicion for acute pulmonary embolism, will obtain INR today. Will recent cough or URI symptoms to suggest viral illness, pneumonia, costochondritis. Has a benign abdominal examination, lower suspicion referred pain from for acute hepatobiliary etiology or pancreatitis. Will obtain CBC to evaluate for leukocytosis/ anemia, CMP and lipase to evaluate for abnormal electrolytes /abnormal renal function/ abnormal hepatic/biliary function, EKG and troponin to evaluate for ischemia/ACS. Chest x-ray to evaluate for consolidation/ infiltrate/ mass/ pulmonary congestion, pain control and reassessment Chest x-ray without consolidation or infiltrate to suggest pneumonia, no pleural effusions are noted, she has no pedal edema, does not appear consistent with CHF. No significant electrolyte derangement, no RESHMA, LFTs overall unremarkable. High sensitive troponin below detectable limits, ECG without acute ischemic changes or evidence of STEMI. CBC is without leukocytosis anemia or thrombocytopenia. Patient had initial improvement from more pain then return, terminated management with Lidoderm patch without any acute change. Reviewed with my attending, will obtain CT angio to exclude PE/dissection. Extremity pulses and blood pressure are equal bilaterally. CT angio of the chest without evidence of pulmonary embolism artery dissection, there is reflux of contrast into the hepatic vein concerning for evidence of right heart failure; clinically does not appear to be an acute volume overload, BNP of 213, discussed outpatient follow-up with PCP/cardiology. Regarding her pain, at this point I suspect this is likely musculoskeletal in nature, will discharge home with conservative treatment, muscle relaxant, and outpatient follow-up with primary care provider plus/minus a course of physical therapy and given strict return precautions Differential Diagnosis Differential Diagnoses: The differential diagnosis associated with the presentation includes (See narrative above) Admission/Observation Consideration of admission/observation: Escalation of care including admission/observation considered (See narrative above and course narrative for further detail) Lab Data MDM Lab Attestation statement: I reviewed the patient's lab results. (See narrative above) 04/20/25 09:38 04/20/25 09:38 Labs: Lab Results 04/20/25 04/20/25 04/20/25 Range/Units 09:38 10:49 10:56 WBC 5.4 (4.8-10.8) X10*3/uL RBC 4.80 (4.20-5.50) X10*6/uL Hgb 15.2 (12.0-16.0) g/dl Hct 43.9 (37.0-47.0) % MCV 91.5 (80.0-98.0) fL MCH 31.7 (27.0-33.0) pg MCHC 34.6 (31.0-35.0) g/dl RDW 13.1 (11.0-16.0) % Plt Count TNP MPV TNP Immature Gran % (Auto) 0.2 (0.0-0.4) % Neut % (Auto) 68.7 (45-73) % Lymph % (Auto) 22.0 (20-40) % Divide % (Auto) 7.0 (2-11) % Eos % (Auto) 1.5 (0-4) % Baso % (Auto) 0.6 (0-2) % Lymph # (Auto) 1.2 (1.2-4.9) X10*3/uL Divide # (Auto) 0.4 (0.1-1.2) X10*3/uL Eos # (Auto) 0.1 (0.0-0.4) X10*3/uL Baso # (Auto) 0.0 (0.0-0.2) X10*3/uL Abs Immat Gran (auto) 0.01 (0.00-0.03) X10*3/uL Absolute Neuts (auto) 3.7 (2.0-8.3) x10*3/uL Absolute Nucleated RBC 0.000 (0.0-0.012) X10*3/uL Nucleated RBC % (auto) 0.0 (0.0-0.2) /100WBC Smear Tech's Comments VERIFIED PT 36.3 H (10.9-12.4) SEC INR 3.2 H (0.9-1.1) Sodium 143 (135-145) mmol/L Potassium 4.6 (3.3-5.1) mmol/L Chloride 110 H (96-108) mmol/L Carbon Dioxide 23 (22-29) mmol/L Anion Gap 15 (12-20) BUN 16 (9-16) mg/dL Creatinine 1.10 (0.5-1.4) mg/dL Estim Creat Clear Calc 43.4 Estimated GFR 48 Random Glucose 93 (60-115) mg/dL Calcium 9.4 D (8.4-10.2) mg/dL Magnesium 2.1 (1.6-2.6) mg/dL Total Bilirubin 0.3 (0.0-1.0) mg/dL AST 38 H (5-31) U/L ALT 19 (0-31) U/L Alkaline Phosphatase 96 (39-117) U/L Troponin I High Sens < 2.7 (<3.5-17.0) ng/L B-Natriuretic Peptide 213 H (<100) pg/mL Total Protein 7.6 (6.5-8.0) g/dL Albumin 4.5 (3.5-5.0) g/dL Lipase 34 (8-78) U/L Urine Color Yellow Urine Appearance Clear Urine pH 5.0 (5.0-9.0) Ur Specific [place] 1.020 (1.005-1.025) Urine Protein Negative (Neg-Trace) mg/dL Urine Glucose (UA) Negative (Negative) mg/dL Urine Ketones Negative (Negative) mg/dL Urine Blood Negative (Negative) Urine Nitrite Negative (Negative) Ur Leukocyte Esterase Negative (Negative) Influenza Type A (PCR) NEGATIVE (Negative) Influenza Type B (PCR) NEGATIVE (Negative) RSV RNA Qual (PCR) NEGATIVE (Negative) SARS-CoV-2 RNA (RT-PCR) NEGATIVE (Negative) Independent Interpretation I performed an independent interpretation of an: EKG (ECG reveals sinus bradycardia with ventricular rate of 53, INDIRA, QTC 418, no ST-elevation.) and Plain X-Ray (See narrative above) Radiology Impression Discussion of test interpretation with radiology: I have reviewed the radiologist's reading. Radiologist Impression: 4 view left shoulder Comparison: None provided Findings: No fractures or dislocations. No significant arthritic change. No erosions. No radiopaque foreign body. IMPRESSION: 1. No acute findings 2 view chest x-ray Comparison: None provided Findings: No consolidation or effusion. Heart size is normal. No acute fracture. There is hyperaeration. IMPRESSION: There is hyperaeration suggestive of COPD. External Record Review External record reviewed: Outpatient record Chronic Conditions Patient?s care impacted by: Other (See narrative above) Critical Care Time Critical Care Time Critical Care Time: Yes Total Critical Care Time: 40 Attestation: Time is exclusive of separately billable procedures. Time includes: direct patient care, patient reassessment, coordination of patient care, interpretation of data (laboratory data, pulse oximetry, CT angio chest), IV morphine and re-evaluation, review of patient's medical records, medical consultation and documentation of patient care. Procedures excluded from critical care time: central intravenous line placement and electrocardiography. Discharge Plan Discharge Clinical Impression: Acute thoracic back pain Qualifiers: Back pain laterality: left Qualified Code(s): M54.6 - Pain in thoracic spine Patient Disposition: Home, Self-Care Instructions: Thoracic Pain (ED) Additional Instructions: As discussed, x-ray today of your shoulder did not show abnormal finding, as well as your chest there was no evidence of fluid building up in the lungs, more any pneumonia. Your EKG looking at your heart is overall normal as well. No evidence of a heart attack. Given your persistent pain, a CT scan of your chest was obtained, there was no evidence of a blood clot in the lungs or dissection, a ripping/tearing of the arteries in your heart. This is very reassuring. There was incidental mention of potential right heart failure, there was some contrast that was noted from the CAT scan in your hepatic veins (veins of your liver). Clinically and on physical examination you do not have evidence of acute heart failure. I do not suspect this to be the reason for your pain today. Please contact your primary care provider to discuss these findings further, they may consider additional workup/evaluation with Cardiology. In the interim, I suspect your pain may be musculoskeletal in nature, I am sending a prescription for a muscle relaxant to your pharmacy. This medication may make you drowsy. You should not drive, drink alcohol, or work while taking this medication. Prescriptions: New cyclobenzaprine 5 mg tablet 5 mg PO BEDTIME PRN (Reason: muscle spasm) Qty: 10 0RF No Action flecainide 50 mg tablet 50 mg PO BID Qty: 180 2RF alendronate 70 mg tablet 70 mg PO QWEEK Qty: 12 3RF metoprolol succinate 25 mg tablet extended release 24 hr 12.5 mg PO DAILY Qty: 45 3RF simvastatin 20 mg tablet 20 mg PO BEDTIME Qty: 90 3RF warfarin 5 mg tablet 5 mg PO DAILY Qty: 90 3RF Protocol: Dose Management Condition: Monday (Week One) Dose/Route: 2.5 mg Instruction: 0.5 x 5 mg tablets Condition: Monday Dose/Route: 5 mg Instruction: 1 x 5 mg tablet Condition: Monday Dose/Route: 2.5 mg Instruction: 0.5 x 5 mg tablets Condition: Monday Dose/Route: 2.5 mg Instruction: 0.5 x 5 mg tablets Condition: Dose/Route: 5 mg Instruction: 1 x 5 mg tablet Condition: Monday Dose/Route: 2.5 mg Instruction: 0.5 x 5 mg tablets Condition: Monday Dose/Route: 2.5 mg Instruction: 0.5 x 5 mg tablets Condition: Monday (Week Two) Dose/Route: 2.5 mg Instruction: 0.5 x 5 mg tablets Condition: Monday Dose/Route: 5 mg Instruction: 1 x 5 mg tablet Condition: Monday Dose/Route: 2.5 mg Instruction: 0.5 x 5 mg tablets Condition: Monday Dose/Route: 2.5 mg Instruction: 0.5 x 5 mg tablets Condition: Dose/Route: 5 mg Instruction: 1 x 5 mg tablet Condition: Monday Dose/Route: 2.5 mg Instruction: 0.5 x 5 mg tablets Condition: Monday Dose/Route: 2.5 mg Instruction: 0.5 x 5 mg tablets Protocol Text: Adjustment Start Date: 04/17/25 INR Value: 2.6 INR Date: 04/17/25 Recheck Date: 05/15/25 lorazepam 0.5 mg tablet 0.5 mg PO BID-TID PRN (Reason: anxiety) 30 Days Qty: 90 1RF flaxseed oil 1,000 mg capsule 1,000 mg PO DAILY Rx Instructions: administer with a meal multivitamin Tablet 1 tab PO DAILY loratadine [Allergy Relief (loratadine)] 10 mg tablet 10 mg PO DAILY fluticasone furoate 27.5 mcg/actuation spray,suspension 2 spray intranasal DAILY Qty: 47.4 0RF Rx Instructions: into each nostril ipratropium bromide 21 mcg (0.03 %) spray,non-aerosol 2 spray intranasal BID-TID PRN (Reason: allergy symptoms) Qty: 30 0RF Rx Instructions: administer into each nostril x 7 days acetaminophen [Tylenol] 325 mg tablet 325 mg PO QID PRN (Reason: Pain) diphenhydramine HCl [NightTime Sleep Aid (diphen)] 25 mg capsule 25 mg PO BEDTIME cholecalciferol (vitamin D3) PO Citrucel 500 mg tablet 500 mg PO DAILY Qty: 90 3RF Referrals: Po,Marylu Lew MD [Primary Care Provider, Internal Medicine] Discharge Date/Time: 04/20/25 15:27 Print Language: Danish
--- NOTE | 2025-04-20 09:54 | PC.NURSE ---
IV placed, medicated per NOV. Pt being brought to Xray at this time, tech to complete EKG/orthos on return of pt to room. Pt aware she needs a urine sample, but is unable to go at this time, cup placed out in room. Call willis within reach
[2025-04-20 10:05] LABS: Hematocrit 43.9 % (37.0-47.0); Hemoglobin 15.2 g/dl (12.0-16.0); Imm Gran Abs Auto 0.01 X10*3/uL (0.00-0.03); Imm Gran Pct Auto 0.2 % (0.0-0.4); Lymphocytes Absolute Auto 1.2 X10*3/uL (1.2-4.9); MANUAL DIFF FLAG SCAN; Mean Corpuscular HGB Conc 34.6 g/dl (31.0-35.0); Mean Corpuscular Hemoglobin 31.7 pg (27.0-33.0); Mean Corpuscular Volume 91.5 fL (80.0-98.0); NRBC Abs Auto 0.000 X10*3/uL (0.0-0.012); NRBC Pct Auto 0.0 /100WBC (0.0-0.2); PLT CLUMP 1; Red Blood Count 4.80 X10*6/uL (4.20-5.50); SCAN SMEAR FLAG 1
[2025-04-20 10:06] LABS: Alanine Aminotransferase 19 U/L (0-31); Albumin Level 4.5 g/dL (3.5-5.0); Alkaline Phosphatase 96 U/L (39-117); Anion Gap 15 (12-20); Aspartate Amino Transferase 38 U/L (5-31); Blood Urea Nitrogen 16 mg/dL (9-16); Calcium 9.4 mg/dL (8.4-10.2); Carbon Dioxide 23 mmol/L (22-29); Chloride 110 mmol/L (96-108); Creatinine Clr Calc Pharmacy 43.4; Estimated Glomerular Filt Rate 48; Lipase 34 U/L (8-78); Magnesium 2.1 mg/dL (1.6-2.6); Potassium 4.6 mmol/L (3.3-5.1); Sodium 143 mmol/L (135-145); Total Protein 7.6 g/dL (6.5-8.0)
[2025-04-20 10:07] LABS: White Blood Count 5.4 X10*3/uL (4.8-10.8)
[2025-04-20 10:08] LABS: B Type Natriuretic Peptide 213 pg/mL (<100)
[2025-04-20 10:17] LABS: Troponin-I High Sensitivity < 2.7 ng/L (<3.5-17.0)
[2025-04-20 10:24] LABS: Resp Syncy Virus RNA Qual PCR NEGATIVE (Negative); SARS COV2 PCR INHOUSE NEGATIVE (Negative)
[2025-04-20] MEDS: Lidocaine 4 % Patch ADH..PATCH 1 PATCH TRANSDERMA (11:00)
[2025-04-20 11:05] LABS: Appearance Urine Clear; Glucose Urine UA Negative (Negative); PH 5.0 (5.0-9.0); Specific Gravity - Urine 1.020 (1.005-1.025)
[2025-04-20 11:16] LABS: INTERNATIONAL NORM RATIO 3.2 (0.9-1.1); Prothrombin Time 36.3 SEC (10.9-12.4)
[2025-04-20] MEDS: iohexoL 350 MG/ML 100 ML INFUS..BTL IV (12:31)
--- NOTE | 2025-04-20 13:28 | MHC.EDTECH ---
Shortly after pt came back from CT scan, pt made complaints about feeling dizzy and overall shakiness. RN made aware right away. Vitals WNLs, EKG obtained
== END 2025-04-20 15:27 | disposition home or self-care (01) ==
PROVIDERS: Nurse Practitioner Family; Emergency Provider Emergency Medicine; PCP Internal Medicine
DX: M54.50 Low back pain, unspecified (principal); M25.512 Pain in left shoulder; M54.6 Pain in thoracic spine; M25.522 Pain in left elbow; R06.02 Shortness of breath; Z79.899 Other long term (current) drug therapy; Z79.01 Long term (current) use of anticoagulants; Z03.818 Encounter for observation for suspected exposure to other biological agents ruled out
CPT/HCPCS: 36415; 71046; 71275; 73030; 80053; 81003; 83690; 83735; 83880; 84484; 85025; 85610; 87637; 93005; 96361; 96374; 96375; 99285; 99291; J2270; J2405; Q9967

== ENCOUNTER → 2025-04-20 09:17 | Outpatient (BNV) | payer MEDICARE, SELFPAY | PROVIDERS: Emergency Provider Emergency Medicine; PCP Internal Medicine; Visit Provider Internal Medicine Cardiovascular Disease | DX: R00.1 Bradycardia, unspecified (principal) | CPT/HCPCS: 93010 ==

== ENCOUNTER 2025-04-24 10:54 | Outpatient (AMB) | payer MEDICARE, SELFPAY ==
[2025-04-24 10:56] VITALS: BP 138/82; PULSE 65; RESP 18; TEMP 36.2; O2SAT 98; BMI 24.2
--- NOTE | 2025-04-24 10:56 | AM.OFFVISMDC ---
Intake Vital Signs 04/24/25 10:56 Height 5 ft 6 in Weight 150 lb 2 oz BMI 24.2 BP 138/82 Blood Pressure Location Lt brachial Position Sitting Respiration 18 Pulse 65 Pulse Source Pulse Oximeter Temp 97.1 F Temp Source Temporal Artery Scan Pulse Oximetry (%) 98 Oxygen Delivery Method Room Air Intake Visit Reasons: AWV G0438/ PE Allergies escitalopram (Lexapro) Allergy (Unknown, Verified 04/24/25 10:57) Nausea sertraline (Zoloft) Allergy (Unknown, Verified 04/24/25 10:57) NAUSEA ANTIDEPRESSANTS Allergy (Unknown, Uncoded 04/24/25 10:57) MAKE ME FEEL SICK Medication List - Last Reconciled 04/24/25 by Marylu Humphreys, acetaminophen (Tylenol) 325 mg PO QID PRN alendronate 70 mg PO QWEEK cholecalciferol (vitamin D3) PO cyclobenzaprine 5 mg PO BEDTIME PRN diphenhydramine HCl (NightTime Sleep Aid (diphenhydramine)) 25 mg PO BEDTIME flaxseed oil 1,000 mg PO DAILY flecainide 50 mg PO BID fluticasone furoate 27.5 mcg/actuation 2 sprays intranasal DAILY ipratropium bromide 2 sprays intranasal BID-TID PRN lorazepam 0.5 mg PO BID-TID PRN 30 days methylcellulose (laxative) (Citrucel) 500 mg PO DAILY metoprolol succinate ER 12.5 mg (1/2 x 25 mg) PO DAILY multivitamin 1 tab PO DAILY simvastatin 20 mg PO BEDTIME warfarin 5 mg See Protocol PO DAILY HPI AWV G0438/ PE HPI Details [facility] of care cardiology is [facility] Ophthalmology Dr. Alexandra [facility] Medical History Age-related osteoporosis without current pathological fracture Preop exam for internal medicine Pain of finger joint Knee pain, right Hip pain, left Medicare annual wellness visit, initial On beta lala at home On anticoagulant therapy Paroxysmal atrial fibrillation Insomnia Duodenal ulcer Urge incontinence Osteoporosis Anxiety and depression Osteoarthritis Humeral fracture Sinus bradycardia Cardiomyopathy Atrial fibrillation HLD (hyperlipidemia) HTN (hypertension) Surgical History History of cataract surgery Hx of colonoscopy History of hysterectomy with bilateral oophorectomy Hx of tonsillectomy Hx of cholecystectomy Family History Father Medical history unknown Mother Arthritis Hypertension History of hysterectomy Son In good health Daughter Diabetes Social History Household Members Other:: Friend Housing: House Are you a primary child day care teacher to a significant other at home: No Do you presently have visiting nurse or other home services: No Alcohol intake: current Alcohol intake frequency: a few times a month Alcohol type: wine Comment: once Q 3 month glass Patient Tobacco Use Status: Never used Tobacco e-Cigarette/Vaping Use: Never Used Second Hand Smoke Exposure: No service: No Current occupational status: employed Cognitive needs: No Hearing needs: No Vision needs: Yes Questionnaire Medicare Wellness Checkup What is your age?: 79 or older What gender do you identify with?: female During the past 4 weeks, how much have you been bothered by emotional problems such as feeling anxious, depressed, irritable, sad or downhearted, and blue?: slightly During the past 4 weeks, has your physical & emotional health limited your social activities with family, friends, neighbors, or groups?: moderately During the past 4 weeks, how much bodily pain have you generally had?: severe pain During the past 4 weeks, was someone available to help you if you needed & wanted help?: yes, a little During the past 4 weeks, what was the hardest physical activity you could do for at least 2 minutes?: moderate Can you get to places out of walking distance without help? (For eg., can you travel alone on buses, taxis or drive your car?): Yes Can you go shopping for groceries or clothes without someone's help?: Yes Can you prepare your own meals?: Yes Can you do your housework without help?: Yes Because of any health problems, do you need the help of another person with your personal care needs such as eating, bathing, dressing or getting around the house?: No Can you handle your own money without help?: Yes During the past 4 weeks, how would you rate your health in general?: fair During the past 4 weeks how have things been going for you?: good & bad parts about equal Are you having difficulties driving your car?: no Do you always fasten your seat belt when you are in a car?: yes, usually During past 4 weeks, have you been bothered by the following: never: Sexual problems?, Trouble eating well?, Teeth or denture problems? and Problems using the telephone?, seldom: Falling or dizzy when standing up and sometimes: Tiredness or fatigue? Have you fallen 2 or more times in the past year?: No Are you a smoker?: no During the past 4 weeks, how many drinks of wine, beer, or other alcoholic beverages did you have?: no alcohol at all Do you exercise for about 20 minutes 3 or more times a week?: no, I usually do not exercise this much Have you been given information to help with the following?: no: Hazards in your house that might hurt you? and no: Keeping track of your medications? How often do you have trouble taking medicines the way you have been told to take them?: I always take medicine as prescribed How confident are you that you can control & manage most of your health problems?: somewhat confident What is your race?: White PHQ-9 Over the last 2 weeks, how often have you been bothered by any of the following problems? 1. Little interest or pleasure in doing things: not at all 2. Feeling down, depressed, or hopeless: several days 3. Trouble falling or staying asleep, or sleeping too much: not at all 4. Feeling tired or having little energy: several days 5. Poor appetite or overeating: not at all 6. Feeling bad about yourself - or that you are a failure or have let yourself or your family down: not at all 7. Trouble concentrating on things, such as reading the newspaper or watching television: not at all 8. Moving or speaking so slowly that other people could have noticed. Or the opposite - being so fidgety or restless that you have been moving around a lot more than usual: not at all 9. Thoughts that you would be better off or of hurting yourself in some way: not at all Total score: 2 Depression Screening Interpretation: Positive Depression Screening Done: Yes 67038 - PHQ-9 Billing: Yes Source: Developed by Drs. Jarrett Perdomo, Chayito Cedeno, Oskar Johnson and colleagues, with an educational genesis from [employer]. Thrive Questionnaire Date Thrive assessed: 04/24/25 I am a: Patient What is your living situation today?: I have a steady place to live Within the past 12 months, did the food you bought not last and you didn't have the money to get more?: Never true Within the past 12 months, did you worry whether your food would run out before you got money to buy more?: Never true Do you have trouble paying for medicines?: No Do you have trouble getting transportation to medical appointments?: No Do you have trouble paying your heating and electricity bill?: No Do you have trouble taking care of your child, family member or friend?: No Do you have trouble with day-to-day activities such as bathing, preparing meals, shopping, managing finances, etc.?: No Are you currently unemployed and looking for a job?: No Are you interested in more education?: No Please select the resources that you would like help with: None Currently or been in a relationship where the following occur: No concerns reported THRIVE Score: 0 Review of Systems Const Denies poor appetite and Denies weakness Eyes Denies no additional complaints ENT Reports Normal hearing present, Denies dizziness, Denies nasal congestion, Denies tinnitus and Denies sore throat Card Denies chest pain, Denies syncope, Denies rapid heart rate and Denies dyspnea Resp Denies cough and Denies dyspnea GI Denies change in stool character, Reports constipation, Denies diarrhea, Denies nausea and Denies vomiting Denies urinary frequency, Denies difficulty voiding and Denies dysuria Neuro Reports Normal hearing present, Denies confusion, Denies dizziness, Denies syncope and Denies weakness Psych Denies confusion Physical Exam Vital Signs: Last Vital Signs Temp 97.1 F 04/24/25 10:56 Pulse 65 04/24/25 10:56 Resp 18 04/24/25 10:56 BP 138/82 04/24/25 10:56 Pulse Ox 98 04/24/25 10:56 Oxygen Delivery Method Room Air 04/24/25 10:56 BMI result Body Mass Index 24.2 Const General: No confusion Orientation/consciousness: No confusion HEENT Head: Yes normocephalic Ears: external ears normal and TM's normal bilaterally Face and sinus: Yes normal facial exam Mouth: moist mucous membranes Throat: Yes tonsils normal Eyes Conjunctivae: conjunctivae normal Pupils: Equal, round and reactive pupils present and Pupil accommodation reflex normal Direct Ophthalmoscopy: normal light reflex Neck Neck: No lymphadenopathy Thyroid: Thyroid normal Chest Chest palpation & inspection: normal inspection of the chest Resp Effort & Inspection: normal respiratory effort and no audible wheezes Auscultation: clear to auscultation bilaterally, no crackles, no wheezes and lung sounds not diminished Cardio Rate: regular rate Rhythm: regular rhythm Peripheral pulses: radial pulses present and dorsalis pedis present GI Other: declined rectal exam Palpation (GI): no masses Auscultation: normal bowel sounds and normoactive bowel sounds Rectal Exam - Female: deferred Skin General skin exam: no rashes or lesions noted Rashes: no rashes Neuro General: No confusion Cranial nerves: Yes Equal, round and reactive pupils present and Yes Normal hearing present Cognition (Neuro): normal cognition Gait exam (Neuro): Normal gait present Motor exam (neuro): 5/5 motor strength present throughout Deep tendon reflexes (DTR's): Right brachioradialis reflex intensity grade: 2+, Left brachioradialis reflex intensity grade: 2+, Right patellar reflex intensity grade: 2+ and Left patellar reflex intensity grade: 2+ Extrem General: No edema Assessment & Plan Assessment & Plan (1) Annual wellness visit: Code(s): Z00.00 - Encounter for general adult medical examination without abnormal findings Plan: Patient is advised to eat healthy, keep well hydrated, keep active and have adequate sleep. (2) Paroxysmal atrial fibrillation: Comment: The left ventricular systolic function is normal. The calculated ejection fraction is 64% by biplane method. - No obvious valvular pathology seen on this study. August 2022 echocardiogram Code(s): I48.0 - Paroxysmal atrial fibrillation Plan: Patient follows up with Cardiology and recent echocardiogram very good with no valvular problems patient on flecainide as well as anticoagulation with Coumadin (3) HTN (hypertension): Code(s): I10 - Essential (primary) hypertension Qualifiers: Hypertension type: essential hypertension Qualified Code(s): I10 - Essential (primary) hypertension Plan: Continue with blood pressure medication. Decrease salt intake and exercise takes metoprolol 12.5 mg once a day (4) HLD (hyperlipidemia): Code(s): E78.5 - Hyperlipidemia, unspecified Qualifiers: Hyperlipidemia type: pure hypercholesterolemia Qualified Code(s): E78.00 - Pure hypercholesterolemia, unspecified Plan: Avoid fried foods, chicken skin, eggs, butter margarine, pastries and meat. Be it pork or beef they have a lot of cholesterol LDL goal of less than 100 and triglyceride of less than 150 patient on simvastatin 20 mg once a day (5) Thoracic back pain: Code(s): M54.6 - Pain in thoracic spine Plan: Keep active stretches avoid heavy lifting (6) Osteopenia: Comment: June 2024 Code(s): M85.80 - Other specified disorders of bone density and structure, unspecified site Plan: Discussed about calcium and vitamin-D. Patient is on alendronate, keep active Plan History of Present Illness The patient is an 79-year-old female presenting with an annual wellness visit and ongoing health concerns. She has a history of hypertension, hypercholesterolemia, and cardiomyopathy with atrial fibrillation. Her last echocardiogram showed an ejection fraction of 66% with no valvular problems, and she is currently on flecainide and metoprolol for management. The patient also reports a history of depression, for which she has discontinued antidepressants due to ineffectiveness. She is currently not on any new medications for depression. She has been diagnosed with osteopenia, with her last bone density test conducted in June 2024. She is on alendronate and takes calcium and vitamin D supplements. The patient experienced thoracic back pain, which led to an ER visit in April. The pain was muscular in nature, and she was prescribed a muscle relaxer, which she reports as ineffective. She reports peripheral neuropathy symptoms, describing numbness and a pins and needles sensation in her feet, which started with two toes last fall and has now spread to all toes. The patient has a history of constipation and hemorrhoids, with recent episodes of diarrhea-like symptoms leading her to adjust her Citrucel intake. She denies any blood in stools but experiences hemorrhoids occasionally. Health Maintenance - Annual wellness visit conducted - Mammogram up to date - Bone density screening last done in June 2024 - Echocardiogram with ejection fraction of 66% - Blood work in April 2025 showed normal blood count, electrolytes, renal function, and liver function - Cholesterol LDL of 60 mg/dL, triglycerides 164 mg/dL - Discussed calcium and vitamin D supplementation - Vaccinations up to date, including tetanus, RSV, and pneumonia Social History - Alcohol: Consumes a glass of wine occasionally, approximately once every other month - Smoking: No history of smoking since adolescence - Diet: Consumes one meal a day, with occasional milk and pizza - Exercise: Engages in regular stretching and avoids heavy lifting Review of Systems - Cardiovascular: Denies chest pain, palpitations, or syncope - Respiratory: Denies dyspnea or cough - Gastrointestinal: Reports constipation and hemorrhoids; denies nausea, vomiting, or blood in stools - Neurological: Reports numbness and pins and needles sensation in feet - Musculoskeletal: Reports thoracic back pain - Dermatological: Denies rashes or lesions Physical Exam General: Cooperative, healthy appearing, comfortable, no acute distress and well developed Orientation: Patient oriented x3 Limitations: No limitations Head: Normal to inspection Ears: Hearing grossly normal bilaterally Nose: Normal external nose present Face and sinus: Normal facial exam Eyes: Appearance normal, both eyes and all related structures Neck: Normal visual inspection and Yes full ROM Respiratory: Normal respiratory effort and able to speak in complete sentences. Clear to auscultation bilaterally Cardiovascular: Regular rate and rhythm. Normal S1 and S2 GI: Normal to inspection. Soft to palpation and nontender Skin: No rashes or lesions noted Neuro: Patient oriented x3 Extremities: Normal to inspection, but reports numbness and pins and needles sensation in both feet, particularly below the toes. No color changes noted. Results - Echocardiogram: Ejection fraction of 66%, no valvular problems - Blood work: Normal blood count, electrolytes, renal function, and liver function - Cholesterol: LDL 60 mg/dL, triglycerides 164 mg/dL Plan The patient will continue her current medications for hypertension and hypercholesterolemia, including metoprolol and simvastatin. She is advised to maintain her current regimen of flecainide and anticoagulation therapy for atrial fibrillation. For osteopenia, she will continue with alendronate and ensure adequate intake of calcium and vitamin D. Regular exercise and avoidance of heavy lifting are recommended to manage her musculoskeletal health. The patient is advised to monitor her peripheral neuropathy symptoms and report any worsening. For constipation and hemorrhoids, she will continue adjusting her Citrucel intake and consider sitz baths for hemorrhoid relief. Follow-up appointments with cardiology and for routine blood work are scheduled to monitor her cardiovascular status and overall health. Patient was informed and verbally consented to the use of an ambient scribe for clinic note documentation during this visit. Discussion Notes During the visit, I discussed the importance of continuing current medications for hypertension and hypercholesterolemia, as well as the management of atrial fibrillation with flecainide and anticoagulation therapy. We reviewed the patient's osteopenia management plan, emphasizing the need for calcium and vitamin D supplementation. I advised the patient on lifestyle modifications, including regular exercise and avoiding heavy lifting, to support musculoskeletal health. We also discussed monitoring peripheral neuropathy symptoms and adjusting Citrucel intake for constipation management. Follow-up appointments with cardiology and routine blood work were planned to ensure ongoing monitoring of her health status. Patient Instructions - Continue taking metoprolol and simvastatin as prescribed. - Maintain flecainide and anticoagulation therapy for atrial fibrillation. - Take alendronate weekly and ensure adequate calcium and vitamin D intake. - Engage in regular exercise and avoid heavy lifting. - Monitor peripheral neuropathy symptoms and report any changes. - Adjust Citrucel intake as needed for constipation and consider sitz baths for hemorrhoid relief. - Schedule follow-up appointments with cardiology and for routine blood work. Orders: Orders Comprehensive Met. Panel 3 Months E78.00 - Pure hypercholesterolemia, unspecified Thyroid Stimulating Hormone 3 Months E78.00 - Pure hypercholesterolemia, unspecified Hemoglobin A1c 3 Months E78.00 - Pure hypercholesterolemia, unspecified Vitamin B12 and Folate 3 Months E78.00 - Pure hypercholesterolemia, unspecified Complete Blood Count Auto Diff 3 Months E78.00 - Pure hypercholesterolemia, unspecified Free T4 (Free Thyroxine) 3 Months E78.00 - Pure hypercholesterolemia, unspecified Vitamin D 25-OH Total 3 Months E78.00 - Pure hypercholesterolemia, unspecified Lipid Panel 3 Months E78.00 - Pure hypercholesterolemia, unspecified Quality Reporting (2019) Depression/Bipolar (159/160/161/177) PHQ-9: Total score: 2 Coding Level of Care Code Medicare Subsequent (G0439) Diagnoses Annual wellness visit Z00.00 Paroxysmal atrial fibrillation I48.0 Essential hypertension I10 Hypertension type: essential hypertension Pure hypercholesterolemia E78.00 Hyperlipidemia type: pure hypercholesterolemia Thoracic back pain M54.6 Osteopenia M85.80 Additional Codes PHQ-9 - 04145 - PHQ-9 Billing: Yes ([id number])
--- OUTSIDE RECORDS SUMMARY | 2025-04-24 11:43 | XMS_ITS | Clinical Summary ---
Author Organization [employer] Address [address] [facility] [address] [place] [address] Care Team Providers Care Cloth Seconds Sorter Name Role Phone Unavailable Primary Care Provider [...] age to complete this topic Insurance MEDICARE [facility] MEDEX CARE
--- OUTSIDE RECORDS SUMMARY | 2025-04-24 11:43 | XMS_ITS | Patient Health Record ---
Author Organization [facility] Address [address] [place] [address] Care Team Providers Care Bindery Worker Name Role Phone Po Marylu LR Primary Care Provider Jarrett Pereira [phone] Allergies Allergen (clinical drug ingredient) Drug/Non Drug [...] Problem Status W/U Status Risk Notes Problem [id number] Encounter for screening for malignant neoplasm of colon (Z12.11) Active confirmed Problem Incontinence of feces, unspecified fecal incontinence type (R15.9) Active confirmed Problem [id number] Long-term (current) use of anticoagulants, INR goal 2.0-3.0 (Z79.01) Active confirmed Plan Of Treatment Future Test Test Name Order Date COLONOSCOPY 07/03/2019 Next Appt Details Provider Name:Jarrett Galarza Amanda , 06/27/2025 02:40:00 PM, [address] [place] [address], [facility] [address], [place], [address], Insurance Providers Payer Name Payer Address Payer Phone Subscriber Number Group Number Insured Name Patient Relationship to Insured Coverage Start Date Coverage End Date MEDICARE OF [place] [address] [place] [id number] [place] Self - patient is the insured MEDEX ATTN CLAIMS [address] [place] [address] [id number] [place] Self - patient is the insured Medical (General) History Medical History History ICD Code Denies [place],DM,CVA,Lung disease,renal dise ase Atrial fibrillation x 15 years--Dr. Girma maharaj Hyperlipidemia Osteoporosis Neg. colonoscopy in [address] Melgoza Screening colonoscopy in Aug with removal of a small tubular adenoma Surgical History Surgery Date(Month/Year) KRISTINE 1982 CCY 1989 Tonsillectomy
== END 2025-04-24 11:40 | disposition home or self-care (01) ==
LOC: HO.HMCH 10:54
PROVIDERS: PCP Internal Medicine; Visit Provider Internal Medicine
DX: Z00.00 Encounter for general adult medical examination without abnormal findings (principal); I48.0 Paroxysmal atrial fibrillation; I10 Essential (primary) hypertension; E78.00 Pure hypercholesterolemia, unspecified; M54.6 Pain in thoracic spine; M85.80 Other specified disorders of bone density and structure, unspecified site

== ENCOUNTER → 2025-04-24 10:54 | Outpatient (BNVA) | payer MEDICARE, SELFPAY | PROVIDERS: PCP Internal Medicine; Visit Provider Internal Medicine | DX: Z00.00 Encounter for general adult medical examination without abnormal findings (principal); I48.0 Paroxysmal atrial fibrillation; I10 Essential (primary) hypertension; M54.6 Pain in thoracic spine; M85.80 Other specified disorders of bone density and structure, unspecified site; E78.00 Pure hypercholesterolemia, unspecified | CPT/HCPCS: 96127 ==

== ENCOUNTER 2025-05-15 08:34 | Outpatient (AMB) | payer MEDICARE, SELFPAY ==
--- NOTE | 2025-05-15 08:50 | MHC.OFFVISCO ---
Intake Intake Visit Reasons: Anticoagulation Allergies escitalopram (Lexapro) Allergy (Unknown, Verified 05/15/25 08:35) Nausea sertraline (Zoloft) Allergy (Unknown, Verified 05/15/25 08:35) NAUSEA ANTIDEPRESSANTS Allergy (Unknown, Uncoded 05/15/25 08:35) MAKE ME FEEL SICK Medication List - Last Reconciled 05/15/25 by Cristel Coreas RN acetaminophen (Tylenol) 325 mg PO QID PRN alendronate 70 mg PO QWEEK cholecalciferol (vitamin D3) PO cyclobenzaprine 5 mg PO BEDTIME PRN diphenhydramine HCl (NightTime Sleep Aid (diphenhydramine)) 25 mg PO BEDTIME flaxseed oil 1,000 mg PO DAILY flecainide 50 mg PO BID fluticasone furoate 27.5 mcg/actuation 2 sprays intranasal DAILY ipratropium bromide 2 sprays intranasal BID-TID PRN lorazepam 0.5 mg PO BID-TID PRN 30 days methylcellulose (laxative) (Citrucel) 500 mg PO DAILY metoprolol succinate ER 12.5 mg (1/2 x 25 mg) PO DAILY multivitamin 1 tab PO DAILY simvastatin 20 mg PO BEDTIME warfarin 5 mg See Protocol PO DAILY Nursing Note INR: 3.4 OUT OF therapeutic range- possibly related to diet changes over the summer including hydration and occ tylenol Medications and supplements reviewed No changes in health, diet, medications, or supplements, Denies any signs and symptoms of bleeding or bruising or clotting. Bleeding, bruising, clotting discussed Nutritional guidance given - review food list weekly - remember cooked foods and greens provide you with more vit k Dose: decrease to 2.5mg today then resume 5mg x 2 days/ 2.5mg x 5 days F/U INR: 3 weeks Patient verbalizes understanding of instructions given Anti-Coag Initial Assessment Social Hx Patient Tobacco Use Status: Never used Tobacco alcohol intake: current Alcohol intake frequency: a few times a month Coding Level of Care Code Est Patient Level 1 Diagnoses Current use of anticoagulant therapy Z79.01 Results AMB INR Fingerstick AMB INR Fingerstick 3.4 Last Edit by Cristel Coreas RN on 05/15/25 08:42 MANUAL ENTRY Assessment & Plan Assessment & Plan (1) Current use of anticoagulant therapy: Code(s): Z79.01 - longterm (current) use of anticoagulants Category: Medical
--- OUTSIDE RECORDS SUMMARY | 2025-05-15 08:50 | XMS_ITS | Patient Health Record ---
Author Organization [facility] Address [address] [place] [address] Care Team Providers Care Financial Reporting Analyst Name Role Phone Po Marylu LR Primary Care Provider Jarrett Pereira [phone] Allergies Allergen (clinical drug ingredient) Drug/Non Drug [...] Problem Status W/U Status Risk Notes Problem [id number] Encounter for screening for malignant neoplasm of colon (Z12.11) Active confirmed Problem Incontinence of feces, unspecified fecal incontinence type (R15.9) Active confirmed Problem [id number] Long-term (current) use of anticoagulants, INR goal 2.0-3.0 (Z79.01) Active confirmed Plan Of Treatment Future Test Test Name Order Date COLONOSCOPY 07/03/2019 Next Appt Details Provider Name:Jarrett Galarza Amanda , 06/27/2025 02:40:00 PM, [address] [place] [address], [facility] [address], [place], [address], Insurance Providers Payer Name Payer Address Payer Phone Subscriber Number Group Number Insured Name Patient Relationship to Insured Coverage Start Date Coverage End Date MEDICARE OF [place] [address] [place] [id number] [place] Self - patient is the insured MEDEX ATTN CLAIMS [address] [place] [address] [id number] [place] Self - patient is the insured Medical (General) History Medical History History ICD Code Denies [place],DM,CVA,Lung disease,renal dise ase Atrial fibrillation x 15 years--Dr. Girma maharaj Hyperlipidemia Osteoporosis Neg. [place] [address] Melgoza Screening colonoscopy in Aug with removal of a small tubular adenoma Surgical History Surgery Date(Month/Year) KRISTINE 1982 CCY 1989 Tonsillectomy
--- OUTSIDE RECORDS SUMMARY | 2025-05-15 08:50 | XMS_ITS | Clinical Summary ---
Author Organization [employer] Address [address] [facility] [address] [place] [address] Care Team Providers Care Enthone Solder Stripper Name Role Phone Unavailable Primary Care Provider [...] age to complete this topic Insurance MEDICARE [facility] MEDEX CARE
[2025-05-15 09:06] LABS: Prothrombin Time Whole Bld POC 40.4 sec (11.1-13.5); ~PT, ~INR - Anti Coag Clinic 3.4 (0.9-1.1)
== END 2025-05-15 08:53 | disposition home or self-care (01) ==
LOC: HO.ACS 08:34
PROVIDERS: PCP Internal Medicine; Visit Provider Internal Medicine Medical Oncology
DX: Z79.01 Long term (current) use of anticoagulants (principal)

== ENCOUNTER → 2025-05-15 08:34 | Outpatient (BNVA) | payer MEDICARE, SELFPAY | PROVIDERS: PCP Internal Medicine; Visit Provider Internal Medicine Medical Oncology | DX: Z51.81 Encounter for therapeutic drug level monitoring (principal); Z79.01 Long term (current) use of anticoagulants | CPT/HCPCS: 85610; 99211 ==

== ENCOUNTER 2025-06-05 08:26 | Outpatient (AMB) | payer MEDICARE, SELFPAY ==
--- NOTE | 2025-06-05 08:33 | MHC.OFFVISCO ---
Intake Intake Visit Reasons: Anticoagulation Allergies escitalopram (Lexapro) Allergy (Unknown, Verified 06/05/25 08:29) Nausea sertraline (Zoloft) Allergy (Unknown, Verified 06/05/25 08:29) NAUSEA ANTIDEPRESSANTS Allergy (Unknown, Uncoded 06/05/25 08:29) MAKE ME FEEL SICK Medication List - Last Reconciled 06/05/25 by Tali Lima RN acetaminophen (Tylenol) 325 mg PO QID PRN alendronate 70 mg PO QWEEK cholecalciferol (vitamin D3) PO cyclobenzaprine 5 mg PO BEDTIME PRN diphenhydramine HCl (NightTime Sleep Aid (diphenhydramine)) 25 mg PO BEDTIME flaxseed oil 1,000 mg PO DAILY flecainide 50 mg PO BID fluticasone furoate 27.5 mcg/actuation 2 sprays intranasal DAILY ipratropium bromide 2 sprays intranasal BID-TID PRN lorazepam 0.5 mg PO BID-TID PRN 30 days methylcellulose (laxative) (Citrucel) 500 mg PO DAILY metoprolol succinate ER 12.5 mg (1/2 x 25 mg) PO DAILY multivitamin 1 tab PO DAILY simvastatin 20 mg PO BEDTIME warfarin 5 mg See Protocol PO DAILY Nursing Note INR: 2.4- in therapeutic range of 2-3 Medications and supplements reviewed- no changes No changes in health, diet, medications, or supplements, Denies any signs and symptoms of bleeding or bruising or clotting. Bleeding, bruising, clotting discussed Nutritional guidance given Dose: 5mg x 2, 2.5mg x 5 F/U INR: 4 weeks Patient verbalizes understanding of instructions given Anti-Coag Initial Assessment Social Hx Patient Tobacco Use Status: Never used Tobacco alcohol intake: current Alcohol intake frequency: a few times a month Coding Level of Care Code Est Patient Level 1 Diagnoses Current use of anticoagulant therapy Z79.01 Assessment & Plan Assessment & Plan (1) Current use of anticoagulant therapy: Code(s): Z79.01 - MCC (current) use of anticoagulants Category: Medical
[2025-06-05 08:34] LABS: Prothrombin Time Whole Bld POC 28.2 sec (11.1-13.5); ~PT, ~INR - Anti Coag Clinic 2.4 (0.9-1.1)
--- OUTSIDE RECORDS SUMMARY | 2025-06-05 08:51 | XMS_ITS | Patient Health Record ---
Author Organization [facility] Address [address] [place] [address] Care Team Providers Care Bag Repairer Name Role Phone Po Marylu LR Primary Care Provider Jarrett Pereira [phone] Allergies Allergen (clinical drug ingredient) Drug/Non Drug [...] Problem Status W/U Status Risk Notes Problem 851287726 Encounter for screening for malignant neoplasm of colon (Z12.11) Active confirmed Problem Incontinence of feces (12244121) Incontinence of feces, unspecified fecal incontinence type (R15.9) Active confirmed Problem 531258766 Long-term (current) use of anticoagulants, INR goal 2.0-3.0 (Z79.01) Active confirmed Plan Of Treatment Future Test Test Name Order Date COLONOSCOPY 07/03/2019 Next Appt Details Provider Name:Jarrett Patel , 06/27/2025 02:40:00 PM, [address] [place] [address], [facility] [address], [place], [address], Insurance Providers Payer Name Payer Address Payer Phone Subscriber Number Group Number Insured Name Patient Relationship to Insured Coverage Start Date Coverage End Date MEDICARE OF [place] [address] [facility] [place] [address] [id number] MARGOT HILL Self - patient is the insured MEDEX ATTN CLAIMS [address] [place] [address] [phone] [id number] MARGOT HILL Self - patient is the insured Medical (General) History Medical History History ICD Code Denies [place],DM,CVA,Lung disease,renal dise ase Atrial fibrillation x 15 years--Dr. Girma maharaj Hyperlipidemia Osteoporosis Neg. colonoscopy [place] [address] Melgoza Screening colonoscopy in Aug with removal of a small tubular adenoma Surgical History Surgery Date(Month/Year) KRISTINE 1982 CCY 1989 Tonsillectomy
--- OUTSIDE RECORDS SUMMARY | 2025-06-05 08:51 | XMS_ITS | Clinical Summary ---
Author Organization [facility] Address [address] [facility] [address] [place] [address] Care Team Providers Care Concrete Paving Supervisor Name Role Phone Unavailable Primary Care [...] age to complete this topic Insurance MEDICARE [facility] MEDEX CARE
== END 2025-06-05 08:39 | disposition home or self-care (01) ==
LOC: HO.ACS 08:26
PROVIDERS: PCP Internal Medicine; Visit Provider Internal Medicine Medical Oncology
DX: Z79.01 Long term (current) use of anticoagulants (principal)

== ENCOUNTER → 2025-06-05 08:26 | Outpatient (BNVA) | payer MEDICARE, SELFPAY | PROVIDERS: PCP Internal Medicine; Visit Provider Internal Medicine Medical Oncology | DX: Z51.81 Encounter for therapeutic drug level monitoring (principal); Z79.01 Long term (current) use of anticoagulants | CPT/HCPCS: 85610; 99211 ==

== ENCOUNTER 2025-06-12 08:13 | Outpatient (REF) | payer MEDICARE, SELFPAY ==
--- OUTSIDE RECORDS SUMMARY | 2025-06-12 09:06 | XMS_ITS | Patient Health Record ---
Author Organization [facility] Address [address] [place] [address] Care Team Providers Care Subsurface Augmentee Operator Name Role Phone Po Marylu LR Primary Care Provider Jarrett Pereira [phone] Allergies Allergen (clinical drug ingredient) Drug/Non Drug [...] Problem Status W/U Status Risk Notes Problem [id number] Encounter for screening for malignant neoplasm of colon (Z12.11) Active confirmed Problem Incontinence of feces (31751622) Incontinence of feces, unspecified fecal incontinence type (R15.9) Active confirmed Problem 062487548 Long-term (current) use of anticoagulants, INR goal 2.0-3.0 (Z79.01) Active confirmed Plan Of Treatment Future Test Test Name Order Date COLONOSCOPY 07/03/2019 Next Appt Details Provider Name:Jarrett Patel , 06/27/2025 02:40:00 PM, [address] [place] [address], [facility] [address], [place], [address], Insurance Providers Payer Name Payer Address Payer Phone Subscriber Number Group Number Insured Name Patient Relationship to Insured Coverage Start Date Coverage End Date MEDICARE OF [place] [address] [facility] [address] [id number] MARGOT HILL Self - patient is the insured MEDEX ATTN CLAIMS [address] [place] [address] [id number] MARGOT HILL Self - patient is the insured Medical (General) History Medical History History ICD Code Denies [place],DM,CVA,Lung disease,renal dise ase Atrial fibrillation x 15 years--Dr. Girma maharaj Hyperlipidemia Osteoporosis Neg. colonoscopy [place] [address] Melgoza Screening colonoscopy in Aug with removal of a small tubular adenoma Surgical History Surgery Date(Month/Year) KRISTINE 1982 CCY 1989 Tonsillectomy
--- OUTSIDE RECORDS SUMMARY | 2025-06-12 09:06 | XMS_ITS | Clinical Summary ---
Author Organization [employer] Address [address] [facility] [address] [place] [address] Care Team Providers Care Instructional Systems Specialist Name Role Phone Unavailable Primary Care Provider [...] age to complete this topic Insurance MEDICARE [facility] MEDEX CARE
== END 2025-06-12 08:14 | disposition home or self-care (01) ==
LOC: HO.MAMMO 08:13
PROVIDERS: PCP Internal Medicine; Visit Provider Internal Medicine
DX: Z12.31 Encounter for screening mammogram for malignant neoplasm of breast (principal)
CPT/HCPCS: 77063; 77067

== ENCOUNTER → 2025-06-12 09:00 | Outpatient (BNV) | payer MEDICARE, SELFPAY | PROVIDERS: PCP Internal Medicine; Visit Provider Internal Medicine | DX: Z12.31 Encounter for screening mammogram for malignant neoplasm of breast (principal) | CPT/HCPCS: 77063; 77067 ==

== ENCOUNTER 2025-07-03 08:22 | Outpatient (AMB) | payer MEDICARE, SELFPAY ==
--- OUTSIDE RECORDS SUMMARY | 2025-06-24 10:05 | XMS_ITS | Encounter Summary ---
Author Organization [employer] Address [address] [facility] [address] [place] [address] Care Team Providers Care Terrazzo Layer Name Role Phone Unavailable Primary Care Provider Unavailabl e Encounter Details Date Type Department Care Team (Late st Contact Info) Description 06/24/2025 10:05 [address] EDT Nurse Only [facility] [address] [place] [address] Patricia Burk RN Encounter for vaccination; Encounter [...] that contraindicate today's vaccinations. Vaccine administered in [facility]. Pt tolerated well, pt willstay for observation for 15minutes post vaccination for observation by nurse. documented in this encounter Plan of Treatment Not on file documented as of this encounter Visit Diagnoses Diagnosis Encounter for vaccination Encounter for immunization documented in this encounter
--- OUTSIDE RECORDS SUMMARY | 2025-06-27 10:40 | XMS_ITS ---
Author Organization [facility] Address [address] [place] [address] Care Team Providers Care Outdoor Adventure Leader Name Role Phone Po Marylu LR Primary Care Provider Jarrett Pereira Unavailable [phone] Allergies Allergen (clinical drug ingredient) Drug/Non Drug [...] Status Risk Notes Problem Irritable bowel syndrome (64795914) Irritable bowel syndrome (K58.9) Active confirmed Problem Irregular bowel habits (195114327) Irregular bowel habits (R19.8) Active confirmed Problem Diarrhea (54837917) Diarrhea (R19.7) Active confirmed Vital Signs Temperature 98.2 degrees Fahrenheit 06/27/20 25 Blood pressure systolic 001 mm Hg 06/27/20 25 Blood pressure diastolic 01 mm Hg 025 Height 65 in 06/27/2025 Weight 154.4 lbs 06/27/2025 BMI 25.69 kg/m2 06/27/2025 Encounters Encounter Location Date Provider Diagnosis [facility] [address] [place] [address] 06/27/2025 Jarrett Patel Irritable bowel syndrome K58.9 [...] * JENNY HILL MDOB:1944 (80 yo F)Acc No.[id number]:06/27/2025 Progress Notes Patient: JENNY PATINO Provider: Jovani Patel MD :1945 A ge:80 Y S ex:Female Date:06/27/2025 Address:[address] [place] [address] [id number] Pcp:Marylu Humphreys MD Subjective: * Chief Complaints: [...] liver profile. * Medical History: D enies [place],DM,CVA,Lung disease,renal disease, Atrial fibrillation x 15 years- [...] ietary management education, guidance, and counseling, B [place] management provided Y es. Urinary Incontinence: U [...] 0 06/27/2025 Generated for Jodi lund/Edith/Mary on: 08:35 AM EDT History and Physical Notes * [...]
[2025-07-03 08:27] LABS: Prothrombin Time Whole Bld POC 15.0 sec (11.1-13.5); ~PT, ~INR - Anti Coag Clinic 1.3 (0.9-1.1)
--- OUTSIDE RECORDS SUMMARY | 2025-07-03 08:35 | XMS_ITS | Clinical Summary ---
Author Organization [employer] Address [address] [facility] [address]t [place] [address] Care Team Providers Care Photo Technologist Name Role Phone Unavailable Primary Care Provider Unavailabl e Encounters Date Type Department Care Team Description 06/24/2025 10:05 AM EDT Nurse Only [facility] [address] [place] [address] Patricia Burk RN Encounter for vaccination; Encounter for immunization from Last 3 Months Immunizations Immunization Administration Dates Next Due Influenza High-dose Quadriva lent Preservative Free 06/27/2022,06/16/2020 Influenza Quadrivalent Adjuvanted 06/23/2023 Influenza, High Dose Seasona l, Preservative Free 06/24/2025,06/27/2018,07/05/2017,06/29 Influenza, seasonal, injecta ble, preservative free 06/19/2024 Influenza, trivalent, adjuvanted 06/28/2019,1110/2017 Pfizer Covid-19 Vaccine 12+ 06/24/2025,0 12/24/2024,06/19/2024,12/13 Pneumococcal Conjugate PCV 13 04/30/2020, 016 Pneumococcal [...] or older Completed 07/29/2023 COVID-19 Vaccine Completed 06/24/2025, , 06/19/2024, Additional history exists Influenza Vaccine Completed 06/24/2025, , 07/25/2023, Additional history exists HIB Vaccines Aged Out [...] age to complete this topic Insurance [place] [address] [place] [id number] [facility]
--- OUTSIDE RECORDS SUMMARY | 2025-07-03 08:35 | XMS_ITS | Patient Health Record ---
Author Organization [facility] Address [address] [place] [address] Care Team Providers Care Feller Operator Name Role Phone Po Marylu LR Primary Care Provider Jarrett Pereira [phone] Allergies Allergen (clinical drug ingredient) Drug/Non Drug Allergy documented on EMR Reaction Allergy Type Onset Date Status seasonal (uncoded) Unknown Allergy A ctive Reason For Referral No Information Medications Medication SIG (Take, Route, Frequency, Duration) Notes Start Date End Date Status Flecainide Acetate 50 MG 1 T PO BID Oral ly TWICE A DAY Active LORazepam 0.5 MG 1 tablet as needed Orally Once a day Active Metoprolol Succinate ER 25 MG 1/2 T PO QD Orally Once a day Active Jantoven 5 MG Oral for 90 Not- [...] QPM Orally On ce a day Active Immunizations Vaccine Route Administration Date Status Comme nts Influenza Unknown 06/27/2019 Administered Influenza Unknown 07/25/2023 Administered Influenza Unknown 06/25/2025 Administered Social History Tobacco Use: Social History [...] Notes: Nonsmoker; occ alcohol Nonsmoker; occ alcohol Nonsmoker; occ alcohol Problems Problem Type SNOMED Code ICD Code Onset Dates Problem Status W/U Status Risk Notes Problem Irritable bowel syndrome (27773569) Irritable bowel syndrome (K58.9) Active confirmed Problem 814642303 Encounter for screening for malignant neoplasm of colon (Z12.11) Active confirmed Problem Diarrhea (70094769) Diarrhea (R19.7) Active confirmed Problem Irregular bowel habits (690273081) Irregular bowel habits (R19.8) Active confirmed Problem Incontinence of feces (18165476) Incontinence of feces, unspecified fecal incontinence type (R15.9) Active confirmed Problem 967903758 Long-term (current) use of anticoagulants, INR goal 2.0-3.0 (Z79.01) Active confirmed Vital Signs Temperature 98.2 degrees Fahrenheit 06/27/2025 Blood pressure diastolic 01 mm Hg 06/27/2025 Height 65 in 06/27/2025 Blood pressure systolic 001 mm Hg 06/27/2025 Weight 154.4 lbs 06/27/2025 BMI 25.69 kg/m2 06/27/2025 Encounters Encounter Location Date Provider Diagnosis [facility] [address] [place] [address] 06/27/2025 Jarrett Patel Irritable bowel syndrome K58.9 [...] Diarrhea (ICD-10 - R19.7) Plan Of Treatment Pending Test Test Name Order Date Celiac Disease Panel 06/27/2025 Future Test Test Name Order Date COLONOSCOPY 07/03/2019 Insurance Providers Payer Name Payer Address Payer Phone Subscriber Number Group Number Insured Name Patient Relationship to Insured Coverage Start Date Coverage End Date MEDICARE OF [place] [address] [place] [address] [id number] MARGOT HILL Self - patient is the insured MED[employer] ATTN CLAIMS [address] [place] [address] [id number] MARGOT HILL Self - patient is the insured Medical (General) History Medical History History ICD Code Denies [place],DM,CVA,Lung disease,renal dise ase Atrial fibrillation x 15 years- Dr. Girma maharaj Hyperlipidemia Osteoporosis Neg. [place] [address] Melgoza Screening colonoscopy in Aug with removal of a small tubular adenoma Surgical History Surgery Date(Month/Year) Tonsillectomy CCY 1989 KRISTINE 1982
--- NOTE | 2025-07-03 08:37 | MHC.OFFVISCO ---
Intake Intake Visit Reasons: Anticoagulation Allergies escitalopram (Lexapro) Allergy (Unknown, Verified 07/03/25 08:27) Nausea sertraline (Zoloft) Allergy (Unknown, Verified 07/03/25 08:27) NAUSEA ANTIDEPRESSANTS Allergy (Unknown, Uncoded 07/03/25 08:27) MAKE ME FEEL SICK Medication List - Last Reconciled 07/03/25 by Cristel Coreas RN acetaminophen (Tylenol) 325 mg PO QID PRN alendronate 70 mg PO QWEEK cholecalciferol (vitamin D3) PO cyclobenzaprine 5 mg PO BEDTIME PRN diphenhydramine HCl (NightTime Sleep Aid (diphenhydramine)) 25 mg PO BEDTIME flaxseed oil 1,000 mg PO DAILY flecainide 50 mg PO BID fluticasone furoate 27.5 mcg/actuation 2 sprays intranasal DAILY ipratropium bromide 2 sprays intranasal BID-TID PRN lorazepam 0.5 mg PO BID-TID PRN 30 days methylcellulose (laxative) (Citrucel) 500 mg PO DAILY metoprolol succinate ER 12.5 mg (1/2 x 25 mg) PO DAILY multivitamin 1 tab PO DAILY simvastatin 20 mg PO BEDTIME warfarin 5 mg See Protocol PO DAILY Nursing Note INR: 1.3 in therapeutic range Medications and supplements reviewed Pt had covid and flu vaccine 1 week ago- no other changes or missed doses per pt No changes in health, diet, medications, or supplements, Denies any signs and symptoms of bleeding or bruising or clotting. Bleeding, bruising, clotting discussed Nutritional guidance given - avoid all greens x 3 days Dose: increase dose today and tomorrow: 7.5mg today and 5mg tomorrow then resume 2.5mg x 5 days / 5mg Mon +Arleen F/U INR: 07/07/2025 Risk of and s/sx of stroke discussed Patient verbalizes understanding of instructions given This note is being sent to PCP now will f/u call Anti-Coag Initial Assessment Social Hx Patient Tobacco Use Status: Never used Tobacco alcohol intake: current Alcohol intake frequency: a few times a month Coding Level of Care Code Est Patient Level 1 Diagnoses Current use of anticoagulant therapy Z79.01 Results AMB INR Fingerstick AMB INR Fingerstick 1.3 Last Edit by Cristel Coreas RN on 07/03/25 08:29 s/p covid and flu vaccine x 1 week Assessment & Plan Assessment & Plan (1) Current use of anticoagulant therapy: Code(s): Z79.01 - FDC (current) use of anticoagulants Category: Medical
== END 2025-07-03 08:44 | disposition home or self-care (01) ==
LOC: HO.ACS 08:22
PROVIDERS: PCP Internal Medicine; Visit Provider Internal Medicine Medical Oncology
DX: Z79.01 Long term (current) use of anticoagulants (principal)

== ENCOUNTER → 2025-07-03 08:22 | Outpatient (BNVA) | payer MEDICARE, SELFPAY | PROVIDERS: PCP Internal Medicine; Visit Provider Internal Medicine Medical Oncology | DX: Z51.81 Encounter for therapeutic drug level monitoring (principal); Z79.01 Long term (current) use of anticoagulants | CPT/HCPCS: 85610; 99211 ==

== ENCOUNTER 2025-07-04 13:42 | Outpatient (AMB) | payer MEDICARE, SELFPAY ==
--- OUTSIDE RECORDS SUMMARY | 2025-06-24 10:05 | XMS_ITS | Encounter Summary ---
Author Organization [employer] Address [address] [facility] 7t [place] [address] Care Team Providers Care Information Tech Name Role Phone Unavailable Primary Care Provider Unavailabl e Encounter Details Date Type Department Care Team (Late st Contact Info) Description 06/24/2025 10:05 AM EDT Nurse Only [facility] [address] [place] [address] Patricia Burk RN Encounter for vaccination; Encounter for immunization Social History Tobacco Use Types Packs/Day Years Used Date Smoking Tobacco: Never Assessed Comments Unknown Sex and Gender Information Value Date Recorded Sex Assigned at Female 12/14/2023 10:45 AM EDT Legal Sex Female 10:13 AM EDT Gender Identity Female 12/14/2023 1:34 PM EDT Sexual Orientation Straight 12/14/2023 1: 34 PM EDT documented as of this encounter Progress Notes * Patricia Burk RN - 06/24/2025 10:05 AM EDT Subjective Patient ID: Jenny Zhang is a 80 y.o. female who presents for Immunizations. Pt here for Flu and COVID19 Vaccines. Per record and patient reporting indicate that patient has noallergies that contraindicate today's vaccinations. Vaccine administered in [facility]. Pt tolerated well, pt willstay for observation for 15minutes post vaccination for observation by nurse. documented in this encounter Plan of Treatment Not on file documented as of this encounter Visit Diagnoses Diagnosis Encounter for vaccination Encounter for immunization documented in this encounter
--- OUTSIDE RECORDS SUMMARY | 2025-06-27 10:40 | XMS_ITS ---
Author Organization [facility] Address [address] [place] [address] Care Team Providers Care Ticket Scheduler Name Role Phone Po Marylu LR Primary Care Provider Jarrett Pereira Unavailable [phone] Allergies Allergen (clinical drug ingredient) Drug/Non Drug Allergy documented on EMR Reaction Allergy Type Onset Date Status seasonal (uncoded) Unknown Allergy A ctive REASON FOR VISIT Patient presents today for abdominal issues. Medications Medication SIG (Take, Route, Frequency, Duration) Notes Start Date End Date Status Jantoven 5 MG Oral for 90 Not- Taking Vitamin D 50 MCG (1999 UT) 1 tablet Orally Once a day 06/27/2025 Active Citrucel 500 MG TAKE ONE TABLET BY MOUTH EVERY DAY Oral for 30 Active Alendronate Sodium 70 MG 1 tablet Orally once a week Active Flaxseed Oil 1000 MG as directed Orally once a day Active Probiotic 250 MG 1 capsule Orally onc e a day Not-Taking Multi Vitamin/Minerals - as directed Ora lly once a day Active Calcium + D 600-200 MG-UNIT 1 tablet Orally Twice a day for 30 day(s) Not-Taking Warfarin Sodium 5 MG TK 1 T PO Orally On ce a day/ DIRECTED Active Simvastatin 20 MG 1 T PO QPM Orally On ce a day Active Flecainide Acetate 50 MG 1 T PO BID Oral ly TWICE A DAY Active LORazepam 0.5 MG 1 tablet as needed Orally Once a day Active Metoprolol Succinate ER 25 MG 1/2 T PO QD Orally Once a day Active Social History Tobacco [...] Problem Status W/U Status Risk Notes Problem Irritable bowel syndrome (10390377) Irritable bowel syndrome (K58.9) Active confirmed Problem Irregular bowel habits (799502839) Irregular bowel habits (R19.8) Active confirmed Problem Diarrhea (68576774) Diarrhea (R19.7) Active confirmed Vital Signs Temperature 98.2 degrees Fahrenheit 06/27/20 25 Blood pressure systolic 001 mm Hg 06/27/20 25 Blood pressure diastolic 01 mm Hg 025 Height 65 in 06/27/2025 Weight 154.4 lbs 06/27/2025 BMI 25.69 kg/m2 06/27/2025 Encounters Encounter Location Date Provider Diagnosis [facility] [address] [place] [address] 06/27/2025 Jarrett Patel Irritable bowel syndrome K58.9 ; Irregular bowel habits R19.8 and Diarrhea R19.7 Assessments Encounter Date Diagnosis (ICD Code) Assessment Notes Treatment Notes Treatment Clinical Notes Section Notes 06/27/2025 Irritable bowel syndrome (ICD-10 - K58.9) Try some Imodium as needed for loose stools Yoiu can try to increase the fiber if need be 06/27/2025 Irregular bowel habits (ICD-10 - R19.8) 06/27/2025 Diarrhea (ICD-10 - R19.7) Plan Of Treatment Treatment Notes Assessment Notes Irritable bowel syndrome Try some Imodium as needed for loose stools Yoiu can try to increase the fiber if need be Pending Test Test Name Order Date Celiac Disease Panel 06/27/2025 Next Appt Details Follow Up: prn, Reason: Progress Notes * JENNY HILL MDOB:1944 (80 yo F)Acc No.[id number]:06/27/2025 Progress Notes Patient: JENNY PATINO Provider: Jovani Patel MD :1945 A ge:80 Y S ex:Female Date:06/27/2025 Address:[address] [place] [address] [id number] Pcp:Marylu Humphreys MD Subjective: * Chief Complaints: * 1 . Patient presents today for abdominal issues.. * HPI: i ncontinence: I saw Jenny in follow-up today in regard to her intermittent irregular bowel movements with associated urgency. I last saw Reta in December 2023. At that time we had discussed her several episodes of irregular bowel movements and urgency that she had had in 2022. However, by the time I had seen her in 2023 those episodes had resolved and she was not having any problems. Therefore I did not have her do any diagnostic testing. Her last colonoscopy had been in 2018 but when I saw her last year I did not think she had to repeat that given her age, minimal findings in the past, and no particularly worrisome or active GI complaints other than the episode she had had the year before that. Since that time she had been using 1 Citrucel daily to help keep her bowel movements regular. She was not having any trouble until this year when she began having episodes of intermittent urgency with loose stools. She had a particularly bad episode on when she was awakened with diarrhea and incontinence. She has not had any further nocturnal episodes such as that, but does have intermittent episodes during the day in which she will suddenly develop urgency and have to kaplan to the bathroom to have a loose bowel movement. This might occur once or twice after that, but then the remainder of the day she is fine. After the episode she does not have any further problems that day. These episodes are not occurring daily but sound like they occur about 2 or 3 times per week. She has not noticed any hematochezia or melena. She denies any particular abdominal pain, cramping, or bloating. She denies any significant heartburn, dysphagia, anorexia, early satiety, nausea, vomiting, nor unintentional weight loss. She cannot relate any of these episodes to stress, any particular dietary item, or any new medication. She does not have dairy products frequently and does not think it is from lactose intolerance. She has 1 cup of coffee daily. She denies any known family history of inflammatory bowel disease, celiac disease, or colorectal cancer. Laboratories in April revealed a normal CBC with a hemoglobin of 15.2, normal chemistries and renal function, normal magnesium, normal lipase level, and normal liver profile. * Medical History: D enies [place],DM,CVA,Lung disease,renal disease, Atrial fibrillation x 15 years- Dr. Coffey, Hyperlipidemia, Osteoporosis, Neg. colonoscopy [place] [address] Melgoza, Screening colonoscopy in August 2019 with removal of a small tubular adenoma. * Surgical History: T AH 1982, CCY 1989, Tonsillectomy . * Family History: F ather: . M [...] N onsmoker; occ alcohol. * Medications: T aking Vitamin D 50 MCG (1999 UT) Tablet 1 tablet Orally Once a day , Taking Metoprolol Succinate ER 25 MG Tablet Extended Release 24 Hour 1/2 T PO QD Orally Once a day , Taking LORazepam 0.5 MG Tablet 1 tablet as needed Orally Once a day , Taking Flecainide Acetate 50 MG Tablet 1 T PO BID Orally TWICE A DAY , Taking Simvastatin 20 MG Tablet 1 T PO QPM Orally Once a day , Taking Warfarin Sodium 5 MG Tablet TK 1 T PO Orally Once a day/ DIRECTED , Taking Multi Vitamin/Minerals - Tablet as directed Orally once a day , Taking Flaxseed Oil 1000 MG Capsule as directed Orally once a day , Taking Alendronate Sodium 70 MG Tablet 1 tablet Orally once a week , Taking Citrucel 500 MG Tablet TAKE ONE TABLET BY MOUTH EVERY DAY Oral , Not-Taking/PRN Calcium + D 600-200 MG-UNIT Tablet 1 tablet Orally Twice a day , Not-Taking/PRN Probiotic 250 MG Capsule 1 capsule Orally once a day , Not-Taking/PRN Jantoven 5 MG Tablet Oral , Medication List reviewed and reconciled with the patient * Allergies: S easonal. Objective: * Vitals: W t:154.4lbs, Ht: 65 in, BMI: 25.69 Index, BP:001/01mm Hg, Temp:98.2, Wt-k.04. Assessment: * Assessment: 1. I rritable bowel syndrome - K58.9 (Primary) 2 . I rregular bowel habits - R19.8 3 . D iarrhea - R19.7 Plan: * Treatment: 2. I rregular bowel habits L AB: Celiac Disease Panel 3. D iarrhea L AB: Celiac Disease Panel * Preventive Medicine: Counseling: C are goal follow-up plan: A jessica Normal BMI Follow-up D ietary management education, guidance, and counseling, B [place] management provided Y es. Urinary Incontinence: U rinary Incontinence A ssessment: P resent, P velvet of care documented: Y es, T ype of plan of care: B ladder training. Screenings: F all Risk Screening F all Risk Assessment: N o falls in the past year, S creening: N o falls in the past year, A ssessment: N ot performed, no reason specified, P velvet of Care: N ot documented, no reason specified. * Follow Up: p rn * * The named appointment provid er may or may not be the originator of this progress note, and it is not deemed complete until electronically signed by the appointment provider. Sign off status: Pending * Provider: Jovani Patel MD Date: 0 06/27/2025 Generated for Jodi lund/Edith/Mary on: 01:54 PM EDT History and Physical Notes * HPI (History of Present Illness) Category Sub-Category Detail Notes Category Not es incontinence I saw Jenny in follow-up today in regard to her intermittent irregular bowel movements with associated urgency. I last saw Reta in December 2023. At that time we had discussed her several episodes of irregular bowel movements and urgency that she had had in 2022. However, by the time I had seen her in 2023 those episodes had resolved and she was not having any problems. Therefore I did not have her do any diagnostic testing. Her last colonoscopy had been in 2018 but when I saw her last year I did not think she had to repeat that given her age, minimal findings in the past, and no particularly worrisome or active GI complaints other than the episode she had had the year before that. Since that time she had been using 1 Citrucel daily to help keep her bowel movements regular. She was not having any trouble until this year when she began having episodes of intermittent urgency with loose stools. She had a particularly bad episode on when she was awakened with diarrhea and incontinence. She has not had any further nocturnal episodes such as that, but does have intermittent episodes during the day in which she will suddenly develop urgency and have to kaplan to the bathroom to have a loose bowel movement. This might occur once or twice after that, but then the remainder of the day she is fine. After the episode she does not have any further problems that day. These episodes are not occurring daily but sound like they occur about 2 or 3 times per week. She has not noticed any hematochezia or melena. She denies any particular abdominal pain, cramping, or bloating. She denies any significant heartburn, dysphagia, anorexia, early satiety, nausea, vomiting, nor unintentional weight loss. She cannot relate any of these episodes to stress, any particular dietary item, or any new medication. She does not have dairy products frequently and does not think it is from lactose intolerance. She has 1 cup of coffee daily. She denies any known family history of inflammatory bowel disease, celiac disease, or colorectal cancer. Laboratories in April revealed a normal CBC with a hemoglobin of 15.2, normal chemistries and renal function, normal magnesium, normal lipase level, and normal liver profile.
--- OUTSIDE RECORDS SUMMARY | 2025-07-04 13:54 | XMS_ITS | Clinical Summary ---
Author Organization [employer] Address [address] [facility] [address] [place] [address] Care Team Providers Care Automotive General Manager Name Role Phone Unavailable Primary Care Provider Unavailabl e Encounters Date Type Department Care Team Description 06/24/2025 10:05 AM EDT Nurse Only [facility] [address] [place] [address] Patricia Burk RN Encounter for vaccination; Encounter [...] age to complete this topic Insurance [place] [address] [place] [phone] [facility]
--- OUTSIDE RECORDS SUMMARY | 2025-07-04 13:54 | XMS_ITS | Patient Health Record ---
Author Organization [facility] Address [address] [place] [address] Care Team Providers Care Magnetizer Name Role Phone Po Marylu LR Primary Care Provider Jarrett Pereira [phone] Allergies Allergen (clinical drug ingredient) Drug/Non Drug [...] Status Risk Notes Problem Irritable bowel syndrome (30126571) Irritable bowel syndrome (K58.9) Active confirmed Problem 213882342 Encounter for screening for malignant neoplasm of colon (Z12.11) Active confirmed Problem Diarrhea (75247205) Diarrhea (R19.7) Active confirmed Problem Irregular bowel habits (334474530) Irregular bowel habits (R19.8) Active confirmed Problem Incontinence of feces (74911473) Incontinence of feces, unspecified fecal incontinence type (R15.9) Active confirmed Problem 403209507 Long-term (current) use of anticoagulants, INR goal 2.0-3.0 (Z79.01) Active confirmed Vital Signs Temperature 98.2 degrees Fahrenheit 06/27/2025 Blood pressure diastolic 01 mm Hg 06/27/2025 Height 65 in 06/27/2025 Blood pressure systolic 001 mm Hg 06/27/2025 Weight 154.4 lbs 06/27/2025 BMI 25.69 kg/m2 06/27/2025 Encounters Encounter Location Date Provider Diagnosis [facility] [address] [place] [address] 06/27/2025 Jarrett Patel Irritable bowel syndrome K58.9 [...] MEDICARE OF [place] [address] [place] [address] [phone] [id number] MARGOT HILL Self - patient is the insured MED[employer] ATTN CLAIMS [address] [place] [address] [id number] MARGOT HILL Self - patient is the [...]
[2025-07-04 14:08] LABS: Prothrombin Time Whole Bld POC 21.2 sec (11.1-13.5); ~PT, ~INR - Anti Coag Clinic 1.8 (0.9-1.1)
--- NOTE | 2025-07-04 14:28 | MHC.OFFVISCO ---
Intake Intake Visit Reasons: Anticoagulation Allergies escitalopram (Lexapro) Allergy (Unknown, Verified 07/04/25 14:05) Nausea sertraline (Zoloft) Allergy (Unknown, Verified 07/04/25 14:05) NAUSEA ANTIDEPRESSANTS Allergy (Unknown, Uncoded 07/04/25 14:05) MAKE ME FEEL SICK Medication List - Last Reconciled 07/04/25 by Cristel Coreas RN acetaminophen (Tylenol) 325 mg PO QID PRN alendronate 70 mg PO QWEEK cholecalciferol (vitamin D3) PO cyclobenzaprine 5 mg PO BEDTIME PRN diphenhydramine HCl (NightTime Sleep Aid (diphenhydramine)) 25 mg PO BEDTIME enoxaparin 60 mg (0.6 mL) subcut Q12H flaxseed oil 1,000 mg PO DAILY flecainide 50 mg PO BID fluticasone furoate 27.5 mcg/actuation 2 sprays intranasal DAILY ipratropium bromide 2 sprays intranasal BID-TID PRN lorazepam 0.5 mg PO BID-TID PRN 30 days methylcellulose (laxative) (Citrucel) 500 mg PO DAILY metoprolol succinate ER 12.5 mg (1/2 x 25 mg) PO DAILY multivitamin 1 tab PO DAILY simvastatin 20 mg PO BEDTIME warfarin 5 mg See Protocol PO DAILY Nursing Note pt came to [facility] with lovenox inj she stated she did not know how to give herself injection. Instructions reviewed and demo provided for pt showing her how to give her injection. INR 1.8 out of therapeutic range Medications and supplements reviewed Patient status: Pt INR yesterday 1.3 s/p 1 week post covid vaccine could be a possible cause of low INR Medications or supplements: no other changes Diet: good Denies any signs and symptoms of bleeding or clotting or unusual bruising Bleeding, bruising, clotting discussed Nutritional guidance given: avoid greens x 2 more days Dose: had booster dose 7.5mg then 5mg today then resume usual dose 5mg x 2 days/ 2.5mg x 5 days F/U INR Date: 07/07/2025 ?? Patient verbalizing understanding of instructions given. Msg to PCP regarding lovenox Anti-Coag Initial Assessment Social Hx Patient Tobacco Use Status: Never used Tobacco alcohol intake: current Alcohol intake frequency: a few times a month Coding Level of Care Code Est Patient Level 1 Diagnoses Current use of anticoagulant therapy Z79.01 Results AMB INR Fingerstick AMB INR Fingerstick 1.8 Last Edit by Cristel Coreas RN on 07/04/25 14:09 MANUL ENTRY Assessment & Plan Assessment & Plan (1) Current use of anticoagulant therapy: Code(s): Z79.01 - residential (current) use of anticoagulants Category: Medical
== END 2025-07-04 15:22 | disposition home or self-care (01) ==
LOC: HO.ACS 13:42
PROVIDERS: PCP Internal Medicine; Visit Provider Internal Medicine Medical Oncology
DX: Z79.01 Long term (current) use of anticoagulants (principal)

== ENCOUNTER → 2025-07-04 13:42 | Outpatient (BNVA) | payer MEDICARE, SELFPAY | PROVIDERS: PCP Internal Medicine; Visit Provider Internal Medicine Medical Oncology | DX: Z51.81 Encounter for therapeutic drug level monitoring (principal); Z79.01 Long term (current) use of anticoagulants | CPT/HCPCS: 85610; 99211 ==

== ENCOUNTER 2025-07-07 09:34 | Outpatient (AMB) | payer MEDICARE, SELFPAY ==
--- OUTSIDE RECORDS SUMMARY | 2025-06-27 10:40 | XMS_ITS ---
Author Organization [facility] Address [address] [place] [address] Care Team Providers Care Dry Lumber Grader Name Role Phone Po Marylu LR Primary Care Provider Jarrett Pereira Unavailable [phone] Allergies Allergen (clinical drug ingredient) Drug/Non Drug [...] Status Risk Notes Problem Irritable bowel syndrome (85178959) Irritable bowel syndrome (K58.9) Active confirmed Problem Irregular bowel habits (019361958) Irregular bowel habits (R19.8) Active confirmed Problem Diarrhea (93984592) Diarrhea (R19.7) Active confirmed Vital Signs Temperature 98.2 degrees Fahrenheit 06/27/20 25 Blood pressure systolic 001 mm Hg 06/27/20 25 Blood pressure diastolic 01 mm Hg 025 Height 65 in 06/27/2025 Weight 154.4 lbs 06/27/2025 BMI 25.69 kg/m2 06/27/2025 Encounters Encounter Location Date Provider Diagnosis [facility] [address] [place] [address] 06/27/2025 Jarrett Patel Irritable bowel syndrome K58.9 [...] * JENNY HILL MDOB:1944 (80 yo F)Acc No.[id number]:06/27/2025 Progress Notes Patient: JENNY PATINO Provider: Jovani Patel MD :1945 A ge:80 Y S ex:Female Date:06/27/2025 Address:[address] [place] [address] [id number] Pcp:Marylu Humphreys MD Subjective: * Chief Complaints: [...] liver profile. * Medical History: D enies [place],DM,CVA,Lung disease,renal disease, Atrial fibrillation x 15 years- [...] ietary management education, guidance, and counseling, B UT management provided Y es. Urinary Incontinence: U [...] MD Date: 0 06/27/2025 Generated for Jodi lund/Edith/Sonyaitting on: 10:54 AM EDT History and Physical Notes * [...]
[2025-07-07 09:47] LABS: Prothrombin Time Whole Bld POC 26.9 sec (11.1-13.5); ~PT, ~INR - Anti Coag Clinic 2.2 (0.9-1.1)
--- NOTE | 2025-07-07 09:49 | MHC.OFFVISCO ---
Intake Intake Visit Reasons: Anticoagulation Allergies escitalopram (Lexapro) Allergy (Unknown, Verified 07/07/25 09:41) Nausea sertraline (Zoloft) Allergy (Unknown, Verified 07/07/25 09:41) NAUSEA ANTIDEPRESSANTS Allergy (Unknown, Uncoded 07/07/25 09:41) MAKE ME FEEL SICK Medication List - Last Reconciled 07/07/25 by Shelli Makc, RN acetaminophen (Tylenol) 325 mg PO QID PRN alendronate 70 mg PO QWEEK cholecalciferol (vitamin D3) PO cyclobenzaprine 5 mg PO BEDTIME PRN diphenhydramine HCl (NightTime Sleep Aid (diphenhydramine)) 25 mg PO BEDTIME enoxaparin 60 mg See Protocol subcut Q12H flaxseed oil 1,000 mg PO DAILY flecainide 50 mg PO BID fluticasone furoate 27.5 mcg/actuation 2 sprays intranasal DAILY ipratropium bromide 2 sprays intranasal BID-TID PRN lorazepam 0.5 mg PO BID-TID PRN 30 days methylcellulose (laxative) (Citrucel) 500 mg PO DAILY metoprolol succinate ER 12.5 mg (1/2 x 25 mg) PO DAILY multivitamin 1 tab PO DAILY simvastatin 20 mg PO BEDTIME warfarin 5 mg See Protocol PO DAILY Nursing Note INR: 2.2 in therapeutic range of 2-3 Medications and supplements reviewed No changes in health, diet, medications, or supplements, Denies any signs and symptoms of bleeding or bruising or clotting. Bleeding, bruising, clotting discussed Nutritional guidance given to avoid greens today and to have a serving of foods that raise the INR. Food list reviewed. Dose: 2.5mg X 5 days and 5mg X 2 days (Mon & Thurs) F/U INR: 2 weeks Patient verbalizes understanding of instructions given Anti-Coag Initial Assessment Social Hx Patient Tobacco Use Status: Never used Tobacco alcohol intake: current Alcohol intake frequency: a few times a month Coding Level of Care Code Est Patient Level 1 Diagnoses Current use of anticoagulant therapy Z79.01 Assessment & Plan Assessment & Plan (1) Current use of anticoagulant therapy: Code(s): Z79.01 - living supervisor (current) use of anticoagulants Category: Medical
--- OUTSIDE RECORDS SUMMARY | 2025-07-07 10:54 | XMS_ITS | Patient Health Record ---
Author Organization [facility] Address [address] [place] [address] Care Team Providers Care Top Frame Fitter Name Role Phone Po Marylu LR Primary Care Provider Jarrett Pereira [phone] Allergies Allergen (clinical drug ingredient) Drug/Non Drug [...] Status Risk Notes Problem Irritable bowel syndrome (75593013) Irritable bowel syndrome (K58.9) Active confirmed Problem 190901919 Encounter for screening for malignant neoplasm of colon (Z12.11) Active confirmed Problem Diarrhea (75531723) Diarrhea (R19.7) Active confirmed Problem Irregular bowel habits (321463142) Irregular bowel habits (R19.8) Active confirmed Problem Incontinence of feces (80504255) Incontinence of feces, unspecified fecal incontinence type (R15.9) Active confirmed Problem 635867303 Long-term (current) use of anticoagulants, INR goal 2.0-3.0 (Z79.01) Active confirmed Vital Signs Temperature 98.2 degrees Fahrenheit 06/27/2025 Blood pressure diastolic 01 mm Hg 06/27/2025 Height 65 in 06/27/2025 Blood pressure systolic 001 mm Hg 06/27/2025 Weight 154.4 lbs 06/27/2025 BMI 25.69 kg/m2 06/27/2025 Encounters Encounter Location Date Provider Diagnosis [facility] [address] [place] [address] 06/27/2025 Jarrett Patel Irritable bowel syndrome K58.9 [...] MEDICARE OF [place] [address] [place] [address] [id number] MARGOT HILL Self - patient is the insured MED[employer] ATTN CLAIMS [address] [place] [address] [id number] MARGOT HILL Self - patient is the insured Medical (General) History Medical History History ICD Code Denies [place],DM,CVA,Lung disease,renal dise ase Atrial fibrillation x 15 years- Dr. Girma maharaj Hyperlipidemia Osteoporosis Neg. [place] [address] Melgoza Screening colonoscopy in Aug with removal of a small tubular adenoma Surgical History Surgery Date(Month/Year) Tonsillectomy CCY 1989 KRISTINE 1982
--- OUTSIDE RECORDS SUMMARY | 2025-07-07 10:54 | XMS_ITS | Clinical Summary ---
Author Organization [employer] Address [address] [facility] 7t [place] [address] Care Team Providers Care Wheelage Clerk Name Role Phone Unavailable Primary Care Provider Unavailabl e Encounters Date Type Department Care Team Description 06/24/2025 10:05 AM EDT Nurse Only [facility] [address] [place] [address] Patricia Burk RN Encounter for vaccination; Encounter [...] age to complete this topic Insurance [place] [address] [place] [id number] [facility]
== END 2025-07-07 09:53 | disposition home or self-care (01) ==
LOC: HO.ACS 09:34
PROVIDERS: PCP Internal Medicine; Visit Provider Internal Medicine Medical Oncology
DX: Z79.01 Long term (current) use of anticoagulants (principal)

== ENCOUNTER → 2025-07-07 09:34 | Outpatient (BNVA) | payer MEDICARE, SELFPAY | PROVIDERS: PCP Internal Medicine; Visit Provider Internal Medicine Medical Oncology | DX: Z51.81 Encounter for therapeutic drug level monitoring (principal); Z79.01 Long term (current) use of anticoagulants | CPT/HCPCS: 85610; 99211 ==

== ENCOUNTER 2025-07-09 08:21 | Outpatient (REF) | payer MEDICARE, SELFPAY ==
[2025-07-09 09:00] LABS: Hematocrit 40.6 % (37.0-47.0); Hemoglobin 14.1 g/dl (12.0-16.0); Imm Gran Abs Auto 0.02 X10*3/uL (0.00-0.03); Imm Gran Pct Auto 0.4 % (0.0-0.4); Lymphocytes Absolute Auto 1.4 X10*3/uL (1.2-4.9); MANUAL DIFF FLAG SCAN; Mean Corpuscular HGB Conc 34.7 g/dl (31.0-35.0); Mean Corpuscular Hemoglobin 31.7 pg (27.0-33.0); Mean Corpuscular Volume 91.2 fL (80.0-98.0); NRBC Abs Auto 0.000 X10*3/uL (0.0-0.012); NRBC Pct Auto 0.0 /100WBC (0.0-0.2); PLT CLUMP 1; Red Blood Count 4.45 X10*6/uL (4.20-5.50); SCAN SMEAR FLAG 1
[2025-07-09 09:08] LABS: White Blood Count 4.9 X10*3/uL (4.8-10.8)
[2025-07-09 09:50] LABS: Alanine Aminotransferase 55 U/L (0-31); Albumin Level 4.2 g/dL (3.5-5.0); Alkaline Phosphatase 104 U/L (39-117); Anion Gap 10 (12-20); Aspartate Amino Transferase 52 U/L (5-31); Blood Urea Nitrogen 13 mg/dL (9-16); Calcium 9.1 mg/dL (8.4-10.2); Carbon Dioxide 25 mmol/L (22-29); Chloride 110 mmol/L (96-108); Cholesterol 154 mg/dL (<200); Estimated Glomerular Filt Rate 51; HDL Cholesterol 48 mg/dL (>40); Potassium 3.9 mmol/L (3.3-5.1); Sodium 141 mmol/L (135-145); Total Protein 6.8 g/dL (6.5-8.0); Triglycerides 204 mg/dL (<150)
[2025-07-09 09:58] LABS: Free T4 (Free Thyroxine) 1.08 ng/dL (0.71-1.85); Thyroid Stimulating Hormone 2.52 uIU/mL (0.32-4.0)
[2025-07-09 10:14] LABS: Folate 18.7 ng/mL (> or = 4.0); Vitamin B12 506 pg/mL (200-900)
[2025-07-10 22:04] LABS: Immunoglobulin A 156 mg/dL (70-320)
== END 2025-07-09 08:22 | disposition home or self-care (01) ==
LOC: HO.LAB 08:21
PROVIDERS: Absent Provider Internal Medicine; PCP Internal Medicine; Visit Provider Internal Medicine
DX: R19.8 Other specified symptoms and signs involving the digestive system and abdomen (principal); E78.00 Pure hypercholesterolemia, unspecified; K58.9 Irritable bowel syndrome, unspecified; R19.7 Diarrhea, unspecified; Z13.1 Encounter for screening for diabetes mellitus
CPT/HCPCS: 36415; 80053; 80061; 82306; 82607; 82746; 82784; 83036; 84439; 84443; 85025; 86364

== ENCOUNTER 2025-07-21 09:50 | Outpatient (AMB) | payer MEDICARE, SELFPAY ==
[2025-07-21 10:06] LABS: Prothrombin Time Whole Bld POC 31.6 sec (11.1-13.5); ~PT, ~INR - Anti Coag Clinic 2.6 (0.9-1.1)
--- NOTE | 2025-07-21 10:09 | MHC.OFFVISCO ---
Intake Intake Visit Reasons: Anticoagulation Allergies escitalopram (Lexapro) Allergy (Unknown, Verified 07/21/25 09:57) Nausea sertraline (Zoloft) Allergy (Unknown, Verified 07/21/25 09:57) NAUSEA ANTIDEPRESSANTS Allergy (Unknown, Uncoded 07/21/25 09:57) MAKE ME FEEL SICK Medication List - Last Reconciled 07/21/25 by Shelli Mack, RN acetaminophen (Tylenol) 325 mg PO QID PRN alendronate 70 mg PO QWEEK cholecalciferol (vitamin D3) PO cyclobenzaprine 5 mg PO BEDTIME PRN diphenhydramine HCl (NightTime Sleep Aid (diphenhydramine)) 25 mg PO BEDTIME enoxaparin 60 mg See Protocol subcut Q12H flaxseed oil 1,000 mg PO DAILY flecainide 50 mg PO BID fluticasone furoate 27.5 mcg/actuation 2 sprays intranasal DAILY ipratropium bromide 2 sprays intranasal BID-TID PRN lorazepam 0.5 mg PO BID-TID PRN 30 days methylcellulose (laxative) (Citrucel) 500 mg PO DAILY metoprolol succinate ER 12.5 mg (1/2 x 25 mg) PO DAILY multivitamin 1 tab PO DAILY simvastatin 20 mg PO BEDTIME warfarin 5 mg See Protocol PO DAILY Nursing Note INR: 2.6 in therapeutic range of 2-3 Medications and supplements reviewed No changes in health, diet, medications, or supplements, Denies any signs and symptoms of bleeding or bruising or clotting. Bleeding, bruising, clotting discussed Nutritional guidance given Dose: 2.5mg X 5 days and 5mg X 2 days (Mon & ) F/U INR: 4 weeks Patient verbalizes understanding of instructions given Anti-Coag Initial Assessment Social Hx Patient Tobacco Use Status: Never used Tobacco alcohol intake: current Alcohol intake frequency: a few times a month Coding Level of Care Code Est Patient Level 1 Diagnoses Current use of anticoagulant therapy Z79.01 Assessment & Plan Assessment & Plan (1) Current use of anticoagulant therapy: Code(s): Z79.01 - care home (current) use of anticoagulants Category: Medical
== END 2025-07-21 10:12 | disposition home or self-care (01) ==
LOC: HO.ACS 09:50
PROVIDERS: PCP Internal Medicine; Visit Provider Internal Medicine Medical Oncology
DX: Z79.01 Long term (current) use of anticoagulants (principal)

== ENCOUNTER → 2025-07-21 09:50 | Outpatient (BNVA) | payer MEDICARE, SELFPAY | PROVIDERS: PCP Internal Medicine; Visit Provider Internal Medicine Medical Oncology | DX: I48.20 Chronic atrial fibrillation, unspecified (principal); Z51.81 Encounter for therapeutic drug level monitoring; Z79.01 Long term (current) use of anticoagulants | CPT/HCPCS: 85610; 99211 ==

== ENCOUNTER 2025-08-20 09:46 | Outpatient (AMB) | payer MEDICARE, SELFPAY ==
--- NOTE | 2025-08-20 09:53 | MHC.OFFVISCO ---
Intake Intake Visit Reasons: Anticoagulation Allergies escitalopram (Lexapro) Allergy (Unknown, Verified 08/20/25 09:49) Nausea sertraline (Zoloft) Allergy (Unknown, Verified 08/20/25 09:49) NAUSEA ANTIDEPRESSANTS Allergy (Unknown, Uncoded 08/20/25 09:49) MAKE ME FEEL SICK Medication List - Last Reconciled 08/20/25 by Tali Lima RN acetaminophen (Tylenol) 325 mg PO QID PRN alendronate 70 mg PO QWEEK cholecalciferol (vitamin D3) PO cyclobenzaprine 5 mg PO BEDTIME PRN diphenhydramine HCl (NightTime Sleep Aid (diphenhydramine)) 25 mg PO BEDTIME enoxaparin 60 mg See Protocol subcut Q12H flaxseed oil 1,000 mg PO DAILY flecainide 50 mg PO BID fluticasone furoate 27.5 mcg/actuation 2 sprays intranasal DAILY ipratropium bromide 2 sprays intranasal BID-TID PRN lorazepam 0.5 mg PO BID-TID PRN 30 days methylcellulose (laxative) (Citrucel) 500 mg PO DAILY metoprolol succinate ER 12.5 mg (1/2 x 25 mg) PO DAILY multivitamin 1 tab PO DAILY simvastatin 20 mg PO BEDTIME warfarin 5 mg See Protocol PO DAILY Nursing Note INR 3.1-? out of therapeutic range 2-3 Medications and supplements reviewed Patient status: pt has watch that records heart rate and she is reporting lower heartrates- instructed to report to pcp or manager editorial today Medications or supplements: no changes Diet: same Denies any signs and symptoms of bleeding or clotting or unusual bruising Bleeding, bruising, clotting discussed Nutritional guidance given: will eat a green today Dose: 5mg x 2, 2.5mg x 5 F/U INR Date : pt req 4 weeks?? Patient verbalizing understanding of instructions given. Anti-Coag Initial Assessment Social Hx Patient Tobacco Use Status: Never used Tobacco alcohol intake: current Alcohol intake frequency: a few times a month Coding Level of Care Code Est Patient Level 1 Diagnoses Current use of anticoagulant therapy Z79.01 Assessment & Plan Assessment & Plan (1) Current use of anticoagulant therapy: Code(s): Z79.01 - intermediate project manager (current) use of anticoagulants Category: Medical Medications: On Hold enoxaparin Hold Comment: Doctor's Order 60 mg See Protocol subcut Q12H 6 mL 3RF
[2025-08-20 09:55] LABS: Prothrombin Time Whole Bld POC 37.7 sec (11.1-13.5); ~PT, ~INR - Anti Coag Clinic 3.1 (0.9-1.1)
--- OUTSIDE RECORDS SUMMARY | 2025-08-20 18:06 | XMS_ITS | Patient Health Record ---
Author Organization [facility] Address [address] [place] [address] Care Team Providers Care Operations Consultant Name Role Phone Po Marylu LR Primary Care Provider Jarrett Pereira [phone] Allergies Allergen (clinical drug ingredient) Drug/Non Drug Allergy documented on EMR Reaction Allergy Type Onset Date Status seasonal (uncoded) Unknown Allergy A ctive Reason For Referral No Information Medications Medication SIG (Take, Route, Frequency, Duration) Notes Start Date End Date Status Flecainide Acetate 50 MG Tablet 1 T PO BID Orally TWICE A DAY Active LORazepam 0.5 MG Tablet 1 tablet as need ed Orally Once a day Active Metoprolol Succinate ER 25 MG Tablet Extended Release 24 Hour 1/2 T PO QD Orally Once a day Active Jantoven 5 MG Tablet Oral; Duration: 90 Not-Taking/PRN Vitamin D 50 MCG (1999 UT) Tablet 1 tablet Orally Once a day 06/27/2025 Active Citrucel 500 MG Tablet TAKE ONE TABLET B Y MOUTH EVERY DAY Oral; Duration: 30 Active Alendronate Sodium 70 MG Tablet 1 tablet Orally once a week Active Flaxseed Oil 1000 MG Capsule as directed Orally once a day Active Probiotic 250 MG Capsule 1 capsule Orally once a day Not-Taking/PRN Multi Vitamin/Minerals - Tablet as directed Orally once a day Active Calcium + D 600-200 MG-UNIT Tablet 1 tablet Orally Twice a day; Duration: 30 day(s) Not-Taking/PRN Warfarin Sodium 5 MG Tablet TK 1 T PO Orally Once a day/ DIRECTED Active Simvastatin 20 MG Tablet 1 T PO QPM Orally Once a day Active Immunizations Vaccine Route Administration Date Status Comme nts Influenza Unknown 06/27/2019 Administered Influenza Unknown 07/25/2023 Administered Influenza Unknown 06/25/2025 Administered Social History Tobacco Use: Social History Observation Description Date Details (start date - stop date) Never Smoker NA - NA Social History Drugs/Alcohol: Social Info Question Answer Notes Alcohol Screen Did you have a drink containing alcohol in the past year? Yes How often did you have a drink containing [...] Never (0 point) Points 2 Interpretation Negative Tobacco Use: Social Info Question Answer Notes Tobacco Use/Smoking Patient is a nonsmoker Additional Details Category Social Info Options Details Miscellaneous: Marital status: Occupation: retired Section Notes: Nonsmoker; occ alcohol Nonsmoker; occ alcohol Nonsmoker; occ alcohol Problems Problem Type SNOMED Code ICD Code Onset Dates Problem Status W/U Status Risk Notes Problem Irritable bowel syndrome (47186667) Irritable bowel syndrome (K58.9) Active confirmed Problem Screening for malignant neoplasm of colon (894490029) Encounter for screening for malignant neoplasm of colon (Z12.11) Active confirmed Problem Diarrhea (16885353) Diarrhea (R19.7) Active confirmed Problem Irregular bowel habits (909378674) Irregular bowel habits (R19.8) Active confirmed Problem Incontinence of feces (44926058) Incontinence of feces, unspecified fecal incontinence type (R15.9) Active confirmed Problem Long-term current use of anticoagulant (141593236) Long-term (current) use of anticoagulants, INR goal 2.0-3.0 (Z79.01) Active confirmed Vital Signs Temperature 98.2 degrees Fahrenheit 06/27/2025 Blood pressure diastolic 01 mm Hg 06/27/2025 Height 65 in 06/27/2025 Blood pressure systolic 001 mm Hg 06/27/2025 Weight 154.4 lbs 06/27/2025 BMI 25.69 kg/m2 06/27/2025 Encounters Encounter Location Date Provider Diagnosis [facility] [address] [place] [address] 06/27/2025 Jarrett Patel Irritable bowel syndrome K58.9 ; Irregular bowel habits R19.8 and Diarrhea R19.7 Assessments Encounter Date Diagnosis (ICD Code) Assessment Notes Treatment Notes Treatment Clinical Notes Section Notes 06/27/2025 Irritable bowel syndrome (ICD-10 - K58.9) Try some Imodium as needed for loose stools Suzanne can try to increase the fiber if need be Overall, Jenny appears quite well. We did review her symptoms and based on their infrequent nature, her excellent clinical appearance, and her history, I advised her that this seems consistent with some episodes of irritable bowel syndrome. I do not think this reflects anything such as inflammatory bowel disease, GI neoplasm, or any other significant problem like that given that the episodes are infrequent and from what she describes the majority of the time she is doing well. I advised her that I do not think a colonoscopy would be helpful here given the intermittent nature of her symptoms and again what sounds like irritable bowel syndrome. I shall check laboratories for celiac disease given the change in her bowel habits but I advised her that I suspect that will come back as negative as well. I have recommended that she perhaps increase the fiber supplement to 4 or 5 times per week instead of just 3 times per week. I also advised her to try to keep an informal food diary just to see if lebronhance there is a specific food item that bothers her, such as dairy. I also recommended that she have some Imodium on hand to take after any particularly problematic loose stool to see if that can help prevent further episodes later that day. I advised her that I will be in touch with her as to the results of the celiac disease testing. Assuming that is negative I advised her that she should try the symptomatic treatment as outlined above. If things improve and are stable she can then simply see me again as needed. However, I did advise her that if her symptoms remain problematic, and certainly if they worsen, she will need to call me such that we can further review things and possibly schedule a colonoscopy based on that. I advised her that if I do not hear from her I will assume things have stabilized and have improved. Jenny was comfortable with this plan. Thank you again for allowing me to have participated in Jenny's care. I shall continue to keep you advised of her progress as needed. Please do not hesitate to contact me if I can be of any further assistance in the future. 06/27/2025 Irregular bowel habits (ICD-10 - R19.8) Overall, Jenny appears quite well. We did review her symptoms and based on their infrequent nature, her excellent clinical appearance, and her history, I advised her that this seems consistent with some episodes of irritable bowel syndrome. I do not think this reflects anything such as inflammatory bowel disease, GI neoplasm, or any other significant problem like that given that the episodes are infrequent and from what she describes the majority of the time she is doing well. I advised her that I do not think a colonoscopy would be helpful here given the intermittent nature of her symptoms and again what sounds like irritable bowel syndrome. I shall check laboratories for celiac disease given the change in her bowel habits but I advised her that I suspect that will come back as negative as well. I have recommended that she perhaps increase the fiber supplement to 4 or 5 times per week instead of just 3 times per week. I also advised her to try to keep an informal food diary just to see if perchance there is a specific food item that bothers her, such as dairy. I also recommended that she have some Imodium on hand to take after any particularly problematic loose stool to see if that can help prevent further episodes later that day. I advised her that I will be in touch with her as to the results of the celiac disease testing. Assuming that is negative I advised her that she should try the symptomatic treatment as outlined above. If things improve and are stable she can then simply see me again as needed. However, I did advise her that if her symptoms remain problematic, and certainly if they worsen, she will need to call me such that we can further review things and possibly schedule a colonoscopy based on that. I advised her that if I do not hear from her I will assume things have stabilized and have improved. Jenny was comfortable with this plan. Thank you again for allowing me to have participated in Jenny's care. I shall continue to keep you advised of her progress as needed. Please do not hesitate to contact me if I can be of any further assistance in the future. 06/27/2025 Diarrhea (ICD-10 - R19.7) Overall, Jenny appears quite well. We did review her symptoms and based on their infrequent nature, her excellent clinical appearance, and her history, I advised her that this seems consistent with some episodes of irritable bowel syndrome. I do not think this reflects anything such as inflammatory bowel disease, GI neoplasm, or any other significant problem like that given that the episodes are infrequent and from what she describes the majority of the time she is doing well. I advised her that I do not think a colonoscopy would be helpful here given the intermittent nature of her symptoms and again what sounds like irritable bowel syndrome. I shall check laboratories for celiac disease given the change in her bowel habits but I advised her that I suspect that will come back as negative as well. I have recommended that she perhaps increase the fiber supplement to 4 or 5 times per week instead of just 3 times per week. I also advised her to try to keep an informal food diary just to see if jose there is a specific food item that bothers her, such as dairy. I also recommended that she have some Imodium on hand to take after any particularly problematic loose stool to see if that can help prevent further episodes later that day. I advised her that I will be in touch with her as to the results of the celiac disease testing. Assuming that is negative I advised her that she should try the symptomatic treatment as outlined above. If things improve and are stable she can then simply see me again as needed. However, I did advise her that if her symptoms remain problematic, and certainly if they worsen, she will need to call me such that we can further review things and possibly schedule a colonoscopy based on that. I advised her that if I do not hear from her I will assume things have stabilized and have improved. Jenny was comfortable with this plan. Thank you again for allowing me to have participated in Jenny's care. I shall continue to keep you advised of her progress as needed. Please do not hesitate to contact me if I can be of any further assistance in the future. Plan Of Treatment Pending Test Test Name Order Date Celiac Disease Panel 06/27/2025 Future Test Test Name Order Date COLONOSCOPY 07/03/2019 Insurance Providers Payer Name Payer Address Payer Phone Subscriber Number Group Number Insured Name Patient Relationship to Insured Coverage Start Date Coverage End Date MEDICARE OF [place] [address] [place] [address] [phone] [id number] JENNY HILL Self - patient is the insured [employer] ATT[employer] CLAIMS [address] [place] [phone] [id number] JENNY HILL Self - patient is the insured Medical (General) History Medical History History ICD Code Denies ID,DM,CVA,Lung disease,renal dise ase Atrial fibrillation x 15 years- Dr. Girma maharaj Hyperlipidemia Osteoporosis Neg. colonoscopy in [address] Melgoza Screening colonoscopy in Aug with removal of a small tubular adenoma Surgical History Surgery Date(Month/Year) KRISTINE 1982 CCY 1989 Tonsillectomy
--- OUTSIDE RECORDS SUMMARY | 2025-08-20 18:06 | XMS_ITS | Clinical Summary ---
Author Organization [employer] Address [address] [place] [address] Care Team Providers Care Web Marketing Manager Name Role Phone Unavailable Primary Care Provider Unavailabl e Encounters Date Type Department Care Team Description 06/24/2025 10:05 AM EDT Nurse Only [facility] [address] [place] [address] Patricia Burk RN Encounter for vaccination; Encounter [...] 1957 Zoster Vaccines (1 of 2) 1994 COVID-19 Vaccine (2024- season) 2025 06/24/2025, 12/24/2024, 06/19/2024, Additional history exists DTaP/Tdap/Td Vaccines (2 - Td or Tdap) 04/30/2030 04/30/2020 Pneumococcal Vaccine: 50+ Years Completed 04/30/2020, 03/21/2019, 10/21/2015 RSV Patients and Patients Aged 60 years or older Completed 07/29/2023 Influenza Vaccine Completed 06/24/2025, , 07/25/2023, Additional [...] age to complete this topic Insurance MEDICARE [facility] MEDEX MEDICARE SUPPLEMENT
== END 2025-08-20 10:30 | disposition home or self-care (01) ==
LOC: HO.ACS 09:46
PROVIDERS: PCP Internal Medicine; Visit Provider Internal Medicine Medical Oncology
DX: Z79.01 Long term (current) use of anticoagulants (principal)

== ENCOUNTER → 2025-08-20 09:46 | Outpatient (BNVA) | payer MEDICARE, SELFPAY | PROVIDERS: PCP Internal Medicine; Visit Provider Internal Medicine Medical Oncology | DX: I48.20 Chronic atrial fibrillation, unspecified (principal); Z51.81 Encounter for therapeutic drug level monitoring; Z79.01 Long term (current) use of anticoagulants | CPT/HCPCS: 85610; 99211 ==

== ENCOUNTER 2025-09-18 08:02 | Outpatient (AMB) | payer MEDICARE, SELFPAY ==
[2025-09-18 08:07] LABS: Prothrombin Time Whole Bld POC 27.8 sec (11.1-13.5); ~PT, ~INR - Anti Coag Clinic 2.3 (0.9-1.1)
--- OUTSIDE RECORDS SUMMARY | 2025-09-18 08:07 | XMS_ITS | Clinical Summary ---
Author Organization [employer] Address [address] [facility] [address] [place] [address] Care Team Providers Care Measurement Operator Name Role Phone Unavailable Primary Care Provider Unavailabl e Encounters Date Type Department Care Team Description 06/24/2025 10:05 AM EDT Nurse Only [facility] [address] [place] [address] Patricia Burk RN Encounter for vaccination; Encounter [...] [facility] MEDEX MEDICARE SUPPLEMENT
--- NOTE | 2025-09-18 08:12 | MHC.OFFVISCO ---
Intake Intake Visit Reasons: Anticoagulation Allergies escitalopram (Lexapro) Allergy (Unknown, Verified 09/18/25 08:07) Nausea sertraline (Zoloft) Allergy (Unknown, Verified 09/18/25 08:07) NAUSEA ANTIDEPRESSANTS Allergy (Unknown, Uncoded 09/18/25 08:07) MAKE ME FEEL SICK Medication List - Last Reconciled 09/18/25 by Cristel Coreas RN acetaminophen (Tylenol) 325 mg PO QID PRN alendronate 70 mg PO QWEEK cholecalciferol (vitamin D3) PO cyclobenzaprine 5 mg PO BEDTIME PRN diphenhydramine HCl (NightTime Sleep Aid (diphenhydramine)) 25 mg PO BEDTIME flaxseed oil 1,000 mg PO DAILY flecainide 50 mg PO BID fluticasone furoate 27.5 mcg/actuation 2 sprays intranasal DAILY ipratropium bromide 2 sprays intranasal BID-TID PRN lorazepam 0.5 mg PO BID-TID PRN 30 days methylcellulose (laxative) (Citrucel) 500 mg PO DAILY metoprolol succinate ER 12.5 mg (1/2 x 25 mg) PO DAILY multivitamin 1 tab PO DAILY simvastatin 20 mg PO BEDTIME warfarin 5 mg See Protocol PO DAILY Nursing Note INR: 2.3 in therapeutic range Medications and supplements reviewed No changes in health, diet, medications, or supplements, Denies any signs and symptoms of bleeding or bruising or clotting. 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
== END 2025-09-18 08:15 | disposition home or self-care (01) ==
LOC: HO.ACS 08:02
PROVIDERS: PCP Internal Medicine; Visit Provider Internal Medicine Medical Oncology
DX: Z79.01 Long term (current) use of anticoagulants (principal)

== ENCOUNTER → 2025-09-18 08:02 | Outpatient (BNVA) | payer MEDICARE, SELFPAY | PROVIDERS: PCP Internal Medicine; Visit Provider Internal Medicine Medical Oncology | DX: I48.20 Chronic atrial fibrillation, unspecified (principal); Z79.01 Long term (current) use of anticoagulants; Z51.81 Encounter for therapeutic drug level monitoring | CPT/HCPCS: 85610; 99211 ==